=== PATIENT | male | born 1970 | race Caucasian/White ===

== ENCOUNTER 2018-08-25 01:26 | Emergency (ER) | payer OTHER ==
[~2018-08-25] VITALS: Ht 180.3 cm; Wt 87.7 kg
[2018-08-25 01:35] VITALS: Ht 180.3 cm; Wt 87.7 kg
[2018-08-25] MEDS ORDERED: METF850T13 PO (03:52)
[2018-08-25] MEDS ORDERED: CHOL100062 PO (03:52)
[2018-08-25] MEDS ORDERED: GLIM2TAB PO (03:52)
[2018-08-25] MEDS ORDERED: NEPH PO (03:52)
[2018-08-25] MEDS ORDERED: AMLO-147 PO (03:52)
[2018-08-25] MEDS ORDERED: VIT1TABL46 PO (03:52)
--- NOTE | 2018-08-25 04:38 | ERD ---
ER Documentation Chief Complaint Chief Complaint [id number],from home,syncopal episode X2,started Trulicity 2 wks ago Q1week HPI This is a 48-year-old male with a history of diabetes, CKD, who presents for evaluation of a syncopal episode. This was witnessed by the patient's , she reports that the patient had gotten out of bed, after getting up felt dizzy and lightheaded, and had a brief syncopal episode. Patient reports that he has felt dizzy, and generally weak since starting Trulicity, which was about 2 weeks ago. He denied a prodrome of chest pain prior, he had no headache, no shortness of breath. He has not had any leg swelling, fever or hemoptysis. He has no history of arrhythmia. ROS All systems reviewed and are negative except as per history of present illness. Medications Home Meds Reported Medications Vitamin B Complex* (Vitamin B Complex*) 1 Each Tablet, 1 TAB PO DAILY, TAB 08/25/18 Cholecalciferol* (Vitamin D3*) 1,000 Unit Tablet, 1000 UNIT PO DAILY, TAB 08/25/18 Multivit/Ca Carb/B Cmplx/Fa* (Shanta-Ivette*) 1 Tab Tab, 1 TAB PO DAILY, TAB 08/25/18 Amlodipine Besylate* (Amlodipine Besylate*) 10 Mg Tablet, 10 MG PO QAM, #30 TAB 08/25/18 Glimepiride* (Glimepiride*) 2 Mg Tablet, 2 MG PO WITH BREAKFAST DINNE, TAB 08/25/18 Metformin Hcl* (Metformin Hcl*) 850 Mg Tablet, 850 MG PO WITH BREAKFAST DINNE, #30 TAB 08/25/18 Allergies Allergies: Coded Allergies: No Known Allergy (Unverified , 08/25/18) PMhx/Soc Medical and Surgical Hx: pt denies Surgical Hx History of Surgery: No Anesthesia Reaction: No Hx Neurological Disorder: No Hx Respiratory Disorders: No Hx Cardiac Disorders: Yes (HTN, HYPERLIPIDEMIA ) Hx Psychiatric Problems: No Hx Miscellaneous Medical Probl: Yes (CKD) Hx Alcohol Use: No Hx Substance Use: No Hx Tobacco Use: No Smoking Status: Never smoker Physical Exam Vitals Vital Signs Date Temp Pulse Resp B/P (MAP) Pulse Ox O2 O2 Flow FiO2 Time Delivery Rate 08/25/18 98 16 131/79 100 Room Air 04:13 (96) 08/25/18 88 16 134/78 99 Room Air 03:15 (96) 08/25/18 97.7 82 18 137/72 100 01:35 (93) Physical Exam Const: No acute distress Head: Atraumatic Eyes: Normal Conjunctiva ENT: Normal External Ears, Nose and Mouth. Neck: Full range of motion. No meningismus. Resp: Clear to auscultation bilaterally Cardio: Regular rate and rhythm, no murmurs Abd: Soft, non tender, non distended. Normal bowel sounds Skin: No petechiae or rashes Back: No midline or flank tenderness Ext: No cyanosis, or edema Neur: Awake and alert Psych: Normal Mood and Affect Result Diagram: 08/25/1814308/25/18143 Results 24 hrs Laboratory Tests Test 08/25/18 01:44 08/25/18 03:18 White Blood Count 5.9 10^3/ul Red Blood Count 2.85 10^6/ul Hemoglobin 8.0 g/dl Hematocrit 24.4 % Mean Corpuscular Volume 85.6 fl Mean Corpuscular Hemoglobin 28.1 pg Mean Corpuscular Hemoglobin Concent 32.8 g/dl Red Cell Distribution Width 11.9 % Platelet Count 265 10^3/UL Mean Platelet Volume 10.4 fl Immature Granulocytes % 0.300 % Neutrophils % 73.4 % Lymphocytes % 15.8 % Monocytes % 7.0 % Eosinophils % 2.7 % Basophils % 0.8 % Nucleated Red Blood Cells % 0.0 /100WBC Immature Granulocytes # 0.020 10^3/ul Neutrophils # 4.3 10^3/ul Lymphocytes # 0.9 10^3/ul Monocytes # 0.4 10^3/ul Eosinophils # 0.2 10^3/ul Basophils # 0.1 10^3/ul Nucleated Red Blood Cells # 0.0 10^3/ul Sodium Level 134 mmol/L Potassium Level 4.8 mmol/L Chloride Level 107 mmol/L Carbon Dioxide Level 22 mmol/L Anion Gap 5 Blood Urea Nitrogen 69 mg/dl Creatinine 2.89 mg/dl Est Glomerular Filtrat Rate mL/min 23 mL/min Glucose Level 294 mg/dl Calcium Level 7.7 mg/dl Total Bilirubin 0.2 mg/dl Direct Bilirubin 0.00 mg/dl Indirect Bilirubin 0.2 mg/dl Aspartate Amino Transf (AST/SGOT) 10 IU/L Alanine Aminotransferase (ALT/SGPT) 21 IU/L Alkaline Phosphatase 53 IU/L Troponin I < 0.012 ng/ml Total Protein 4.8 g/dl Albumin 2.4 g/dl Globulin 2.40 g/dl Albumin/Globulin Ratio 1.00 Bedside Urine pH (LAB) 5.0 Bedside Urine Protein (LAB) 3+ Bedside Urine Glucose (UA) 0.50% Bedside Urine Ketones (LAB) Negative Bedside Urine Blood Trace-lysed Bedside Urine Nitrite (LAB) Negative Bedside Urine Leukocyte Esterase (L Negative Procedures/MDM This is a 48-year-old male presents ration of syncopal episode. I suspect his episode was most likely related to medication changes, his EKG showed no evidence of arrhythmia, labs were overall unremarkable, aside from his elevated creatinine, which per the patient was recently noted by his PMD, and resulted in the medication changes, he is following up with his PMD this week as of now. On labs he had no evidence of DKA, I reviewed his CT brain, and did not see an obvious intracranial bleed, and he had no evidence of external hematomas. Currently he is pending final CT read, if negative he can likely be discharged home. EKG: Rate/Rhythm: Normal Sinus Rhythm QRS, ST, T-waves: No changes consistent w/ acute ischemia Impression: No evidence of ischemia or arrhythmia 5:20 AM: CT brain negative for acute findings, patient stable for discharge home at discharge she was in no distress. Departure Diagnosis: Primary Impression: Syncope Syncope type: unspecified Qualified Codes: R55 - Syncope and collapse Condition: Stable IVY BRICENO MD Aug 25, 2018 04:38
[2018-08-25 05:32] VITALS: BP 134/72; PULSE 78; RESP 18
[2018-08-26] MEDS ORDERED: ATOR20TA38 PO (15:25)
[2018-08-26] MEDS ORDERED: CHOL200056 PO (15:26)
[2018-08-26] MEDS ORDERED: FURO40TA4 PO (15:27)
[2018-08-26] MEDS ORDERED: DULA0.75 SQ (15:28)
== END 2018-08-25 05:33 | disposition home or self-care (01) ==
LOC: E/R 01:26
DX: R55 Syncope and collapse (principal); I12.9 Hypertensive chronic kidney disease with stage 1 through stage 4 chronic kidney disease, or unspecified chronic kidney disease; N18.9 Chronic kidney disease, unspecified; E11.22 Type 2 diabetes mellitus with diabetic chronic kidney disease; Z79.84 Long term (current) use of oral hypoglycemic drugs
CPT/HCPCS: 36415; 70450; 71045; 80053; 81003; 82962; 84484; 85025; 93005; Z7502

== ENCOUNTER 2018-08-26 14:46 | Inpatient (IN) | payer OTHER ==
[2018-08-26] VITALS (16 sets, daily range): BP systolic 105–139; BP diastolic 57–80; PULSE 102–120; RESP 14–27
[~2018-08-26] VITALS: Ht 172.7 cm; Wt 90.2 kg
[~2018-08-26 14:46] MED LIST: AMLO-147 PO; CHOL100062 PO; GLIM2TAB PO; METF850T13 PO; NEPH PO; VIT1TABL46 PO
[2018-08-26] MEDS ORDERED: ASPIRIN 325 MG TAB PO STA (15:03)
[2018-08-26] MEDS ORDERED: SOD CHLORIDE 0.9% 500 ML IV STA (15:03)
[2018-08-26] MEDS ORDERED: DILTIAZEM-D5W 125MG/125ML DRIP 125 ML IV STA (15:16)
[2018-08-26] MEDS ORDERED: ATOR20TA38 PO (15:25)
[2018-08-26] MEDS ORDERED: CHOL200056 PO (15:26)
[2018-08-26] MEDS ORDERED: FURO40TA4 PO (15:27)
--- NOTE | 2018-08-26 15:27 | ERD ---
ER Documentation Chief Complaint Chief Complaint FEELING WEAK /DIZZY ,VOMITING , PALE HPI This is a 48-year-old male that presented to the emergency department stating that he had sudden onset of feeling very weak,dizzy lightheaded. He had one episode of nonbloody nonbilious emesis. The patient is a [id number] diabetes mellitus and recently started Trulicity 2 weeks prior to arrival. Since then the patient states he has been having multiple symptoms of not feeling very well with palpitations. The patient was seen and evaluated in the emergency department yesterday after he had a witnessed syncope episode by his that lasted for roughly several seconds. He had a work-up and was subsequently discharged home. The patient denies any chest pain or pressure. He is however stating that he feels weak with palpitations. He feels short of breath. He denies a headache or changes in vision. He feels very lightheaded and feels as though he is going to pass out again. He denies any recent travel or prolonged immobilization. The patient stated he had checked his sugar and it was found to be normal. He has been compliant with all his medications. ROS All systems reviewed and are negative except as per history of present illness. Medications Home Meds Reported Medications Dulaglutide (Trulicity) 0.75 Mg/0.5 Ml Pen.injctr, 0.75 MG SQ Q FRI PATIENT HASE A ADVERS REACTION WHEN HE INJECT THIS MEDICATION. 08/26/18 Furosemide* (Furosemide*) 40 Mg Tablet, 40 MG PO DAILY, TAB 08/26/18 Cholecalciferol (Vitamin D3) (Vitamin D-3) 2,000 Unit Tablet, 2000 UNIT PO DAILY, TAB 08/26/18 Atorvastatin Calcium* (Atorvastatin Calcium*) 20 Mg Tablet, 20 MG PO QHS, #30 TAB 08/26/18 Multivit/Ca Carb/B Cmplx/Fa* (Shanta-Ivette*) 1 Tab Tab, 1 TAB PO DAILY, TAB 08/25/18 Amlodipine Besylate* (Amlodipine Besylate*) 10 Mg Tablet, 10 MG PO QAM, #30 TAB 08/25/18 Glimepiride* (Glimepiride*) 2 Mg Tablet, 2 MG PO WITH BREAKFAST DINNE, TAB 08/25/18 Metformin Hcl* (Metformin Hcl*) 850 Mg Tablet, 850 MG PO WITH BREAKFAST DINNE, #30 TAB 08/25/18 Discontinued Reported Medications Vitamin B Complex* (Vitamin B Complex*) 1 Each Tablet, 1 TAB PO DAILY, TAB 08/25/18 Cholecalciferol* (Vitamin D3*) 1,000 Unit Tablet, 1000 UNIT PO DAILY, TAB 08/25/18 Allergies Allergies: Coded Allergies: No Known Allergy (Unverified , 08/25/18) PMhx/Soc History of Surgery: No Anesthesia Reaction: No Hx Neurological Disorder: No Hx Respiratory Disorders: No Hx Cardiac Disorders: Yes (HTN, HYPERLIPIDEMIA ) Hx Psychiatric Problems: No Hx Miscellaneous Medical Probl: Yes (CKD) Hx Alcohol Use: No Hx Substance Use: No Hx Tobacco Use: No Physical Exam Vitals Vital Signs Date Temp Pulse Resp B/P (MAP) Pulse Ox O2 O2 Flow FiO2 Time Delivery Rate 08/26/18 101.8 112 20 132/69 100 Room Air 18:51 (90) 08/26/18 99.8 110 20 141/74 100 Room Air 18:38 (96) 08/26/18 112 18 144/73 100 Room Air 18:10 (96) 08/26/18 113 18 136/72 100 Room Air 17:10 (93) 08/26/18 100.5 112 18 150/78 100 Room Air 16:10 (102) 08/26/18 97.8 119 18 112/62 100 14:50 (79) Physical Exam Constitutional:Well-developed. Well-nourished. HEENT:Normocephalic. Atraumatic.Pupils were equal round reactive to light. Moist mucous membranes.No tonsillar exudates. Neck: No nuchal rigidity. No lymphadenopathy. No posterior cervical spine tenderness or step-offs. Respiratory: Not using accessory muscles of respiration.Lungs were clear to auscultation bilaterally. No rhonchi. No rales. No wheezing. Cardiovascular: Tachycardic with irregular regular rhythm. No murmurs. No rubs were appreciated.S1, S2 normal. Distal pulses are palpable 2+ bilaterally. GI: Abdomen was soft. Nontender. Non Distended. No pulsatile abdominal masses or bruits. No rebound. No guarding. Bowel sounds were present and normal. Muscle skeletal: Full range of motion of both the upper and lower extremities bilaterally.Normal muscle tone.No assymetrical calf tenderness or swelling. Skin: Pale and diaphoretic. No petechia, no purpura. No lesions on the palms or the soles of the feet. No maculopapular rash. NEURO: Patient was alert, awake, orientated x3.No facial droop. Gait observed and normal with no ataxia.Speech had regular rate and rhythm. No focal neurological deficits. Result Diagram: 08/26/18 1545 08/26/18 1545 Results 24 hrs Laboratory Tests Test 08/26/18 14:58 08/26/18 15:45 Bedside Glucose 281 mg/dL White Blood Count 10.0 10^3/ul Red Blood Count 1.37 10^6/ul Hemoglobin 3.9 g/dl Hematocrit 11.9 % Mean Corpuscular Volume 86.9 fl Mean Corpuscular Hemoglobin 28.5 pg Mean Corpuscular Hemoglobin Concent 32.8 g/dl Red Cell Distribution Width 12.2 % Platelet Count 352 10^3/UL Mean Platelet Volume 11.0 fl Immature Granulocytes % 0.500 % Neutrophils % % Segmented Neutrophils % (Manual) 62 % Band Neutrophils % (Manual) 3 % Lymphocytes % % Lymphocytes % (Manual) 28 % Monocytes % % Monocytes % (Manual) 4 % Eosinophils % % Eosinophils % (Manual) 3 % Basophils % % Nucleated Red Blood Cells % 0.0 /100WBC Immature Granulocytes # 0.050 10^3/ul Neutrophils # 10^3/ul Neutrophils # (Manual) 6.2 10^3/ul Band Neutrophils # 0.3 10^3/ul Lymphocytes (Manual) 2.8 10^3/ul Lymphocytes # 2.8 10^3/ul Monocytes # 0.4 10^3/ul Monocytes # (Manual) 0.4 10^3/ul Eosinophils # 0.3 10^3/ul Basophils # 10^3/ul Nucleated Red Blood Cells # 10^3/ul Platelet Estimate NORMAL Absolute Reticulocyte Count 0.038 X10^6 Percent Reticulocyte Count 2.8 % Prothrombin Time 13.9 Sec Prothrombin Time Ratio 1.1 INR International Normalized Ratio 1.06 Activated Partial Thromboplast Time 28.2 Sec D-Dimer 1124.24 ng/ml D-Dimer Comment Sodium Level 138 mmol/L Potassium Level 4.9 mmol/L Chloride Level 112 mmol/L Carbon Dioxide Level 18 mmol/L Anion Gap 8 Blood Urea Nitrogen 102 mg/dl Creatinine 2.67 mg/dl Est Glomerular Filtrat Rate mL/min 25 mL/min Glucose Level 252 mg/dl Calcium Level 8.2 mg/dl Iron Level 44 ug/dl Total Iron Binding Capacity 204 ug/dl Percent Iron Saturation 22 % SAT Ferritin 60.6 ng/ml Total Bilirubin 0.1 mg/dl Direct Bilirubin 0.00 mg/dl Indirect Bilirubin 0.1 mg/dl Aspartate Amino Transf (AST/SGOT) 10 IU/L Alanine Aminotransferase (ALT/SGPT) 23 IU/L Alkaline Phosphatase 49 IU/L Lactate Dehydrogenase 342 IU/L Creatine Kinase 44 IU/L Creatine Kinase Index 1.6 Creatinine Kinase MB (Mass) 0.69 ng/ml Troponin I < 0.012 ng/ml B-Type Natriuretic Peptide 380 PG/ML Total Protein 4.8 g/dl Albumin 2.4 g/dl Globulin 2.40 g/dl Albumin/Globulin Ratio 1.00 Lipase 568 U/L Ethyl Alcohol Level < 10.0 mg/dl Current Medications Medications Dose Sig/Hardik Start Time Status Last (Trade) Ordered Route PRN Stop Time Admin Dose Reason Admin Sodium 500 ml @ Q1H STAT 08/26/18 DC Chloride 500 mls/hr IV 15:03 08/26/18 16:02 Aspirin 325 mg ONCE STAT 08/26/18 DC (Aspirin) PO 15:03 08/26/18 15:05 Diltiazem 10 mg ONCE ONCE 08/26/18 DC HCl IV 15:30 08/26/18 (Cardizem Iv) 15:31 Diltiazem 125 ml @ 5 ONCE STAT 08/26/18 HCl mls/hr IV 15:16 08/27/18 16:15 Famotidine 20 mg ONCE STAT 08/26/18 DC (Pepcid Iv) IV 16:26 08/26/18 16:27 Pantoprazole 100 ml @ ONCE STAT 08/26/18 DC 08/26/18 80 mg/Sodium 400 mls/hr IVPB 16:26 08/26/18 18:21 Chloride 16:40 Pantoprazole 100 ml @ ONCE STAT 08/26/18 08/26/18 80 mg/Sodium 10 mls/hr IV 16:26 08/27/18 18:46 Chloride 02:25 1,000 ml @ Q10H IV 08/26/18 Dextrose/Sodi 100 mls/hr 18:13 um Chloride Ondansetron 4 mg Q6H PRN 08/26/18 HCl (Zofran IV NAUSEA 18:30 Inj) AND/OR VOMITING Albuterol 2.5 mg Q2H RESP 08/26/18 (Proventil THERAPY PRN 18:30 0.083% (Neb)) NEB SHORTNESS OF BREATH 650 mg Q4H PRN 08/26/18 Acetaminophen [place] PAIN 18:30 (Tylenol LEVEL 1-3 OR Supp) FEVER Morphine 2 mg Q4H PRN 08/26/18 Sulfate IV PAIN 18:30 (morphine) LEVEL 7-10 Pantoprazole 100 ml @ Q10H IV 08/26/18 80 mg/Sodium 10 mls/hr 18:30 Chloride Furosemide 20 mg ONCE PRN 08/26/18 (Lasix) IV after 2nd 18:30 08/27/18 PRBC 18:29 Discontinue ONCE ONCE 08/26/18 DC Miscellaneous current oral XX 18:30 08/26/18 sulfonylur... 18:58 Information (* Miscellaneous Pharmacy Order) ONCE ONCE 08/26/18 DC Miscellaneous HYPOGLYCEMIA XX 18:30 08/26/18 PROTOCOL 18:58 Information w... (* Miscellaneous Pharmacy Order) Insulin NOVOLOG Q4 SC 08/26/18 Aspart *MILD* 21:00 (Novolog ALGORI... Insulin Pen) Discontinue ONCE ONCE 08/26/18 DC Miscellaneous all previ... XX 18:30 08/26/18 18:58 Information (* Miscellaneous Pharmacy Order) Hydralazine 10 mg Q4H PRN 08/26/18 HCl IV SBP >170 19:00 (Apresoline) 1 ea NOTE XX 08/26/18 Miscellaneous 19:00 Information Glucose 15 gm Q15M PRN 08/26/18 (Glutose) PO DECREASED 19:00 GLUCOSE Glucose 22.5 gm Q15M PRN 08/26/18 (Glutose) PO DECREASED 19:00 GLUCOSE Dextrose 25 ml Q15M PRN 08/26/18 (D50w IV DECREASED 19:00 Syringe) GLUCOSE Dextrose 50 ml Q15M PRN 08/26/18 (D50w IV DECREASED 19:00 Syringe) GLUCOSE Glucagon 1 mg Q15M PRN 08/26/18 (Glucagen) IM DECREASED 19:00 GLUCOSE Glucose 15 gm Q15M PRN 08/26/18 (Glutose) BUCCAL 19:00 DECREASED GLUCOSE Procedures/MDM This patient was seen and evaluated by myself. The patient presented to the emergency department complaining of dizziness. My differential diagnosis included but was not limited to hypovolemia, myocardial infarction, pulmonary embolism, hypoglycemia, hypoxia, anemia, vasovagal episode, hypothyroidism, anxiety, peripheral or central vertigo. The patient was placed on a monitor worker, continuous pulse oximetry and IV access established by nursing staff. The patient immediately had an Accu-Chek that was normal at 291. An EKG was immediately obtained as the patient was tachycardic and diaphoretic. 12 Lead EKG tracing ordered and reviewed by myself showed: Tachycardic irregular regular rhythm and flutter waves at 160 bpm and no arrhythmia. [place] not appreciated as P waves are not present. Right axis deviation. QRS duration normal. No ST segment elevation No ST segment depression. No changes consistent with acute ischemia. Nonsignificant Q waves present in inferior leads II, III and aVF I had ordered 10 mg of Cardizem and placed on a Cardizem drip. This appeared to be new atrial flutter and the patient is not anticoagulated. I went to the bedside multiple times to reevaluate the patient. He continued to be diaphoretic and hypotensive. Hemoglobin is 3.9. Therefore at this time the patient provided a written consent as I did feel he needed rapid autotransfusion. The patient already had a type and screen place but the blood was not ready therefore he received 1 unit of uncrossed matched blood. The seco nd unit was ready to be crossmatched which she received. Patient had significant improvement of his symptoms. He was no longer hypotensive he was no longer diaphoretic. He stated he did not feel dizzy or lightheaded. I repeated the EKG. 12 Lead EKG tracing ordered and reviewed by myself showed: Sinus tachycardia 110 bpm and no arrhythmia. NY interval normal. QRS duration normal. No ST segment elevation No ST segment depression. No changes consistent with acute ischemia. These note that the Cardizem push and drip had never been started. The patient became symptomatic which was thought to be secondary to a tachyarrhythmia from his severe anemia. Therefore again the Cardizem was never administered. Dr. Sims from have been consulted. An NG tube had initially been placed. This was successfully placed by nursing staff and confirmed to be good placement by myself as a Kayla syringe was utilized to indicate that there was a gush of air heard over the gastric region. Coffee-ground emesis was suctioned roughly 100 cc and then the patient had removed the NG tube himself as he stated he did not like the way the nasogastric tube helped him feel. Given the patient had new onset gastric bleeding a CT scan of the patient's abdomen was obtained as he did have reproducible epigastric tenderness. This was ordered by Dr. Asif also reviewed by myself and the radiologist and indicate the following: Abdominal adenopathy noted. Differential diagnosis includes inflammation and neoplasm. Very small right pleural effusion. Very small amount of ascites. Atherosclerosis. Moderate left inguinal hernia containing fat only and small to moderate right and containing fat only. I obtained a chest radiograph and there is hypoinflation of the lungs reviewed by myself there is no infiltrates or pneumothorax. The patient was hyperglycemic. There is no ketosis. This was treated with IV fluids. Critical Care: Time: 95 minutes Treatments/Evaluations: Close monitoring and treatment of unstable vital signs, cardiorespiratory, and neurologic status, while maintaining tight balance of fluid, respiratory, and cardiac interventions. Time does not include performing any of the above billable procedures. The patient will be admitted to the intensive care unit under the care of the hospitalist Dr. Asif in serious condition. Departure Diagnosis: Primary Impression: Upper GI bleed Additional Impressions: Near syncope Hyperglycemia without ketosis Condition: Serious EMIL SON MD Aug 26, 2018 15:26
[2018-08-26] MEDS ORDERED: DULA0.75 SQ (15:28)
[2018-08-26] MEDS ORDERED: DILTIAZEM 25 MG INJ IV ONE (15:30)
[2018-08-26] MEDS ORDERED: PANTOPRAZOLE IV 80 MG in SOD CHLORIDE 0.9% 100 ML IVPB STA (16:26)
[2018-08-26] MEDS ORDERED: FAMOTIDINE 20 MG INJ IV STA (16:26)
[2018-08-26] MEDS ORDERED: PANTOPRAZOLE IV 80 MG in SOD CHLORIDE 0.9% 100 ML IV STA (16:26)
[2018-08-26] MEDS ORDERED: ACETAMINOPHEN 650 MG SUPP PR PRN (18:30)
[2018-08-26] MEDS ORDERED: FUROSEMIDE 20 MG INJ IV PRN (18:30)
[2018-08-26] MEDS: PANTOPRAZOLE IV 80 MG in SOD CHLORIDE 0.9% 100 ML IV SCH (18:30)
[2018-08-26] MEDS ORDERED: ALBUTEROL 0.083% (NEB) 2.5 MG/3 ML AMP NEB PRN (18:30)
--- NOTE | 2018-08-26 18:38 | HP ---
Date/Time of Note Date/Time of Note DATE: 08/26/18 TIME: 18:19 Assessment/Plan VTE Prophylaxis SCD applied (from Nsg): Yes Pharmacological prophylaxis: NA/contraindicated Pharm contraindication: bleeding Assessment/Plan Assessment/Plan 1. Acute upper GI bleed - Patient noted with coffee ground emesis and hgb 3.9 - Gi consulted for further recommendations and potential EGD - IVF and Protonix drip on board - 4 units total of PRBC ordered with Lasix after 2nd dose to prevent overload - NG tube removed by patient but discussed if experiencing abdominal distension will need it replaced - Will check CT A/P when stable 2. Syncopal episode - secondary to severe anemia - supportive treatment 3. Blood loss anemia - total of 4 PRBC ordered - monitor H/H q6 after blood complete 4. Elevated lipase - most likely in setting of dehydration 5. HTN - PRN hydralazine 6. ALEJANDRO on CKD - most likely prerenal - per family renal function at 40% - will monitor for improvement after resuscitation. If remains impaired, will consult Nephrology 7. Diabetes mellitus - will hold PO medications. discussed holding Trulicity given intolerance - ISS and accuchecks - A1c ordered 8. Diet - NPO 9. DVT ppx - SCD 10. Disposition - Admit to ICU for close monitoring given severe anemia. GI consulted for possible EGD to determine etiology of UGIB Result Diagram: 08/26/18 1545 08/26/18 1545 Results 24hrs Laboratory Tests Test 08/26/18 14:58 08/26/18 15:45 Bedside Glucose 281 H White Blood Count 10.0 # Red Blood Count 1.37 #L Hemoglobin 3.9 #*L Hematocrit 11.9 #L Mean Corpuscular Volume 86.9 Mean Corpuscular Hemoglobin 28.5 L Mean Corpuscular Hemoglobin Concent 32.8 Red Cell Distribution Width 12.2 Platelet Count 352 # Mean Platelet Volume 11.0 H Immature Granulocytes % 0.500 H Neutrophils % Segmented Neutrophils % (Manual) 62 Band Neutrophils % (Manual) 3 Lymphocytes % Lymphocytes % (Manual) 28 Monocytes % Monocytes % (Manual) 4 Eosinophils % Eosinophils % (Manual) 3 Basophils % Nucleated Red Blood Cells % 0.0 Immature Granulocytes # 0.050 H Neutrophils # Neutrophils # (Manual) 6.2 Band Neutrophils # 0.3 Lymphocytes (Manual) 2.8 Lymphocytes # 2.8 Monocytes # 0.4 Monocytes # (Manual) 0.4 Eosinophils # 0.3 Basophils # Nucleated Red Blood Cells # Platelet Estimate NORMAL Absolute Reticulocyte Count 0.038 Percent Reticulocyte Count 2.8 H Prothrombin Time 13.9 Prothrombin Time Ratio 1.1 INR International Normalized Ratio 1.06 Activated Partial Thromboplast Time 28.2 D-Dimer 1124.24 H D-Dimer Comment Sodium Level 138 Potassium Level 4.9 Chloride Level 112 H Carbon Dioxide Level 18 L Anion Gap 8 Blood Urea Nitrogen 102 #H Creatinine 2.67 H Est Glomerular Filtrat Rate mL/min 25 L Glucose Level 252 H Calcium Level 8.2 L Iron Level 44 Total Iron Binding Capacity 204 L Percent Iron Saturation 22 Ferritin 60.6 Total Bilirubin 0.1 L Direct Bilirubin 0.00 Indirect Bilirubin 0.1 Aspartate Amino Transf (AST/SGOT) 10 L Alanine Aminotransferase (ALT/SGPT) 23 Alkaline Phosphatase 49 Lactate Dehydrogenase 342 Creatine Kinase 44 Creatine Kinase Index 1.6 Creatinine Kinase MB (Mass) 0.69 Troponin I < 0.012 B-Type Natriuretic Peptide 380 H Total Protein 4.8 L Albumin 2.4 L Globulin 2.40 Albumin/Globulin Ratio 1.00 Lipase 568 H Ethyl Alcohol Level < 10.0 H HPI/ROS Admit Date/Time Admit Date/Time 08/26/18 Hx of Present Illness 48 yo M with PMH Diabetes mellitus, HTN, CKD stage 3 and hyperlipidemia presented to ED following near syncopal episode today. Patient had a witnessed syncopal episode yesterday and was discharged from the ED after negative workup. Patient has been complaining of generalized weakness and "no strength" in his body. Patient had an episode of coffee ground emesis in the ED of about 200cc an d was found with hgb 3.9, Patient states over the past 2 weeks since starting Trulicity. He has been complaining of abdominal discomfort with bloating and gas. Denies any episode of emesis prior to today's ED visit. Patient denies any chest pain, shortness of breath, nausea, vomiting, dizziness, or urinary issues. NG tube was placed in the ED but patient requested removal due to discomfort. He was rapidly transfused 1 PRBC in the ED prior to transfer to ICU. ROS All 12 systems reviewed and pertinent positives as per HPI. All others negative Constitutional: fatigue; No nausea Eyes: No discharge ENT: No congestion Respiratory: No cough, No shortness of breath, No sputum, No wheezing Cardiovascular: lightheadedness; No chest pain, No palpitations Gastrointestinal: pain, blood, nausea, vomiting; No diarrhea Genitourinary: no complaints Musculoskeletal: no complaints Skin: No laceration, No rash Neurologic: syncope; No confusion, No dizziness, No focal-weakness, No headache Endocrine: no complaints Lymphatic: no complaints Psychological: nl mood/affect Immunologic: no complaints PMH/Family/Social Past Medical History Medical History: diabetes, high cholesterol, hypertension Medications Current Medications Diltiazem HCl 125 ml @ 5 mls/hr ONCE STAT IV ; Start 08/26/18 at 15:16; Stop 08/27/18 at 16:15 Pantoprazole 80 mg/Sodium Chloride 100 ml @ 10 mls/hr ONCE STAT IV ; Start 08/26/18 at 16:26; Stop 08/27/18 at 02:25 Coded Allergies: No Known Allergy (Unverified , 08/25/18) Past Surgical History Past Surgical Hx: no surgical history Family History Significant Family History: no pertinent family hx Social History Alcohol Use: none Smoking Status: Former smoker Drug Use: none Exam/Review of Systems Vital Signs Vitals Vital Signs Date Temp Pulse Resp B/P (MAP) Pulse Ox O2 O2 Flow FiO2 Time Delivery Rate 08/26/18 97.8 119 18 112/62 100 14:50 (79) Exam Exam General: Patient currently lying in bed, distress secondary to discomfort and f atigue HEENT: Atraumatic, normocephalic. The pupils are equal, round and reactive. Extraocular motor are intact Neck: Supple with full range of motion. No rigidity or meningismus Chest: Nontender Lungs: Clear to auscultation bilaterally no crackles rales or wheezing Heart: Normal S1-S2, Regular rhythm, tachycardia. No murmur, S3, or S4 Abdomen: Soft ,diffusely tender, protuberant , bowel sounds are present. No guarding no rebound tenderness , No masses or organomegaly. No costovertebral temporal angle mass Extremities: moving all extremities. no edema, cyanosis or clubbing Skin: pale complexion with dry mucus membrane Neurologic: Normal mental status, speech normal, cranial nerves II through XII are intact, motor and sensation intact Additional Comments Home medications reviewed PROCEDURE: XR Chest 1 View. CLINICAL INDICATION: Shortness of breath. TECHNIQUE: Single view of the chest was obtained. COMPARISON: Yesterday. FINDINGS: Support lines and tubes: None. Mediastinum: Within normal limits of size. Lungs: Hypoinflated lungs. Scattered atelectasis in both lungs. No consolidations. No pneumothorax. Osseous structures: Unchanged. Other: None. IMPRESSION: Scattered atelectasis in both lungs. Hypoinflated lungs. RPTAT: AA .Conrado Rice MD, MD Date Time Electronically viewed and signed by .Conrado Rice MD, MD on 08/26/2018 18:05 SOPHIA MCCLELLAN MD Aug 26, 2018 18:38
[2018-08-26] MEDS ORDERED: GLUCAGON 1 MG INJ IM PRN (19:00)
[2018-08-26] MEDS ORDERED: GLUCOSE GEL 15 GRAM TUBE PO PRN ×2 (19:00)
[2018-08-26] MEDS ORDERED: GLUCOSE GEL 15 GRAM TUBE BUCCAL PRN (19:00)
[2018-08-26] MEDS ORDERED: DEXTROSE 50% 50 ML SYRINGE IV PRN ×2 (19:00)
[2018-08-26] MEDS: DEXTROSE 5%-0.45% NACL 1,000 ML IV SCH (19:47)
[2018-08-26] MEDS: INSULIN ASPART [NOVOLOG] 3 ML PEN SC SCH (21:43)
[2018-08-27] VITALS (43 sets, daily range): BP systolic 100–156; BP diastolic 56–107; PULSE 84–109; RESP 9–30; BMI 28.8
[2018-08-27] MEDS: INSULIN ASPART [NOVOLOG] 3 ML PEN SC SCH ×6 (01:27→21:51)
[2018-08-27] MEDS: PANTOPRAZOLE IV 80 MG in SOD CHLORIDE 0.9% 100 ML IV SCH ×3 (01:35→23:11)
[2018-08-27] MEDS: DEXTROSE 5%-0.45% NACL 1,000 ML IV SCH (04:12)
[2018-08-27] MEDS: SOD CHLORIDE 0.9% 1,000 ML IV SCH ×3 (09:44→23:11)
--- NOTE | 2018-08-27 09:52 | PN ---
Date/Time of Note Date/Time of Note DATE: 08/27/18 TIME: 09:52 Objective Vitals Vital Signs Date Temp Pulse Resp B/P (MAP) Pulse Ox O2 O2 Flow FiO2 Time Delivery Rate 08/27/18 97 08:00 08/27/18 11 137/77 100 Room Air 06:00 (97) 08/27/18 98.4 04:00 Intake and Output 08/26/18 08/26/18 08/27/18 1515:00 23:00 07:00 IntakeIntake Total 1290 ml 770 ml OutputOutput Total 400 ml 500 ml BalanceBalance 890 ml 270 ml Results Result Diagram: 08/27/18 0455 08/27/18 0455 Medications Medications Current Medications Diltiazem HCl 125 ml @ 5 mls/hr ONCE STAT IV ; Start 08/26/18 at 15:16; Stop 08/27/18 at 16:15 Ondansetron HCl (Zofran Inj) 4 mg Q6H PRN IV NAUSEA AND/OR VOMITING; Start 08/26/18 at 18:30 Albuterol (Proventil 0.083% (Neb)) 2.5 mg Q2H RESP THERAPY PRN NEB SHORTNESS OF BREATH; Start 08/26/18 at 18:30 Acetaminophen (Tylenol Supp) 650 mg Q4H PRN [place] PAIN LEVEL 1-3 OR FEVER; Start 08/26/18 at 18:30 Morphine Sulfate (morphine) 2 mg Q4H PRN IV PAIN LEVEL 7-10; Start 08/26/18 at 18:30 Pantoprazole 80 mg/Sodium Chloride 100 ml @ 10 mls/hr Q10H IV Last administered on 08/27/18at 01:35; Admin Dose 10 MLS/HR; Start 08/26/18 at 18:30 Furosemide (Lasix) 20 mg ONCE PRN IV after 2nd PRBC Last administered on 08/26/18at 22:35; Admin Dose 20 MG; Start 08/26/18 at 18:30; Stop 08/27/18 at 18:29 Insulin Aspart (Novolog Insulin Pen) NOVOLOG *MILD* ALGORI... Q4 SC Last administered on 08/27/18at 09:42; Admin Dose 3 UNIT; Start 08/26/18 at 21:00 Hydralazine HCl (Apresoline) 10 mg Q4H PRN IV SBP >170; Start 08/26/18 at 19:00 Miscellaneous Information 1 ea NOTE XX ; Start 08/26/18 at 19:00 Glucose (Glutose) 15 gm Q15M PRN PO DECREASED GLUCOSE; Start 08/26/18 at 19:00 Glucose (Glutose) 22.5 gm Q15M PRN PO DECREASED GLUCOSE; Start 08/26/18 at 19:00 Dextrose (D50w Syringe) 25 ml Q15M PRN IV DECREASED GLUCOSE; Start 08/26/18 at 19:00 Dextrose (D50w Syringe) 50 ml Q15M PRN IV DECREASED GLUCOSE; Start 08/26/18 at 19:00 Glucagon (Glucagen) 1 mg Q15M PRN IM DECREASED GLUCOSE; Start 08/26/18 at 19:00 Glucose (Glutose) 15 gm Q15M PRN BUCCAL DECREASED GLUCOSE; Start 08/26/18 at 19:00 Sodium Chloride 1,000 ml @ 100 mls/hr Q10H IV Last administered on 08/27/18at 09:44; Admin Dose 100 MLS/HR; Start 08/27/18 at 09:30 Labetalol HCl (Labetalol) 10 mg Q4H PRN IV sbp >160; Start 08/27/18 at 10:00 VTE Prophylaxis Risk score (from Nsg)>0 risk: 2 SCD applied (from Nsg): Yes Lines/Catheters IV Catheter Type: Ruiz in Place: No Assessment/Plan Hospital Course Subjective Patient feeling much better than yesterday however still feels weak, no abdominal pain, currently no more vomiting, has some black stool however Objective Physical exam General: Patient is laying in bed and answers questions appropriately Mentation: Patient is alert and oriented 4, Head: Normocephalic atraumatic Eyes: EOMI, pupils reactive to light Neck: Supple, nontender, midline Respiratory: Clear to auscultation bilaterally Cardiovascular: regular rate, no obvious murmurs Gastrointestinal: non-tender to palpation, bowel sounds heard. Neurological: Moves all extremities spontaneously Skin: No new skin lesions Assessment and plan Hematemesis with acute upper GI bleed -Hemoglobin was very low, continue transfusions as needed, hematemesis has resolved -IV fluid and Protonix drip -GI consultation pending likely EGD -NG tube removed per patient, will need to replace if further hematemesis or abdominal distention or abdominal pain -GI recommendations pending Syncope -Likely secondary to above hematemesis and hemoglobin of 3.9 on admission [place]-supportive treatment -Monitor closely Blood loss anemia -Continue transfusing as needed needed -Secondary to GI bleed Elevated lipase -No abdominal pain -Likely due to above GI issues, monitor Hypertension -As needed hydralazine and labetalol, restart home meds when able to tolerate p.o. Acute kidney injury versus chronic kidney disease -Continue IV fluid -Nephrology consulted Diabetes mellitus -Patient stated that ever since he was given Trulicity the past week he has been experiencing severe side effects, hold Trulicity for now, insulin sliding scale for now Disposition -Continue care in the ICU, awaiting GI recommendations, transfuse as needed More than 40 minutes of critical care time spent on this encounter. IVY PICKETT Aug 27, 2018 09:52
[2018-08-27] MEDS ORDERED: SOD CHLORIDE 0.9% 250 ML IV* ONE (10:51)
--- NOTE | 2018-08-27 14:41 | CONS ---
Assessment/Plan Assessment/Plan Hospital Course (Demo Recall) Summary Assessment and Plan: Assessment: Coffee-ground emesis Severe anemia 2/2 to above Abdominal adenopathy noted -Differential diagnosis includes inflammation and neoplasm. Small right pleural effusion Elevated lipase- Likely 2/2 to dehydration HTN ALEJANDRO on CKD Small amount of ascites DM Plan: PPI gtt EGD today Endoscopy - risks/benefits/alternatives/indications of procedure and sedation/anesthesia discussed with patient who states understanding and gives informed consent to proceed. MRI of the abdomen to further assess abdominal adenopathy - we are unable to obtain imaging with contrast given kidney function. Monitor H/H Patient seen in collaboration with Dr Sims CC: NOBLE SIMS MD ; Consultation Date/Type/Reason Admit Date/Time 08/26/18 Date of Consultation: Aug 27, 2018 Type of Consult GI Reason for Consultation Coffee-ground emesis Date/Time of Note DATE: 08/27/18 TIME: 13:47 Hx of Present Illness This is a 48 year old male with PMH of DM, HTN, who was admitted for severe anemia with a HGB of 3.9 on admission. He initially presented to the hospital 2 days ago with complaints of dizziness, fatigue, and witnessed syncope, although work-up was negative and patient was subsequently discharged. He represented with similar complaints while in the ED patient had a witnessed episode of coffee ground emesis about 200cc and was found with hgb 3.9, He was admitted to the ICU and given blood transfusions. A Ct abd/pelvis was obtained without contrast given kidney disease showing abdominal adenopathy noted. Differential diagnosis includes inflammation and neoplasm. Very small right pleural effusion. Very small amount of ascites. Atherosclerosis. Moderate left inguinal hernia containing fat only and small to moderate right and containing fat only. Of note Patient states over the past 2 weeks since starting Trulicity. He has been complaining of abdominal discomfort with bloating and gas. Patient denies change in bowel habits, melena, or hematochezia, he does not unintentional weight loss over the past few weeks. He thinks may be unrelated to the start of Trulicity. Discussed plan for EGD today. I reviewed risk/benefits of sedation and procedure with patient who verbalized understanding and is agreeable. Review of Systems: A 12 system, review was conducted and is negative except as noted in the HPI or here. Past Medical History Medical History: diabetes, high cholesterol, hypertension Home Meds Reported Medications Dulaglutide (Trulicity) 0.75 Mg/0.5 Ml Pen.injctr, 0.75 MG SQ Q FRI PATIENT HASE A ADVERS REACTION WHEN HE INJECT THIS MEDICATION. 08/26/18 Furosemide* (Furosemide*) 40 Mg Tablet, 40 MG PO DAILY, TAB 08/26/18 Cholecalciferol (Vitamin D3) (Vitamin D-3) 2,000 Unit Tablet, 2000 UNIT PO DAILY, TAB 08/26/18 Atorvastatin Calcium* (Atorvastatin Calcium*) 20 Mg Tablet, 20 MG PO QHS, #30 TAB 08/26/18 Multivit/Ca Carb/B Cmplx/Fa* (Shanta-Ivette*) 1 Tab Tab, 1 TAB PO DAILY, TAB 08/25/18 Amlodipine Besylate* (Amlodipine Besylate*) 10 Mg Tablet, 10 MG PO QAM, #30 TAB 08/25/18 Glimepiride* (Glimepiride*) 2 Mg Tablet, 2 MG PO WITH BREAKFAST DINNE, TAB 08/25/18 Metformin Hcl* (Metformin Hcl*) 850 Mg Tablet, 850 MG PO WITH BREAKFAST DINNE, #30 TAB 08/25/18 Discontinued Reported Medications Vitamin B Complex* (Vitamin B Complex*) 1 Each Tablet, 1 TAB PO DAILY, TAB 08/25/18 Cholecalciferol* (Vitamin D3*) 1,000 Unit Tablet, 1000 UNIT PO DAILY, TAB 08/25/18 Medications Current Medications Diltiazem HCl 125 ml @ 5 mls/hr ONCE STAT IV ; Start 08/26/18 at 15:16; Stop 08/27/18 at 16:15 Ondansetron HCl (Zofran Inj) 4 mg Q6H PRN IV NAUSEA AND/OR VOMITING; Start 08/26/18 at 18:30 Albuterol (Proventil 0.083% (Neb)) 2.5 mg Q2H RESP THERAPY PRN NEB SHORTNESS OF BREATH; Start 08/26/18 at 18:30 Acetaminophen (Tylenol Supp) 650 mg Q4H PRN [place] PAIN LEVEL 1-3 OR FEVER; Start 08/26/18 at 18:30 Morphine Sulfate (morphine) 2 mg Q4H PRN IV PAIN LEVEL 7-10; Start 08/26/18 at 18:30 Pantoprazole 80 mg/Sodium Chloride 100 ml @ 10 mls/hr Q10H IV Last administered on 08/27/18at 01:35; Admin Dose 10 MLS/HR; Start 08/26/18 at 18:30 Furosemide (Lasix) 20 mg ONCE PRN IV after 2nd PRBC Last administered on 08/26/18at 22:35; Admin Dose 20 MG; Start 08/26/18 at 18:30; Stop 08/27/18 at 18:29 Insulin Aspart (Novolog Insulin Pen) NOVOLOG *MILD* ALGORI... Q4 SC Last administered on 08/27/18at 09:42; Admin Dose 3 UNIT; Start 08/26/18 at 21:00 Hydralazine HCl (Apresoline) 10 mg Q4H PRN IV SBP >170; Start 08/26/18 at 19:00 Miscellaneous Information 1 ea NOTE XX ; Start 08/26/18 at 19:00 Glucose (Glutose) 15 gm Q15M PRN PO DECREASED GLUCOSE; Start 08/26/18 at 19:00 Glucose (Glutose) 22.5 gm Q15M PRN PO DECREASED GLUCOSE; Start 08/26/18 at 19:00 Dextrose (D50w Syringe) 25 ml Q15M PRN IV DECREASED GLUCOSE; Start 08/26/18 at 19:00 Dextrose (D50w Syringe) 50 ml Q15M PRN IV DECREASED GLUCOSE; Start 08/26/18 at 19:00 Glucagon (Glucagen) 1 mg Q15M PRN IM DECREASED GLUCOSE; Start 08/26/18 at 19:00 Glucose (Glutose) 15 gm Q15M PRN BUCCAL DECREASED GLUCOSE; Start 08/26/18 at 19:00 Sodium Chloride 1,000 ml @ 100 mls/hr Q10H IV Last administered on 08/27/18at 09 :44; Admin Dose 100 MLS/HR; Start 08/27/18 at 09:30 Labetalol HCl (Labetalol) 10 mg Q4H PRN IV sbp >160; Start 08/27/18 at 10:00 Allergies: Coded Allergies: No Known Allergy (Unverified , 08/25/18) Past Surgical History Past Surgical Hx: no surgical history Social History Alcohol Use: none Smoking Status: Former smoker Drug Use: none Exam/Review of Systems Exam Vitals Vital Signs Date Temp Pulse Resp B/P (MAP) Pulse Ox O2 O2 Flow FiO2 Time Delivery Rate 08/27/18 89 12:00 08/27/18 20 122/75 100 Room Air 12:00 (91) 08/27/18 97.9 08:00 Intake and Output 08/26/18 08/26/18 08/27/18 1515:00 23:00 07:00 IntakeIntake Total 1290 ml 770 ml OutputOutput Total 400 ml 500 ml BalanceBalance 890 ml 270 ml Exam PHYSICAL EXAMINATION: GENERAL: Well developed, well nourished, alert & oriented x 3, in no acute distress SKIN: No lesions, no stigmata chronic liver disease, no evidence of bleeding diathesis LYMPHATIC: No palpable lymphadenopathy. HEAD: Normocephalic, atraumatic, no tenderness. EYES: Pupils equal reactive to light and accommodation, full extraocular movements, sclera clear, non-icteric, no discharge. EARS/NOSE AND THROAT: Ears normal, nose normal, oropharynx normal, oral membranes well hydrated without lesions. NECK: Supple, no masses, thyroid normal, JVP within normal limits, carotids normal without bruits. CHEST: Inspection within normal limits. CARDIOVASCULAR: Heart: Regular rate and rhythm, no murmurs, gallops or rubs. Peripheral pulses present within normal limits, no cyanosis, clubbing or edemas. No pulsatile abdominal mass RESPIRATORY: Lungs clear to auscultation and percussion, no wheezing, no rubs GASTROINTESTINAL AND LIVER: Abdomen: Soft, non tenderness, non-distended, no hernias, no masses, no organomegaly, no ascites, no guarding, no rebound tenderness, normoactive bowel sounds. Rectal: Deferred. Results Result Diagram: 08/27/18 1002 08/27/18 0455 Results 24hrs Laboratory Tests Test 08/26/18 14:58 08/26/18 15:45 08/26/18 21:40 08/26/18 22:52 Bedside Glucose 281 H 278 H White Blood Count 10.0 # Red Blood Count 1.37 #L Hemoglobin 3.9 #*L 5.1 #*L Hematocrit 11.9 #L 14.9 #L Mean Corpuscular Volume 86.9 Mean Corpuscular 28.5 L Hemoglobin Mean Corpuscular 32.8 Hemoglobin Concent Red Cell Distribution 12.2 Width Platelet Count 352 # Mean Platelet Volume 11.0 H Immature Granulocytes % 0.500 H Neutrophils % Segmented Neutrophils 62 % (Manual) Band Neutrophils % 3 (Manual) Lymphocytes % Lymphocytes % (Manual) 28 Monocytes % Monocytes % (Manual) 4 Eosinophils % Eosinophils % (Manual) 3 Basophils % Nucleated Red Blood 0.0 Cells % Immature Granulocytes # 0.050 H Neutrophils # Neutrophils # (Manual) 6.2 Band Neutrophils # 0.3 Lymphocytes (Manual) 2.8 Lymphocytes # 2.8 Monocytes # 0.4 Monocytes # (Manual) 0.4 Eosinophils # 0.3 Basophils # Nucleated Red Blood Cells # Platelet Estimate NORMAL Absolute Reticulocyte 0.038 Count Percent Reticulocyte 2.8 H Count Prothrombin Time 13.9 Prothrombin Time Ratio 1.1 INR International 1.06 Normalized Ratio Activated 28.2 Partial Thromboplast Time D-Dimer 1124.24 H D-Dimer Comment Sodium Level 138 Potassium Level 4.9 Chloride Level 112 H Carbon Dioxide Level 18 L Anion Gap 8 Blood Urea Nitrogen 102 #H Creatinine 2.67 H Est Glomerular Filtrat 25 L Rate mL/min Glucose Level 252 H Calcium Level 8.2 L Iron Level 44 Total Iron Binding 204 L Capacity Percent Iron Saturation 22 Ferritin 60.6 Total Bilirubin 0.1 L Direct Bilirubin 0.00 Indirect Bilirubin 0.1 Aspartate Amino 10 L Transf (AST/SGOT) Alanine 23 Aminotransferase (ALT/SG PT) Alkaline Phosphatase 49 Lactate Dehydrogenase 342 Creatine Kinase 44 51 Creatine Kinase Index 1.6 0.9 Creatinine Kinase MB 0.69 0.45 (Mass) Troponin I < 0.012 < 0.012 B-Type Natriuretic 380 H Peptide Total Protein 4.8 L Albumin 2.4 L Globulin 2.40 Albumin/Globulin Ratio 1.00 Lipase 568 H Ethyl Alcohol Level < 10.0 H Test 08/27/18 01:22 08/27/18 04:10 08/27/18 04:55 08/27/18 09:40 Bedside Glucose 216 196 242 H Hemoglobin 6.5 #*L Hematocrit 18.8 #L Sodium Level 142 Potassium Level 4.1 Chloride Level 117 H Carbon Dioxide Level 18 L Anion Gap 7 Blood Urea Nitrogen 92 H Creatinine 2.53 H Glucose Level 188 Calcium Level 7.7 L Phosphorus Level 4.0 Magnesium Level 2.2 Creatine Kinase 60 Creatine Kinase Index 1.2 Creatinine Kinase MB 0.69 (Mass) Troponin I 0.012 Albumin 2.1 L Test 08/27/18 10:02 08/27/18 10:03 Hemoglobin 7.4 L Hematocrit 21.6 L Hemoglobin A1c 7.3 H Medications Medication Current Medications Diltiazem HCl 125 ml @ 5 mls/hr ONCE STAT IV ; Start 08/26/18 at 15:16; Stop 08/27/18 at 16:15 Ondansetron HCl (Zofran Inj) 4 mg Q6H PRN IV NAUSEA AND/OR VOMITING; Start 08/26/18 at 18:30 Albuterol (Proventil 0.083% (Neb)) 2.5 mg Q2H RESP THERAPY PRN NEB SHORTNESS OF BREATH; Start 08/26/18 at 18:30 Acetaminophen (Tylenol Supp) 650 mg Q4H PRN [place] PAIN LEVEL 1-3 OR FEVER; Start 08/26/18 at 18:30 Morphine Sulfate (morphine) 2 mg Q4H PRN IV PAIN LEVEL 7-10; Start 08/26/18 at 18:30 Pantoprazole 80 mg/Sodium Chloride 100 ml @ 10 mls/hr Q10H IV Last administered on 08/27/18at 01:35; Admin Dose 10 MLS/HR; Start 08/26/18 at 18:30 Furosemide (Lasix) 20 mg ONCE PRN IV after 2nd PRBC Last administered on 08/26/18at 22:35; Admin Dose 20 MG; Start 08/26/18 at 18:30; Stop 08/27/18 at 18:29 Insulin Aspart (Novolog Insulin Pen) NOVOLOG *MILD* ALGORI... Q4 SC Last administered on 08/27/18at 09:42; Admin Dose 3 UNIT; Start 08/26/18 at 21:00 Hydralazine HCl (Apresoline) 10 mg Q4H PRN IV SBP >170; Start 08/26/18 at 19:00 Miscellaneous Information 1 ea NOTE XX ; Start 08/26/18 at 19:00 Glucose (Glutose) 15 gm Q15M PRN PO DECREASED GLUCOSE; Start 08/26/18 at 19:00 Glucose (Glutose) 22.5 gm Q15M PRN PO DECREASED GLUCOSE; Start 08/26/18 at 19:00 Dextrose (D50w Syringe) 25 ml Q15M PRN IV DECREASED GLUCOSE; Start 08/26/18 at 19:00 Dextrose (D50w Syringe) 50 ml Q15M PRN IV DECREASED GLUCOSE; Start 08/26/18 at 19:00 Glucagon (Glucagen) 1 mg Q15M PRN IM DECREASED GLUCOSE; Start 08/26/18 at 19:00 Glucose (Glutose) 15 gm Q15M PRN BUCCAL DECREASED GLUCOSE; Start 08/26/18 at 19:00 Sodium Chloride 1,000 ml @ 100 mls/hr Q10H IV Last administered on 08/27/18at 09:44; Admin Dose 100 MLS/HR; Start 08/27/18 at 09:30 Labetalol HCl (Labetalol) 10 mg Q4H PRN IV sbp >160; Start 08/27/18 at 10:00 ASHTYN CHAVEZ Aug 27, 2018 13:58
--- NOTE | 2018-08-27 15:37 | CONS ---
DATE OF ADMISSION: 08/25/2018 DATE OF CONSULTATION: 08/25/2018 TYPE OF CONSULTATION: Renal. Thank you, Dr. Asif, for asking me to participate in the medical management of this patient. REASON FOR CONSULTATION: Renal failure. HISTORY OF PRESENT ILLNESS: This 48-year-old man was admitted through the emergency room after he presented complaining of feeling weak, dizzy, vomiting and being pale. The patient has had black stool. He also had a coffee-ground emesis. The patient attributes his feeling weak and dizzy to starting Trulicity 2 weeks ago. Since then, the patient has been having multiple symptoms of feeling ill with palpitations. The patient was evaluated in the emergency room 2 days ago because of 2 episodes of syncope. At that time, the patient's hemoglobin was 8.0. The patient sent home. The patient then returned yesterday and his hemoglobin was 3.9. The patient admits to a history of type 2 diabetes mellitus for at least 19 years. He has been on oral medication up until 2 weeks ago when Trulicity was added to his drug regimen. The patient was told previously that he has kidney disease. The patient also has diabetic retinopathy and possibly early diabetic neuropathy. The patient says that he has bleeding in his right eye and was about to have a treatment for the bleeding. OTHER PAST MEDICAL HISTORY: Remarkable for hypertension, chronic kidney disease, type 2 diabetes mellitus. The patient's history is consistent with upper GI bleeding. CURRENT MEDICATIONS: Include the followin. Vitamin D3 2000 units a day. 2. Metformin 850 mg twice a day. 3. Glimepiride 2 mg a day. 4. Atorvastatin 20 mg a day. 5. Furosemide 40 mg a day. 6. Shanta-Ivette 1 daily. 7. Amlodipine 10 mg a day. 8. Trulicity 0.75 mg once a week. PAST SURGICAL HISTORY: None. FAMILY HISTORY: Unremarkable. SOCIAL HISTORY: He does not drink alcohol. He is a former smoker. He does not use drugs. PHYSICAL EXAMINATION: GENERAL: At this time reveals a well-developed man in no apparent distress. His son and [id number] are in the room with him. VITAL SIGNS: Temperature is 97.9, pulse of 92, respirations 13, blood pressure 136/75, O2 saturation 100% on room air. HEENT: Head is normocephalic. Eyes: Extraocular muscles are intact. Nose and mouth are normal. NECK: Supple. No neck vein distention. LUNGS: Clear to auscultation. HEART: Regular rhythm. No murmurs, gallops or rubs. ABDOMEN: Soft, nontender, no masses or megaly. EXTREMITIES: No peripheral edema. NEUROLOGIC: Grossly intact. IMPRESSION: 1. Acute renal failure superimposed on chronic kidney disease. The patient has had diabetes for 19 years with a history of diabetic retinopathy. These factors are consistent with the patient having diabetic nephropathy. His baseline serum creatinine is not known. His BUN is high, no doubt due to gastrointestinal bleeding. 2. Diabetic retinopathy and probably early diabetic neuropathy. 3. Hypertension. 4. Hyperlipidemia. 5. Gastrointestinal bleeding probably upper gastrointestinal, rule out gastritis or ulcer. PLAN: 1. I will order a renal ultrasound , Urine for routine urinalysis and for urine protein creatinine ratio. 3. Will monitor daily labs and renal function. 4. I will follow the patient along with you. Dictated By: RUCHI VELIZ MD, ND/BRADLY Conf#: [id number] DID#: [id number] CC: IVY BRICENO MD;*EndCC* MTDD
--- NOTE | 2018-08-27 16:02 | PREAC ---
Date/Time of Note Date/Time of Note DATE: 08/27/18 TIME: 16:01 Anesthesia Eval and Record Evaluation Time Pre-Procedure Interview DATE: 08/27/18 TIME: 16:01 Age 48 Sex male NPO: 8 hrs Preoperative diagnosis Acute upper GI bleed Planned procedure EGD Past Medical History Past Medical History: Includes Cardio: HTN Endo: Diabetes Renal: ALEJANDRO Heme: Anemia Surgery & Anesthesia Issues No known issue Meds Anticoagulation: No Beta Kelli within 24 hr: No Reason Beta Kelli not given: Pt. not on B-Kelli Reported Medications Dulaglutide (Trulicity) 0.75 Mg/0.5 Ml Pen.injctr, 0.75 MG SQ Q FRI PATIENT HASE A ADVERS REACTION WHEN HE INJECT THIS MEDICATION. 08/26/18 Furosemide* (Furosemide*) 40 Mg Tablet, 40 MG PO DAILY, TAB 08/26/18 Cholecalciferol (Vitamin D3) (Vitamin D-3) 2,000 Unit Tablet, 2000 UNIT PO DAILY, TAB 08/26/18 Atorvastatin Calcium* (Atorvastatin Calcium*) 20 Mg Tablet, 20 MG PO QHS, #30 TAB 08/26/18 Multivit/Ca Carb/B Cmplx/Fa* (Shanta-Ievtte*) 1 Tab Tab, 1 TAB PO DAILY, TAB 08/25/18 Amlodipine Besylate* (Amlodipine Besylate*) 10 Mg Tablet, 10 MG PO QAM, #30 TAB 08/25/18 Glimepiride* (Glimepiride*) 2 Mg Tablet, 2 MG PO WITH BREAKFAST DINNE, TAB 08/25/18 Metformin Hcl* (Metformin Hcl*) 850 Mg Tablet, 850 MG PO WITH BREAKFAST DINNE, #30 TAB 08/25/18 Discontinued Reported Medications Vitamin B Complex* (Vitamin B Complex*) 1 Each Tablet, 1 TAB PO DAILY, TAB 08/25/18 Cholecalciferol* (Vitamin D3*) 1,000 Unit Tablet, 1000 UNIT PO DAILY, TAB 08/25/18 Current Medications Diltiazem HCl 125 ml @ 5 mls/hr ONCE STAT IV ; Start 08/26/18 at 15:16; Stop 08/27/18 at 16:15 Ondansetron HCl (Zofran Inj) 4 mg Q6H PRN IV NAUSEA AND/OR VOMITING; Start 08/26/18 at 18:30 Albuterol (Proventil 0.083% (Neb)) 2.5 mg Q2H RESP THERAPY PRN NEB SHORTNESS OF BREATH; Start 08/26/18 at 18:30 Acetaminophen (Tylenol Supp) 650 mg Q4H PRN [place] PAIN LEVEL 1-3 OR FEVER; Start 08/26/18 at 18:30 Morphine Sulfate (morphine) 2 mg Q4H PRN IV PAIN LEVEL 7-10; Start 08/26/18 at 18:30 Pantoprazole 80 mg/Sodium Chloride 100 ml @ 10 mls/hr Q10H IV Last administered on 08/27/18at 14:02; Admin Dose 10 MLS/HR; Start 08/26/18 at 18:30 Furosemide (Lasix) 20 mg ONCE PRN IV after 2nd PRBC Last administered on 08/26/18at 22:35; Admin Dose 20 MG; Start 08/26/18 at 18:30; Stop 08/27/18 at 18:29 Insulin Aspart (Novolog Insulin Pen) NOVOLOG *MILD* ALGORI... Q4 SC Last administered on 08/27/18at 13:58; Admin Dose 2 UNIT; Start 08/26/18 at 21:00 Hydralazine HCl (Apresoline) 10 mg Q4H PRN IV SBP >170; Start 08/26/18 at 19:00 Miscellaneous Information 1 ea NOTE XX ; Start 08/26/18 at 19:00 Glucose (Glutose) 15 gm Q15M PRN PO DECREASED GLUCOSE; Start 08/26/18 at 19:00 Glucose (Glutose) 22.5 gm Q15M PRN PO DECREASED GLUCOSE; Start 08/26/18 at 19:00 Dextrose (D50w Syringe) 25 ml Q15M PRN IV DECREASED GLUCOSE; Start 08/26/18 at 19:00 Dextrose (D50w Syringe) 50 ml Q15M PRN IV DECREASED GLUCOSE; Start 08/26/18 at 19:00 Glucagon (Glucagen) 1 mg Q15M PRN IM DECREASED GLUCOSE; Start 08/26/18 at 19:00 Glucose (Glutose) 15 gm Q15M PRN BUCCAL DECREASED GLUCOSE; Start 08/26/18 at 19:00 Sodium Chloride 1,000 ml @ 100 mls/hr Q10H IV Last administered on 08/27/18at 09:44; Admin Dose 100 MLS/HR; Start 08/27/18 at 09:30 Labetalol HCl (Labetalol) 10 mg Q4H PRN IV sbp >160; Start 08/27/18 at 10:00 Meds reviewed: Yes Allergies Coded Allergies: No Known Allergy (Unverified , 08/25/18) Allergies Reviewed: Yes Labs/Studies Labs Reviewed: Reviewed by anesthesiologist Result Diagram: 08/27/18 1002 08/27/18 0455 Laboratory Tests 08/27/18 04:55 08/27/18 10:02 test: N/A Pre-procedure Exam Last vitals Vital Signs Date Temp Pulse Resp B/P (MAP) Pulse Ox O2 O2 Flow FiO2 Time Delivery Rate 08/27/18 88 9 135/84 100 Room Air 14:00 (101) 08/27/18 97.9 08:00 Airway: Adequate mouth opening Mallampati: Mallampati II Teeth: Normal Lung: Normal Heart: Normal ASA Physical Status ASA physical status: 2 Emergency: None Planned Anesthetic General/MAC: MAC Pre-operative Attestations Prior to commencing anesthesia and surgery, the patient was re-evaluated, there was verification of: *The patient's identity *The results of appropriate recent lab work and preoperative vital signs *The above evaluation not changing prior to induction *Anesthetic plan, risk benefits, alternative and complications discussed with patient/family; questions answered; patient/family understands, accepts and wishes to proceed. CHRIS AGGARWAL Aug 27, 2018 16:02
--- NOTE | 2018-08-27 16:18 | CONS ---
Assessment/Plan Assessment/Plan Hospital Course (Demo Recall) 1. Syncope/presyncope secondary to severe anemia 2. Severe anemia 3. GI bleed 4. History of diabetes 5. Acute renal failure 6. Dyslipidemia 7. History of hypertension Recommendation: We will check echocardiogram to evaluate for LV function EKG was reviewed by unlike what the computer reads it is not in atrial flutter. No anticoagulation for A. fib or flutter is indicated GI work-up including endoscopy is being done. Patient received multiple blood transfusion and has been admitted to intensive care unit for close monitoring. IV fluids and fluid management as per internal medicine. Thyroid function test will be checked. Monitor H&H and transfuse as needed Continue with ICU care for now. More than 39 minutes critical care time was for management treatment is critically patient excluding any procedures Thank you for this referral. We will continue to follow along with you YASH ZARAGOZA MD [facility] Consultation Date/Type/Reason Admit Date/Time 08/26/18 Date of Consultation: Aug 27, 2018 Type of Consult Cardiology Reason for Consultation r/o Aflutter Requesting Provider: IVY PICKETT Date/Time of Note DATE: 08/27/18 TIME: 16:12 Hx of Present Illness interventional cardiology consultation note Chief complaint: Weakness presyncope Reason for consult: Rule out atrial flutter History of present illness: Thank you for this referral. History was obtained from the patient discussion with physician staff discussion with patient family including his [id number] who was also translating for me This is a pleasant 48-year-old gentleman with diabetes hypertension dyslipidemia who presented to the emergency above complaint. Patient said he was started on Trulicity and since then he has been weak. He has been weak for a few days and apparently has had dark stool over the past few days. Came to emergency room yesterday with complaint of severe weakness almost passed out. He did not lose consciousness though. EKG was reviewed initial EKG in the ER done read by the computer is read as atrial flutter. However it was personally reviewed and it appears that the patient was in sinus tachycardia only. He has been getting multiple blood transfusion and his heart rate has significantly improved as well. Denies any chest pain or pressure to me as a palpitation he woke up annual labor apparently with no chest pain or pressure normally but has been very weak over the past few weeks Allergies: No known drug allergies Medications were reviewed as per medical reconciliation sheet Family history: Multiple family members diabetes with no known coronary artery disease Social history: Has quit smoking about a month ago Past medical history: Diabetes hypertension dyslipidemia anemia as above social smoking Review of system: Patient denies all others except for above-mentioned Past Medical History Home Meds Reported Medications Dulaglutide (Trulicity) 0.75 Mg/0.5 Ml Pen.injctr, 0.75 MG SQ Q FRI PATIENT HASE A ADVERS REACTION WHEN HE INJECT THIS MEDICATION. 08/26/18 Furosemide* (Furosemide*) 40 Mg Tablet, 40 MG PO DAILY, TAB 08/26/18 Cholecalciferol (Vitamin D3) (Vitamin D-3) 2,000 Unit Tablet, 2000 UNIT PO DAILY, TAB 08/26/18 Atorvastatin Calcium* (Atorvastatin Calcium*) 20 Mg Tablet, 20 MG PO QHS, #30 TAB 08/26/18 Multivit/Ca Carb/B Cmplx/Fa* (Shanta-Ivette*) 1 Tab Tab, 1 TAB PO DAILY, TAB 08/25/18 Amlodipine Besylate* (Amlodipine Besylate*) 10 Mg Tablet, 10 MG PO QAM, #30 TAB 08/25/18 Glimepiride* (Glimepiride*) 2 Mg Tablet, 2 MG PO WITH BREAKFAST DINNE, TAB 08/25/18 Metformin Hcl* (Metformin Hcl*) 850 Mg Tablet, 850 MG PO WITH BREAKFAST DINNE, #30 TAB 08/25/18 Discontinued Reported Medications Vitamin B Complex* (Vitamin B Complex*) 1 Each Tablet, 1 TAB PO DAILY, TAB 08/25/18 Cholecalciferol* (Vitamin D3*) 1,000 Unit Tablet, 1000 UNIT PO DAILY, TAB 08/25/18 Medications Current Medications Diltiazem HCl 125 ml @ 5 mls/hr ONCE STAT IV ; Start 08/26/18 at 15:16; Stop at 16:15 Ondansetron HCl (Zofran Inj) 4 mg Q6H PRN IV NAUSEA AND/OR VOMITING; Start 08/26/18 at 18:30 Albuterol (Proventil 0.083% (Neb)) 2.5 mg Q2H RESP THERAPY PRN NEB SHORTNESS OF BREATH; Start 08/26/18 at 18:30 Acetaminophen (Tylenol Supp) 650 mg Q4H PRN [place] PAIN LEVEL 1-3 OR FEVER; Start 08/26/18 at 18:30 Morphine Sulfate (morphine) 2 mg Q4H PRN IV PAIN LEVEL 7-10; Start 08/26/18 at 18:30 Pantoprazole 80 mg/Sodium Chloride 100 ml @ 10 mls/hr Q10H IV Last administered on 08/27/18at 14:02; Admin Dose 10 MLS/HR; Start 08/26/18 at 18:30 Furosemide (Lasix) 20 mg ONCE PRN IV after 2nd PRBC Last administered on 08/26/18at 22:35; Admin Dose 20 MG; Start 08/26/18 at 18:30; Stop 08/27/18 at 18:29 Insulin Aspart (Novolog Insulin Pen) NOVOLOG *MILD* ALGORI... Q4 SC Last administered on 08/27/18at 13:58; Admin Dose 2 UNIT; Start 08/26/18 at 21:00 Hydralazine HCl (Apresoline) 10 mg Q4H PRN IV SBP >170; Start 08/26/18 at 19:00 Miscellaneous Information 1 ea NOTE XX ; Start 08/26/18 at 19:00 Glucose (Glutose) 15 gm Q15M PRN PO DECREASED GLUCOSE; Start 08/26/18 at 19:00 Glucose (Glutose) 22.5 gm Q15M PRN PO DECREASED GLUCOSE; Start 08/26/18 at 19:00 Dextrose (D50w Syringe) 25 ml Q15M PRN IV DECREASED GLUCOSE; Start 08/26/18 at 19:00 Dextrose (D50w Syringe) 50 ml Q15M PRN IV DECREASED GLUCOSE; Start 08/26/18 at 19:00 Glucagon (Glucagen) 1 mg Q15M PRN IM DECREASED GLUCOSE; Start 08/26/18 at 19:00 Glucose (Glutose) 15 gm Q15M PRN BUCCAL DECREASED GLUCOSE; Start 08/26/18 at 19:00 Sodium Chloride 1,000 ml @ 100 mls/hr Q10H IV Last administered on 08/27/18at 09:44; Admin Dose 100 MLS/HR; Start 08/27/18 at 09:30 Labetalol HCl (Labetalol) 10 mg Q4H PRN IV sbp >160; Start 08/27/18 at 10:00 Allergies: Coded Allergies: No Known Allergy (Unverified , 6/1/19) Past Surgical History Past Surgical Hx: no surgical history Social History Alcohol Use: none Smoking Status: Former smoker Drug Use: none Exam/Review of Systems Vital Signs Vitals Vital Signs Date Temp Pulse Resp B/P (MAP) Pulse Ox O2 O2 Flow FiO2 Time Delivery Rate 08/27/18 88 9 135/84 100 Room Air 14:00 (101) 08/27/18 97.9 08:00 Intake and Output 08/26/18 08/26/18 08/27/18 1515:00 23:00 07:00 IntakeIntake Total 1290 ml 770 ml OutputOutput Total 400 ml 500 ml BalanceBalance 890 ml 270 ml Exam Exam General: no acute distress HEENT: NC/AT. pupils are equal. round. NECK: NO JVD. no stridor. CV: RRR. systolic murmur; no gallop or rubs. PULM: no wheezing or rhonchi. GI: SOFT, NT, ND, no rebound or guarding Extremity: trace B/L LE edema. no clubbing. neuro: awake and alert, OX3. Psych: calm and pleasant rectal: deferred EKG was personally reviewed. There are 2 EKGs done in the emergency room. The report appears to be sinus tachycardia although 1 of them is read by computer as atrial flutter with 2-1 AV block and nonspecific T wave abnormality noted though Labs Result Diagram: 08/27/18 1002 08/27/18 0455 Results 24hrs Laboratory Tests Test 08/26/18 21:40 08/26/18 22:52 08/27/18 01:22 08/27/18 04:10 Bedside Glucose 278 H 216 196 Hemoglobin 5.1 #*L Hematocrit 14.9 #L Creatine Kinase 51 Creatine Kinase Index 0.9 Creatinine Kinase MB 0.45 (Mass) Troponin I < 0.012 Test 08/27/18 04:55 08/27/18 09:40 08/27/18 10:02 08/27/18 10:03 Hemoglobin 6.5 #*L 7.4 L Hematocrit 18.8 #L 21.6 L Sodium Level 142 Potassium Level 4.1 Chloride Level 117 H Carbon Dioxide Level 18 L Anion Gap 7 Blood Urea Nitrogen 92 H Creatinine 2.53 H Glucose Level 188 Calcium Level 7.7 L Phosphorus Level 4.0 Magnesium Level 2.2 Creatine Kinase 60 Creatine Kinase Index 1.2 Creatinine Kinase MB 0.69 (Mass) Troponin I 0.012 Albumin 2.1 L Bedside Glucose 242 H Hemoglobin A1c 7.3 H Test 08/27/18 13:52 Bedside Glucose 216 Medications Medications Current Medications Diltiazem HCl 125 ml @ 5 mls/hr ONCE STAT IV ; Start 08/26/18 at 15:16; Stop 08/27/18 at 16:15 Ondansetron HCl (Zofran Inj) 4 mg Q6H PRN IV NAUSEA AND/OR VOMITING; Start 08/26/18 at 18:30 Albuterol (Proventil 0.083% (Neb)) 2.5 mg Q2H RESP THERAPY PRN NEB SHORTNESS OF BREATH; Start 08/26/18 at 18:30 Acetaminophen (Tylenol Supp) 650 mg Q4H PRN RI PAIN LEVEL 1-3 OR FEVER; Start 08/26/18 at 18:30 Morphine Sulfate (morphine) 2 mg Q4H PRN IV PAIN LEVEL 7-10; Start 08/26/18 at 18:30 Pantoprazole 80 mg/Sodium Chloride 100 ml @ 10 mls/hr Q10H IV Last administered on 08/27/18at 14:02; Admin Dose 10 MLS/HR; Start 08/26/18 at 18:30 Furosemide (Lasix) 20 mg ONCE PRN IV after 2nd PRBC Last administered on 9at 22:35; Admin Dose 20 MG; Start 08/26/18 at 18:30; Stop 08/27/18 at 18:29 Insulin Aspart (Novolog Insulin Pen) NOVOLOG *MILD* ALGORI... Q4 SC Last administered on 08/27/18at 13:58; Admin Dose 2 UNIT; Start 08/26/18 at 21:00 Hydralazine HCl (Apresoline) 10 mg Q4H PRN IV SBP >170; Start 08/26/18 at 19:00 Miscellaneous Information 1 ea NOTE XX ; Start 08/26/18 at 19:00 Glucose (Glutose) 15 gm Q15M PRN PO DECREASED GLUCOSE; Start 08/26/18 at 19:00 Glucose (Glutose) 22.5 gm Q15M PRN PO DECREASED GLUCOSE; Start 08/26/18 at 19:00 Dextrose (D50w Syringe) 25 ml Q15M PRN IV DECREASED GLUCOSE; Start 08/26/18 at 19:00 Dextrose (D50w Syringe) 50 ml Q15M PRN IV DECREASED GLUCOSE; Start 08/26/18 at 19:00 Glucagon (Glucagen) 1 mg Q15M PRN IM DECREASED GLUCOSE; Start 08/26/18 at 19:00 Glucose (Glutose) 15 gm Q15M PRN BUCCAL DECREASED GLUCOSE; Start 08/26/18 at 19:00 Sodium Chloride 1,000 ml @ 100 mls/hr Q10H IV Last administered on 08/27/18at 09:44; Admin Dose 100 MLS/HR; Start 08/27/18 at 09:30 Labetalol HCl (Labetalol) 10 mg Q4H PRN IV sbp >160; Start 08/27/18 at 10:00 YASH ZARAGOZA MD Aug 27, 2018 16:18
[2018-08-27] MEDS ORDERED: PROPOFOL 20 ML ONE (16:31)
[2018-08-27] MEDS ORDERED: FENTAnyl 50 MCG/ML VIAL ONE (16:31)
--- NOTE | 2018-08-27 17:40 | HPN ---
Date/Time of Note Date/Time of Note DATE: 08/27/18 TIME: 17:40 Interval H&P Admission Note Pt. seen H&P reviewed: No system changes NOBLE GARCIA MD Aug 27, 2018 17:40
--- NOTE | 2018-08-27 18:22 | PAC ---
Date/Time of Note Date/Time of Note DATE: 08/27/18 TIME: 18:22 Post-Anesthesia Notes Post-Anesthesia Note Last documented vital signs Vital Signs Date Temp Pulse Resp B/P (MAP) Pulse Ox O2 O2 Flow FiO2 Time Delivery Rate 08/27/18 97.7 84 24 117/70 100 Room Air 17:00 (86) 08/27/18 97.7 16:00 Activity: WNL Respiratory function: WNL Cardiovascular function: WNL Mental status: Baseline Pain reasonably controlled: Yes Hydration appropriate: Yes Nausea/Vomiting absent: No ZOEY BRASWELL MD Aug 27, 2018 18:22
[2018-08-27] MEDS: SUCRALFATE (100 MG/ML) 10ML CUP PO SCH (21:40)
[2018-08-27] MEDS: INSULIN GLARGINE [LANTus] (100 UNITS/ML) SYG SC SCH (21:41)
[2018-08-28] VITALS (22 sets, daily range): BP systolic 113–159; BP diastolic 58–88; PULSE 73–102; RESP 12–22
[2018-08-28] MEDS: INSULIN ASPART [NOVOLOG] 3 ML PEN SC SCH ×6 (01:09→20:43)
--- NOTE | 2018-08-28 07:40 | CONS ---
Consult Date/Type/Reason Admit Date/Time Aug 26, 2018 at 17:28 Initial Consult Date 08/27/18 Type of Consultation: cv Requesting Provider: IVY PICKETT Date/Time of Note DATE: 08/28/18 TIME: 07:37 Subjective Interventional cardiology follow-up progress note/critical care note\ Subjective: Discussed with staff and telemetry was reviewed. Patient patient has remained in sinus rhythm with no evidence of atrial fibrillation or flutter noted patient remains in ICU. Status post EGD done on August 27, 2018 showing large 5 cm ulceration suspicious for malignancy Patient denies any active bleeding but his hemoglobin has dropped again and required to get more transfusion. No chest pain or pressure He has mild abdominal discomfort though Objective: General: no acute distress HEENT: NC/AT. pupils are equal. round. NECK: NO JVD. no stridor. CV: RRR. systolic murmur; no gallop or rubs. PULM: no wheezing or rhonchi. GI: SOFT, NT, ND, no rebound or guarding Extremity: trace B/L LE edema. no clubbing. neuro: awake and alert, OX3. Psych: calm and pleasant rectal: deferred EKG was personally reviewed. There are 2 EKGs done in the emergency room. The report appears to be sinus tachycardia although 1 of them is read by computer as atrial flutter with 2-1 AV block and nonspecific T wave abnormality noted though Echocardiogram personally reviewed shows: Normal left ventricular systolic function. Normal left ventricular cavity size. Normal left ventricular wall thickness. Ejection fraction is visually estimated at 55-60 %. Tissue Doppler/Mitral Doppler indices are within normal limits. Normal appearance and function of the mitral valve with trace physiologic regurgitation. No significant aortic stenosis or insufficiency. Aortic cusps appear mildly calcified. Normal appearance of the tricuspid valve. The estimated Peak RVSP is 30 mmHg. There is trace tricuspid regurgitation. Objective Vitals Vital Signs Date Temp Pulse Resp B/P (MAP) Pulse Ox O2 O2 Flow FiO2 Time Delivery Rate 08/28/18 88 12 131/79 100 Room Air 06:00 (96) 08/28/18 97.5 04:00 Intake and Output 08/27/18 08/27/18 08/28/18 1515:00 23:00 07:00 IntakeIntake Total 1540 ml 1730 ml 1060 ml OutputOutput Total 700 ml 800 ml 790 ml BalanceBalance 840 ml 930 ml 270 ml Results/Medications Result Diagram: 08/28/18 0604 08/28/18 0604 Results 24 hrs Laboratory Tests Test 08/27/18 09:40 08/27/18 10:02 08/27/18 10:03 08/27/18 13:52 Bedside Glucose 242 H 216 Hemoglobin 7.4 L Hematocrit 21.6 L Hemoglobin A1c 7.3 H Test 08/27/18 15:44 08/27/18 16:00 08/27/18 16:37 08/27/18 18:59 Hemoglobin 8.4 L 8.8 L Hematocrit 24.1 L 25.6 L Urine Color YELLOW Urine Clarity CLEAR Urine pH 5.0 Urine Specific 1.014 [place] Urine Ketones NEGATIVE Urine Nitrite NEGATIVE Urine Bilirubin NEGATIVE Urine Urobilinogen NEGATIVE Urine Leukocyte NEGATIVE Esterase Urine Microscopic 1 RBC Urine Microscopic 1 WBC Urine Bacteria FEW A Urine Hemoglobin 1+ H Urine Random 59.84 Creatinine Urine 5.04 Protein/Creatinine Ratio Urine Glucose 2+ H Urine Total Protein 2+ H Bedside Glucose 171 Test 08/27/18 21:38 08/27/18 23:09 08/28/18 01:00 08/28/18 05:00 Bedside Glucose 348 H 204 Hemoglobin 7.1 L Hematocrit 20.6 L Lab Scanned Report BLOOD TRANSFUSION Test 08/28/18 05:27 08/28/18 06:03 08/28/18 06:04 Bedside Glucose 145 Free Thyroxine 1.58 Hemoglobin 8.2 L Hematocrit 24.0 L Sodium Level 144 Potassium Level 4.5 Chloride Level 119 H Carbon Dioxide 21 Level Anion Gap 4 L Blood Urea Nitrogen 60 #H Creatinine 2.09 H Glucose Level 138 # Calcium Level 7.8 L Phosphorus Level 3.4 Magnesium Level 2.1 Albumin 2.4 L Home Meds Reported Medications Dulaglutide (Trulicity) 0.75 Mg/0.5 Ml Pen.injctr, 0.75 MG SQ Q FRI PATIENT HASE A ADVERS REACTION WHEN HE INJECT THIS MEDICATION. 08/26/18 Furosemide* (Furosemide*) 40 Mg Tablet, 40 MG PO DAILY, TAB 08/26/18 Cholecalciferol (Vitamin D3) (Vitamin D-3) 2,000 Unit Tablet, 2000 UNIT PO DAILY, TAB 08/26/18 Atorvastatin Calcium* (Atorvastatin Calcium*) 20 Mg Tablet, 20 MG PO QHS, #30 TAB 08/26/18 Multivit/Ca Carb/B Cmplx/Fa* (Shanta-Ivette*) 1 Tab Tab, 1 TAB PO DAILY, TAB 08/25/18 Amlodipine Besylate* (Amlodipine Besylate*) 10 Mg Tablet, 10 MG PO QAM, #30 TAB 08/25/18 Glimepiride* (Glimepiride*) 2 Mg Tablet, 2 MG PO WITH BREAKFAST DINNE, TAB 08/25/18 Metformin Hcl* (Metformin Hcl*) 850 Mg Tablet, 850 MG PO WITH BREAKFAST DINNE, #30 TAB 08/25/18 Discontinued Reported Medications Vitamin B Complex* (Vitamin B Complex*) 1 Each Tablet, 1 TAB PO DAILY, TAB 08/25/18 Cholecalciferol* (Vitamin D3*) 1,000 Unit Tablet, 1000 UNIT PO DAILY, TAB 08/25/18 Medications Current Medications Ondansetron HCl (Zofran Inj) 4 mg Q6H PRN IV NAUSEA AND/OR VOMITING; Start 08/26/18 at 18:30 Albuterol (Proventil 0.083% (Neb)) 2.5 mg Q2H RESP THERAPY PRN NEB SHORTNESS OF BREATH; Start 08/26/18 at 18:30 Acetaminophen (Tylenol Supp) 650 mg Q4H PRN SD PAIN LEVEL 1-3 OR FEVER; Start 08/26/18 at 18:30 Morphine Sulfate (morphine) 2 mg Q4H PRN IV PAIN LEVEL 7-10; Start 08/26/18 at 18:30 Pantoprazole 80 mg/Sodium Chloride 100 ml @ 10 mls/hr Q10H IV Last administered on 08/27/18at 23:11; Admin Dose 10 MLS/HR; Start 08/26/18 at 18:30 Insulin Aspart (Novolog Insulin Pen) NOVOLOG *MILD* ALGORI... Q4 SC Last administered on 08/28/18at 05:32; Admin Dose 1 UNIT; Start 08/26/18 at 21:00 Hydralazine HCl (Apresoline) 10 mg Q4H PRN IV SBP >170; Start 08/26/18 at 19:00 Miscellaneous Information 1 ea NOTE XX ; Start 08/26/18 at 19:00 Glucose (Glutose) 15 gm Q15M PRN PO DECREASED GLUCOSE; Start 08/26/18 at 19:00 Glucose (Glutose) 22.5 gm Q15M PRN PO DECREASED GLUCOSE; Start 08/26/18 at 19:00 Dextrose (D50w Syringe) 25 ml Q15M PRN IV DECREASED GLUCOSE; Start 08/26/18 at 19:00 Dextrose (D50w Syringe) 50 ml Q15M PRN IV DECREASED GLUCOSE; Start 08/26/18 at 19:00 Glucagon (Glucagen) 1 mg Q15M PRN IM DECREASED GLUCOSE; Start 08/26/18 at 19:00 Glucose (Glutose) 15 gm Q15M PRN BUCCAL DECREASED GLUCOSE; Start 08/26/18 at 19:00 Sodium Chloride 1,000 ml @ 100 mls/hr Q10H IV Last administered on 08/27/18at 2 3:11; Admin Dose 100 MLS/HR; Start 08/27/18 at 09:30 Labetalol HCl (Labetalol) 10 mg Q4H PRN IV sbp >160; Start 08/27/18 at 10:00 Sucralfate (Carafate Susp) 1 gm QID PO Last administered on 08/27/18at 21:40; Admin Dose 1 GM; Start 08/27/18 at 21:00 Insulin Glargine (Lantus) 10 units DAILY@2000 SC Last administered on 08/27/18at 21:41; Admin Dose 10 UNITS; Start 08/27/18 at 21:00 Assessment/Plan Hospital Course (Demo Recall) 1. Syncope/presyncope secondary to severe anemia 2. Severe anemia 3. GI bleed 4. History of diabetes 5. Acute renal failure: Slowly improving 6. Dyslipidemia 7. History of hypertension 8. Gastric ulcer and possibly cancer 9. Malnutrition and low albumin level Recommendation: EKG was reviewed by unlike what the computer reads, it is not in atrial flutter. No anticoagulation for A. fib or flutter is indicated GI work-up and treatment as per GI recommendation. Currently on Protonix Patient received multiple blood transfusion and has been admitted to intensive care unit for close monitoring. Continue with transfusion as needed basis IV fluids and fluid management as per internal medicine. Thyroid function test will be checked. Monitor H&H and transfuse as needed Continue with ICU care for now. More than 33 minutes critical care time was for management treatment is critically patient excluding any procedures Thank you for this referral. We will continue to follow along with you YASH ZARAGOZA MD [facility] YASH ZARAGOZA MD Aug 28, 2018 07:40
--- NOTE | 2018-08-28 09:42 | RADRPT ---
Echocardiogram Report Patient Name: Julia TAFOYA ID: [id number] : 1970 (48y 7m)Study Date: 08/28/2018 7:53:24 AM Gender: Ashleycession #: [id number] Tech: MT Location: [facility] Ref.Physician: YASH LEMOS Height(Cm): BSA: Weight(Kg): Quality: AdequateOrder Physician: YASH LEMOS Account #: Procedures: Echocardiographic Report: Transthoracic echocardiogram with complete 2D, M-Mode, and doppler examination. Indications: Syncope. Measurements: 2D/M Mode Doppler Measurement Value Normal Range Measurement Value Normal Range LVIDd 2D 5.3 [ 4.2 - 5.8 ] cm AV Peak Isacc 1.3 [ 100.0 - 170.0 ] cm/sec LVIDs 2D 2.9 [ 2.5 - 4.0 ] cm AV Peak PG 7.0 [ 2.0 - 9.0 ] mmHg LVPWd 2D 1.0 [ 0.6 - 1.0 ] cm LVOT Peak Isacc 1.0 [ 70.0 - 110.0 ] cm/sec IVSd 2D 1.0 [ 0.6 - 1.0 ] cm LVOT Peak PG 4.0 [ 2.0 - 6.0 ] mmHg AoR Diam 2D 2.8 [ 2.6 - 3.4 ] cm MV E Peak Isacc 1.2 [ 60.0 - 130.0 ] cm/sec EDV 2D 138.0 [ 62.0 - 150.0 ] ml MV A Peak Isacc 1.0 [ 100.0 - 120.0 ] cm/sec ESV 2D 31.9 [ 21.0 - 61.0 ] ml MV E/A 1.2 [ 0.8 - 1.5 ] ratio EF 2D 76.9 [ 52.0 - 72.0 ] percent MV Decel Time 208 [ 104 - 258 ] msec LA Dimen 2D 3.6 [ 3.0 - 4.0 ] cm Lat E` Isacc 0.2 [ 10.0 - 15.0 ] cm/sec Lateral E/E` 6.9 [ 1.0 - 2.0 ] ratio MV E/A 1.2 [ 0.8 - 1.5 ] ratio TR Peak Isacc 2.2 [ 100.0 - 280.0 ] cm/sec TR Peak PG 20.0 mmHg RVSP 30.0 [ 10.0 - 36.0 ] mmHg RA Pressure 10.0 mmHg Findings: Left Ventricle: Normal left ventricular systolic function. Normal left ventricular cavity size. Normal left ventricular wall thickness. Ejection fraction is visually estimated at 55-60 %. Tissue Doppler/Mitral Doppler indices are within normal limits. Right Ventricle: Normal right ventricular size. Normal right ventricular systolic function. Left Atrium: The left atrium is normal in size. Right Atrium: The right atrium is normal in size. Mitral Valve: Normal appearance and function of the mitral valve with trace physiologic regurgitation. Aortic Valve: No significant aortic stenosis or insufficiency. Aortic cusps appear mildly calcified. Tricuspid Valve: Normal appearance of the tricuspid valve. The estimated Peak RVSP is 30 mmHg. There is trace tricuspid regurgitation. Pulmonic Valve: Pulmonic valve not well visualized. Pericardium: Normal pericardium with no significant pericardial effusion. Aorta: Normal aortic root. IVC: Normal size and normal respiratory collapse consistent with normal right atrial pressure. Conclusions: Normal left ventricular systolic function. Normal left ventricular cavity size. Normal left ventricular wall thickness. Ejection fraction is visually estimated at 55-60 %. Tissue Doppler/Mitral Doppler indices are within normal limits. Normal appearance and function of the mitral valve with trace physiologic regurgitation. No significant aortic stenosis or insufficiency. Aortic cusps appear mildly calcified. Normal appearance of the tricuspid valve. The estimated Peak RVSP is 30 mmHg. There is trace tricuspid regurgitation. Electronically Signed By: Yash Lemos 2018-08-28 09:41:49 PDT
[2018-08-28] MEDS: SUCRALFATE (100 MG/ML) 10ML CUP PO SCH ×4 (09:50→20:41)
[2018-08-28] MEDS: PANTOPRAZOLE IV 80 MG in SOD CHLORIDE 0.9% 100 ML IV SCH ×2 (09:58→20:49)
[2018-08-28] MEDS: SOD CHLORIDE 0.9% 1,000 ML IV SCH (09:58)
--- NOTE | 2018-08-28 11:25 | CONS ---
Assessment/Plan Assessment/Plan Hospital Course (Demo Recall) #GI bleed #malignant ulcer #iron deficiency anemia 2/2 GIB #Abdominal LAD- There is appearance of enlarged lymph nodes in the gastrohepatic ligament, celiac region, periportal region and left para-aortic region of the retroperitoneum the largest lymph node measuring approximately 1.8 cm short-axis in the left para-aortic region. -will follow up path -given the appearance of diffuse abdominal LAD , this currently is unlikely resectable -we will do a PET CT as an out patient -given the friable ulcer with a high propensity to bleed, I would favor starting chemotherapy in house to control the bleeding -if he has a favorable response to chemo, we can consider surgery down the line Thank you for the opportunity to participate in this patients care A total of 40 minutes of face to face time was spent speaking with the patient, of which greater than 50% was spent in counseling and coordination of care and the detailed question and answer session. Consultation Date/Type/Reason Admit Date/Time Aug 26, 2018 at 17:28 Date of Consultation: Aug 28, 2018 Type of Consult oncology Reason for Consultation concern for gastric cancer Requesting Provider: IVY PICKETT Date/Time of Note DATE: 08/28/18 TIME: 11:07 Hx of Present Illness Mr Ng is a pleasant 48 yo male with concern for gastric malignancy. His history is follows: 08/26/18 pt presented to [facility] and a syncopal episode. He was noted to have a Hg 3.9. PT has since received 5 units of PRBCs. 08/27/18 pt had EGD done which revealed a large 5cm nodular ulcer with a central exposed visible vessel without evidence of bleeding. This has since been b iopsied. Pt continues to have mild abdominal pain. Hg currently stable > 8. Constitutional: diaphoresis, poor po Eyes: no complaints ENT: no complaints Respiratory: no complaints Cardiovascular: no complaints Gastrointestinal: no complaints, pain, decreased appetite Genitourinary: no complaints Musculoskeletal: no complaints Skin: no complaints Neurologic: no complaints Past Medical History Medical History: diabetes, high cholesterol, hypertension Home Meds Reported Medications Dulaglutide (Trulicity) 0.75 Mg/0.5 Ml Pen.injctr, 0.75 MG SQ Q FRI PATIENT HASE A ADVERS REACTION WHEN HE INJECT THIS MEDICATION. 08/26/18 Furosemide* (Furosemide*) 40 Mg Tablet, 40 MG PO DAILY, TAB 08/26/18 Cholecalciferol (Vitamin D3) (Vitamin D-3) 2,000 Unit Tablet, 2000 UNIT PO DAILY, TAB 08/26/18 Atorvastatin Calcium* (Atorvastatin Calcium*) 20 Mg Tablet, 20 MG PO QHS, #30 TAB 08/26/18 Multivit/Ca Carb/B Cmplx/Fa* (Shanta-Ivette*) 1 Tab Tab, 1 TAB PO DAILY, TAB 08/25/18 Amlodipine Besylate* (Amlodipine Besylate*) 10 Mg Tablet, 10 MG PO QAM, #30 TAB 08/25/18 Glimepiride* (Glimepiride*) 2 Mg Tablet, 2 MG PO WITH BREAKFAST DINNE, TAB 08/25/18 Metformin Hcl* (Metformin Hcl*) 850 Mg Tablet, 850 MG PO WITH BREAKFAST DINNE, #30 TAB 08/25/18 Discontinued Reported Medications Vitamin B Complex* (Vitamin B Complex*) 1 Each Tablet, 1 TAB PO DAILY, TAB 08/25/18 Cholecalciferol* (Vitamin D3*) 1,000 Unit Tablet, 1000 UNIT PO DAILY, TAB 08/25/18 Medications Current Medications Ondansetron HCl (Zofran Inj) 4 mg Q6H PRN IV NAUSEA AND/OR VOMITING; Start 08/26/18 at 18:30 Albuterol (Proventil 0.083% (Neb)) 2.5 mg Q2H RESP THERAPY PRN NEB SHORTNESS OF BREATH; Start 08/26/18 at 18:30 Acetaminophen (Tylenol Supp) 650 mg Q4H PRN [place] PAIN LEVEL 1-3 OR FEVER; Start 08/26/18 at 18:30 Morphine Sulfate (morphine) 2 mg Q4H PRN IV PAIN LEVEL 7-10; Start 08/26/18 at 18:30 Pantoprazole 80 mg/Sodium Chloride 100 ml @ 10 mls/hr Q10H IV Last administered on 08/28/18at 09:58; Admin Dose 10 MLS/HR; Start 08/26/18 at 18:30 Insulin Aspart (Novolog Insulin Pen) NOVOLOG *MILD* ALGORI... Q4 SC Last administered on 08/28/18at 10:06; Admin Dose 1 UNIT; Start 08/26/18 at 21:00 Hydralazine HCl (Apresoline) 10 mg Q4H PRN IV SBP >170; Start 08/26/18 at 19:00 Miscellaneous Information 1 ea NOTE XX ; Start 08/26/18 at 19:00 Glucose (Glutose) 15 gm Q15M PRN PO DECREASED GLUCOSE; Start 08/26/18 at 19:00 Glucose (Glutose) 22.5 gm Q15M PRN PO DECREASED GLUCOSE; Start 08/26/18 at 19:00 Dextrose (D50w Syringe) 25 ml Q15M PRN IV DECREASED GLUCOSE; Start 08/26/18 at 19:00 Dextrose (D50w Syringe) 50 ml Q15M PRN IV DECREASED GLUCOSE; Start 08/26/18 at 19:00 Glucagon (Glucagen) 1 mg Q15M PRN IM DECREASED GLUCOSE; Start 08/26/18 at 19:00 Glucose (Glutose) 15 gm Q15M PRN BUCCAL DECREASED GLUCOSE; Start 08/26/18 at 19:00 Sodium Chloride 1,000 ml @ 100 mls/hr Q10H IV Last administered on 08/28/18at 09:58; Admin Dose 100 MLS/HR; Start 08/27/18 at 09:30 Labetalol HCl (Labetalol) 10 mg Q4H PRN IV sbp >160; Start 08/27/18 at 10:00 Sucralfate (Carafate Susp) 1 gm QID PO Last administered on 08/28/18at 09:50; Admin Dose 1 GM; Start 08/27/18 at 21:00 Insulin Glargine (Lantus) 10 units DAILY@2000 SC Last administered on 08/27/18at 21:41; Admin Dose 10 UNITS; Start 08/27/18 at 21:00 Allergies: Coded Allergies: No Known Allergy (Unverified , 08/25/18) Past Surgical History Past Surgical Hx: no surgical history Family History Significant Family History: no pertinent family hx Social History Alcohol Use: none Smoking Status: Former smoker Drug Use: none Exam/Review of Systems Exam Vitals Vital Signs Date Temp Pulse Resp B/P (MAP) Pulse Ox O2 O2 Flow FiO2 Time Delivery Rate 08/28/18 88 12 131/79 100 Room Air 06:00 (96) 08/28/18 97.5 04:00 Intake and Output 08/27/18 08/27/18 08/28/18 1515:00 23:00 07:00 IntakeIntake Total 1540 ml 1730 ml 1060 ml OutputOutput Total 700 ml 800 ml 790 ml BalanceBalance 840 ml 930 ml 270 ml Constitutional: alert, oriented Psych: no complaints Head: normocephalic Eyes: nl conjunctiva ENMT: nl external ears & nose Neck: supple Respiratory: clear to auscultation, normal air movement Cardiovascular: regular rate and rhythm Gastrointestinal: soft Musculoskeletal: nl extremities to inspection Results Result Diagram: 08/28/18 0604 08/28/18 0604 Results 24hrs Laboratory Tests Test 08/27/18 13:52 08/27/18 15:44 08/27/18 16:00 08/27/18 16:37 Bedside Glucose 216 171 Hemoglobin 8.4 L Hematocrit 24.1 L Urine Color YELLOW Urine Clarity CLEAR Urine pH 5.0 Urine Specific 1.014 [place] Urine Ketones NEGATIVE Urine Nitrite NEGATIVE Urine Bilirubin NEGATIVE Urine Urobilinogen NEGATIVE Urine Leukocyte NEGATIVE Esterase Urine Microscopic 1 RBC Urine Microscopic 1 WBC Urine Bacteria FEW A Urine Hemoglobin 1+ H Urine Random 59.84 Creatinine Urine 5.04 Protein/Creatinine Ratio Urine Glucose 2+ H Urine Total Protein 2+ H Test 08/27/18 18:59 08/27/18 21:38 08/27/18 23:09 08/28/18 01:00 Hemoglobin 8.8 L 7.1 L Hematocrit 25.6 L 20.6 L Bedside Glucose 348 H 204 Test 08/28/18 05:00 08/28/18 05:27 08/28/18 06:03 08/28/18 06:04 Lab Scanned Report BLOOD TRANSFUSION Bedside Glucose 145 Thyroid Stimulating 1.850 Hormone (TSH) Free Thyroxine 1.58 Hemoglobin 8.2 L Hematocrit 24.0 L Sodium Level 144 Potassium Level 4.5 Chloride Level 119 H Carbon Dioxide 21 Level Anion Gap 4 L Blood Urea Nitrogen 60 #H Creatinine 2.09 H Glucose Level 138 # Calcium Level 7.8 L Phosphorus Level 3.4 Magnesium Level 2.1 Albumin 2.4 L Carcinoembryonic 0.4 Antigen Test 08/28/18 08:40 08/28/18 09:41 Lab Scanned Report REFERENCE LAB Bedside Glucose 150 Medications Medication Current Medications Ondansetron HCl (Zofran Inj) 4 mg Q6H PRN IV NAUSEA AND/OR VOMITING; Start 08/26/18 at 18:30 Albuterol (Proventil 0.083% (Neb)) 2.5 mg Q2H RESP THERAPY PRN NEB SHORTNESS OF BREATH; Start 08/26/18 at 18:30 Acetaminophen (Tylenol Supp) 650 mg Q4H PRN ID PAIN LEVEL 1-3 OR FEVER; Start 08/26/18 at 18:30 Morphine Sulfate (morphine) 2 mg Q4H PRN IV PAIN LEVEL 7-10; Start 08/26/18 at 18:30 Pantoprazole 80 mg/Sodium Chloride 100 ml @ 10 mls/hr Q10H IV Last administered on 08/28/18at 09:58; Admin Dose 10 MLS/HR; Start 08/26/18 at 18:30 Insulin Aspart (Novolog Insulin Pen) NOVOLOG *MILD* ALGORI... Q4 SC Last administered on 08/28/18at 10:06; Admin Dose 1 UNIT; Start 08/26/18 at 21:00 Hydralazine HCl (Apresoline) 10 mg Q4H PRN IV SBP >170; Start 08/26/18 at 19:00 Miscellaneous Information 1 ea NOTE XX ; Start 08/26/18 at 19:00 Glucose (Glutose) 15 gm Q15M PRN PO DECREASED GLUCOSE; Start 08/26/18 at 19:00 Glucose (Glutose) 22.5 gm Q15M PRN PO DECREASED GLUCOSE; Start 08/26/18 at 19:00 Dextrose (D50w Syringe) 25 ml Q15M PRN IV DECREASED GLUCOSE; Start 08/26/18 at 19:00 Dextrose (D50w Syringe) 50 ml Q15M PRN IV DECREASED GLUCOSE; Start 08/26/18 at 19:00 Glucagon (Glucagen) 1 mg Q15M PRN IM DECREASED GLUCOSE; Start 08/26/18 at 19:00 Glucose (Glutose) 15 gm Q15M PRN BUCCAL DECREASED GLUCOSE; Start 08/26/18 at 19:00 Sodium Chloride 1,000 ml @ 100 mls/hr Q10H IV Last administered on 08/28/18at 09:58; Admin Dose 100 MLS/HR; Start 08/27/18 at 09:30 Labetalol HCl (Labetalol) 10 mg Q4H PRN IV sbp >160; Start 08/27/18 at 10:00 Sucralfate (Carafate Susp) 1 gm QID PO Last administered on 08/28/18at 09:50; Admin Dose 1 GM; Start 08/27/18 at 21:00 Insulin Glargine (Lantus) 10 units DAILY@2000 SC Last administered on 08/27/18at 21:41; Admin Dose 10 UNITS; Start 08/27/18 at 21:00 AME VALDEZ M.D. Aug 28, 2018 11:18
[2018-08-28] MEDS ORDERED: LORAZEPAM 2 MG INJ IV PRN (12:30)
--- NOTE | 2018-08-28 13:09 | CONS ---
Assessment/Plan Assessment/Plan Hospital Course (Demo Recall) 1. Acute renal failure superimposed on chronic kidney disease. His renal function is improved today. He does have 5 g of protein per gram of creatinine on the urine protein creatinine ratio. This is consistent with diabetic nephropathy. Agree with current management plan. Will follow. 2. GI bleeding due to gastric ulcer thought to be malignant, pathology is pending. 3. Type 2 diabetes mellitus 4. Syncope due to gastrointestinal bleeding Consultation Date/Type/Reason Admit Date/Time Aug 26, 2018 at 17:28 Initial Consult Date 08/28/18 Type of Consult Nephrology Requesting Provider: IVY PICKETT Date/Time of Note DATE: 08/28/18 TIME: 13:02 24 HR Interval Summary Free Text/Dictation This patient is being seen in the intensive care unit in nephrologic follow-up. He has a history of chronic kidney disease. He was admitted for gas trointestinal bleeding. He underwent an upper GI endoscopy yesterday and was found to have a 5 cm nodular ulcer in the stomach thought to be a malignancy, pathology is pending. He did receive another unit of blood transfusion last night. Constitutional: no complaints, improved Exam/Review of Systems Exam Vitals Vital Signs Date Temp Pulse Resp B/P (MAP) Pulse Ox O2 O2 Flow FiO2 Time Delivery Rate 08/28/18 88 15 130/79 100 Room Air 12:00 (96) 08/28/18 97.5 04:00 Intake and Output 08/27/18 08/27/18 08/28/18 1515:00 23:00 07:00 IntakeIntake Total 1540 ml 1730 ml 1060 ml OutputOutput Total 700 ml 800 ml 790 ml BalanceBalance 840 ml 930 ml 270 ml Constitutional: oriented, frail Respiratory: clear to auscultation, normal air movement Cardiovascular: regular rate and rhythm Gastrointestinal: soft, non-tender Musculoskeletal: nl extremities to inspection Results Result Diagram: 08/28/18 1235 08/28/18 0604 Results 24hrs Laboratory Tests Test 08/27/18 13:52 08/27/18 15:44 08/27/18 16:00 08/27/18 16:37 Bedside Glucose 216 171 Hemoglobin 8.4 L Hematocrit 24.1 L Urine Color YELLOW Urine Clarity CLEAR Urine pH 5.0 Urine Specific 1.014 [place] Urine Ketones NEGATIVE Urine Nitrite NEGATIVE Urine Bilirubin NEGATIVE Urine Urobilinogen NEGATIVE Urine Leukocyte NEGATIVE Esterase Urine Microscopic 1 RBC Urine Microscopic 1 WBC Urine Bacteria FEW A Urine Hemoglobin 1+ H Urine Random 59.84 Creatinine Urine 5.04 Protein/Creatinine Ratio Urine Glucose 2+ H Urine Total Protein 2+ H Test 08/27/18 18:59 08/27/18 21:38 08/27/18 23:09 08/28/18 01:00 Hemoglobin 8.8 L 7.1 L Hematocrit 25.6 L 20.6 L Bedside Glucose 348 H 204 Test 08/28/18 05:00 08/28/18 05:27 08/28/18 06:03 08/28/18 06:04 Lab Scanned Report BLOOD TRANSFUSION Bedside Glucose 145 Thyroid Stimulating 1.850 Hormone (TSH) Free Thyroxine 1.58 Hemoglobin 8.2 L Hematocrit 24.0 L Sodium Level 144 Potassium Level 4.5 Chloride Level 119 H Carbon Dioxide 21 Level Anion Gap 4 L Blood Urea Nitrogen 60 #H Creatinine 2.09 H Glucose Level 138 # Calcium Level 7.8 L Phosphorus Level 3.4 Magnesium Level 2.1 Albumin 2.4 L Carcinoembryonic 0.4 Antigen Test 08/28/18 08:40 08/28/18 09:41 08/28/18 12:35 Lab Scanned Report REFERENCE LAB Bedside Glucose 150 Hemoglobin 8.9 L Hematocrit 25.7 L Medications Medication Current Medications Ondansetron HCl (Zofran Inj) 4 mg Q6H PRN IV NAUSEA AND/OR VOMITING; Start 08/26/18 at 18:30 Albuterol (Proventil 0.083% (Neb)) 2.5 mg Q2H RESP THERAPY PRN NEB SHORTNESS OF BREATH; Start 08/26/18 at 18:30 Acetaminophen (Tylenol Supp) 650 mg Q4H PRN [place] PAIN LEVEL 1-3 OR FEVER; Start 08/26/18 at 18:30 Morphine Sulfate (morphine) 2 mg Q4H PRN IV PAIN LEVEL 7-10; Start 08/26/18 at 18:30 Pantoprazole 80 mg/Sodium Chloride 100 ml @ 10 mls/hr Q10H IV Last administered on 08/28/18at 09:58; Admin Dose 10 MLS/HR; Start 08/26/18 at 18:30 Insulin Aspart (Novolog Insulin Pen) NOVOLOG *MILD* ALGORI... Q4 SC Last administered on 08/28/18at 10:06; Admin Dose 1 UNIT; Start 08/26/18 at 21:00 Hydralazine HCl (Apresoline) 10 mg Q4H PRN IV SBP >170; Start 08/26/18 at 19:00 Miscellaneous Information 1 ea NOTE XX ; Start 08/26/18 at 19:00 Glucose (Glutose) 15 gm Q15M PRN PO DECREASED GLUCOSE; Start 08/26/18 at 19:00 Glucose (Glutose) 22.5 gm Q15M PRN PO DECREASED GLUCOSE; Start 08/26/18 at 19:00 Dextrose (D50w Syringe) 25 ml Q15M PRN IV DECREASED GLUCOSE; Start 08/26/18 at 19:00 Dextrose (D50w Syringe) 50 ml Q15M PRN IV DECREASED GLUCOSE; Start 08/26/18 at 19:00 Glucagon (Glucagen) 1 mg Q15M PRN IM DECREASED GLUCOSE; Start 08/26/18 at 19:00 Glucose (Glutose) 15 gm Q15M PRN BUCCAL DECREASED GLUCOSE; Start 08/26/18 at 19:00 Sodium Chloride 1,000 ml @ 100 mls/hr Q10H IV Last administered on 08/28/18at 09:58; Admin Dose 100 MLS/HR; Start 08/27/18 at 09:30 Labetalol HCl (Labetalol) 10 mg Q4H PRN IV sbp >160; Start 08/27/18 at 10:00 Sucralfate (Carafate Susp) 1 gm QID PO Last administered on 08/28/18at 09:50; Admin Dose 1 GM; Start 08/27/18 at 21:00 Insulin Glargine (Lantus) 10 units DAILY@2000 SC Last administered on 08/27/18at 21:41; Admin Dose 10 UNITS; Start 08/27/18 at 21:00 Ferric Sodium Gluconate Complex 125 mg/Sodium Chloride 110 ml @ 110 mls/hr DAILY@1300 IVPB ; Start 08/28/18 at 13:00; Stop 09/01/18 at 13:59 Lorazepam (Ativan) 1 mg Q6 PRN IV ANXIETY; Start 08/28/18 at 12:30 RUCHI VELIZ MD Aug 28, 2018 13:09
[2018-08-28] MEDS: SOD FERRIC GLUC COMPLX 125 MG in SOD CHLORIDE 0.9% 100 ML IVPB SCH (13:12)
--- NOTE | 2018-08-28 13:49 | PN ---
Date/Time of Note Date/Time of Note DATE: 08/28/18 TIME: 13:46 Objective Vitals Vital Signs Date Temp Pulse Resp B/P (MAP) Pulse Ox O2 O2 Flow FiO2 Time Delivery Rate 08/28/18 88 15 130/79 100 Room Air 12:00 (96) 08/28/18 97.5 04:00 Intake and Output 08/27/18 08/27/18 08/28/18 1515:00 23:00 07:00 IntakeIntake Total 1540 ml 1730 ml 1060 ml OutputOutput Total 700 ml 800 ml 790 ml BalanceBalance 840 ml 930 ml 270 ml Results Result Diagram: 08/28/18 1235 08/28/18 0604 Medications Medications Current Medications Ondansetron HCl (Zofran Inj) 4 mg Q6H PRN IV NAUSEA AND/OR VOMITING; Start 08/26/18 at 18:30 Albuterol (Proventil 0.083% (Neb)) 2.5 mg Q2H RESP THERAPY PRN NEB SHORTNESS OF BREATH; Start 08/26/18 at 18:30 Acetaminophen (Tylenol Supp) 650 mg Q4H PRN [place] PAIN LEVEL 1-3 OR FEVER; Start 08/26/18 at 18:30 Morphine Sulfate (morphine) 2 mg Q4H PRN IV PAIN LEVEL 7-10; Start 08/26/18 at 18:30 Pantoprazole 80 mg/Sodium Chloride 100 ml @ 10 mls/hr Q10H IV Last administered on 08/28/18at 09:58; Admin Dose 10 MLS/HR; Start 08/26/18 at 18:30 Insulin Aspart (Novolog Insulin Pen) NOVOLOG *MILD* ALGORI... Q4 SC Last administered on 08/28/18at 13:10; Admin Dose 1 UNIT; Start 08/26/18 at 21:00 Hydralazine HCl (Apresoline) 10 mg Q4H PRN IV SBP >170; Start 08/26/18 at 19:00 Miscellaneous Information 1 ea NOTE XX ; Start 08/26/18 at 19:00 Glucose (Glutose) 15 gm Q15M PRN PO DECREASED GLUCOSE; Start 08/26/18 at 19:00 Glucose (Glutose) 22.5 gm Q15M PRN PO DECREASED GLUCOSE; Start 08/26/18 at 19:00 Dextrose (D50w Syringe) 25 ml Q15M PRN IV DECREASED GLUCOSE; Start 08/26/18 at 19:00 Dextrose (D50w Syringe) 50 ml Q15M PRN IV DECREASED GLUCOSE; Start 08/26/18 at 19:00 Glucagon (Glucagen) 1 mg Q15M PRN IM DECREASED GLUCOSE; Start 08/26/18 at 19:00 Glucose (Glutose) 15 gm Q15M PRN BUCCAL DECREASED GLUCOSE; Start 08/26/18 at 19:00 Sodium Chloride 1,000 ml @ 100 mls/hr Q10H IV Last administered on 08/28/18at 09:58; Admin Dose 100 MLS/HR; Start 08/27/18 at 09:30 Labetalol HCl (Labetalol) 10 mg Q4H PRN IV sbp >160; Start 08/27/18 at 10:00 Sucralfate (Carafate Susp) 1 gm QID PO Last administered on 08/28/18at 13:11; Admin Dose 1 GM; Start 08/27/18 at 21:00 Insulin Glargine (Lantus) 10 units DAILY@2000 SC Last administered on 08/27/18at 21:41; Admin Dose 10 UNITS; Start 08/27/18 at 21:00 Ferric Sodium Gluconate Complex 125 mg/Sodium Chloride 110 ml @ 110 mls/hr DAILY@1300 IVPB Last administered on 08/28/18at 13:12; Admin Dose 110 MLS/HR; Start 08/28/18 at 13:00; Stop 09/01/18 at 13:59 Lorazepam (Ativan) 1 mg Q6 PRN IV ANXIETY; Start 08/28/18 at 12:30 VTE Prophylaxis Risk score (from Nsg)>0 risk: 3 SCD applied (from Ns): Yes Lines/Catheters IV Catheter Type: Ruiz in Place: No Assessment/Plan Hospital Course Subjective No acute overnight events Objective Physical exam General: Patient is laying in bed and answers questions appropriately Mentation: Patient is alert and oriented 4, Head: Normocephalic atraumatic Eyes: EOMI, pupils reactive to light Neck: Supple, nontender, midline Respiratory: Clear to auscultation bilaterally Cardiovascular: regular rate, no obvious murmurs Gastrointestinal: non-tender to palpation, bowel sounds heard. Neurological: Moves all extremities spontaneously Skin: No new skin lesions Assessment and plan Hematemesis with large gastric ulcer, resolving -Hemoglobin was very low on admission, continue transfusions as needed, hematemesis has resolved, no acute bleeding found on EGD -IV fluid and Protonix drip -GI recommendations appreciated -Still had to get transfusion overnight, continue ICU stay for continued mild bleeding although EGD was negative for acute issues, may need emergent repeat EGD with clipping if patient's hemoglobin continues to drop Gastric ulcer with possible malignancy -Oncology has been consulted -MRI results noted, questionable hepatic findings versus other lymphadenopathy, oncology recognitions appreciated -Pending biopsy results from EGD Syncope, resolved -Likely secondary to above hematemesis and hemoglobin of 3.9 on admission -supportive treatment -Monitor closely Blood loss anemia -Continue transfusing as needed needed -Secondary to GI bleed Elevated lipase -No abdominal pain -Likely due to above GI issues, monitor Hypertension -As needed hydralazine and labetalol, restart home meds when able to tolerate p.o. Acute kidney injury versus chronic kidney disease -Continue IV fluid -Nephrology consulted Diabetes mellitus -Patient stated that ever since he was given Trulicity the past week he has been experiencing severe side effects, hold Trulicity for now, insulin sliding scale for now Disposition -Continue care in the ICU, awaiting GI recommendations, transfuse as needed More than 40 minutes of critical care time spent on this encounter. IVY PICKETT Aug 28, 2018 13:49
--- NOTE | 2018-08-28 17:33 | PN ---
Date/Time of Note Date/Time of Note DATE: 08/28/18 TIME: 17:22 Assessment/Plan VTE Prophylaxis Risk score (from Nsg)>0 risk: 3 SCD applied (from Nsg): Yes Pharmacological prophylaxis: other (scds) Lines/Catheters IV Catheter Type (from Nrsg): Urinary Cath still in place: No Assessment/Plan Hospital Course Summary Assessment and Plan: Assessment: Coffee-ground emesis EGD 08/27/18 Large 5 cm ulceration with nodular boarders highly suspect for malignancy. Central exposed visible vessel with no evidence of recent bleeding left untreated. Otherwise normal EGD Gastric adenocarcinoma, poorly-differentiated, favor Severe anemia 2/2 to above Abdominal adenopathy noted -Differential diagnosis includes inflammation and neoplasm. Small right pleural effusion Elevated lipase- Likely 2/2 to dehydration HTN ALEJANDRO on CKD Small amount of ascites DM Plan: MRI abdomen -pending Diet as tolerated F/u on oncology recommendations Patient seen in collaboration with Dr Sims Subjective: Course reviewed with nursing staff Patient interviewed and examined All labs, imaging and other results reviewed The patient resting in bed, family at bedside currently NPO for MRI today. No c/o n/v or abdominal pain PHYSICAL EXAMINATION: GENERAL: Alert & oriented x 3, in no acute distress SKIN: No lesions. HEAD: Normocephalic, atraumatic, no tenderness. EYES: Pupils equal reactive to light, no discharge. EARS/NOSE AND THROAT: Ears normal, nose normal. NECK: Supple, no masses. CHEST: Inspection within normal limits. CARDIOVASCULAR: Heart: Regular rate and rhythm, no murmurs RESPIRATORY: Lungs clear to auscultation. GASTROINTESTINAL AND LIVER: Abdomen: Soft, non tenderness, non-distended, no hernias, no masses, no organomegaly, no ascites, no guarding, no rebound tenderness, normoactive bowel sounds. Rectal: Deferred. Result Diagram: 08/28/18 1235 08/28/18 0604 Results 24hrs Laboratory Tests Test 08/27/18 18:59 08/27/18 21:38 08/27/18 23:09 08/28/18 01:00 Hemoglobin 8.8 L 7.1 L Hematocrit 25.6 L 20.6 L Bedside Glucose 348 H 204 Test 08/28/18 05:00 08/28/18 05:27 08/28/18 06:03 08/28/18 06:04 Lab Scanned Report BLOOD TRANSFUSION Bedside Glucose 145 Thyroid Stimulating 1.850 Hormone (TSH) Free Thyroxine 1.58 Hemoglobin 8.2 L Hematocrit 24.0 L Sodium Level 144 Potassium Level 4.5 Chloride Level 119 H Carbon Dioxide 21 Level Anion Gap 4 L Blood Urea Nitrogen 60 #H Creatinine 2.09 H Glucose Level 138 # Calcium Level 7.8 L Phosphorus Level 3.4 Magnesium Level 2.1 Albumin 2.4 L Carcinoembryonic 0.4 Antigen Test 08/28/18 08:40 08/28/18 09:41 08/28/18 12:35 08/28/18 13:08 Lab Scanned Report REFERENCE LAB Bedside Glucose 150 147 Hemoglobin 8.9 L Hematocrit 25.7 L Exam/Review of Systems Exam Vitals Vital Signs Date Temp Pulse Resp B/P (MAP) Pulse Ox O2 O2 Flow FiO2 Time Delivery Rate 08/28/18 97.6 86 17 159/88 100 Room Air 16:00 (111) Intake and Output 08/27/18 08/27/18 08/28/18 1515:00 23:00 07:00 IntakeIntake Total 1540 ml 1730 ml 1060 ml OutputOutput Total 700 ml 800 ml 790 ml BalanceBalance 840 ml 930 ml 270 ml Results Results 24hrs Laboratory Tests Test 08/27/18 18:59 08/27/18 21:38 08/27/18 23:09 08/28/18 01:00 Hemoglobin 8.8 L 7.1 L Hematocrit 25.6 L 20.6 L Bedside Glucose 348 H 204 Test 08/28/18 05:00 08/28/18 05:27 08/28/18 06:03 08/28/18 06:04 Lab Scanned Report BLOOD TRANSFUSION Bedside Glucose 145 Thyroid Stimulating 1.850 Hormone (TSH) Free Thyroxine 1.58 Hemoglobin 8.2 L Hematocrit 24.0 L Sodium Level 144 Potassium Level 4.5 Chloride Level 119 H Carbon Dioxide 21 Level Anion Gap 4 L Blood Urea Nitrogen 60 #H Creatinine 2.09 H Glucose Level 138 # Calcium Level 7.8 L Phosphorus Level 3.4 Magnesium Level 2.1 Albumin 2.4 L Carcinoembryonic 0.4 Antigen Test 08/28/18 08:40 08/28/18 09:41 08/28/18 12:35 08/28/18 13:08 Lab Scanned Report REFERENCE LAB Bedside Glucose 150 147 Hemoglobin 8.9 L Hematocrit 25.7 L Medications Medication Current Medications Ondansetron HCl (Zofran Inj) 4 mg Q6H PRN IV NAUSEA AND/OR VOMITING; Start 08/26/18 at 18:30 Albuterol (Proventil 0.083% (Neb)) 2.5 mg Q2H RESP THERAPY PRN NEB SHORTNESS OF BREATH; Start 08/26/18 at 18:30 Acetaminophen (Tylenol Supp) 650 mg Q4H PRN [place] PAIN LEVEL 1-3 OR FEVER; Start 08/26/18 at 18:30 Morphine Sulfate (morphine) 2 mg Q4H PRN IV PAIN LEVEL 7-10; Start 08/26/18 at 18:30 Pantoprazole 80 mg/Sodium Chloride 100 ml @ 10 mls/hr Q10H IV Last administered on 08/28/18at 09:58; Admin Dose 10 MLS/HR; Start 08/26/18 at 18:30 Insulin Aspart (Novolog Insulin Pen) NOVOLOG *MILD* ALGORI... Q4 SC Last administered on 08/28/18at 13:10; Admin Dose 1 UNIT; Start 08/26/18 at 21:00 Hydralazine HCl (Apresoline) 10 mg Q4H PRN IV SBP >170; Start 08/26/18 at 19:00 Miscellaneous Information 1 ea NOTE XX ; Start 08/26/18 at 19:00 Glucose (Glutose) 15 gm Q15M PRN PO DECREASED GLUCOSE; Start 08/26/18 at 19:00 Glucose (Glutose) 22.5 gm Q15M PRN PO DECREASED GLUCOSE; Start 08/26/18 at 19:00 Dextrose (D50w Syringe) 25 ml Q15M PRN IV DECREASED GLUCOSE; Start 08/26/18 at 19:00 Dextrose (D50w Syringe) 50 ml Q15M PRN IV DECREASED GLUCOSE; Start 08/26/18 at 19:00 Glucagon (Glucagen) 1 mg Q15M PRN IM DECREASED GLUCOSE; Start 08/26/18 at 19:00 Glucose (Glutose) 15 gm Q15M PRN BUCCAL DECREASED GLUCOSE; Start 08/26/18 at 19:00 Sodium Chloride 1,000 ml @ 100 mls/hr Q10H IV Last administered on 08/28/18at 09:58; Admin Dose 100 MLS/HR; Start 08/27/18 at 09:30 Labetalol HCl (Labetalol) 10 mg Q4H PRN IV sbp >160; Start 08/27/18 at 10:00 Sucralfate (Carafate Susp) 1 gm QID PO Last administered on 08/28/18at 13:11; Admin Dose 1 GM; Start 08/27/18 at 21:00 Insulin Glargine (Lantus) 10 units DAILY@2000 SC Last administered on 08/27/18at 21:41; Admin Dose 10 UNITS; Start 08/27/18 at 21:00 Ferric Sodium Gluconate Complex 125 mg/Sodium Chloride 110 ml @ 110 mls/hr DAILY@1300 IVPB Last administered on 08/28/18 13:12; Admin Dose 110 MLS/HR; Start 08/28/18 at 13:00; Stop 09/01/18 at 13:59 Lorazepam (Ativan) 1 mg Q6 PRN IV ANXIETY; Start 08/28/18 at 12:30 ASHTYN CHAVEZ Aug 28, 2018 17:33
[2018-08-28] MEDS: INSULIN GLARGINE [LANTus] (100 UNITS/ML) SYG SC SCH (20:47)
[2018-08-29] VITALS (23 sets, daily range): BP systolic 118–166; BP diastolic 60–128; PULSE 76–103; RESP 10–26
[2018-08-29] MEDS: SOD CHLORIDE 0.9% 1,000 ML IV SCH ×3 (01:21→21:41)
[2018-08-29] MEDS: INSULIN ASPART [NOVOLOG] 3 ML PEN SC SCH ×6 (01:25→21:01)
--- NOTE | 2018-08-29 07:33 | CONS ---
Consult Date/Type/Reason Admit Date/Time Aug 26, 2018 at 17:28 Initial Consult Date 08/27/18 Type of Consultation: cv Requesting Provider: IVY PICKETT Date/Time of Note DATE: 08/29/18 TIME: 07:31 Subjective Interventional cardiology follow-up progress note/critical care note\ Subjective: Discussed with staff and telemetry was reviewed. Patient patient has remained in sinus rhythm with no evidence of atrial fibrillation or flutter noted patient remains in ICU. Status post EGD done on August 27, 2018 showing large 5 cm ulceration suspicious for malignancy Patient denies any active bleeding but his hemoglobin has dropped again and required to get more transfusion. No chest pain or pressure He has mild abdominal discomfort though Objective: General: no acute distress HEENT: NC/AT. pupils are equal. round. NECK: NO JVD. no stridor. CV: RRR. systolic murmur; no gallop or rubs. PULM: no wheezing or rhonchi. GI: SOFT, NT, ND, no rebound or guarding Extremity: trace B/L LE edema. no clubbing. neuro: awake and alert, OX3. Psych: calm and pleasant rectal: deferred EKG was personally reviewed. There are 2 EKGs done in the emergency room. The report appears to be sinus tachycardia although 1 of them is read by computer as atrial flutter with 2-1 AV block and nonspecific T wave abnormality noted though Echocardiogram personally reviewed shows: Normal left ventricular systolic function. Normal left ventricular cavity size. Normal left ventricular wall thickness. Ejection fraction is visually estimated at 55-60 %. Tissue Doppler/Mitral Doppler indices are within normal limits. Normal appearance and function of the mitral valve with trace physiologic regurgitation. No significant aortic stenosis or insufficiency. Aortic cusps appear mildly calcified. Normal appearance of the tricuspid valve. The estimated Peak RVSP is 30 mmHg. There is trace tricuspid regurgitation. gastric BX: poorly differentiated adenocarcinoma Objective Vitals Vital Signs Date Temp Pulse Resp B/P (MAP) Pulse Ox O2 O2 Flow FiO2 Time Delivery Rate 08/29/18 89 15 134/77 99 Room Air 06:00 (96) 08/29/18 98.6 04:00 Intake and Output 08/28/18 08/28/18 08/29/18 1515:00 23:00 07:00 IntakeIntake Total 910 ml 920 ml 990 ml OutputOutput Total 650 ml 1140 ml 800 ml BalanceBalance 260 ml -220 ml 190 ml Results/Medications Result Diagram: 08/29/18 0612 08/29/18 0612 Results 24 hrs Laboratory Tests Test 08/28/18 08:40 08/28/18 09:41 08/28/18 12:35 08/28/18 13:08 Lab Scanned REFERENCE LAB Report Bedside Glucose 150 147 Hemoglobin 8.9 L Hematocrit 25.7 L Test 08/28/18 17:55 08/28/18 18:07 08/28/18 20:40 08/29/18 00:44 Bedside Glucose 149 145 Hemoglobin 8.3 L 7.7 L Hematocrit 23.9 L 22.6 L Test 08/29/18 01:18 08/29/18 04:50 08/29/18 06:02 08/29/18 06:12 Bedside Glucose 160 105 Lab Scanned BLOOD TRANSFUSIO Report N White Blood Count 5.2 # Red Blood Count 2.67 #L Hemoglobin 7.8 L Hematocrit 22.8 L Mean Corpuscular 85.4 Volume Mean Corpuscular 29.2 Hemoglobin Mean Corpuscular 34.2 Hemoglobin Concen t Red Cell 14.3 Distribution Width Platelet Count 235 # Mean Platelet 10.5 H Volume Immature 0.400 Granulocytes % Neutrophils % 75.5 Lymphocytes % 12.9 L Monocytes % 7.7 Eosinophils % 2.9 Basophils % 0.6 Nucleated Red 0.0 Blood Cells % Immature 0.020 Granulocytes # Neutrophils # 3.9 Lymphocytes # 0.7 L Monocytes # 0.4 Eosinophils # 0.2 Basophils # 0.0 Nucleated Red 0.0 Blood Cells # Sodium Level 144 Potassium Level 3.9 Chloride Level 120 H Carbon Dioxide 21 Level Anion Gap 3 L Blood Urea 38 H Nitrogen Creatinine 1.88 H Est Glomerular 38 L Filtrat Rate mL/min Glucose Level 112 Calcium Level 7.7 L Phosphorus Level 3.7 Magnesium Level 2.1 Albumin 2.2 L Home Meds Reported Medications Dulaglutide (Trulicity) 0.75 Mg/0.5 Ml Pen.injctr, 0.75 MG SQ Q FRI PATIENT HASE A ADVERS REACTION WHEN HE INJECT THIS MEDICATION. 08/26/18 Furosemide* (Furosemide*) 40 Mg Tablet, 40 MG PO DAILY, TAB 08/26/18 Cholecalciferol (Vitamin D3) (Vitamin D-3) 2,000 Unit Tablet, 2000 UNIT PO DAILY, TAB 08/26/18 Atorvastatin Calcium* (Atorvastatin Calcium*) 20 Mg Tablet, 20 MG PO QHS, #30 TAB 08/26/18 Multivit/Ca Carb/B Cmplx/Fa* (Shanta-Ivette*) 1 Tab Tab, 1 TAB PO DAILY, TAB 08/25/18 Amlodipine Besylate* (Amlodipine Besylate*) 10 Mg Tablet, 10 MG PO QAM, #30 TAB 08/25/18 Glimepiride* (Glimepiride*) 2 Mg Tablet, 2 MG PO WITH BREAKFAST DINNE, TAB 08/25/18 Metformin Hcl* (Metformin Hcl*) 850 Mg Tablet, 850 MG PO WITH BREAKFAST DINNE, #30 TAB 08/25/18 Discontinued Reported Medications Vitamin B Complex* (Vitamin B Complex*) 1 Each Tablet, 1 TAB PO DAILY, TAB 08/25/18 Cholecalciferol* (Vitamin D3*) 1,000 Unit Tablet, 1000 UNIT PO DAILY, TAB 08/25/18 Medications Current Medications Ondansetron HCl (Zofran Inj) 4 mg Q6H PRN IV NAUSEA AND/OR VOMITING; Start 08/26/18 at 18:30 Albuterol (Proventil 0.083% (Neb)) 2.5 mg Q2H RESP THERAPY PRN NEB SHORTNESS OF BREATH; Start 08/26/18 at 18:30 Acetaminophen (Tylenol Supp) 650 mg Q4H PRN CA PAIN LEVEL 1-3 OR FEVER; Start 08/26/18 at 18:30 Morphine Sulfate (morphine) 2 mg Q4H PRN IV PAIN LEVEL 7-10; Start 08/26/18 at 18:30 Pantoprazole 80 mg/Sodium Chloride 100 ml @ 10 mls/hr Q10H IV Last administered on 08/28/18at 20:49; Admin Dose 10 MLS/HR; Start 08/26/18 at 18:30 Insulin Aspart (Novolog Insulin Pen) NOVOLOG *MILD* ALGORI... Q4 SC Last administered on 08/29/18at 01:25; Admin Dose 1 UNIT; Start 08/26/18 at 21:00 Hydralazine HCl (Apresoline) 10 mg Q4H PRN IV SBP >170; Start 08/26/18 at 19:00 Miscellaneous Information 1 ea NOTE XX ; Start 08/26/18 at 19:00 Glucose (Glutose) 15 gm Q15M PRN PO DECREASED GLUCOSE; Start 08/26/18 at 19:00 Glucose (Glutose) 22.5 gm Q15M PRN PO DECREASED GLUCOSE; Start 08/26/18 at 19:00 Dextrose (D50w Syringe) 25 ml Q15M PRN IV DECREASED GLUCOSE; Start 08/26/18 at 19:00 Dextrose (D50w Syringe) 50 ml Q15M PRN IV DECREASED GLUCOSE; Start 08/26/18 at 19:00 Glucagon (Glucagen) 1 mg Q15M PRN IM DECREASED GLUCOSE; Start 08/26/18 at 19:00 Glucose (Glutose) 15 gm Q15M PRN BUCCAL DECREASED GLUCOSE; Start 08/26/18 at 19:00 Sodium Chloride 1,000 ml @ 100 mls/hr Q10H IV Last administered on 08/29/18at 01:21; Admin Dose 100 MLS/HR; Start 08/27/18 at 09:30 Labetalol HCl (Labetalol) 10 mg Q4H PRN IV sbp >160; Start 08/27/18 at 10:00 Sucralfate (Carafate Susp) 1 gm QID PO Last administered on 08/28/18at 20:41; Admin Dose 1 GM; Start 08/27/18 at 21:00 Insulin Glargine (Lantus) 10 units DAILY@2000 SC Last administered on 08/28/18at 20:47; Admin Dose 10 UNITS; Start 08/27/18 at 21:00 Ferric Sodium Gluconate Complex 125 mg/Sodium Chloride 110 ml @ 110 mls/hr DAILY@1300 IVPB Last administered on 08/28/18at 13:12; Admin Dose 110 MLS/HR; Start 08/28/18 at 13:00; Stop 09/01/18 at 13:59 Lorazepam (Ativan) 1 mg Q6 PRN IV ANXIETY Last administered on 08/28/18at 21:21; Admin Dose 1 MG; Start 08/28/18 at 12:30 Assessment/Plan Hospital Course (Demo Recall) 1. Syncope/presyncope secondary to severe anemia 2. Severe anemia 3. GI bleed 4. History of diabetes 5. Acute renal failure: Slowly improving 6. Dyslipidemia 7. History of hypertension 8. Gastric ulcer and poorly differentiated gastric adenocarcinoma 9. Malnutrition and low albumin level Recommendation: EKG was reviewed by unlike what the computer reads, it is not in atrial flutter. No anticoagulation for A. fib or flutter is indicated GI work-up and treatment as per GI recommendation. Currently on Protonix drip in ICU. Patient received multiple blood transfusion and has been admitted to intensive care unit for close monitoring. Continue with transfusion as needed basis IV fluids and fluid management as per internal medicine. TSH is wnl. Monitor H&H and transfuse as needed Continue with ICU care for now. Follow-up with oncology recommendations More than 32 minutes critical care time was for management treatment is critically patient excluding any procedures Thank you for this referral. We will continue to follow along with you YASH ZARAGOZA MD [facility] YASH ZARAGOZA MD Aug 29, 2018 07:32
[2018-08-29] MEDS: SUCRALFATE (100 MG/ML) 10ML CUP PO SCH ×4 (09:09→21:01)
[2018-08-29] MEDS: PANTOPRAZOLE IV 80 MG in SOD CHLORIDE 0.9% 100 ML IV SCH (11:06)
[2018-08-29] MEDS: SOD FERRIC GLUC COMPLX 125 MG in SOD CHLORIDE 0.9% 100 ML IVPB SCH (12:16)
--- NOTE | 2018-08-29 12:47 | PN ---
Date/Time of Note Date/Time of Note DATE: 08/29/18 TIME: 12:43 Assessment/Plan VTE Prophylaxis Risk score (from Nsg)>0 risk: 3 SCD applied (from Nsg): Yes Pharmacological prophylaxis: other (scds) Lines/Catheters IV Catheter Type (from Nrsg): Peripheral IV Urinary Cath still in place: No Assessment/Plan Hospital Course Summary Assessment and Plan: Assessment: Coffee-ground emesis EGD 08/27/18 Large 5 cm ulceration with nodular boarders highly suspect for malignancy. Central exposed visible vessel with no evidence of recent bleeding left untreated. Otherwise normal EGD Gastric adenocarcinoma, poorly-differentiated, favor Severe anemia 2/2 to above Abdominal adenopathy noted -Differential diagnosis includes inflammation and neoplasm. Small right pleural effusion Elevated lipase- Likely 2/2 to dehydration HTN ALEJANDRO on CKD Small amount of ascites DM Plan: MRI abdomen -Study is severely limited by patient motion- Probable hepatic cysts or hemangiomas or other lesions Change diet - to diabetic diet D/c PPI gtt change to BID F/u on oncology recommendations Patient seen in collaboration with Dr Sims Subjective: Course reviewed with nursing staff Patient interviewed and examined All labs, imaging and other results reviewed No over night events, HGB stable, no overt signs of GI bleed. Will advance diet, pt verbalized understanding. Spoke to Dr. esteves this am about pathology results PHYSICAL EXAMINATION: GENERAL: Alert & oriented x 3, in no acute distress SKIN: No lesions. HEAD: Normocephalic, atraumatic, no tenderness. EYES: Pupils equal reactive to light, no discharge. EARS/NOSE AND THROAT: Ears normal, nose normal. NECK: Supple, no masses. CHEST: Inspection within normal limits. CARDIOVASCULAR: Heart: Regular rate and rhythm, no murmurs RESPIRATORY: Lungs clear to auscultation. GASTROINTESTINAL AND LIVER: Abdomen: Soft, non tenderness, non-distended, no hernias, no masses, no organomegaly, no ascites, no guarding, no rebound tenderness, normoactive bowel sounds. Rectal: Deferred. Result Diagram: 08/29/18 1143 08/29/18 0612 Results 24hrs Laboratory Tests Test 08/28/18 13:08 08/28/18 17:55 08/28/18 18:07 08/28/18 20:40 Bedside Glucose 147 149 145 Hemoglobin 8.3 L Hematocrit 23.9 L Test 08/29/18 00:44 6/5/19 01:18 08/29/18 04:50 08/29/18 06:02 Hemoglobin 7.7 L Hematocrit 22.6 L Bedside Glucose 160 105 Lab Scanned Report BLOOD TRANSFUSION Test 08/29/18 06:12 08/29/18 09:11 08/29/18 11:43 White Blood Count 5.2 # Red Blood Count 2.67 #L Hemoglobin 7.8 L 8.0 L Hematocrit 22.8 L 23.5 L Mean Corpuscular 85.4 Volume Mean Corpuscular 29.2 Hemoglobin Mean Corpuscular 34.2 Hemoglobin Concent Red Cell 14.3 Distribution Width Platelet Count 235 # Mean Platelet 10.5 H Volume Immature 0.400 Granulocytes % Neutrophils % 75.5 Lymphocytes % 12.9 L Monocytes % 7.7 Eosinophils % 2.9 Basophils % 0.6 Nucleated Red Blood 0.0 Cells % Immature 0.020 Granulocytes # Neutrophils # 3.9 Lymphocytes # 0.7 L Monocytes # 0.4 Eosinophils # 0.2 Basophils # 0.0 Nucleated Red Blood 0.0 Cells # Sodium Level 144 Potassium Level 3.9 Chloride Level 120 H Carbon Dioxide 21 Level Anion Gap 3 L Blood Urea Nitrogen 38 H Creatinine 1.88 H Est Glomerular 38 L Filtrat Rate mL/min Glucose Level 112 Calcium Level 7.7 L Phosphorus Level 3.7 Magnesium Level 2.1 Albumin 2.2 L Bedside Glucose 96 Exam/Review of Systems Exam Vitals Vital Signs Date Temp Pulse Resp B/P (MAP) Pulse Ox O2 O2 Flow FiO2 Time Delivery Rate 08/29/18 80 08:00 08/29/18 15 134/77 99 Room Air 06:00 (96) 08/29/18 98.6 04:00 Intake and Output 08/28/18 08/28/18 08/29/18 1515:00 23:00 07:00 IntakeIntake Total 910 ml 920 ml 990 ml OutputOutput Total 650 ml 1140 ml 800 ml BalanceBalance 260 ml -220 ml 190 ml Results Results 24hrs Laboratory Tests Test 08/28/18 13:08 08/28/18 17:55 08/28/18 18:07 08/28/18 20:40 Bedside Glucose 147 149 145 Hemoglobin 8.3 L Hematocrit 23.9 L Test 08/29/18 00:44 08/29/18 01:18 08/29/18 04:50 08/29/18 06:02 Hemoglobin 7.7 L Hematocrit 22.6 L Bedside Glucose 160 105 Lab Scanned Report BLOOD TRANSFUSION Test 08/29/18 06:12 08/29/18 09:11 08/29/18 11:43 White Blood Count 5.2 # Red Blood Count 2.67 #L Hemoglobin 7.8 L 8.0 L Hematocrit 22.8 L 23.5 L Mean Corpuscular 85.4 Volume Mean Corpuscular 29.2 Hemoglobin Mean Corpuscular 34.2 Hemoglobin Concent Red Cell 14.3 Distribution Width Platelet Count 235 # Mean Platelet 10.5 H Volume Immature 0.400 Granulocytes % Neutrophils % 75.5 Lymphocytes % 12.9 L Monocytes % 7.7 Eosinophils % 2.9 Basophils % 0.6 Nucleated Red Blood 0.0 Cells % Immature 0.020 Granulocytes # Neutrophils # 3.9 Lymphocytes # 0.7 L Monocytes # 0.4 Eosinophils # 0.2 Basophils # 0.0 Nucleated Red Blood 0.0 Cells # Sodium Level 144 Potassium Level 3.9 Chloride Level 120 H Carbon Dioxide 21 Level Anion Gap 3 L Blood Urea Nitrogen 38 H Creatinine 1.88 H Est Glomerular 38 L Filtrat Rate mL/min Glucose Level 112 Calcium Level 7.7 L Phosphorus Level 3.7 Magnesium Level 2.1 Albumin 2.2 L Bedside Glucose 96 Medications Medication Current Medications Ondansetron HCl (Zofran Inj) 4 mg Q6H PRN IV NAUSEA AND/OR VOMITING; Start 08/26/18 at 18:30 Albuterol (Proventil 0.083% (Neb)) 2.5 mg Q2H RESP THERAPY PRN NEB SHORTNESS OF BREATH; Start 08/26/18 at 18:30 Acetaminophen (Tylenol Supp) 650 mg Q4H PRN [place] PAIN LEVEL 1-3 OR FEVER; Start 08/26/18 at 18:30 Morphine Sulfate (morphine) 2 mg Q4H PRN IV PAIN LEVEL 7-10; Start 08/26/18 at 18:30 Insulin Aspart (Novolog Insulin Pen) NOVOLOG *MILD* ALGORI... Q4 SC Last administered on 08/29/18at 01:25; Admin Dose 1 UNIT; Start 08/26/18 at 21:00 Hydralazine HCl (Apresoline) 10 mg Q4H PRN IV SBP >170; Start 08/26/18 at 19:00 Miscellaneous Information 1 ea NOTE XX ; Start 08/26/18 at 19:00 Glucose (Glutose) 15 gm Q15M PRN PO DECREASED GLUCOSE; Start 08/26/18 at 19:00 Glucose (Glutose) 22.5 gm Q15M PRN PO DECREASED GLUCOSE; Start 08/26/18 at 19:00 Dextrose (D50w Syringe) 25 ml Q15M PRN IV DECREASED GLUCOSE; Start 08/26/18 at 19:00 Dextrose (D50w Syringe) 50 ml Q15M PRN IV DECREASED GLUCOSE; Start 08/26/18 at 19:00 Glucagon (Glucagen) 1 mg Q15M PRN IM DECREASED GLUCOSE; Start 08/26/18 at 19:00 Glucose (Glutose) 15 gm Q15M PRN BUCCAL DECREASED GLUCOSE; Start 08/26/18 at 19:00 Sodium Chloride 1,000 ml @ 100 mls/hr Q10H IV Last administered on 08/29/18at 11:06; Admin Dose 100 MLS/HR; Start 08/27/18 at 09:30 Labetalol HCl (Labetalol) 10 mg Q4H PRN IV sbp >160; Start 08/27/18 at 10:00 Sucralfate (Carafate Susp) 1 gm QID PO Last administered on 08/29/18at 09:09; Admin Dose 1 GM; Start 08/27/18 at 21:00 Insulin Glargine (Lantus) 10 units DAILY@2000 SC Last administered on 08/28/18at 20:47; Admin Dose 10 UNITS; Start 08/27/18 at 21:00 Ferric Sodium Gluconate Complex 125 mg/Sodium Chloride 110 ml @ 110 mls/hr DAILY@1300 IVPB Last administered on 08/29/18at 12:16; Admin Dose 110 MLS/HR; Start 08/28/18 at 13:00; Stop 09/01/18 at 13:59 Lorazepam (Ativan) 1 mg Q6 PRN IV ANXIETY Last administered on 08/28/18at 21:21; Admin Dose 1 MG; Start 08/28/18 at 12:30 Pantoprazole (Protonix Iv) 40 mg BID@06,18 IV ; Start 08/29/18 at 18:00 ASHTYN CHAVEZ Aug 29, 2018 12:47
--- NOTE | 2018-08-29 13:12 | CONS ---
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 -CT demonstrates appearance of enlarged lymph nodes in the gastrohepatic ligament, celiac region, periportal region and left para-aortic region of the retroperitoneum the largest lymph node measuring approximately 1.8 cm short-axis in the left para-aortic region. -given his likely slow continual GI bleed. we will plan to start chemotherapy in the hospital -plan to start FLOT per the following regimen Fluorouracil (5-FU) 2600 mg/m2 IV continuous infusion over 24 hours on day 1 Folinic acid (Leucovorin) 200 mg/m2 IV once on day 1 Oxaliplatin (Eloxatin) 85 mg/m2 IV once on day 1 Docetaxel (Taxotere) 50 mg/m2 IV once on day 1 -pt will need PET CT as an out patient #iron deficiency anemia -continue IV iron Thank you for the opportunity to participate in this patients care A total of 40 minutes of face to face time was spent speaking with the patient, of which greater than 50% was spent in counseling and coordination of care and the detailed question and answer session. Consultation Date/Type/Reason Admit Date/Time Aug 26, 2018 at 17:28 Initial Consult Date 08/28/18 Type of Consult oncology Reason for Consultation gastric cancer Requesting Provider: IVY PICKETT Date/Time of Note DATE: 08/29/18 TIME: 13:09 24 HR Interval Summary Free Text/Dictation path did confirm adenocarcinoma Exam/Review of Systems Exam Vitals Vital Signs Date Temp Pulse Resp B/P (MAP) Pulse Ox O2 O2 Flow FiO2 Time Delivery Rate 08/29/18 80 08:00 08/29/18 15 134/77 99 Room Air 06:00 (96) 08/29/18 98.6 04:00 Intake and Output 08/28/18 08/28/18 08/29/18 1515:00 23:00 07:00 IntakeIntake Total 910 ml 920 ml 990 ml OutputOutput Total 650 ml 1140 ml 800 ml BalanceBalance 260 ml -220 ml 190 ml Constitutional: alert, oriented, frail Head: normocephalic Eyes: nl conjunctiva ENMT: nl external ears & nose Neck: supple Respiratory: clear to auscultation Cardiovascular: regular rate and rhythm Musculoskeletal: nl extremities to inspection Results Result Diagram: 6/5/19 1143 08/29/18 0612 Results 24hrs Laboratory Tests Test 08/28/18 17:55 08/28/18 18:07 08/28/18 20:40 08/29/18 00:44 Bedside Glucose 149 145 Hemoglobin 8.3 L 7.7 L Hematocrit 23.9 L 22.6 L Test 08/29/18 01:18 08/29/18 04:50 08/29/18 06:02 08/29/18 06:12 Bedside Glucose 160 105 Lab Scanned Report BLOOD TRANSFUSION White Blood Count 5.2 # Red Blood Count 2.67 #L Hemoglobin 7.8 L Hematocrit 22.8 L Mean Corpuscular 85.4 Volume Mean Corpuscular 29.2 Hemoglobin Mean Corpuscular 34.2 Hemoglobin Concent Red Cell 14.3 Distribution Width Platelet Count 235 # Mean Platelet 10.5 H Volume Immature 0.400 Granulocytes % Neutrophils % 75.5 Lymphocytes % 12.9 L Monocytes % 7.7 Eosinophils % 2.9 Basophils % 0.6 Nucleated Red Blood 0.0 Cells % Immature 0.020 Granulocytes # Neutrophils # 3.9 Lymphocytes # 0.7 L Monocytes # 0.4 Eosinophils # 0.2 Basophils # 0.0 Nucleated Red Blood 0.0 Cells # Sodium Level 144 Potassium Level 3.9 Chloride Level 120 H Carbon Dioxide 21 Level Anion Gap 3 L Blood Urea Nitrogen 38 H Creatinine 1.88 H Est Glomerular 38 L Filtrat Rate mL/min Glucose Level 112 Calcium Level 7.7 L Phosphorus Level 3.7 Magnesium Level 2.1 Albumin 2.2 L Test 08/29/18 09:11 08/29/18 11:43 Bedside Glucose 96 Hemoglobin 8.0 L Hematocrit 23.5 L Medications Medication Current Medications Ondansetron HCl (Zofran Inj) 4 mg Q6H PRN IV NAUSEA AND/OR VOMITING; Start 08/26/18 at 18:30 Albuterol (Proventil 0.083% (Neb)) 2.5 mg Q2H RESP THERAPY PRN NEB SHORTNESS OF BREATH; Start 08/26/18 at 18:30 Acetaminophen (Tylenol Supp) 650 mg Q4H PRN IN PAIN LEVEL 1-3 OR FEVER; Start 08/26/18 at 18:30 Morphine Sulfate (morphine) 2 mg Q4H PRN IV PAIN LEVEL 7-10; Start 08/26/18 at 18:30 Insulin Aspart (Novolog Insulin Pen) NOVOLOG *MILD* ALGORI... Q4 SC Last administered on 08/29/18at 01:25; Admin Dose 1 UNIT; Start 08/26/18 at 21:00 Hydralazine HCl (Apresoline) 10 mg Q4H PRN IV SBP >170; Start 08/26/18 at 19:00 Miscellaneous Information 1 ea NOTE XX ; Start 08/26/18 at 19:00 Glucose (Glutose) 15 gm Q15M PRN PO DECREASED GLUCOSE; Start 08/26/18 at 19:00 Glucose (Glutose) 22.5 gm Q15M PRN PO DECREASED GLUCOSE; Start 08/26/18 at 19:00 Dextrose (D50w Syringe) 25 ml Q15M PRN IV DECREASED GLUCOSE; Start 08/26/18 at 19:00 Dextrose (D50w Syringe) 50 ml Q15M PRN IV DECREASED GLUCOSE; Start 08/26/18 at 19:00 Glucagon (Glucagen) 1 mg Q15M PRN IM DECREASED GLUCOSE; Start 08/26/18 at 19:00 Glucose (Glutose) 15 gm Q15M PRN BUCCAL DECREASED GLUCOSE; Start 08/26/18 at 19:00 Sodium Chloride 1,000 ml @ 100 mls/hr Q10H IV Last administered on 08/29/18at 11:06; Admin Dose 100 MLS/HR; Start 08/27/18 at 09:30 Labetalol HCl (Labetalol) 10 mg Q4H PRN IV sbp >160; Start 08/27/18 at 10:00 Sucralfate (Carafate Susp) 1 gm QID PO Last administered on 08/29/18at 09:09; Admin Dose 1 GM; Start 08/27/18 at 21:00 Insulin Glargine (Lantus) 10 units DAILY@2000 SC Last administered on 08/28/18at 20:47; Admin Dose 10 UNITS; Start 08/27/18 at 21:00 Ferric Sodium Gluconate Complex 125 mg/Sodium Chloride 110 ml @ 110 mls/hr DAILY@1300 IVPB Last administered on 08/29/18at 12:16; Admin Dose 110 MLS/HR; Start 08/28/18 at 13:00; Stop 6/8/19 at 13:59 Lorazepam (Ativan) 1 mg Q6 PRN IV ANXIETY Last administered on 08/28/18at 21:21; Admin Dose 1 MG; Start 08/28/18 at 12:30 Pantoprazole (Protonix Iv) 40 mg BID@06,18 IV ; Start 08/29/18 at 18:00 AME VALDEZ M.D. Aug 29, 2018 13:12
--- NOTE | 2018-08-29 13:28 | PN ---
Date/Time of Note Date/Time of Note DATE: 08/29/18 TIME: 13:25 Objective Vitals Vital Signs Date Temp Pulse Resp B/P (MAP) Pulse Ox O2 O2 Flow FiO2 Time Delivery Rate 08/29/18 80 08:00 08/29/18 15 134/77 99 Room Air 06:00 (96) 08/29/18 98.6 04:00 Intake and Output 08/28/18 08/28/18 08/29/18 1515:00 23:00 07:00 IntakeIntake Total 910 ml 920 ml 990 ml OutputOutput Total 650 ml 1140 ml 800 ml BalanceBalance 260 ml -220 ml 190 ml Results Result Diagram: 08/29/18 1143 08/29/18 0612 Medications Medications Current Medications Ondansetron HCl (Zofran Inj) 4 mg Q6H PRN IV NAUSEA AND/OR VOMITING; Start 08/26/18 at 18:30 Albuterol (Proventil 0.083% (Neb)) 2.5 mg Q2H RESP THERAPY PRN NEB SHORTNESS OF BREATH; Start 08/26/18 at 18:30 Acetaminophen (Tylenol Supp) 650 mg Q4H PRN [place] PAIN LEVEL 1-3 OR FEVER; Start 08/26/18 at 18:30 Morphine Sulfate (morphine) 2 mg Q4H PRN IV PAIN LEVEL 7-10; Start 08/26/18 at 18:30 Insulin Aspart (Novolog Insulin Pen) NOVOLOG *MILD* ALGORI... Q4 SC Last administered on 08/29/18at 01:25; Admin Dose 1 UNIT; Start 08/26/18 at 21:00 Hydralazine HCl (Apresoline) 10 mg Q4H PRN IV SBP >170; Start 08/26/18 at 19:00 Miscellaneous Information 1 ea NOTE XX ; Start 08/26/18 at 19:00 Glucose (Glutose) 15 gm Q15M PRN PO DECREASED GLUCOSE; Start 08/26/18 at 19:00 Glucose (Glutose) 22.5 gm Q15M PRN PO DECREASED GLUCOSE; Start 08/26/18 at 19:00 Dextrose (D50w Syringe) 25 ml Q15M PRN IV DECREASED GLUCOSE; Start 08/26/18 at 19:00 Dextrose (D50w Syringe) 50 ml Q15M PRN IV DECREASED GLUCOSE; Start 08/26/18 at 19:00 Glucagon (Glucagen) 1 mg Q15M PRN IM DECREASED GLUCOSE; Start 08/26/18 at 19:00 Glucose (Glutose) 15 gm Q15M PRN BUCCAL DECREASED GLUCOSE; Start 08/26/18 at 19:00 Sodium Chloride 1,000 ml @ 100 mls/hr Q10H IV Last administered on 08/29/18at 11:06; Admin Dose 100 MLS/HR; Start 08/27/18 at 09:30 Labetalol HCl (Labetalol) 10 mg Q4H PRN IV sbp >160; Start 08/27/18 at 10:00 Sucralfate (Carafate Susp) 1 gm QID PO Last administered on 08/29/18at 09:09; Admin Dose 1 GM; Start 08/27/18 at 21:00 Insulin Glargine (Lantus) 10 units DAILY@2000 SC Last administered on 08/28/18at 20:47; Admin Dose 10 UNITS; Start 08/27/18 at 21:00 Ferric Sodium Gluconate Complex 125 mg/Sodium Chloride 110 ml @ 110 mls/hr DAILY@1300 IVPB Last administered on 08/29/18at 12:16; Admin Dose 110 MLS/HR; Start 08/28/18 at 13:00; Stop 09/01/18 at 13:59 Lorazepam (Ativan) 1 mg Q6 PRN IV ANXIETY Last administered on 08/28/18at 21:21; Admin Dose 1 MG; Start 08/28/18 at 12:30 Pantoprazole (Protonix Iv) 40 mg BID@06,18 IV ; Start 08/29/18 at 18:00 VTE Prophylaxis Risk score (from Nsg)>0 risk: 3 SCD applied (from Nsg): Yes Lines/Catheters IV Catheter Type: Ruiz in Place: No Assessment/Plan Hospital Course Subjective No acute overnight events Objective Physical exam General: Patient is laying in bed and answers questions appropriately Mentation: Patient is alert and oriented 4, Head: Normocephalic atraumatic Eyes: EOMI, pupils reactive to light Neck: Supple, nontender, midline Respiratory: Clear to auscultation bilaterally Cardiovascular: regular rate, no obvious murmurs Gastrointestinal: non-tender to palpation, bowel sounds heard. Neurological: Moves all extremities spontaneously Skin: No new skin lesions Assessment and plan Hematemesis with large gastric ulcer, resolving -Hemoglobin was very low on admission, continue transfusions as needed, hematemesis has resolved, no acute bleeding found on EGD -IV fluid and Protonix twice daily -GI recommendations appreciated -Monitor closely Gastric adenocarcinoma -Oncology has been consulted -MRI results noted, questionable hepatic findings versus other lymphadenopathy, oncology recognitions appreciated -Per oncology, CT chest ordered as well as plans for port and possible chemotherapy before discharge Distended gallbladder per MRI -Patient completely asymptomatic, no abdominal pain, monitor for now Liver cyst versus hemangioma versus metastases -Found on MRI, oncology recommendations appreciated Syncope, resolved -Likely secondary to above hematemesis and hemoglobin of 3.9 on admission -supportive treatment -Monitor closely Blood loss anemia -Continue transfusing as needed -Secondary to GI bleed Elevated lipase -No abdominal pain -Likely due to above GI issues, monitor Hypertension -As needed hydralazine and labetalol, restart home meds when able to tolerate p.o. Acute kidney injury versus chronic kidney disease -Continue IV fluid -Nephrology consulted Diabetes mellitus -Patient stated that ever since he was given Trulicity the past week he has been experiencing severe side effects, hold Trulicity for now, insulin sliding scale for now Disposition -Continue care in the ICU, continue to monitor and ensure stability of hemoglobin for downgrade as patient is high risk of abrupt bleed due to vessel under ulcer More than 40 minutes of critical care time spent on this encounter. IVY PICKETT Aug 29, 2018 13:27
--- NOTE | 2018-08-29 14:43 | CONS ---
Assessment/Plan Assessment/Plan Hospital Course (Demo Recall) 1. Acute renal failure superimposed on chronic kidney disease. His renal function is about the same as yesterday . He may be close to his baseline S creatinine . He does have 5 g of protein per gram of creatinine on the urine protein / creatinine ratio. This is consistent with diabetic nephropathy. Agree with current management plan. Will follow. 2. GI bleeding due to gastric ulcer which has been biopsied and is gastric adenocarcinoma . GI and oncologic w/u are in progress . 3. Type 2 diabetes mellitus 4. Syncope due to gastrointestinal bleeding Consultation Date/Type/Reason Admit Date/Time Aug 26, 2018 at 17:28 Initial Consult Date 08/28/18 Type of Consult Nephrology Requesting Provider: IVY PICKETT Date/Time of Note DATE: 08/29/18 TIME: 14:38 24 HR Interval Summary Free Text/Dictation Armani is being seen in nephrologic follow up . He is awake and alert . He is being seen in the ICU . Constitutional: no complaints Exam/Review of Systems Exam Vitals Vital Signs Date Temp Pulse Resp B/P (MAP) Pulse Ox O2 O2 Flow FiO2 Time Delivery Rate 08/29/18 77 12:00 08/29/18 15 134/77 99 Room Air 06:00 (96) 08/29/18 98.6 04:00 Intake and Output 08/28/18 08/28/18 08/29/18 1414:59 22:59 06:59 IntakeIntake Total 800 ml 1030 ml 990 ml OutputOutput Total 650 ml 1040 ml 900 ml BalanceBalance 150 ml -10 ml 90 ml Constitutional: alert, oriented, frail Respiratory: clear to auscultation, normal air movement Cardiovascular: regular rate and rhythm Gastrointestinal: soft, non-tender Musculoskeletal: nl extremities to inspection Results Result Diagram: 08/29/18 1143 08/29/18 0612 Results 24hrs Laboratory Tests Test 08/28/18 17:55 08/28/18 18:07 08/28/18 20:40 08/29/18 00:44 Bedside Glucose 149 145 Hemoglobin 8.3 L 7.7 L Hematocrit 23.9 L 22.6 L Test 08/29/18 01:18 08/29/18 04:50 08/29/18 06:02 08/29/18 06:12 Bedside Glucose 160 105 Lab Scanned Report BLOOD TRANSFUSION White Blood Count 5.2 # Red Blood Count 2.67 #L Hemoglobin 7.8 L Hematocrit 22.8 L Mean Corpuscular 85.4 Volume Mean Corpuscular 29.2 Hemoglobin Mean Corpuscular 34.2 Hemoglobin Concent Red Cell 14.3 Distribution Width Platelet Count 235 # Mean Platelet 10.5 H Volume Immature 0.400 Granulocytes % Neutrophils % 75.5 Lymphocytes % 12.9 L Monocytes % 7.7 Eosinophils % 2.9 Basophils % 0.6 Nucleated Red Blood 0.0 Cells % Immature 0.020 Granulocytes # Neutrophils # 3.9 Lymphocytes # 0.7 L Monocytes # 0.4 Eosinophils # 0.2 Basophils # 0.0 Nucleated Red Blood 0.0 Cells # Sodium Level 144 Potassium Level 3.9 Chloride Level 120 H Carbon Dioxide 21 Level Anion Gap 3 L Blood Urea Nitrogen 38 H Creatinine 1.88 H Est Glomerular 38 L Filtrat Rate mL/min Glucose Level 112 Calcium Level 7.7 L Phosphorus Level 3.7 Magnesium Level 2.1 Albumin 2.2 L Test 08/29/18 09:11 08/29/18 11:43 08/29/18 13:18 Bedside Glucose 96 183 Hemoglobin 8.0 L Hematocrit 23.5 L Medications Medication Current Medications Ondansetron HCl (Zofran Inj) 4 mg Q6H PRN IV NAUSEA AND/OR VOMITING; Start 08/26/18 at 18:30 Albuterol (Proventil 0.083% (Neb)) 2.5 mg Q2H RESP THERAPY PRN NEB SHORTNESS OF BREATH; Start 08/26/18 at 18:30 Acetaminophen (Tylenol Supp) 650 mg Q4H PRN [place] PAIN LEVEL 1-3 OR FEVER; Start 08/26/18 at 18:30 Morphine Sulfate (morphine) 2 mg Q4H PRN IV PAIN LEVEL 7-10; Start 08/26/18 at 18:30 Insulin Aspart (Novolog Insulin Pen) NOVOLOG *MILD* ALGORI... Q4 SC Last administered on 08/29/18at 13:21; Admin Dose 2 UNIT; Start 08/26/18 at 21:00 Hydralazine HCl (Apresoline) 10 mg Q4H PRN IV SBP >170; Start 08/26/18 at 19:00 Miscellaneous Information 1 ea NOTE XX ; Start 08/26/18 at 19:00 Glucose (Glutose) 15 gm Q15M PRN PO DECREASED GLUCOSE; Start 08/26/18 at 19:00 Glucose (Glutose) 22.5 gm Q15M PRN PO DECREASED GLUCOSE; Start 08/26/18 at 19:00 Dextrose (D50w Syringe) 25 ml Q15M PRN IV DECREASED GLUCOSE; Start 08/26/18 at 19:00 Dextrose (D50w Syringe) 50 ml Q15M PRN IV DECREASED GLUCOSE; Start 08/26/18 at 19:00 Glucagon (Glucagen) 1 mg Q15M PRN IM DECREASED GLUCOSE; Start 08/26/18 at 19:00 Glucose (Glutose) 15 gm Q15M PRN BUCCAL DECREASED GLUCOSE; Start 08/26/18 at 19:00 Sodium Chloride 1,000 ml @ 100 mls/hr Q10H IV Last administered on 08/29/18at 11:06; Admin Dose 100 MLS/HR; Start 08/27/18 at 09:30 Labetalol HCl (Labetalol) 10 mg Q4H PRN IV sbp >160; Start 08/27/18 at 10:00 Sucralfate (Carafate Susp) 1 gm QID PO Last administered on 08/29/18at 14:05; Admin Dose 1 GM; Start 08/27/18 at 21:00 Insulin Glargine (Lantus) 10 units DAILY@2000 SC Last administered on 08/28/18at 20:47; Admin Dose 10 UNITS; Start 08/27/18 at 21:00 Ferric Sodium Gluconate Complex 125 mg/Sodium Chloride 110 ml @ 110 mls/hr DAILY@1300 IVPB Last administered on 08/29/18at 12:16; Admin Dose 110 MLS/HR; Start 08/28/18 at 13:00; Stop 09/01/18 at 13:59 Lorazepam (Ativan) 1 mg Q6 PRN IV ANXIETY Last administered on 08/28/18at 21:21; Admin Dose 1 MG; Start 08/28/18 at 12:30 Pantoprazole (Protonix Iv) 40 mg BID@06,18 IV ; Start 08/29/18 at 18:00 RUCHI VELIZ MD Aug 29, 2018 14:43
[2018-08-29] MEDS: PANTOPRAZOLE 40 MG INJ IV SCH (17:19)
[2018-08-29] MEDS: INSULIN GLARGINE [LANTus] (100 UNITS/ML) SYG SC SCH (19:43)
[2018-08-29] MEDS: LABETALOL HCL 20MG INJ IV PRN (20:42)
[2018-08-29] MEDS: morphine 2 MG INJ IV PRN (23:14)
[2018-08-30] VITALS (26 sets, daily range): BP systolic 119–167; BP diastolic 33–98; PULSE 76–103; RESP 10–27
[2018-08-30] MEDS: INSULIN ASPART [NOVOLOG] 3 ML PEN SC SCH ×7 (00:43→20:52)
[2018-08-30] MEDS: PANTOPRAZOLE 40 MG INJ IV SCH ×2 (05:35→17:49)
[2018-08-30] MEDS: SOD CHLORIDE 0.9% 1,000 ML IV SCH (07:30)
--- NOTE | 2018-08-30 07:55 | CONS ---
Consult Date/Type/Reason Admit Date/Time Aug 26, 2018 at 17:28 Initial Consult Date 08/27/18 Type of Consultation: cv Requesting Provider: IVY PICKETT Date/Time of Note DATE: 08/30/18 TIME: 07:52 Subjective Interventional cardiology follow-up progress note/critical care note\ Subjective: Discussed with staff and telemetry was reviewed. Patient patient has remained in sinus rhythm with no evidence of atrial fibrillation or flutter noted patient remains in ICU. Status post EGD done on August 27, 2018 showing large 5 cm ulceration suspicious for malignancy. biopsy shows adenoca. Patient denies any active bleeding but his hemoglobin has dropped again and required to get more transfusion. No chest pain or pressure He has mild abdominal discomfort though he c/o pain on right arm at site of IV Objective: General: no acute distress HEENT: NC/AT. pupils are equal. round. NECK: NO JVD. no stridor. CV: RRR. systolic murmur; no gallop or rubs. PULM: no wheezing or rhonchi. GI: SOFT, NT, ND, no rebound or guarding Extremity: trace B/L LE edema. no clubbing. neuro: awake and alert, OX3. Psych: calm and pleasant rectal: deferred EKG was personally reviewed. There are 2 EKGs done in the emergency room. The report appears to be sinus tachycardia although 1 of them is read by computer as atrial flutter with 2-1 AV block and nonspecific T wave abnormality noted though Echocardiogram personally reviewed shows: Normal left ventricular systolic function. Normal left ventricular cavity size. Normal left ventricular wall thickness. Ejection fraction is visually estimated at 55-60 %. Tissue Doppler/Mitral Doppler indices are wit hin normal limits. Normal appearance and function of the mitral valve with trace physiologic regurgitation. No significant aortic stenosis or insufficiency. Aortic cusps appear mildly calcified. Normal appearance of the tricuspid valve. The estimated Peak RVSP is 30 mmHg. There is trace tricuspid regurgitation. gastric BX: poorly differentiated adenocarcinoma chest CT 08/29/18 1. No suspicious lung parenchymal nodule or mediastinal adenopathy. 2. Trace bilateral pleural effusions. 3. Moderate coronary artery calcifications. 4. Heterogeneous appearance of the thyroid gland with likely 1.3 cm hypodense right thyroid nodule. 5. Subcutaneous fat stranding and air on the right axillary extending to the chest wall. Correlate with recent history of trauma or intervention. 6. Again seen diffuse thickening of the body of the stomach and upper abdominal adenopathy. Objective Vitals Vital Signs Date Temp Pulse Resp B/P (MAP) Pulse Ox O2 O2 Flow FiO2 Time Delivery Rate 08/30/18 82 11 139/76 100 Room Air 07:00 (97) 08/30/18 98.1 04:00 Intake and Output 08/29/18 08/29/18 08/30/18 1515:00 23:00 07:00 IntakeIntake Total 860 ml 730 ml 875 ml OutputOutput Total 500 ml 700 ml 550 ml BalanceBalance 360 ml 30 ml 325 ml Results/Medications Result Diagram: 08/30/18 0438 08/30/18 0438 Results 24 hrs Laboratory Tests Test 08/29/18 09:11 08/29/18 11:43 08/29/18 13:18 08/29/18 17:15 Bedside Glucose 96 183 96 Hemoglobin 8.0 L Hematocrit 23.5 L Test 08/29/18 17:50 08/29/18 19:35 08/29/18 21:00 08/30/18 00:41 Hemoglobin 8.0 L Hematocrit 23.8 L Prothrombin Time 13.3 Prothrombin Time Ratio 1.0 INR International 1.00 Normalized Ratio Bedside Glucose 175 177 192 Test 08/30/18 00:42 08/30/18 04:37 08/30/18 04:38 Hemoglobin 7.4 L 8.5 L Hematocrit 21.7 L 25.4 L Bedside Glucose 178 White Blood Count 8.3 # Red Blood Count 2.93 L Mean Corpuscular Volume 86.7 Mean Corpuscular 29.0 Hemoglobin Mean Corpuscular 33.5 Hemoglobin Concent Red Cell Distribution 15.0 H Width Platelet Count 259 Mean Platelet Volume 10.7 H Immature Granulocytes % 0.200 Neutrophils % 85.1 H Lymphocytes % 7.8 L Monocytes % 5.3 Eosinophils % 1.1 Basophils % 0.5 Nucleated Red Blood 0.0 Cells % Immature Granulocytes # 0.020 Neutrophils # 7.1 Lymphocytes # 0.7 L Monocytes # 0.4 Eosinophils # 0.1 Basophils # 0.0 Nucleated Red Blood 0.0 Cells # Sodium Level 141 Potassium Level 3.8 Chloride Level 118 H Carbon Dioxide Level 19 L Anion Gap 4 L Blood Urea Nitrogen 29 H Creatinine 1.89 H Est Glomerular Filtrat 38 L Rate mL/min Glucose Level 163 Calcium Level 7.7 L Phosphorus Level 3.6 Magnesium Level 1.9 Home Meds Reported Medications Dulaglutide (Trulicity) 0.75 Mg/0.5 Ml Pen.injctr, 0.75 MG SQ Q FRI PATIENT HASE A ADVERS REACTION WHEN HE INJECT THIS MEDICATION. 08/26/18 Furosemide* (Furosemide*) 40 Mg Tablet, 40 MG PO DAILY, TAB 08/26/18 Cholecalciferol (Vitamin D3) (Vitamin D-3) 2,000 Unit Tablet, 2000 UNIT PO DAILY, TAB 08/26/18 Atorvastatin Calcium* (Atorvastatin Calcium*) 20 Mg Tablet, 20 MG PO QHS, #30 TAB 08/26/18 Multivit/Ca Carb/B Cmplx/Fa* (Shanta-Ivette*) 1 Tab Tab, 1 TAB PO DAILY, TAB 08/25/18 Amlodipine Besylate* (Amlodipine Besylate*) 10 Mg Tablet, 10 MG PO QAM, #30 TAB 08/25/18 Glimepiride* (Glimepiride*) 2 Mg Tablet, 2 MG PO WITH BREAKFAST DINNE, TAB 08/25/18 Metformin Hcl* (Metformin Hcl*) 850 Mg Tablet, 850 MG PO WITH BREAKFAST DINNE, #30 TAB 08/25/18 Discontinued Reported Medications Vitamin B Complex* (Vitamin B Complex*) 1 Each Tablet, 1 TAB PO DAILY, TAB 08/25/18 Cholecalciferol* (Vitamin D3*) 1,000 Unit Tablet, 1000 UNIT PO DAILY, TAB 08/25/18 Medications Current Medications Ondansetron HCl (Zofran Inj) 4 mg Q6H PRN IV NAUSEA AND/OR VOMITING; Start 08/26/18 at 18:30 Albuterol (Proventil 0.083% (Neb)) 2.5 mg Q2H RESP THERAPY PRN NEB SHORTNESS OF BREATH; Start 08/26/18 at 18:30 Acetaminophen (Tylenol Supp) 650 mg Q4H PRN [place] PAIN LEVEL 1-3 OR FEVER; Start 08/26/18 at 18:30 Morphine Sulfate (morphine) 2 mg Q4H PRN IV PAIN LEVEL 7-10 Last administered on 08/29/18at 23:14; Admin Dose 2 MG; Start 08/26/18 at 18:30 Insulin Aspart (Novolog Insulin Pen) NOVOLOG *MILD* ALGORI... Q4 SC Last administered on 08/30/18at 04:39; Admin Dose 1 UNIT; Start 08/26/18 at 21:00 Hydralazine HCl (Apresoline) 10 mg Q4H PRN IV SBP >170; Start 08/26/18 at 19:00 Miscellaneous Information 1 ea NOTE XX ; Start 08/26/18 at 19:00 Glucose (Glutose) 15 gm Q15M PRN PO DECREASED GLUCOSE; Start 08/26/18 at 19:00 Glucose (Glutose) 22.5 gm Q15M PRN PO DECREASED GLUCOSE; Start 08/26/18 at 19:00 Dextrose (D50w Syringe) 25 ml Q15M PRN IV DECREASED GLUCOSE; Start 08/26/18 at 19:00 Dextrose (D50w Syringe) 50 ml Q15M PRN IV DECREASED GLUCOSE; Start 08/26/18 at 19:00 Glucagon (Glucagen) 1 mg Q15M PRN IM DECREASED GLUCOSE; Start 08/26/18 at 19:00 Glucose (Glutose) 15 gm Q15M PRN BUCCAL DECREASED GLUCOSE; Start 08/26/18 at 19:00 Sodium Chloride 1,000 ml @ 100 mls/hr Q10H IV Last administered on 08/29/18at 21:41; Admin Dose 100 MLS/HR; Start 08/27/18 at 09:30 Labetalol HCl (Labetalol) 10 mg Q4H PRN IV sbp >160 Last administered on 08/29/18at 20:42; Admin Dose 10 MG; Start 08/27/18 at 10:00 Sucralfate (Carafate Susp) 1 gm QID PO Last administered on 08/29/18at 21:01; Admin Dose 1 GM; Start 08/27/18 at 21:00 Insulin Glargine (Lantus) 10 units DAILY@2000 SC Last administered on 08/29/18at 19:43; Admin Dose 10 UNITS; Start 08/27/18 at 21:00 Ferric Sodium Gluconate Complex 125 mg/Sodium Chloride 110 ml @ 110 mls/hr DAILY@1300 IVPB Last administered on 08/29/18at 12:16; Admin Dose 110 MLS/HR; Start 08/28/18 at 13:00; Stop 09/01/18 at 13:59 Lorazepam (Ativan) 1 mg Q6 PRN IV ANXIETY Last administered on 08/28/18at 21:21; Admin Dose 1 MG; Start 08/28/18 at 12:30 Pantoprazole (Protonix Iv) 40 mg BID@06,18 IV Last administered on 08/30/18at 05:35; Admin Dose 40 MG; Start 08/29/18 at 18:00 Assessment/Plan Hospital Course (Demo Recall) 1. Syncope/presyncope secondary to severe anemia 2. Severe anemia 3. GI bleed 4. History of diabetes 5. Acute renal failure: Slowly improving 6. Dyslipidemia 7. History of hypertension 8. Gastric ulcer and poorly differentiated gastric adenocarcinoma 9. Malnutrition and low albumin level Recommendation: EKG was reviewed by unlike what the computer reads, it is not in atrial flutter. No anticoagulation for A. fib or flutter is indicated GI work-up and treatment as per GI recommendation. Currently on Protonix drip in ICU. Patient received multiple blood transfusion and has been admitted to intensive care unit for close monitoring. Continue with transfusion as needed basis IV fluids and fluid management as per internal medicine. TSH is wnl. Monitor H&H and transfuse as needed Continue with ICU care for now. Follow-up with oncology recommendations Awaiting IV access placement for chemo More than 34 minutes critical care time was for management treatment is critically patient excluding any procedures Thank you for this referral. We will continue to follow along with you YASH ZARAGOZA MD [facility] YASH ZARAGOZA MD Aug 30, 2018 07:55
[2018-08-30] MEDS: SUCRALFATE (100 MG/ML) 10ML CUP PO SCH ×4 (08:37→20:32)
--- NOTE | 2018-08-30 08:47 | PN ---
Date/Time of Note Date/Time of Note DATE: 08/30/18 TIME: 08:46 Objective Vitals Vital Signs Date Temp Pulse Resp B/P (MAP) Pulse Ox O2 O2 Flow FiO2 Time Delivery Rate 08/30/18 82 11 139/76 100 Room Air 07:00 (97) 08/30/18 98.1 04:00 Intake and Output 08/29/18 08/29/18 08/30/18 1515:00 23:00 07:00 IntakeIntake Total 860 ml 730 ml 875 ml OutputOutput Total 500 ml 700 ml 550 ml BalanceBalance 360 ml 30 ml 325 ml Results Result Diagram: 08/30/18 0438 08/30/18 0438 Medications Medications Current Medications Ondansetron HCl (Zofran Inj) 4 mg Q6H PRN IV NAUSEA AND/OR VOMITING; Start 08/26/18 at 18:30 Albuterol (Proventil 0.083% (Neb)) 2.5 mg Q2H RESP THERAPY PRN NEB SHORTNESS OF BREATH; Start 08/26/18 at 18:30 Acetaminophen (Tylenol Supp) 650 mg Q4H PRN [place] PAIN LEVEL 1-3 OR FEVER; Start 08/26/18 at 18:30 Morphine Sulfate (morphine) 2 mg Q4H PRN IV PAIN LEVEL 7-10 Last administered on 08/29/18at 23:14; Admin Dose 2 MG; Start 08/26/18 at 18:30 Insulin Aspart (Novolog Insulin Pen) NOVOLOG *MILD* ALGORI... Q4 SC Last administered on 08/30/18at 04:39; Admin Dose 1 UNIT; Start 08/26/18 at 21:00 Hydralazine HCl (Apresoline) 10 mg Q4H PRN IV SBP >170; Start 08/26/18 at 19:00 Miscellaneous Information 1 ea NOTE XX ; Start 08/26/18 at 19:00 Glucose (Glutose) 15 gm Q15M PRN PO DECREASED GLUCOSE; Start 08/26/18 at 19:00 Glucose (Glutose) 22.5 gm Q15M PRN PO DECREASED GLUCOSE; Start 08/26/18 at 19:00 Dextrose (D50w Syringe) 25 ml Q15M PRN IV DECREASED GLUCOSE; Start 08/26/18 at 19:00 Dextrose (D50w Syringe) 50 ml Q15M PRN IV DECREASED GLUCOSE; Start 08/26/18 at 19:00 Glucagon (Glucagen) 1 mg Q15M PRN IM DECREASED GLUCOSE; Start 08/26/18 at 19:00 Glucose (Glutose) 15 gm Q15M PRN BUCCAL DECREASED GLUCOSE; Start 08/26/18 at 19:00 Sodium Chloride 1,000 ml @ 100 mls/hr Q10H IV Last administered on 08/29/18 21:41; Admin Dose 100 MLS/HR; Start 08/27/18 at 09:30 Labetalol HCl (Labetalol) 10 mg Q4H PRN IV sbp >160 Last administered on 08/29/18 20:42; Admin Dose 10 MG; Start 08/27/18 at 10:00 Sucralfate (Carafate Susp) 1 gm QID PO Last administered on 08/30/18 08:37; Admin Dose 1 GM; Start 08/27/18 at 21:00 Insulin Glargine (Lantus) 10 units DAILY@2000 SC Last administered on 08/29/18 19:43; Admin Dose 10 UNITS; Start 08/27/18 at 21:00 Ferric Sodium Gluconate Complex 125 mg/Sodium Chloride 110 ml @ 110 mls/hr DAILY@1300 IVPB Last administered on 08/29/18 12:16; Admin Dose 110 MLS/HR; Start 08/28/18 at 13:00; Stop 09/01/18 at 13:59 Lorazepam (Ativan) 1 mg Q6 PRN IV ANXIETY Last administered on 08/28/18 21:21; Admin Dose 1 MG; Start 08/28/18 at 12:30 Pantoprazole (Protonix Iv) 40 mg BID@06,18 IV Last administered on 08/30/18 05:35; Admin Dose 40 MG; Start 08/29/18 at 18:00 VTE Prophylaxis Risk score (from Nsg)>0 risk: 3 SCD applied (from Nsg): No SCD contraindication: other Lines/Catheters IV Catheter Type: Ruiz in Place: No Assessment/Plan Hospital Course Subjective No acute overnight events, however patient did not need another transfusion. Objective Physical exam General: Patient is laying in bed and answers questions appropriately Mentation: Patient is alert and oriented 4, Head: Normocephalic atraumatic Eyes: EOMI, pupils reactive to light Neck: Supple, nontender, midline Respiratory: Clear to auscultation bilaterally Cardiovascular: regular rate, no obvious murmurs Gastrointestinal: non-tender to palpation, bowel sounds heard. Neurological: Moves all extremities spontaneously Skin: No new skin lesions Assessment and plan Hematemesis with large gastric ulcer, resolving -Hemoglobin was very low on admission, continue transfusions as needed, hematemesis has resolved, no acute bleeding found on EGD -IV fluid as needed and Protonix twice daily -GI recommendations appreciated -Monitor closely Gastric adenocarcinoma -Oncology has been consulted -MRI results noted, questionable hepatic findings versus other lymphadenopathy, oncology recognitions appreciated -Per oncology, CT chest ordered and noted -Port-A-Cath being placed today, plans for chemotherapy likely start on Monday Distended gallbladder per MRI -Patient completely asymptomatic, no abdominal pain, monitor for now Liver cyst versus hemangioma versus metastases -Found on MRI, oncology recommendations appreciated Syncope, resolved -Likely secondary to above hematemesis and hemoglobin of 3.9 on admission -supportive treatment -Monitor closely Blood loss anemia -Continue transfusing as needed -Secondary to GI bleed Elevated lipase -No abdominal pain -Likely due to above GI issues, monitor Hypertension -As needed hydralazine and labetalol, restart home meds when able to tolerate p.o. Acute kidney injury versus chronic kidney disease -Continue IV fluid -Nephrology consulted Diabetes mellitus -Patient stated that ever since he was given Trulicity the past week he has been experiencing severe side effects, hold Trulicity for now, insulin sliding scale for now Disposition -Continue care in the ICU, continue to monitor and ensure stability of hemoglobin for downgrade as patient is high risk of abrupt bleed due to vessel under ulcer More than 40 minutes of critical care time spent on this encounter. IVY PICEKTT Aug 30, 2018 08:47
[2018-08-30] MEDS ORDERED: POLYMYXIN/BACITRACIN 1L IRRIG ONE (09:42)
[2018-08-30] MEDS ORDERED: HEPARIN 1000 UNITS/ML 10 ML INJ ONE (09:47)
[2018-08-30] MEDS ORDERED: LIDOCAINE 1% (MDV) 20 ML INJ ONE ×2 (09:47→12:59)
[2018-08-30] MEDS ORDERED: LIDOCAINE 1%/EPI (1:100,000) (MDV) 20 ML ONE (09:48)
--- NOTE | 2018-08-30 11:37 | CONS ---
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 -CT demonstrates appearance of enlarged lymph nodes in the gastrohepatic ligament, celiac region, periportal region and left para-aortic region of the retroperitoneum the largest lymph node measuring approximately 1.8 cm short-axis in the left para-aortic region. -given his likely slow continual GI bleed. we will plan to start chemotherapy in the hospital as hopefully this will control the malignant bleeding ulcer -plan to start FLOT per the following regimen Fluorouracil (5-FU) 2600 mg/m2 IV continuous infusion over 24 hours on day 1 Folinic acid (Leucovorin) 200 mg/m2 IV once on day 1 Oxaliplatin (Eloxatin) 85 mg/m2 IV once on day 1 Docetaxel (Taxotere) 50 mg/m2 IV once on day 1 -MRI demonstrates. Gastric wall thickening and upper abdominal adenopathy which raises the possibility of gastric neoplasm. Probable hepatic cysts or hemangiomas. -pt will need PET CT as an out patient -port to be placed today #iron deficiency anemia -continue IV iron -pt received blood transfusion yesterday Thank you for the opportunity to participate in this patients care A total of 40 minutes of face to face time was spent speaking with the patient, of which greater than 50% was spent in counseling and coordination of care and the detailed question and answer session. Consultation Date/Type/Reason Admit Date/Time Aug 26, 2018 at 17:28 Initial Consult Date 08/28/18 Type of Consult oncology Reason for Consultation gastric cancer Requesting Provider: IVY PICKETT Date/Time of Note DATE: 08/30/18 TIME: 11:34 24 HR Interval Summary Free Text/Dictation pt to have port a cath placed today Exam/Review of Systems Exam Vitals Vital Signs Date Temp Pulse Resp B/P (MAP) Pulse Ox O2 O2 Flow FiO2 Time Delivery Rate 08/30/18 88 16 138/68 100 Room Air 10:00 (91) 08/30/18 97.9 08:00 Intake and Output 08/29/18 08/29/18 08/30/18 1515:00 23:00 07:00 IntakeIntake Total 860 ml 730 ml 875 ml OutputOutput Total 500 ml 700 ml 550 ml BalanceBalance 360 ml 30 ml 325 ml Constitutional: alert, oriented Psych: no complaints, anxiety, depression Head: normocephalic, hematomas Eyes: nl conjunctiva ENMT: nl external ears & nose Neck: supple Respiratory: clear to auscultation Cardiovascular: regular rate and rhythm Gastrointestinal: soft Musculoskeletal: nl extremities to inspection Extremities: normal pulses Results Result Diagram: 08/30/18 1120 08/30/18 0438 Results 24hrs Laboratory Tests Test 08/29/18 11:43 08/29/18 13:18 08/29/18 17:15 08/29/18 17:50 Hemoglobin 8.0 L 8.0 L Hematocrit 23.5 L 23.8 L Bedside Glucose 183 96 Prothrombin Time 13.3 Prothrombin Time Ratio 1.0 INR International 1.00 Normalized Ratio Test 08/29/18 19:35 08/29/18 21:00 08/30/18 00:41 08/30/18 00:42 Bedside Glucose 175 177 192 Hemoglobin 7.4 L Hematocrit 21.7 L Test 08/30/18 04:37 08/30/18 04:38 08/30/18 08:20 08/30/18 11:20 Bedside Glucose 178 136 White Blood Count 8.3 # Red Blood Count 2.93 L Hemoglobin 8.5 L 8.5 L Hematocrit 25.4 L 25.2 L Mean Corpuscular Volume 86.7 Mean Corpuscular 29.0 Hemoglobin Mean Corpuscular 33.5 Hemoglobin Concent Red Cell Distribution 15.0 H Width Platelet Count 259 Mean Platelet Volume 10.7 H Immature Granulocytes % 0.200 Neutrophils % 85.1 H Lymphocytes % 7.8 L Monocytes % 5.3 Eosinophils % 1.1 Basophils % 0.5 Nucleated Red Blood 0.0 Cells % Immature Granulocytes # 0.020 Neutrophils # 7.1 Lymphocytes # 0.7 L Monocytes # 0.4 Eosinophils # 0.1 Basophils # 0.0 Nucleated Red Blood 0.0 Cells # Sodium Level 141 Potassium Level 3.8 Chloride Level 118 H Carbon Dioxide Level 19 L Anion Gap 4 L Blood Urea Nitrogen 29 H Creatinine 1.89 H Est Glomerular Filtrat 38 L Rate mL/min Glucose Level 163 Calcium Level 7.7 L Phosphorus Level 3.6 Magnesium Level 1.9 Medications Medication Current Medications Ondansetron HCl (Zofran Inj) 4 mg Q6H PRN IV NAUSEA AND/OR VOMITING; Start 08/26/18 at 18:30 Albuterol (Proventil 0.083% (Neb)) 2.5 mg Q2H RESP THERAPY PRN NEB SHORTNESS OF BREATH; Start 08/26/18 at 18:30 Acetaminophen (Tylenol Supp) 650 mg Q4H PRN [place] PAIN LEVEL 1-3 OR FEVER; Start 08/26/18 at 18:30 Morphine Sulfate (morphine) 2 mg Q4H PRN IV PAIN LEVEL 7-10 Last administered on 08/29/18at 23:14; Admin Dose 2 MG; Start 08/26/18 at 18:30 Insulin Aspart (Novolog Insulin Pen) NOVOLOG *MILD* ALGORI... Q4 SC Last administered on 08/30/18at 04:39; Admin Dose 1 UNIT; Start 08/26/18 at 21:00 Hydralazine HCl (Apresoline) 10 mg Q4H PRN IV SBP >170; Start 08/26/18 at 19:00 Miscellaneous Information 1 ea NOTE XX ; Start 08/26/18 at 19:00 Glucose (Glutose) 15 gm Q15M PRN PO DECREASED GLUCOSE; Start 08/26/18 at 19:00 Glucose (Glutose) 22.5 gm Q15M PRN PO DECREASED GLUCOSE; Start 08/26/18 at 19:00 Dextrose (D50w Syringe) 25 ml Q15M PRN IV DECREASED GLUCOSE; Start 08/26/18 at 19:00 Dextrose (D50w Syringe) 50 ml Q15M PRN IV DECREASED GLUCOSE; Start 08/26/18 at 19:00 Glucagon (Glucagen) 1 mg Q15M PRN IM DECREASED GLUCOSE; Start 08/26/18 at 19:00 Glucose (Glutose) 15 gm Q15M PRN BUCCAL DECREASED GLUCOSE; Start 08/26/18 at 19:00 Labetalol HCl (Labetalol) 10 mg Q4H PRN IV sbp >160 Last administered on 08/29/18at 20:42; Admin Dose 10 MG; Start 08/27/18 at 10:00 Sucralfate (Carafate Susp) 1 gm QID PO Last administered on 08/30/18 08:37; Admin Dose 1 GM; Start 08/27/18 at 21:00 Insulin Glargine (Lantus) 10 units DAILY@2000 SC Last administered on 08/29/18at 19:43; Admin Dose 10 UNITS; Start 08/27/18 at 21:00 Ferric Sodium Gluconate Complex 125 mg/Sodium Chloride 110 ml @ 110 mls/hr DAILY@1300 IVPB Last administered on 08/29/18at 12:16; Admin Dose 110 MLS/HR; Start 08/28/18 at 13:00; Stop 09/01/18 at 13:59 Lorazepam (Ativan) 1 mg Q6 PRN IV ANXIETY Last administered on 08/28/18at 21:21; Admin Dose 1 MG; Start 08/28/18 at 12:30 Pantoprazole (Protonix Iv) 40 mg BID@06,18 IV Last administered on 08/30/18at 05:35; Admin Dose 40 MG; Start 08/29/18 at 18:00 AME VALDEZ M.D. Aug 30, 2018 11:37
[2018-08-30] MEDS ORDERED: MIDAZOLAM 1 MG/ML 2 ML INJ ONE (12:45)
[2018-08-30] MEDS ORDERED: FENTAnyl 50 MCG/ML VIAL ONE (12:45)
[2018-08-30] MEDS: SOD FERRIC GLUC COMPLX 125 MG in SOD CHLORIDE 0.9% 100 ML IVPB SCH (14:08)
[2018-08-30] MEDS: LABETALOL HCL 20MG INJ IV PRN ×2 (14:09→20:32)
--- NOTE | 2018-08-30 15:22 | PN ---
Date/Time of Note Date/Time of Note DATE: 08/30/18 TIME: 15:17 Assessment/Plan VTE Prophylaxis Risk score (from Ns)>0 risk: 3 SCD applied (from Ns): No SCD contraindicated: other (scds) Pharmacological prophylaxis: other (scds) Lines/Catheters IV [facility]from [facility] Peripheral IV Urinary Cath still in place: No Assessment/Plan Hospital Course Summary Assessment and Plan: Assessment: Coffee-ground emesis EGD 08/27/18 Large 5 cm ulceration with nodular boarders highly suspect for malignancy. Central exposed visible vessel with no evidence of recent bleeding left untreated. Otherwise normal EGD Gastric adenocarcinoma, poorly-differentiated, favor Severe anemia 2/2 to above Abdominal adenopathy noted -Differential diagnosis includes inflammation and neoplasm. Small right pleural effusion Elevated lipase- Likely 2/2 to dehydration HTN ALEJANDRO on CKD Small amount of ascites DM Plan: F/o oncology recommendations Monitor h/h- transfuse as needed Patient seen in collaboration with Dr Sims Subjective: Course reviewed with nursing staff Patient interviewed and examined All labs, imaging and other results reviewed HGB slowly trending down. No c/o melena or hematochezia S/p port-a-cath placement. Plan to start Chemo therapy in near future. PHYSICAL EXAMINATION: GENERAL: Alert & oriented x 3, in no acute distress SKIN: No lesions. HEAD: Normocephalic, atraumatic, no tenderness. EYES: Pupils equal reactive to light, no discharge. EARS/NOSE AND THROAT: Ears normal, nose normal. NECK: Supple, no masses. CHEST: Inspection within normal limits. CARDIOVASCULAR: Heart: Regular rate and rhythm, no murmurs RESPIRATORY: Lungs clear to auscultation. GASTROINTESTINAL AND LIVER: Abdomen: Soft, non tenderness, non-distended, no h ernias, no masses, no organomegaly, no ascites, no guarding, no rebound tenderness, normoactive bowel sounds. Rectal: Deferred. Result Diagram: 08/30/18 1120 08/30/18 0438 Results 24hrs Laboratory Tests Test 08/29/18 17:15 08/29/18 17:50 08/29/18 19:35 08/29/18 21:00 Bedside Glucose 96 175 177 Hemoglobin 8.0 L Hematocrit 23.8 L Prothrombin Time 13.3 Prothrombin Time Ratio 1.0 INR International 1.00 Normalized Ratio Test 08/30/18 00:41 08/30/18 00:42 08/30/18 04:37 08/30/18 04:38 Bedside Glucose 192 178 Hemoglobin 7.4 L 8.5 L Hematocrit 21.7 L 25.4 L White Blood Count 8.3 # Red Blood Count 2.93 L Mean Corpuscular Volume 86.7 Mean Corpuscular 29.0 Hemoglobin Mean Corpuscular 33.5 Hemoglobin Concent Red Cell Distribution 15.0 H Width Platelet Count 259 Mean Platelet Volume 10.7 H Immature Granulocytes % 0.200 Neutrophils % 85.1 H Lymphocytes % 7.8 L Monocytes % 5.3 Eosinophils % 1.1 Basophils % 0.5 Nucleated Red Blood 0.0 Cells % Immature Granulocytes # 0.020 Neutrophils # 7.1 Lymphocytes # 0.7 L Monocytes # 0.4 Eosinophils # 0.1 Basophils # 0.0 Nucleated Red Blood 0.0 Cells # Sodium Level 141 Potassium Level 3.8 Chloride Level 118 H Carbon Dioxide Level 19 L Anion Gap 4 L Blood Urea Nitrogen 29 H Creatinine 1.89 H Est Glomerular Filtrat 38 L Rate mL/min Glucose Level 163 Calcium Level 7.7 L Phosphorus Level 3.6 Magnesium Level 1.9 Test 08/30/18 08:20 08/30/18 11:20 08/30/18 14:15 Bedside Glucose 136 123 Hemoglobin 8.5 L Hematocrit 25.2 L Exam/Review of Systems Exam Vitals Vital Signs Date Temp Pulse Resp B/P (MAP) Pulse Ox O2 O2 Flow FiO2 Time Delivery Rate 08/30/18 97.5 79 10 163/88 100 Room Air 14:00 (113) Intake and Output 08/29/18 08/29/18 08/30/18 1414:59 22:59 06:59 IntakeIntake Total 870 ml 730 ml 875 ml OutputOutput Total 500 ml 700 ml 550 ml BalanceBalance 370 ml 30 ml 325 ml Results Results 24hrs Laboratory Tests Test 08/29/18 17:15 08/29/18 17:50 08/29/18 19:35 08/29/18 21:00 Bedside Glucose 96 175 177 Hemoglobin 8.0 L Hematocrit 23.8 L Prothrombin Time 13.3 Prothrombin Time Ratio 1.0 INR International 1.00 Normalized Ratio Test 08/30/18 00:41 08/30/18 00:42 08/30/18 04:37 08/30/18 04:38 Bedside Glucose 192 178 Hemoglobin 7.4 L 8.5 L Hematocrit 21.7 L 25.4 L White Blood Count 8.3 # Red Blood Count 2.93 L Mean Corpuscular Volume 86.7 Mean Corpuscular 29.0 Hemoglobin Mean Corpuscular 33.5 Hemoglobin Concent Red Cell Distribution 15.0 H Width Platelet Count 259 Mean Platelet Volume 10.7 H Immature Granulocytes % 0.200 Neutrophils % 85.1 H Lymphocytes % 7.8 L Monocytes % 5.3 Eosinophils % 1.1 Basophils % 0.5 Nucleated Red Blood 0.0 Cells % Immature Granulocytes # 0.020 Neutrophils # 7.1 Lymphocytes # 0.7 L Monocytes # 0.4 Eosinophils # 0.1 Basophils # 0.0 Nucleated Red Blood 0.0 Cells # Sodium Level 141 Potassium Level 3.8 Chloride Level 118 H Carbon Dioxide Level 19 L Anion Gap 4 L Blood Urea Nitrogen 29 H Creatinine 1.89 H Est Glomerular Filtrat 38 L Rate mL/min Glucose Level 163 Calcium Level 7.7 L Phosphorus Level 3.6 Magnesium Level 1.9 Test 08/30/18 08:20 08/30/18 11:20 08/30/18 14:15 Bedside Glucose 136 123 Hemoglobin 8.5 L Hematocrit 25.2 L Medications Medication Current Medications Ondansetron HCl (Zofran Inj) 4 mg Q6H PRN IV NAUSEA AND/OR VOMITING; Start 08/26/18 at 18:30 Albuterol (Proventil 0.083% (Neb)) 2.5 mg Q2H RESP THERAPY PRN NEB SHORTNESS OF BREATH; Start 08/26/18 at 18:30 Acetaminophen (Tylenol Supp) 650 mg Q4H PRN [place] PAIN LEVEL 1-3 OR FEVER; Start 08/26/18 at 18:30 Morphine Sulfate (morphine) 2 mg Q4H PRN IV PAIN LEVEL 7-10 Last administered o n 08/29/18at 23:14; Admin Dose 2 MG; Start 08/26/18 at 18:30 Insulin Aspart (Novolog Insulin Pen) NOVOLOG *MILD* ALGORI... Q4 SC Last administered on 08/30/18at 04:39; Admin Dose 1 UNIT; Start 08/26/18 at 21:00 Hydralazine HCl (Apresoline) 10 mg Q4H PRN IV SBP >170; Start 08/26/18 at 19:00 Miscellaneous Information 1 ea NOTE XX ; Start 08/26/18 at 19:00 Glucose (Glutose) 15 gm Q15M PRN PO DECREASED GLUCOSE; Start 08/26/18 at 19:00 Glucose (Glutose) 22.5 gm Q15M PRN PO DECREASED GLUCOSE; Start 08/26/18 at 19:00 Dextrose (D50w Syringe) 25 ml Q15M PRN IV DECREASED GLUCOSE; Start 08/26/18 at 19:00 Dextrose (D50w Syringe) 50 ml Q15M PRN IV DECREASED GLUCOSE; Start 08/26/18 at 19:00 Glucagon (Glucagen) 1 mg Q15M PRN IM DECREASED GLUCOSE; Start 08/26/18 at 19:00 Glucose (Glutose) 15 gm Q15M PRN BUCCAL DECREASED GLUCOSE; Start 08/26/18 at 19:00 Labetalol HCl (Labetalol) 10 mg Q4H PRN IV sbp >160 Last administered on 08/30/18 14:09; Admin Dose 10 MG; Start 08/27/18 at 10:00 Sucralfate (Carafate Susp) 1 gm QID PO Last administered on 08/30/18 14:09; Admin Dose 1 GM; Start 08/27/18 at 21:00 Insulin Glargine (Lantus) 10 units DAILY@2000 SC Last administered on 08/29/18 19:43; Admin Dose 10 UNITS; Start 08/27/18 at 21:00 Ferric Sodium Gluconate Complex 125 mg/Sodium Chloride 110 ml @ 110 mls/hr DA ORI@1300 IVPB Last administered on 08/30/18at 14:08; Admin Dose 110 MLS/HR; Start 08/28/18 at 13:00; Stop 09/01/18 at 13:59 Lorazepam (Ativan) 1 mg Q6 PRN IV ANXIETY Last administered on 08/28/18 21:21; Admin Dose 1 MG; Start 08/28/18 at 12:30 Pantoprazole (Protonix Iv) 40 mg BID@06,18 IV Last administered on 08/30/18 05:35; Admin Dose 40 MG; Start 08/29/18 at 18:00 ASHTYN CHAVEZ Aug 30, 2018 15:22
[2018-08-30] MEDS: INSULIN GLARGINE [LANTus] (100 UNITS/ML) SYG SC SCH (20:34)
--- NOTE | 2018-08-30 22:01 | RADRPT ---
PROCEDURE: FLUOROSCOPIC AND ULTRASONOGRAPHIC-GUIDED PLACEMENT OF RIGHT CHEST PORT. CLINICAL INDICATION: History of gastric cancer. Venous access for chemotherapy. TECHNIQUE: Informed consent was obtained. The procedure, risks, benefits, complications and alternatives were e xplained to the patient. Risks including bleeding, infection, and pneumothorax were explained. The p atient understood and was willing to proceed. A procedural pause was performed. The patient's name, d ate of , and procedure to be performed were verified. The central line was inserted with all el ements of maximal sterile barrier technique. All of the following were used: head covering, facial ma sk, sterile gown, sterile gloves, a large sterile sheet, hand hygiene, and 2% chlorhexidine for cuta neous antisepsis. The right neck and anterior/superior chest wall were prepped and draped in usual sterile fashion. Limited sonography of the right neck was then performed. Noted is a patent right internal jugular vei n. Following the local injection of 1% lidocaine, the right internal jugular vein was punctured under so nographic guidance with a 20-gauge needle through which a 0.018 inch floppy tip guidewire was advance d into the superior vena cava, then the right atrium with fluoroscopic guidance. The tract was dila laly to 5 Lao and the wire was then replaced with a 0.035 in guidewire. A site just inferior to the clavicle in the superior anterior right chest wall was localized. One per cent lidocaine was used as local anesthesia. A transverse 2.5 cm incision was made utilizing a 15 eneida de scalpel. Utilizing blunt dissection a subcutaneous pocket was created inferior to the incision. Th e cavity was flushed with approximately 40 cc of PB antibiotic solution. The catheter was tunneled underneath the skin from the newly created pocket to the puncture site in t he neck. The central line catheter was pulled through the tract. Serial dilatation was then performed and a 7 Lao peel away sheath was introduced. The catheter was then advanced through the peel-away sheath until the tip was positioned in the right atrium. The peel-away sheath was removed. The mark ter was flushed, clamped, and cut to the appropriate length. The 6.6 Lao catheter was then connected to the [employer] power port. The port was then placed into the pocket. Prior to closing the instrument and sponge count was verified and was correct. The s ubcutaneous tissue was closed with 3-0 Vicryl interrupted suture. The skin at the site of the pocket and in the neck was closed with 4-0 Vicryl suture in a running subcuticular technique. The port was f lushed with 1500 units of heparin in 1.5 cc utilizing a Evans needle. The needle was removed. A dress ing was applied. Specimens: None. Blood loss: 5 ml. Complications: None. Anesthesia: Local and moderate sedation. Graft/Implant: Right chest port. COMPARISON: None. FINDINGS: Final radiographic images demonstrate the tip of the catheter in the upper right atrium. A total of 0.5 minutes of fluoroscopy time was used. 3 images of the chest were obtained with the image intensi fier. The ultrasound images demonstrate the needle entering the internal jugular vein. IMPRESSION: Successful ultrasonographic and fluoroscopic guided placement of right chest power port. RPTAT: QQ Physician Nuria Date Time Electronically viewed and signed by Physician Nuria on 08/30/2018 22:01 Papi/
--- NOTE | 2018-08-30 23:09 | CONS ---
Assessment/Plan Assessment/Plan Hospital Course (Demo Recall) 1. Acute renal failure superimposed on chronic kidney disease. His renal function is about the same as yesterday . He may be close to his baseline S creatinine . He does have 5 g of protein per gram of creatinine on the urine protein / creatinine ratio and his renal ultrasound does show increased renal cortical echogenicity. This is consistent with diabetic nephropathy. Agree with current management plan. 2. GI bleeding due to gastric ulcer which has been biopsied and is gastric jack nocarcinoma . GI and oncologic w/u are in progress .He did undergo placement of a R portocath today and will start chemotherapy tomorrow . 3. Type 2 diabetes mellitus 4. Syncope due to gastrointestinal bleeding Consultation Date/Type/Reason Admit Date/Time Aug 26, 2018 at 17:28 Initial Consult Date 08/28/18 Type of Consult Nephrology Requesting Provider: IVY PICKETT Date/Time of Note DATE: 08/30/18 TIME: 23:01 24 HR Interval Summary Free Text/Dictation Armani is being seen in the ICU in nephrologic follow up . He is now post op a placement of a R portacath and is about to start a course of chemotherapy tomorrow . Constitutional: no complaints Exam/Review of Systems Exam Vitals Vital Signs Date Temp Pulse Resp B/P (MAP) Pulse Ox O2 O2 Flow FiO2 Time Delivery Rate 08/30/18 91 27 148/98 99 Room Air 22:00 (115) 08/30/18 98.3 20:00 Intake and Output 08/29/18 08/29/18 08/30/18 1515:00 23:00 07:00 IntakeIntake Total 860 ml 730 ml 875 ml OutputOutput Total 500 ml 700 ml 550 ml BalanceBalance 360 ml 30 ml 325 ml Constitutional: alert, oriented, frail Respiratory: clear to auscultation, normal air movement Cardiovascular: regular rate and rhythm Gastrointestinal: soft, non-tender Musculoskeletal: nl extremities to inspection Results Result Diagram: 08/30/18 19408/30/18 0438 Results 24hrs Laboratory Tests Test 08/30/18 00:41 08/30/18 00:42 08/30/18 04:37 08/30/18 04:38 Bedside Glucose 192 178 Hemoglobin 7.4 L 8.5 L Hematocrit 21.7 L 25.4 L White Blood Count 8.3 # Red Blood Count 2.93 L Mean Corpuscular Volume 86.7 Mean Corpuscular 29.0 Hemoglobin Mean Corpuscular 33.5 Hemoglobin Concent Red Cell Distribution 15.0 H Width Platelet Count 259 Mean Platelet Volume 10.7 H Immature Granulocytes % 0.200 Neutrophils % 85.1 H Lymphocytes % 7.8 L Monocytes % 5.3 Eosinophils % 1.1 Basophils % 0.5 Nucleated Red Blood 0.0 Cells % Immature Granulocytes # 0.020 Neutrophils # 7.1 Lymphocytes # 0.7 L Monocytes # 0.4 Eosinophils # 0.1 Basophils # 0.0 Nucleated Red Blood 0.0 Cells # Sodium Level 141 Potassium Level 3.8 Chloride Level 118 H Carbon Dioxide Level 19 L Anion Gap 4 L Blood Urea Nitrogen 29 H Creatinine 1.89 H Est Glomerular Filtrat 38 L Rate mL/min Glucose Level 163 Calcium Level 7.7 L Phosphorus Level 3.6 Magnesium Level 1.9 Test 08/30/18 08:20 08/30/18 11:20 08/30/18 14:15 08/30/18 17:44 Bedside Glucose 136 123 220 Hemoglobin 8.5 L Hematocrit 25.2 L Test 08/30/18 19:47 08/30/18 20:31 Hemoglobin 8.4 L Hematocrit 24.8 L Bedside Glucose 251 H Medications Medication Current Medications Ondansetron HCl (Zofran Inj) 4 mg Q6H PRN IV NAUSEA AND/OR VOMITING; Start 08/26/18 at 18:30 Albuterol (Proventil 0.083% (Neb)) 2.5 mg Q2H RESP THERAPY PRN NEB SHORTNESS OF BREATH; Start 08/26/18 at 18:30 Acetaminophen (Tylenol Supp) 650 mg Q4H PRN [place] PAIN LEVEL 1-3 OR FEVER; Start 08/26/18 at 18:30 Morphine Sulfate (morphine) 2 mg Q4H PRN IV PAIN LEVEL 7-10 Last administered on 08/29/18at 23:14; Admin Dose 2 MG; Start 08/26/18 at 18:30 Hydralazine HCl (Apresoline) 10 mg Q4H PRN IV SBP >170; Start 08/26/18 at 19:00 Miscellaneous Information 1 ea NOTE XX ; Start 08/26/18 at 19:00 Glucose (Glutose) 15 gm Q15M PRN PO DECREASED GLUCOSE; Start 08/26/18 at 19:00 Glucose (Glutose) 22.5 gm Q15M PRN PO DECREASED GLUCOSE; Start 08/26/18 at 19:00 Dextrose (D50w Syringe) 25 ml Q15M PRN IV DECREASED GLUCOSE; Start 08/26/18 at 19:00 Dextrose (D50w Syringe) 50 ml Q15M PRN IV DECREASED GLUCOSE; Start 08/26/18 at 19:00 Glucagon (Glucagen) 1 mg Q15M PRN IM DECREASED GLUCOSE; Start 08/26/18 at 19:00 Glucose (Glutose) 15 gm Q15M PRN BUCCAL DECREASED GLUCOSE; Start 08/26/18 at 19:00 Labetalol HCl (Labetalol) 10 mg Q4H PRN IV sbp >160 Last administered on 08/30/18at 20:32; Admin Dose 10 MG; Start 08/27/18 at 10:00 Sucralfate (Carafate Susp) 1 gm QID PO Last administered on 08/30/18 20:32; Admin Dose 1 GM; Start 08/27/18 at 21:00 Insulin Glargine (Lantus) 10 units DAILY@2000 SC Last administered on 08/30/18at 20:34; Admin Dose 10 UNITS; Start 08/27/18 at 21:00 Ferric Sodium Gluconate Complex 125 mg/Sodium Chloride 110 ml @ 110 mls/hr DAILY@1300 IVPB Last administered on 08/30/18 14:08; Admin Dose 110 MLS/HR; Start 08/28/18 at 13:00; Stop 09/01/18 at 13:59 Lorazepam (Ativan) 1 mg Q6 PRN IV ANXIETY Last administered on 08/28/18at 21:21; Admin Dose 1 MG; Start 08/28/18 at 12:30 Pantoprazole (Protonix Iv) 40 mg BID@06,18 IV Last administered on 08/30/18at 17:49; Admin Dose 40 MG; Start 08/29/18 at 18:00 Insulin Aspart (Novolog Insulin Pen) NOVOLOG *MILD* ALGORITHM WITH MEALS BEDTIME SC ; Start 08/30/18 at 21:00 RUCHI VELIZ MD Aug 30, 2018 23:09
[2018-08-31] VITALS (24 sets, daily range): BP systolic 123–190; BP diastolic 57–135; PULSE 79–102; RESP 10–30
[2018-08-31] MEDS: morphine 2 MG INJ IV PRN (01:42)
[2018-08-31] MEDS: hydrALAzine 20 MG INJ IV PRN ×2 (01:42→09:35)
[2018-08-31] MEDS: PANTOPRAZOLE 40 MG INJ IV SCH ×2 (05:56→18:02)
--- NOTE | 2018-08-31 07:47 | CONS ---
Consult Date/Type/Reason Admit Date/Time Aug 26, 2018 at 17:28 Initial Consult Date 08/27/18 Type of Consultation: cv Requesting Provider: IVY PICKETT Date/Time of Note DATE: 08/31/18 TIME: 07:46 Subjective Interventional cardiology follow-up progress note/critical care note\ Subjective: Discussed with staff and telemetry was reviewed. Patient patient has remained in sinus rhythm with no evidence of atrial fibrillation or flutter noted patient remains in ICU. Status post EGD done on August 27, 2018 showing large 5 cm ulceration suspicious for malignancy. biopsy shows adenoca. Patient denies any active bleeding now. H/H is low but stable now No chest pain or pressure s/p chemo port placement Objective: General: no acute distress HEENT: NC/AT. pupils are equal. round. NECK: NO JVD. no stridor. CV: RRR. systolic murmur; no gallop or rubs. PULM: no wheezing or rhonchi. GI: SOFT, NT, ND, no rebound or guarding Extremity: trace B/L LE edema. no clubbing. neuro: awake and alert, OX3. Psych: calm and pleasant rectal: deferred EKG was personally reviewed. There are 2 EKGs done in the emergency room. The report appears to be sinus tachycardia although 1 of them is read by computer as atrial flutter with 2-1 AV block and nonspecific T wave abnormality noted though Echocardiogram personally reviewed shows: Normal left ventricular systolic function. Normal left ventricular cavity size. Normal left ventricular wall thickness. Ejection fraction is visually estimated at 55-60 %. Tissue Doppler/Mitral Doppler indices are within normal limits. Normal appearance and function of the mitral valve with trace physiologic reg urgitation. No significant aortic stenosis or insufficiency. Aortic cusps appear mildly calcified. Normal appearance of the tricuspid valve. The estimated Peak RVSP is 30 mmHg. There is trace tricuspid regurgitation. gastric BX: poorly differentiated adenocarcinoma chest CT 08/29/18 1. No suspicious lung parenchymal nodule or mediastinal adenopathy. 2. Trace bilateral pleural effusions. 3. Moderate coronary artery calcifications. 4. Heterogeneous appearance of the thyroid gland with likely 1.3 cm hypodense right thyroid nodule. 5. Subcutaneous fat stranding and air on the right axillary extending to the chest wall. Correlate with recent history of trauma or intervention. 6. Again seen diffuse thickening of the body of the stomach and upper abdominal adenopathy. Objective Vitals Vital Signs Date Temp Pulse Resp B/P (MAP) Pulse Ox O2 O2 Flow FiO2 Time Delivery Rate 08/31/18 88 20 145/86 100 Room Air 07:09 (105) 08/31/18 98.5 04:00 Intake and Output 08/30/18 08/30/18 08/31/18 1414:59 22:59 06:59 IntakeIntake Total 380 ml 1200 ml 45 ml OutputOutput Total 650 ml 975 ml 650 ml BalanceBalance -270 ml 225 ml -605 ml Results/Medications Result Diagram: 08/31/18 0437 08/31/18 0437 Results 24 hrs Laboratory Tests Test 08/30/18 08:20 08/30/18 11:20 08/30/18 14:15 08/30/18 17:44 Bedside Glucose 136 123 220 Hemoglobin 8.5 L Hematocrit 25.2 L Test 08/30/18 19:47 08/30/18 20:31 08/31/18 00:30 08/31/18 04:37 Hemoglobin 8.4 L 7.6 L 8.2 L Hematocrit 24.8 L 22.3 L 24.1 L Bedside Glucose 251 H White Blood Count 7.4 Red Blood Count 2.82 L Mean Corpuscular 85.5 Volume Mean Corpuscular 29.1 Hemoglobin Mean Corpuscular 34.0 Hemoglobin Concent Red Cell 14.6 H Distribution Width Platelet Count 225 Mean Platelet 10.7 H Volume Immature 0.400 Granulocytes % Neutrophils % 78.0 H Lymphocytes % 12.2 L Monocytes % 7.5 Eosinophils % 1.6 Basophils % 0.3 Nucleated Red Blood 0.0 Cells % Immature 0.030 Granulocytes # Neutrophils # 5.8 Lymphocytes # 0.9 Monocytes # 0.6 Eosinophils # 0.1 Basophils # 0.0 Nucleated Red Blood 0.0 Cells # Sodium Level 140 Potassium Level 3.9 Chloride Level 117 H Carbon Dioxide 19 L Level Anion Gap 4 L Blood Urea Nitrogen 29 H Creatinine 1.90 H Est Glomerular 38 L Filtrat Rate mL/min Glucose Level 171 Calcium Level 7.8 L Phosphorus Level 3.5 Magnesium Level 2.0 Test 08/31/18 05:10 Lab Scanned Report BLOOD TRANSFUSION Home Meds Reported Medications Dulaglutide (Trulicity) 0.75 Mg/0.5 Ml Pen.injctr, 0.75 MG SQ Q FRI PATIENT HASE A ADVERS REACTION WHEN HE INJECT THIS MEDICATION. 08/26/18 Furosemide* (Furosemide*) 40 Mg Tablet, 40 MG PO DAILY, TAB 08/26/18 Cholecalciferol (Vitamin D3) (Vitamin D-3) 2,000 Unit Tablet, 2000 UNIT PO DAILY, TAB 08/26/18 Atorvastatin Calcium* (Atorvastatin Calcium*) 20 Mg Tablet, 20 MG PO QHS, #30 TAB 08/26/18 Multivit/Ca Carb/B Cmplx/Fa* (Shanta-Ivette*) 1 Tab Tab, 1 TAB PO DAILY, TAB 08/25/18 Amlodipine Besylate* (Amlodipine Besylate*) 10 Mg Tablet, 10 MG PO QAM, #30 TAB 08/25/18 Glimepiride* (Glimepiride*) 2 Mg Tablet, 2 MG PO WITH BREAKFAST DINNE, TAB 08/25/18 Metformin Hcl* (Metformin Hcl*) 850 Mg Tablet, 850 MG PO WITH BREAKFAST DINNE, #30 TAB 08/25/18 Discontinued Reported Medications Vitamin B Complex* (Vitamin B Complex*) 1 Each Tablet, 1 TAB PO DAILY, TAB 08/25/18 Cholecalciferol* (Vitamin D3*) 1,000 Unit Tablet, 1000 UNIT PO DAILY, TAB 08/25/18 Medications Current Medications Ondansetron HCl (Zofran Inj) 4 mg Q6H PRN IV NAUSEA AND/OR VOMITING; Start 08/26/18 at 18:30 Albuterol (Proventil 0.083% (Neb)) 2.5 mg Q2H RESP THERAPY PRN NEB SHORTNESS OF BREATH; Start 08/26/18 at 18:30 Acetaminophen (Tylenol Supp) 650 mg Q4H PRN [place] PAIN LEVEL 1-3 OR FEVER; Start 08/26/18 at 18:30 Morphine Sulfate (morphine) 2 mg Q4H PRN IV PAIN LEVEL 7-10 Last administered on 08/31/18at 01:42; Admin Dose 2 MG; Start 08/26/18 at 18:30 Hydralazine HCl (Apresoline) 10 mg Q4H PRN IV SBP >170 Last administered on 08/31/18at 01:42; Admin Dose 10 MG; Start 08/26/18 at 19:00 Miscellaneous Information 1 ea NOTE XX ; Start 08/26/18 at 19:00 Glucose (Glutose) 15 gm Q15M PRN PO DECREASED GLUCOSE; Start 08/26/18 at 19:00 Glucose (Glutose) 22.5 gm Q15M PRN PO DECREASED GLUCOSE; Start 08/26/18 at 19:00 Dextrose (D50w Syringe) 25 ml Q15M PRN IV DECREASED GLUCOSE; Start 08/26/18 at 19:00 Dextrose (D50w Syringe) 50 ml Q15M PRN IV DECREASED GLUCOSE; Start 08/26/18 at 19:00 Glucagon (Glucagen) 1 mg Q15M PRN IM DECREASED GLUCOSE; Start 08/26/18 at 19:00 Glucose (Glutose) 15 gm Q15M PRN BUCCAL DECREASED GLUCOSE; Start 08/26/18 at 19:00 Labetalol HCl (Labetalol) 10 mg Q4H PRN IV sbp >160 Last administered on 08/30/18at 20:32; Admin Dose 10 MG; Start 08/27/18 at 10:00 Sucralfate (Carafate Susp) 1 gm QID PO Last administered on 08/30/18at 20:32; Admin Dose 1 GM; Start 08/27/18 at 21:00 Insulin Glargine (Lantus) 10 units DAILY@2000 SC Last administered on 08/30/18at 20:34; Admin Dose 10 UNITS; Start 08/27/18 at 21:00 Ferric Sodium Gluconate Complex 125 mg/Sodium Chloride 110 ml @ 110 mls/hr DAILY@1300 IVPB Last administered on 08/30/18at 14:08; Admin Dose 110 MLS/HR; Start 08/28/18 at 13:00; Stop 09/01/18 at 13:59 Lorazepam (Ativan) 1 mg Q6 PRN IV ANXIETY Last administered on 08/28/18at 21:21; Admin Dose 1 MG; Start 08/28/18 at 12:30 Pantoprazole (Protonix Iv) 40 mg BID@06,18 IV Last administered on 08/31/18at 05:56; Admin Dose 40 MG; Start 08/29/18 at 18:00 Insulin Aspart (Novolog Insulin Pen) NOVOLOG *MILD* ALGORITHM WITH MEALS BEDTIME SC ; Start 08/30/18 at 21:00 Assessment/Plan Hospital Course (Demo Recall) 1. Syncope/presyncope secondary to severe anemia 2. Severe anemia 3. GI bleed 4. History of diabetes 5. Acute renal failure: Slowly improving 6. Dyslipidemia 7. History of hypertension 8. Gastric ulcer and poorly differentiated gastric adenocarcinoma 9. Malnutrition and low albumin level Recommendation: EKG was reviewed by unlike what the computer reads, it is not in atrial flutter. No anticoagulation for A. fib or flutter is indicated GI work-up and treatment as per GI recommendation. Currently on Protonix drip in ICU. Patient received multiple blood transfusion and has been admitted to intensive care unit for close monitoring. Continue with transfusion as needed basis IV fluids and fluid management as per internal medicine. TSH is wnl. Monitor H&H and transfuse as needed Follow-up with oncology recommendations Awaiting IV access placement for chemo More than 32 minutes critical care time was for management treatment is critically patient excluding any procedures Thank you for this referral. We will continue to follow along with you as needed YASH ZARAGOZA MD [facility] YASH ZARAGOZA MD Aug 31, 2018 07:47
--- NOTE | 2018-08-31 08:14 | CONS ---
Assessment/Plan Assessment/Plan Hospital Course (Demo Recall) 1. Acute renal failure superimposed on chronic kidney disease. His renal function is about the same as yesterday . He may be close to his baseline S creatinine . He does have 5 g of protein per gram of creatinine on the urine protein / creatinine ratio and his renal ultrasound does show increased renal cortical echogenicity. This is consistent with diabetic nephropathy. Agree with current management plan. 2. GI bleeding due to gastric ulcer which has been biopsied and is gastric jack nocarcinoma . GI and oncologic w/u are in progress .He did undergo placement of a R portocath yesterday and will start chemotherapy today. 3. Type 2 diabetes mellitus . He was on metformin and Trulicity preadmission. I would hold off on restarting these medications and if an oral medication is ne eded would consider using Tradjenta 5 mg a day. 4. Syncope due to gastrointestinal bleeding Since his renal function seems stable I will sign off at this point and see again on request. Consultation Date/Type/Reason Admit Date/Time Aug 26, 2018 at 17:28 Initial Consult Date 08/28/18 Type of Consult Nephrology Requesting Provider: IVY PICKETT Date/Time of Note DATE: 08/31/18 TIME: 08:05 24 HR Interval Summary Free Text/Dictation Dang lopez is being seen in nephrologic follow-up. He is in the intensive care unit. He has not had any active GI bleeding. Constitutional: no complaints, improved Exam/Review of Systems Exam Vitals Vital Signs Date Temp Pulse Resp B/P (MAP) Pulse Ox O2 O2 Flow FiO2 Time Delivery Rate 08/31/18 88 20 145/86 100 Room Air 07:09 (105) 08/31/18 98.5 04:00 Intake and Output 08/30/18 08/30/18 08/31/18 1515:00 23:00 07:00 IntakeIntake Total 880 ml 600 ml 45 ml OutputOutput Total 650 ml 975 ml 650 ml BalanceBalance 230 ml -375 ml -605 ml Constitutional: alert, oriented, well developed Head: normocephalic Neck: supple, non-tender Respiratory: clear to auscultation, normal air movement Cardiovascular: regular rate and rhythm Gastrointestinal: soft, non-tender Musculoskeletal: nl extremities to inspection Results Result Diagram: 08/31/18 0437 08/31/18 0437 Results 24hrs Laboratory Tests Test 08/30/18 08:20 08/30/18 11:20 08/30/18 14:15 08/30/18 17:44 Bedside Glucose 136 123 220 Hemoglobin 8.5 L Hematocrit 25.2 L Test 08/30/18 19:47 08/30/18 20:31 08/31/18 00:30 08/31/18 04:37 Hemoglobin 8.4 L 7.6 L 8.2 L Hematocrit 24.8 L 22.3 L 24.1 L Bedside Glucose 251 H White Blood Count 7.4 Red Blood Count 2.82 L Mean Corpuscular 85.5 Volume Mean Corpuscular 29.1 Hemoglobin Mean Corpuscular 34.0 Hemoglobin Concent Red Cell 14.6 H Distribution Width Platelet Count 225 Mean Platelet 10.7 H Volume Immature 0.400 Granulocytes % Neutrophils % 78.0 H Lymphocytes % 12.2 L Monocytes % 7.5 Eosinophils % 1.6 Basophils % 0.3 Nucleated Red Blood 0.0 Cells % Immature 0.030 Granulocytes # Neutrophils # 5.8 Lymphocytes # 0.9 Monocytes # 0.6 Eosinophils # 0.1 Basophils # 0.0 Nucleated Red Blood 0.0 Cells # Sodium Level 140 Potassium Level 3.9 Chloride Level 117 H Carbon Dioxide 19 L Level Anion Gap 4 L Blood Urea Nitrogen 29 H Creatinine 1.90 H Est Glomerular 38 L Filtrat Rate mL/min Glucose Level 171 Calcium Level 7.8 L Phosphorus Level 3.5 Magnesium Level 2.0 Test 08/31/18 05:10 Lab Scanned Report BLOOD TRANSFUSION Medications Medication Current Medications Ondansetron HCl (Zofran Inj) 4 mg Q6H PRN IV NAUSEA AND/OR VOMITING; Start 08/26/18 at 18:30 Albuterol (Proventil 0.083% (Neb)) 2.5 mg Q2H RESP THERAPY PRN NEB SHORTNESS OF BREATH; Start 08/26/18 at 18:30 Acetaminophen (Tylenol Supp) 650 mg Q4H PRN [place] PAIN LEVEL 1-3 OR FEVER; Start 08/26/18 at 18:30 Morphine Sulfate (morphine) 2 mg Q4H PRN IV PAIN LEVEL 7-10 Last administered on 08/31/18at 01:42; Admin Dose 2 MG; Start 08/26/18 at 18:30 Hydralazine HCl (Apresoline) 10 mg Q4H PRN IV SBP >170 Last administered on 08/31/18 01:42; Admin Dose 10 MG; Start 08/26/18 at 19:00 Miscellaneous Information 1 ea NOTE XX ; Start 08/26/18 at 19:00 Glucose (Glutose) 15 gm Q15M PRN PO DECREASED GLUCOSE; Start 08/26/18 at 19:00 Glucose (Glutose) 22.5 gm Q15M PRN PO DECREASED GLUCOSE; Start 08/26/18 at 19:00 Dextrose (D50w Syringe) 25 ml Q15M PRN IV DECREASED GLUCOSE; Start 08/26/18 at 19:00 Dextrose (D50w Syringe) 50 ml Q15M PRN IV DECREASED GLUCOSE; Start 08/26/18 at 19:00 Glucagon (Glucagen) 1 mg Q15M PRN IM DECREASED GLUCOSE; Start 08/26/18 at 19:00 Glucose (Glutose) 15 gm Q15M PRN BUCCAL DECREASED GLUCOSE; Start 08/26/18 at 19:00 Labetalol HCl (Labetalol) 10 mg Q4H PRN IV sbp >160 Last administered on 08/30/18 20:32; Admin Dose 10 MG; Start 08/27/18 at 10:00 Sucralfate (Carafate Susp) 1 gm QID PO Last administered on 08/30/18 20:32; Admin Dose 1 GM; Start 08/27/18 at 21:00 Insulin Glargine (Lantus) 10 units DAILY@2000 SC Last administered on 08/30/18 20:34; Admin Dose 10 UNITS; Start 08/27/18 at 21:00 Ferric Sodium Gluconate Complex 125 mg/Sodium Chloride 110 ml @ 110 mls/hr EVERT LY@1300 IVPB Last administered on 08/30/18 14:08; Admin Dose 110 MLS/HR; Start 08/28/18 at 13:00; Stop 09/01/18 at 13:59 Lorazepam (Ativan) 1 mg Q6 PRN IV ANXIETY Last administered on 08/28/18 21:21; Admin Dose 1 MG; Start 08/28/18 at 12:30 Pantoprazole (Protonix Iv) 40 mg BID@06,18 IV Last administered on 08/31/18 05:56; Admin Dose 40 MG; Start 08/29/18 at 18:00 Insulin Aspart (Novolog Insulin Pen) NOVOLOG *MILD* ALGORITHM WITH MEALS BEDTIME SC ; Start 08/30/18 at 21:00 Sodium Bicarbonate (Sodium Bicarbonate Tab) 650 mg BID PO ; Start 08/31/18 at 09:00; Status UNRUCHI KATZ MD Aug 31, 2018 08:14
[2018-08-31] MEDS: INSULIN ASPART [NOVOLOG] 3 ML PEN SC SCH ×4 (08:28→20:31)
[2018-08-31] MEDS: NA BICARBONATE 650 MG TAB PO SCH ×2 (09:19→20:25)
[2018-08-31] MEDS: SUCRALFATE (100 MG/ML) 10ML CUP PO SCH ×4 (09:19→20:25)
[2018-08-31] MEDS: AMLODIPINE 10 MG TAB PO SCH (10:55)
[2018-08-31] MEDS: LABETALOL HCL 20MG INJ IV PRN (11:25)
[2018-08-31] MEDS: SOD FERRIC GLUC COMPLX 125 MG in SOD CHLORIDE 0.9% 100 ML IVPB SCH (14:09)
--- NOTE | 2018-08-31 15:58 | PN ---
Date/Time of Note Date/Time of Note DATE: 08/31/18 TIME: 15:44 Assessment/Plan VTE Prophylaxis Risk score (from Ns)>0 risk: 6 SCD applied (from Ns): Yes Pharmacological prophylaxis: NA/contraindicated Pharm contraindication: bleeding Lines/Catheters [facility] A CATH Urinary Cath still in place: No Assessment/Plan Assessment/Plan Assessment: Coffee-ground emesis EGD 08/27/18 Large 5 cm ulceration with nodular boarders highly suspect for malignancy. Central exposed visible vessel with no evidence of recent bleeding left untreated. Otherwise normal EGD Gastric adenocarcinoma, poorly-differentiated, favor Severe anemia 2/2 to above Abdominal adenopathy noted -Differential diagnosis includes inflammation and neoplasm. Small right pleural effusion Elevated lipase- Likely 2/2 to dehydration HTN ALEJANDRO on CKD Small amount of ascites DM Plan: F/o oncology recommendations Monitor h/h- transfuse as needed Patient seen in collaboration with Dr Sims Subjective: Course reviewed with nursing staff Patient interviewed and examined All labs, imaging and other results reviewed Patient has been transferred out of ICU. He is feeling well. Denies abdominal pain, nausea or vomiting. Tolerating diet well. Hemoglobin is trending up. No stool today. No evidence of overt GI bleeding. S/p port-a-cath placement. Awaiting for Chemo therapy in near future. PHYSICAL EXAMINATION: GENERAL: Alert & oriented x 3, in no acute distress SKIN: No lesions. HEAD: Normocephalic, atraumatic, no tenderness. EYES: Pupils equal reactive to light, no discharge. EARS/NOSE AND THROAT: Ears normal, nose normal. NECK: Supple, no masses. CHEST: Inspection within normal limits. CARDIOVASCULAR: Heart: Regular rate and rhythm, no murmurs RESPIRATORY: Lungs clear to auscultation. GASTROINTESTINAL AND LIVER: Abdomen: Soft, non tenderness, non-distended, no hernias, no masses, no organomegaly, no ascites, no guarding, no rebound tenderness, normoactive bowel sounds. Rectal: Deferred. Result Diagram: 08/31/18 1242 08/31/18 0437 Results 24hrs Laboratory Tests Test 08/30/18 17:44 08/30/18 19:47 08/30/18 20:31 08/31/18 00:30 Bedside Glucose 220 251 H Hemoglobin 8.4 L 7.6 L Hematocrit 24.8 L 22.3 L Test 08/31/18 04:37 08/31/18 05:10 08/31/18 08:19 08/31/18 12:24 White Blood Count 7.4 Red Blood Count 2.82 L Hemoglobin 8.2 L Hematocrit 24.1 L Mean Corpuscular 85.5 Volume Mean Corpuscular 29.1 Hemoglobin Mean Corpuscular 34.0 Hemoglobin Concent Red Cell 14.6 H Distribution Width Platelet Count 225 Mean Platelet 10.7 H Volume Immature 0.400 Granulocytes % Neutrophils % 78.0 H Lymphocytes % 12.2 L Monocytes % 7.5 Eosinophils % 1.6 Basophils % 0.3 Nucleated Red Blood 0.0 Cells % Immature 0.030 Granulocytes # Neutrophils # 5.8 Lymphocytes # 0.9 Monocytes # 0.6 Eosinophils # 0.1 Basophils # 0.0 Nucleated Red Blood 0.0 Cells # Sodium Level 140 Potassium Level 3.9 Chloride Level 117 H Carbon Dioxide 19 L Level Anion Gap 4 L Blood Urea Nitrogen 29 H Creatinine 1.90 H Est Glomerular 38 L Filtrat Rate mL/min Glucose Level 171 Calcium Level 7.8 L Phosphorus Level 3.5 Magnesium Level 2.0 Lab Scanned Report BLOOD TRANSFUSION Bedside Glucose 159 212 Test 08/31/18 12:42 Hemoglobin 8.5 L Hematocrit 25.3 L CC: NOBLE SIMS MD ; Exam/Review of Systems Exam Vitals Vital Signs Date Temp Pulse Resp B/P (MAP) Pulse Ox O2 O2 Flow FiO2 Time Delivery Rate 08/31/18 98.1 81 19 151/67 98 14:37 (95) 08/31/18 Room Air 13:56 Intake and Output 08/30/18 08/30/18 08/31/18 1515:00 23:00 07:00 IntakeIntake Total 880 ml 600 ml 45 ml OutputOutput Total 650 ml 975 ml 650 ml BalanceBalance 230 ml -375 ml -605 ml Results Results 24hrs Laboratory Tests Test 08/30/18 17:44 08/30/18 19:47 08/30/18 20:31 08/31/18 00:30 Bedside Glucose 220 251 H Hemoglobin 8.4 L 7.6 L Hematocrit 24.8 L 22.3 L Test 08/31/18 04:37 08/31/18 05:10 08/31/18 08:19 08/31/18 12:24 White Blood Count 7.4 Red Blood Count 2.82 L Hemoglobin 8.2 L Hematocrit 24.1 L Mean Corpuscular 85.5 Volume Mean Corpuscular 29.1 Hemoglobin Mean Corpuscular 34.0 Hemoglobin Concent Red Cell 14.6 H Distribution Width Platelet Count 225 Mean Platelet 10.7 H Volume Immature 0.400 Granulocytes % Neutrophils % 78.0 H Lymphocytes % 12.2 L Monocytes % 7.5 Eosinophils % 1.6 Basophils % 0.3 Nucleated Red Blood 0.0 Cells % Immature 0.030 Granulocytes # Neutrophils # 5.8 Lymphocytes # 0.9 Monocytes # 0.6 Eosinophils # 0.1 Basophils # 0.0 Nucleated Red Blood 0.0 Cells # Sodium Level 140 Potassium Level 3.9 Chloride Level 117 H Carbon Dioxide 19 L Level Anion Gap 4 L Blood Urea Nitrogen 29 H Creatinine 1.90 H Est Glomerular 38 L Filtrat Rate mL/min Glucose Level 171 Calcium Level 7.8 L Phosphorus Level 3.5 Magnesium Level 2.0 Lab Scanned Report BLOOD TRANSFUSION Bedside Glucose 159 212 Test 08/31/18 12:42 Hemoglobin 8.5 L Hematocrit 25.3 L Medications Medication Current Medications Ondansetron HCl (Zofran Inj) 4 mg Q6H PRN IV NAUSEA AND/OR VOMITING; Start 08/26/18 at 18:30 Albuterol (Proventil 0.083% (Neb)) 2.5 mg Q2H RESP THERAPY PRN NEB SHORTNESS OF BREATH; Start 08/26/18 at 18:30 Acetaminophen (Tylenol Supp) 650 mg Q4H PRN [place] PAIN LEVEL 1-3 OR FEVER; Start 08/26/18 at 18:30 Morphine Sulfate (morphine) 2 mg Q4H PRN IV PAIN LEVEL 7-10 Last administered on 08/31/18at 01:42; Admin Dose 2 MG; Start 08/26/18 at 18:30 Hydralazine HCl (Apresoline) 10 mg Q4H PRN IV SBP >170 Last administered on 08/31/18at 09:35; Admin Dose 10 MG; Start 08/26/18 at 19:00 Miscellaneous Information 1 ea NOTE XX ; Start 08/26/18 at 19:00 Glucose (Glutose) 15 gm Q15M PRN PO DECREASED GLUCOSE; Start 08/26/18 at 19:00 Glucose (Glutose) 22.5 gm Q15M PRN PO DECREASED GLUCOSE; Start 08/26/18 at 19:00 Dextrose (D50w Syringe) 25 ml Q15M PRN IV DECREASED GLUCOSE; Start 08/26/18 at 19:00 Dextrose (D50w Syringe) 50 ml Q15M PRN IV DECREASED GLUCOSE; Start 08/26/18 at 19:00 Glucagon (Glucagen) 1 mg Q15M PRN IM DECREASED GLUCOSE; Start 08/26/18 at 19:00 Glucose (Glutose) 15 gm Q15M PRN BUCCAL DECREASED GLUCOSE; Start 08/26/18 at 19:00 Labetalol HCl (Labetalol) 10 mg Q4H PRN IV sbp >160 Last administered on 08/31/18 11:25; Admin Dose 10 MG; Start 08/27/18 at 10:00 Sucralfate (Carafate Susp) 1 gm QID PO Last administered on 08/31/18 13:10; Admin Dose 1 GM; Start 08/27/18 at 21:00 Insulin Glargine (Lantus) 10 units DAILY@2000 SC Last administered on 08/30/18 20:34; Admin Dose 10 UNITS; Start 08/27/18 at 21:00 Ferric Sodium Gluconate Complex 125 mg/Sodium Chloride 110 ml @ 110 mls/hr DAILY@1300 IVPB Last administered on 08/31/18 14:09; Admin Dose 110 MLS/HR; Start 08/28/18 at 13:00; Stop 09/01/18 at 13:59 Lorazepam (Ativan) 1 mg Q6 PRN IV ANXIETY Last administered on 08/28/18 21:21; Admin Dose 1 MG; Start 08/28/18 at 12:30 Pantoprazole (Protonix Iv) 40 mg BID@06,18 IV Last administered on 08/31/18 05:56; Admin Dose 40 MG; Start 08/29/18 at 18:00 Insulin Aspart (Novolog Insulin Pen) NOVOLOG *MILD* ALGORITHM WITH MEALS BEDTIME SC Last administered on 08/31/18 12:30; Admin Dose 2 UNIT; Start 08/30/18 at 21:00 Sodium Bicarbonate (Sodium Bicarbonate Tab) 650 mg BID PO Last administered on 08/31/18at 09:19; Admin Dose 650 MG; Start 08/31/18 at 09:00 Amlodipine Besylate (Norvasc) 10 mg DAILY PO Last administered on 08/31/18at 10:55; Admin Dose 10 MG; Start 08/31/18 at 11:00 LINUS SAM NP Aug 31, 2018 15:58
--- NOTE | 2018-08-31 16:07 | CONS ---
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 -CT demonstrates appearance of enlarged lymph nodes in the gastrohepatic ligament, celiac region, periportal region and left para-aortic region of the retroperitoneum the largest lymph node measuring approximately 1.8 cm short-axis in the left para-aortic region. -given his likely slow continual GI bleed. we will plan to start chemotherapy in the hospital as hopefully this will control the malignant bleeding ulcer -plan to start FLOT per the following regimen Fluorouracil (5-FU) 2600 mg/m2 IV continuous infusion over 24 hours on day 1 Folinic acid (Leucovorin) 200 mg/m2 IV once on day 1 Oxaliplatin (Eloxatin) 85 mg/m2 IV once on day 1 Docetaxel (Taxotere) 50 mg/m2 IV once on day 1 -MRI demonstrates. Gastric wall thickening and upper abdominal adenopathy which raises the possibility of gastric neoplasm. Probable hepatic cysts or hemangiomas. -pt will need PET CT as an out patient -port in placed -may start chemo when it has arrived #iron deficiency anemia -continue IV iron -pt received blood transfusion yesterday Thank you for the opportunity to participate in this patients care A total of 40 minutes of face to face time was spent speaking with the patient, of which greater than 50% was spent in counseling and coordination of care and the detailed question and answer session. Consultation Date/Type/Reason Admit Date/Time Aug 26, 2018 at 17:28 Initial Consult Date 08/28/18 Type of Consult oncology Reason for Consultation metastatic gastric cancer Requesting Provider: IVY PICKETT Date/Time of Note DATE: 08/31/18 TIME: 16:05 24 HR Interval Summary Free Text/Dictation no acute overnight events Exam/Review of Systems Exam Vitals Vital Signs Date Temp Pulse Resp B/P (MAP) Pulse Ox O2 O2 Flow FiO2 Time Delivery Rate 08/31/18 98.1 81 19 151/67 98 14:37 (95) 08/31/18 Room Air 13:56 Intake and Output 08/30/18 08/30/18 08/31/18 1515:00 23:00 07:00 IntakeIntake Total 880 ml 600 ml 45 ml OutputOutput Total 650 ml 975 ml 650 ml BalanceBalance 230 ml -375 ml -605 ml Constitutional: alert, oriented Psych: no complaints, anxiety Head: normocephalic Eyes: nl conjunctiva ENMT: nl external ears & nose Neck: supple Respiratory: clear to auscultation Cardiovascular: regular rate and rhythm Gastrointestinal: soft Musculoskeletal: nl extremities to inspection Results Result Diagram: 08/31/18 1242 08/31/18 0437 Results 24hrs Laboratory Tests Test 08/30/18 17:44 08/30/18 19:47 08/30/18 20:31 08/31/18 00:30 Bedside Glucose 220 251 H Hemoglobin 8.4 L 7.6 L Hematocrit 24.8 L 22.3 L Test 08/31/18 04:37 08/31/18 05:10 08/31/18 08:19 08/31/18 12:24 White Blood Count 7.4 Red Blood Count 2.82 L Hemoglobin 8.2 L Hematocrit 24.1 L Mean Corpuscular 85.5 Volume Mean Corpuscular 29.1 Hemoglobin Mean Corpuscular 34.0 Hemoglobin Concent Red Cell 14.6 H Distribution Width Platelet Count 225 Mean Platelet 10.7 H Volume Immature 0.400 Granulocytes % Neutrophils % 78.0 H Lymphocytes % 12.2 L Monocytes % 7.5 Eosinophils % 1.6 Basophils % 0.3 Nucleated Red Blood 0.0 Cells % Immature 0.030 Granulocytes # Neutrophils # 5.8 Lymphocytes # 0.9 Monocytes # 0.6 Eosinophils # 0.1 Basophils # 0.0 Nucleated Red Blood 0.0 Cells # Sodium Level 140 Potassium Level 3.9 Chloride Level 117 H Carbon Dioxide 19 L Level Anion Gap 4 L Blood Urea Nitrogen 29 H Creatinine 1.90 H Est Glomerular 38 L Filtrat Rate mL/min Glucose Level 171 Calcium Level 7.8 L Phosphorus Level 3.5 Magnesium Level 2.0 Lab Scanned Report BLOOD TRANSFUSION Bedside Glucose 159 212 Test 08/31/18 12:42 Hemoglobin 8.5 L Hematocrit 25.3 L Medications Medication Current Medications Ondansetron HCl (Zofran Inj) 4 mg Q6H PRN IV NAUSEA AND/OR VOMITING; Start 08/26/18 at 18:30 Albuterol (Proventil 0.083% (Neb)) 2.5 mg Q2H RESP THERAPY PRN NEB SHORTNESS OF BREATH; Start 08/26/18 at 18:30 Acetaminophen (Tylenol Supp) 650 mg Q4H PRN [place] PAIN LEVEL 1-3 OR FEVER; Start 08/26/18 at 18:30 Morphine Sulfate (morphine) 2 mg Q4H PRN IV PAIN LEVEL 7-10 Last administered on 08/31/18 01:42; Admin Dose 2 MG; Start 08/26/18 at 18:30 Hydralazine HCl (Apresoline) 10 mg Q4H PRN IV SBP >170 Last administered on 08/31/18 09:35; Admin Dose 10 MG; Start 08/26/18 at 19:00 Miscellaneous Information 1 ea NOTE XX ; Start 08/26/18 at 19:00 Glucose (Glutose) 15 gm Q15M PRN PO DECREASED GLUCOSE; Start 08/26/18 at 19:00 Glucose (Glutose) 22.5 gm Q15M PRN PO DECREASED GLUCOSE; Start 08/26/18 at 19:00 Dextrose (D50w Syringe) 25 ml Q15M PRN IV DECREASED GLUCOSE; Start 08/26/18 at 19:00 Dextrose (D50w Syringe) 50 ml Q15M PRN IV DECREASED GLUCOSE; Start 08/26/18 at 19:00 Glucagon (Glucagen) 1 mg Q15M PRN IM DECREASED GLUCOSE; Start 08/26/18 at 19:00 Glucose (Glutose) 15 gm Q15M PRN BUCCAL DECREASED GLUCOSE; Start 08/26/18 at 19:00 Labetalol HCl (Labetalol) 10 mg Q4H PRN IV sbp >160 Last administered on 08/31/18 11:25; Admin Dose 10 MG; Start 08/27/18 at 10:00 Sucralfate (Carafate Susp) 1 gm QID PO Last administered on 08/31/18 13:10; Admin Dose 1 GM; Start 08/27/18 at 21:00 Insulin Glargine (Lantus) 10 units DAILY@2000 SC Last administered on 08/30/18 20:34; Admin Dose 10 UNITS; Start 08/27/18 at 21:00 Ferric Sodium Gluconate Complex 125 mg/Sodium Chloride 110 ml @ 110 mls/hr D AILY@1300 IVPB Last administered on 08/31/18 14:09; Admin Dose 110 MLS/HR; Start 08/28/18 at 13:00; Stop 09/01/18 at 13:59 Lorazepam (Ativan) 1 mg Q6 PRN IV ANXIETY Last administered on 08/28/18 21:21; Admin Dose 1 MG; Start 08/28/18 at 12:30 Pantoprazole (Protonix Iv) 40 mg BID@06,18 IV Last administered on 08/31/18 05:56; Admin Dose 40 MG; Start 08/29/18 at 18:00 Insulin Aspart (Novolog Insulin Pen) NOVOLOG *MILD* ALGORITHM WITH MEALS BEDTIME SC Last administered on 08/31/18 12:30; Admin Dose 2 UNIT; Start 08/30/18 at 21:00 Sodium Bicarbonate (Sodium Bicarbonate Tab) 650 mg BID PO Last administered on 08/31/18 09:19; Admin Dose 650 MG; Start 08/31/18 at 09:00 Amlodipine Besylate (Norvasc) 10 mg DAILY PO Last administered on 08/31/18 10:55; Admin Dose 10 MG; Start 08/31/18 at 11:00 AME VALDEZ M.D. Aug 31, 2018 16:07
[2018-08-31] MEDS: INSULIN GLARGINE [LANTus] (100 UNITS/ML) SYG SC SCH (20:30)
[2018-09-01] VITALS (32 sets, daily range): BP systolic 84–134; BP diastolic 50–80; PULSE 79–102; RESP 11–18
[2018-09-01] MEDS: PANTOPRAZOLE 40 MG INJ IV SCH (06:07)
[2018-09-01] MEDS ORDERED: DESFLURANE 15 MIN ONE (07:00)
[2018-09-01] MEDS: INSULIN ASPART [NOVOLOG] 3 ML PEN SC SCH ×4 (07:50→20:48)
[2018-09-01] MEDS: morphine 2 MG INJ IV PRN (08:02)
[2018-09-01] MEDS: ONDANSETRON 4 MG INJ IV PRN ×2 (09:05→10:48)
[2018-09-01] MEDS: AMLODIPINE 10 MG TAB PO SCH (09:06)
[2018-09-01] MEDS: SUCRALFATE (100 MG/ML) 10ML CUP PO SCH ×4 (09:06→20:50)
[2018-09-01] MEDS: NA BICARBONATE 650 MG TAB PO SCH ×2 (09:06→20:48)
[2018-09-01] MEDS ORDERED: ONDANSETRON 4 MG INJ IV STA (10:43)
[2018-09-01] MEDS ORDERED: SOD CHLORIDE 0.9% 1,000 ML IV ONE (11:00)
[2018-09-01] MEDS: SOD FERRIC GLUC COMPLX 125 MG in SOD CHLORIDE 0.9% 100 ML IVPB SCH (12:22)
[2018-09-01] MEDS: PANTOPRAZOLE IV 80 MG in SOD CHLORIDE 0.9% 100 ML IV SCH ×2 (12:22→22:20)
--- NOTE | 2018-09-01 13:37 | PREAC ---
Date/Time of Note Date/Time of Note DATE: 09/01/18 TIME: 13:35 Anesthesia Eval and Record Evaluation Time Pre-Procedure Interview DATE: 09/01/18 TIME: 13:35 Age 48 Sex male NPO: 8 hrs Preoperative diagnosis GI Bleed Planned procedure EGD Past Medical History Past Medical History: Includes Cardio: HTN, Dyslipidemia Endo: Diabetes Neuro: Other (Syncopy) Renal: ALEJANDRO Heme: Anemia Surgery & Anesthesia Issues No known issue Meds Anticoagulation: No Beta Kelli within 24 hr: No Reason Beta Kelli not given: Pt. not on B-Kelli Reported Medications Dulaglutide (Trulicity) 0.75 Mg/0.5 Ml Pen.injctr, 0.75 MG SQ Q FRI PATIENT HASE A ADVERS REACTION WHEN HE INJECT THIS MEDICATION. 08/26/18 Furosemide* (Furosemide*) 40 Mg Tablet, 40 MG PO DAILY, TAB 08/26/18 Cholecalciferol (Vitamin D3) (Vitamin D-3) 2,000 Unit Tablet, 2000 UNIT PO DAILY, TAB 08/26/18 Atorvastatin Calcium* (Atorvastatin Calcium*) 20 Mg Tablet, 20 MG PO QHS, #30 TAB 08/26/18 Multivit/Ca Carb/B Cmplx/Fa* (Shanta-Ivette*) 1 Tab Tab, 1 TAB PO DAILY, TAB 08/25/18 Amlodipine Besylate* (Amlodipine Besylate*) 10 Mg Tablet, 10 MG PO QAM, #30 TAB 08/25/18 Glimepiride* (Glimepiride*) 2 Mg Tablet, 2 MG PO WITH BREAKFAST DINNE, TAB 08/25/18 Metformin Hcl* (Metformin Hcl*) 850 Mg Tablet, 850 MG PO WITH BREAKFAST DINNE, #30 TAB 08/25/18 Discontinued Reported Medications Vitamin B Complex* (Vitamin B Complex*) 1 Each Tablet, 1 TAB PO DAILY, TAB 08/25/18 Cholecalciferol* (Vitamin D3*) 1,000 Unit Tablet, 1000 UNIT PO DAILY, TAB 08/25/18 Current Medications Ondansetron HCl (Zofran Inj) 4 mg Q6H PRN IV NAUSEA AND/OR VOMITING Last administered on 09/01/18at 10:48; Admin Dose 4 MG; Start 08/26/18 at 18:30 Albuterol (Proventil 0.083% (Neb)) 2.5 mg Q2H RESP THERAPY PRN NEB SHORTNESS OF BREATH; Start 08/26/18 at 18:30 Acetaminophen (Tylenol Supp) [address] PAIN LEVEL 1-3 OR FEVER; Start 08/26/18 at 18:30 Morphine Sulfate (morphine) 2 mg Q4H PRN IV PAIN LEVEL 7-10 Last administered on 09/01/18 08:02; Admin Dose 2 MG; Start 08/26/18 at 18:30 Hydralazine HCl (Apresoline) 10 mg Q4H PRN IV SBP >170 Last administered on 08/31/18 09:35; Admin Dose 10 MG; Start 08/26/18 at 19:00 Miscellaneous Information 1 ea NOTE XX ; Start 08/26/18 at 19:00 Glucose (Glutose) 15 gm Q15M PRN PO DECREASED GLUCOSE; Start 08/26/18 at 19:00 Glucose (Glutose) 22.5 gm Q15M PRN PO DECREASED GLUCOSE; Start 08/26/18 at 19:00 Dextrose (D50w Syringe) 25 ml Q15M PRN IV DECREASED GLUCOSE; Start 08/26/18 at 19:00 Dextrose (D50w Syringe) 50 ml Q15M PRN IV DECREASED GLUCOSE; Start 08/26/18 at 19:00 Glucagon (Glucagen) 1 mg Q15M PRN IM DECREASED GLUCOSE; Start 08/26/18 at 19:00 Glucose (Glutose) 15 gm Q15M PRN BUCCAL DECREASED GLUCOSE; Start 08/26/18 at 19:00 Labetalol HCl (Labetalol) 10 mg Q4H PRN IV sbp >160 Last administered on 08/31/18at 11:25; Admin Dose 10 MG; Start 08/27/18 at 10:00 Sucralfate (Carafate Susp) 1 gm QID PO Last administered on 09/01/18 09:06; Admin Dose 1 GM; Start 08/27/18 at 21:00 Insulin Glargine (Lantus) 10 units DAILY@2000 SC Last administered on 08/31/18 20:30; Admin Dose 10 UNITS; Start 08/27/18 at 21:00 Ferric Sodium Gluconate Complex 125 mg/Sodium Chloride 110 ml @ 110 mls/hr DAILY@1300 IVPB Last administered on 09/01/18 12:22; Admin Dose 110 MLS/HR; Start 08/28/18 at 13:00; Stop 09/01/18 at 13:59 Lorazepam (Ativan) 1 mg Q6 PRN IV ANXIETY Last administered on 08/28/18at 21:21; Admin Dose 1 MG; Start 08/28/18 at 12:30 Insulin Aspart (Novolog Insulin Pen) NOVOLOG *MILD* ALGORITHM WITH MEALS BEDTIME SC Last administered on 08/31/18at 20:31; Admin Dose 1 UNIT; Start at 21:00 Sodium Bicarbonate (Sodium Bicarbonate Tab) 650 mg BID PO Last administered on 09/01/18 09:06; Admin Dose 650 MG; Start 08/31/18 at 09:00 Amlodipine Besylate (Norvasc) 10 mg DAILY PO Last administered on 09/01/18 09:06; Admin Dose 10 MG; Start 08/31/18 at 11:00; Status Hold Pantoprazole 80 mg/Sodium Chloride 100 ml @ 10 mls/hr Q10H IV Last administered on 09/01/18 12:22; Admin Dose 10 MLS/HR; Start 09/01/18 at 12:00 Sodium Chloride 1,000 ml @ 150 mls/hr Q6H40M IV ; Start 09/01/18 at 11:00 Meds reviewed: Yes Allergies Coded Allergies: No Known Allergy (Unverified , 08/28/18) Allergies Reviewed: Yes Labs/Studies Labs Reviewed: Reviewed by anesthesiologist Result Diagram: 09/01/1830 08/31/18 0437 Laboratory Tests 09/01/18 09:30 test: N/A Pre-procedure Exam Last vitals Vital Signs Date Temp Pulse Resp B/P (MAP) Pulse Ox O2 O2 Flow FiO2 Time Delivery Rate 09/01/18 96 15 84/58 (67) 100 Nasal 2.0 12:30 Cannula 09/01/18 98.0 11:16 Airway: Adequate mouth opening Mallampati: Mallampati III Teeth: Normal Lung: Normal Heart: Normal ASA Physical Status ASA physical status: 3 Emergency: E Planned Anesthetic General/MAC: ETT Pre-operative Attestations Prior to commencing anesthesia and surgery, the patient was re-evaluated, there was verification of: *The patient's identity *The results of appropriate recent lab work and preoperative vital signs *The above evaluation not changing prior to induction *Anesthetic plan, risk benefits, alternative and complications discussed with patient/family; questions answered; patient/family understands, accepts and wishes to proceed. STEPHANE WINN MD Sep 01, 2018 13:37
[2018-09-01] MEDS ORDERED: PROPOFOL 20 ML ONE (13:41)
[2018-09-01] MEDS ORDERED: SUCCINYLCHOLINE CHLORIDE 100 MG/5 ML SYG IV ONE (13:41)
--- NOTE | 2018-09-01 14:22 | PAC ---
Date/Time of Note Date/Time of Note DATE: 09/01/18 TIME: 14:21 Post-Anesthesia Notes Post-Anesthesia Note Last documented vital signs Vital Signs Date Temp Pulse Resp B/P (MAP) Pulse Ox O2 O2 Flow FiO2 Time Delivery Rate 09/01/18 96 15 84/58 (67) 100 Nasal 2.0 12:30 Cannula 09/01/18 98.0 11:16 Activity: WNL Respiratory function: WNL Cardiovascular function: WNL Mental status: Baseline Pain reasonably controlled: Yes Hydration appropriate: Yes Nausea/Vomiting absent: Yes STEPHANE WINN MD Sep 01, 2018 14:22
--- NOTE | 2018-09-01 14:31 | OPPN ---
Date/Time of Note Date/Time of Note DATE: 09/01/18 TIME: 14:22 Proc Note GI Procedure Date 09/01/18 Indication: diagnostic, treatment Pre-procedure Diagnosis GI bleeding/hematemesis Post-procedure Diagnosis Impression: Active oozing multiple sites ulcer bed. Limited visualization. No endoscopically treatable lesion identified Plan: Protonix and octreotide drip. Fresh frozen plasma as he patient has received multiple transfusions Case was discussed with Dr. Ramone Stanley hospitalist in charge he will internal discuss with surgical consulting and interventional radiology Gnosis is poor and this was conveyed to the patient's family Procedure Performed: Endoscopy Surgeon NOBLE GARCIA MD See signature line Wine Maker none Anesthesia Type: general Anesthesiologist: STEPHANE WINN MD Tourniquet Time none EBL none Transfusion required none Biopsy 1: None Grafts/Implants none Tubes/Drains none Complication(s) none Disposition: other (ICU) Procedure Description After informed consent, with the patient/relatives understanding the procedure, its indications, potential risks and complications, including but not limited to: allergic reaction, bleeding, perforation or infection, and after all pertinent questions were answered to the patients satisfaction, the patient/relatives signed witnessed informed consent. Following this, premedication was administered slowly IV push under careful cardiovascular and respiratory monitoring with pulse oximetry, automatic blood pressure, and satellite project site monitor. Once the sedative effect was achieved the patient was place in the left lateral decubitus, the panendoscope was introduced and advanced under visual control. Careful examination of the upper gastrointestinal tract, both on insertion as well as withdrawal of the instrument disclosing the following findings: ESOPHAGUS: the mucosa of the entire esophagus was carefully examined and showed the following findings: the mucosa appears within normal limits. There is no evidence of esophagitis, varices, neoplasm, or stricture. No Hiatal Hernia identified. STOMACH: Upon entrance to the stomach air was insufflated, the gastric diop distended normally. The mucosa of the fundus, body and antrum of the stomach was carefully examined both head-on and on retroflexion, and showed the following findings: Large amount of blood is noted in the fundus and body of the stomach obscuring the ulcer bed. No additional sources of bleeding identified. Extensive lavage and suctioning was applied as well as change the position of the patient which allowed partial visualization of the ulcer bed multiple sites of oozing were identified no endoscopically treatable lesion is evident and the examination is limited. PYLORUS: The pylorus was carefully examined and showed the following findings: the pylorus appears patent and within normal limits, with no evidence of gastric outlet obstruction. DUODENUM: The duodenal mucosa was carefully examined in the duodenal bulb as well as the second portion of the duodenum and showed the following findings: the mucosa appears unremarkable with no evidence of duodenitis, ulcer or neoplasm. Copies To: CC: NOBLE GARCIA MD ; NOBLE GARCIA MD Sep 01, 2018 14:31
--- NOTE | 2018-09-01 15:11 | PN ---
Date/Time of Note Date/Time of Note DATE: 09/01/18 TIME: 15:01 Objective Vitals Vital Signs Date Temp Pulse Resp B/P (MAP) Pulse Ox O2 O2 Flow FiO2 Time Delivery Rate 09/01/18 90 16 98/56 (70) 100 14:45 09/01/18 97.8 Nasal 14:30 Cannula 09/01/18 2.0 12:30 Intake and Output 08/31/18 08/31/18 09/01/18 1515:00 23:00 07:00 IntakeIntake Total 300 ml 350 ml 350 ml OutputOutput Total 700 ml BalanceBalance -400 ml 350 ml 350 ml Results Result Diagram: 09/01/18 0930 08/31/18 0437 Medications Medications Current Medications Ondansetron HCl (Zofran Inj) 4 mg Q6H PRN IV NAUSEA AND/OR VOMITING Last admin istered on 09/01/18at 10:48; Admin Dose 4 MG; Start 08/26/18 at 18:30 Albuterol (Proventil 0.083% (Neb)) 2.5 mg Q2H RESP THERAPY PRN NEB SHORTNESS OF BREATH; Start 08/26/18 at 18:30 Acetaminophen (Tylenol Supp) 650 mg Q4H PRN [place] PAIN LEVEL 1-3 OR FEVER; Start 08/26/18 at 18:30 Morphine Sulfate (morphine) 2 mg Q4H PRN IV PAIN LEVEL 7-10 Last administered on 09/01/18at 08:02; Admin Dose 2 MG; Start 08/26/18 at 18:30 Hydralazine HCl (Apresoline) 10 mg Q4H PRN IV SBP >170 Last administered on 08/31/18at 09:35; Admin Dose 10 MG; Start 08/26/18 at 19:00 Miscellaneous Information 1 ea NOTE XX ; Start 08/26/18 at 19:00 Glucose (Glutose) 15 gm Q15M PRN PO DECREASED GLUCOSE; Start 08/26/18 at 19:00 Glucose (Glutose) 22.5 gm Q15M PRN PO DECREASED GLUCOSE; Start 08/26/18 at 19:00 Dextrose (D50w Syringe) 25 ml Q15M PRN IV DECREASED GLUCOSE; Start 08/26/18 at 19:00 Dextrose (D50w Syringe) 50 ml Q15M PRN IV DECREASED GLUCOSE; Start 08/26/18 at 19:00 Glucagon (Glucagen) 1 mg Q15M PRN IM DECREASED GLUCOSE; Start 08/26/18 at 19:00 Glucose (Glutose) 15 gm Q15M PRN BUCCAL DECREASED GLUCOSE; Start 08/26/18 at 19 :00 Labetalol HCl (Labetalol) 10 mg Q4H PRN IV sbp >160 Last administered on 08/31/18 11:25; Admin Dose 10 MG; Start 08/27/18 at 10:00 Sucralfate (Carafate Susp) 1 gm QID PO Last administered on 09/01/18 09:06; Admin Dose 1 GM; Start 08/27/18 at 21:00 Insulin Glargine (Lantus) 10 units DAILY@2000 SC Last administered on 08/31/18 20:30; Admin Dose 10 UNITS; Start 08/27/18 at 21:00 Lorazepam (Ativan) 1 mg Q6 PRN IV ANXIETY Last administered on 08/28/18 21:21; Admin Dose 1 MG; Start 08/28/18 at 12:30 Insulin Aspart (Novolog Insulin Pen) NOVOLOG *MILD* ALGORITHM WITH MEALS BEDTIME SC Last administered on 08/31/18 20:31; Admin Dose 1 UNIT; Start 08/30/18 at 21:00 Sodium Bicarbonate (Sodium Bicarbonate Tab) 650 mg BID PO Last administered on 09/01/18 09:06; Admin Dose 650 MG; Start 08/31/18 at 09:00 Amlodipine Besylate (Norvasc) 10 mg DAILY PO Last administered on 09/01/18 09:06; Admin Dose 10 MG; Start 08/31/18 at 11:00; Status Hold Pantoprazole 80 mg/Sodium Chloride 100 ml @ 10 mls/hr Q10H IV Last administered on 09/01/18 12:22; Admin Dose 10 MLS/HR; Start 09/01/18 at 12:00 Sodium Chloride 1,000 ml @ 150 mls/hr Q6H40M IV ; Start 09/01/18 at 11:00 Octreotide Acetate 1 mg/ Dextrose 100 ml @ 5 mls/hr Q20H IV ; Start 09/01/18 at 14:30 VTE Prophylaxis Risk score (from Nsg)>0 risk: 2 SCD applied (from Nsg): Yes Lines/Catheters IV Catheter Type: Ruiz in Place: No Assessment/Plan Hospital Course Subjective Patient had a syncopal event, a.m. hemoglobin was also significantly lower than midnight hemoglobin, patient also developed abdominal pain. Upon evaluation, patient suddenly began to have hematemesis and patient was transferred to the ICU. Objective Physical exam General: Patient is laying in bed and answers questions appropriately Mentation: Patient is alert and oriented 4, Head: Normocephalic atraumatic Eyes: EOMI, pupils reactive to light Neck: Supple, nontender, midline Respiratory: Clear to auscultation bilaterally Cardiovascular: regular rate, no obvious murmurs Gastrointestinal: Moderately tender to palpation, bowel sounds heard. Neurological: Moves all extremities spontaneously Skin: No new skin lesions Assessment and plan Hematemesis with large gastric ulcer, recurrent -Recurrent today, GI took patient for emergent upper endoscopy, found stomach full of blood, could not visualize very well due to clots and blood products, co uld not perform any intervention, noted that patient is still oozing blood -Octreotide, Protonix drip started on patient -FFP and blood products ordered, will continue to monitor very closely and núñez sfuse as needed -General surgeon, Dr. Otoole, has been consulted will have a spot open tomorrow a.m. for surgical intervention if needed, Dr. Aragon, Interventional radiology, currently coming in right now and will perform radiological procedure for possible embolization. Gastric adenocarcinoma -Oncology has been consulted -MRI results noted, questionable hepatic findings versus other lymphadenopathy, oncology recognitions appreciated -Per oncology, CT chest ordered and noted -Port-A-Cath being placed, one patient more stable will initiate chemotherapy once insurance has approved. Distended gallbladder per MRI -Patient completely asymptomatic, no abdominal pain, monitor for now Liver cyst versus hemangioma versus metastases -Found on MRI, oncology recommendations appreciated Syncope, recurred -Likely secondary to vasovagal events as well as low hemoglobin and blood loss -Monitor very closely Blood loss anemia -Continue transfusing as needed -Secondary to GI bleed -Order FFP for every 4 to 5 units of packed red blood cell Elevated lipase on admission -No abdominal pain on admission -Likely due to above GI issues, monitor Hypertension -As needed hydralazine and labetalol, restart home meds when able to tolerate p.o. Acute kidney injury versus chronic kidney disease -Continue IV fluid -Nephrology consulted Diabetes mellitus -Patient stated that ever since he was given Trulicity the past week he has been experiencing severe side effects, hold Trulicity for now, insulin sliding scale for now Disposition -Patient back in the ICU, general surgery and interventional radiology has been consulted as emergent upper endoscopy was not successful and stopping bleed, continue to transfuse, monitor very closely, patient is very critical, still awaiting insurance approval for chemotherapy. More than 40 minutes of critical care time spent on this encounter. IVY PICKETT Sep 01, 2018 15:11
[2018-09-01] MEDS: OCTREOTIDE 1 MG in DEXTROSE 5% 95 ML IV SCH (15:16)
--- NOTE | 2018-09-01 15:16 | CONS ---
Assessment/Plan Assessment/Plan Problems: (1) Gastric cancer (2) Upper GI bleed Status: Acute (3) Near syncope Status: Acute (4) Hyperglycemia without ketosis Status: Acute Assessment/Plan (Daily) Patient with a bleeding gastric carcinoma. Patient will need invasive radiology to attempt to embolize the bleeding vessel. If attempt fails patient continues to bleed will consider surgical exploration. Consultation Date/Type/Reason Admit Date/Time Aug 26, 2018 at 17:28 Date of Consultation: Sep 01, 2018 Type of Consult Surgical Reason for Consultation Bleeding gastric cancer Date/Time of Note DATE: 09/01/18 TIME: 15:09 Hx of Present Illness Patient is 48-year-old male being is his usual state of health a week ago was admitted with hematemesis. He was promptly diagnosed with gastric cancer and was awaiting start of chemotherapy. Bleeding shortly stopped and that allowed the window for upper endoscopy that led to diagnosis. There is a solitary large ulcerative cancer in the greater curvature of the stomach in the mid stomach. It was biopsied and adenocarcinoma poorly differential intestinal type came back. Patient started to rebleed earlier today and he was again taken for upper endoscopy that was unable to visualize the source of bleeding because of the massive amount of blood in the stomach lumen. Patient has been transfused overall 10 units of blood since his admission. He remains hemodynamically stable however his heart rate between 90 and 100. MRI previously showed the en larged lymph nodes at the stomach proximity. No evidence of distant metastasis. Constitutional: other (Fatigue patient is lying in the bed he is in ICU.) Eyes: no complaints ENT: no complaints Respiratory: no complaints Cardiovascular: lightheadedness Gastrointestinal: blood, decreased appetite, other Genitourinary: no complaints, other (Renal failure) Musculoskeletal: no complaints Skin: no complaints Neurologic: no complaints Endocrine: other (Diabetes) Past Medical History Medical History: diabetes, high cholesterol, hypertension Home Meds Reported Medications Dulaglutide (Trulicity) 0.75 Mg/0.5 Ml Pen.injctr, 0.75 MG SQ Q FRI PATIENT HASE A ADVERS REACTION WHEN HE INJECT THIS MEDICATION. 08/26/18 Furosemide* (Furosemide*) 40 Mg Tablet, 40 MG PO DAILY, TAB 08/26/18 Cholecalciferol (Vitamin D3) (Vitamin D-3) 2,000 Unit Tablet, 2000 UNIT PO DAILY, TAB 6/2/19 Atorvastatin Calcium* (Atorvastatin Calcium*) 20 Mg Tablet, 20 MG PO QHS, #30 TAB 08/26/18 Multivit/Ca Carb/B Cmplx/Fa* (Shanta-Ivette*) 1 Tab Tab, 1 TAB PO DAILY, TAB 08/25/18 Amlodipine Besylate* (Amlodipine Besylate*) 10 Mg Tablet, 10 MG PO QAM, #30 TAB 08/25/18 Glimepiride* (Glimepiride*) 2 Mg Tablet, 2 MG PO WITH BREAKFAST DINNE, TAB 08/25/18 Metformin Hcl* (Metformin Hcl*) 850 Mg Tablet, 850 MG PO WITH BREAKFAST DINNE, #30 TAB 08/25/18 Discontinued Reported Medications Vitamin B Complex* (Vitamin B Complex*) 1 Each Tablet, 1 TAB PO DAILY, TAB 08/25/18 Cholecalciferol* (Vitamin D3*) 1,000 Unit Tablet, 1000 UNIT PO DAILY, TAB 08/25/18 Medications Current Medications Ondansetron HCl (Zofran Inj) 4 mg Q6H PRN IV NAUSEA AND/OR VOMITING Last administered on 09/01/18at 10:48; Admin Dose 4 MG; Start 08/26/18 at 18:30 Albuterol (Proventil 0.083% (Neb)) 2.5 mg Q2H RESP THERAPY PRN NEB SHORTNESS OF BREATH; Start 08/26/18 at 18:30 Acetaminophen (Tylenol Supp) 650 mg Q4H PRN [place] PAIN LEVEL 1-3 OR FEVER; Start 08/26/18 at 18:30 Morphine Sulfate (morphine) 2 mg Q4H PRN IV PAIN LEVEL 7-10 Last administered on 09/01/18at 08:02; Admin Dose 2 MG; Start 08/26/18 at 18:30 Hydralazine HCl (Apresoline) 10 mg Q4H PRN IV SBP >170 Last administered on 08/31/18at 09:35; Admin Dose 10 MG; Start 08/26/18 at 19:00 Miscellaneous Information 1 ea NOTE XX ; Start 08/26/18 at 19:00 Glucose (Glutose) 15 gm Q15M PRN PO DECREASED GLUCOSE; Start 08/26/18 at 19:00 Glucose (Glutose) 22.5 gm Q15M PRN PO DECREASED GLUCOSE; Start 08/26/18 at 19:00 Dextrose (D50w Syringe) 25 ml Q15M PRN IV DECREASED GLUCOSE; Start 08/26/18 at 1 9:00 Dextrose (D50w Syringe) 50 ml Q15M PRN IV DECREASED GLUCOSE; Start 08/26/18 at 19:00 Glucagon (Glucagen) 1 mg Q15M PRN IM DECREASED GLUCOSE; Start 08/26/18 at 19:00 Glucose (Glutose) 15 gm Q15M PRN BUCCAL DECREASED GLUCOSE; Start 08/26/18 at 19:00 Labetalol HCl (Labetalol) 10 mg Q4H PRN IV sbp >160 Last administered on 08/31/18 11:25; Admin Dose 10 MG; Start 08/27/18 at 10:00 Sucralfate (Carafate Susp) 1 gm QID PO Last administered on 09/01/18 09:06; Admin Dose 1 GM; Start 08/27/18 at 21:00 Insulin Glargine (Lantus) 10 units DAILY@2000 SC Last administered on 08/31/18 20:30; Admin Dose 10 UNITS; Start 08/27/18 at 21:00 Lorazepam (Ativan) 1 mg Q6 PRN IV ANXIETY Last administered on 08/28/18 21:21; Admin Dose 1 MG; Start 08/28/18 at 12:30 Insulin Aspart (Novolog Insulin Pen) NOVOLOG *MILD* ALGORITHM WITH MEALS BEDTIME SC Last administered on 08/31/18 20:31; Admin Dose 1 UNIT; Start 08/30/18 at 21:00 Sodium Bicarbonate (Sodium Bicarbonate Tab) 650 mg BID PO Last administered on 09/01/18 09:06; Admin Dose 650 MG; Start 08/31/18 at 09:00 Amlodipine Besylate (Norvasc) 10 mg DAILY PO Last administered on 09/01/18 09:06; Admin Dose 10 MG; Start 08/31/18 at 11:00; Status Hold Pantoprazole 80 mg/Sodium Chloride 100 ml @ 10 mls/hr Q10H IV Last administered on 09/01/18 12:22; Admin Dose 10 MLS/HR; Start 09/01/18 at 12:00 Sodium Chloride 1,000 ml @ 150 mls/hr Q6H40M IV ; Start 09/01/18 at 11:00 Octreotide Acetate 1 mg/ Dextrose 100 ml @ 5 mls/hr Q20H IV ; Start 09/01/18 at 14:30 Allergies: Coded Allergies: No Known Allergy (Unverified , 08/28/18) Past Surgical History Past Surgical Hx: no surgical history Social History Alcohol Use: none Smoking Status: Former smoker Drug Use: none Exam/Review of Systems Exam Vitals Vital Signs Date Temp Pulse Resp B/P (MAP) Pulse Ox O2 O2 Flow FiO2 Time Delivery Rate 09/01/18 90 16 98/56 (70) 100 14:45 09/01/18 97.8 Nasal 14:30 Cannula 09/01/18 2.0 12:30 Intake and Output 08/31/18 08/31/18 09/01/18 1515:00 23:00 07:00 IntakeIntake Total 300 ml 350 ml 350 ml OutputOutput Total 700 ml BalanceBalance -400 ml 350 ml 350 ml Constitutional: alert, oriented Psych: no complaints Head: normocephalic, atraumatic Eyes: nl conjunctiva, EOMI, nl lids, nl sclera, PERRL ENMT: nl external ears & nose, nl lips & teeth, nl nasal mucosa & septum Neck: supple, non-tender, other (No evidence of enlarged lymph nodes in the neck) Respiratory: clear to auscultation, normal air movement Cardiovascular: regular rate and rhythm, nl pulses Gastrointestinal: other (Abdomen is soft distended no evidence of masses in the umbilicus no organomegaly.) Musculoskeletal: nl extremities to inspection Extremities: normal pulses Neurological: BRICKLAYER SUPERVISOR II-XII intact Results Result Diagram: 09/01/1830 08/31/18 0437 Results 24hrs Laboratory Tests Test 08/31/18 17:51 08/31/18 18:00 08/31/18 20:24 09/01/18 00:47 Hemoglobin 8.9 L 7.4 L Hematocrit 26.0 L 22.0 L Bedside Glucose 223 H 190 Test 09/01/18 01:52 09/01/18 08:06 09/01/18 09:30 09/01/18 10:52 Bedside Glucose 204 220 216 Hemoglobin 6.5 *L Hematocrit 19.4 L Medications Medication Current Medications Ondansetron HCl (Zofran Inj) 4 mg Q6H PRN IV NAUSEA AND/OR VOMITING Last administered on 6/8/19at 10:48; Admin Dose 4 MG; Start 08/26/18 at 18:30 Albuterol (Proventil 0.083% (Neb)) 2.5 mg Q2H RESP THERAPY PRN NEB SHORTNESS OF BREATH; Start 08/26/18 at 18:30 Acetaminophen (Tylenol Supp) 650 mg Q4H PRN [place] PAIN LEVEL 1-3 OR FEVER; Start 08/26/18 at 18:30 Morphine Sulfate (morphine) 2 mg Q4H PRN [place] PAIN LEVEL 7-10 Last administered on 09/01/18 08:02; Admin Dose 2 MG; Start 08/26/18 at 18:30 Hydralazine HCl (Apresoline) 10 mg Q4H PRN IV SBP >170 Last administered on 08/31/18 09:35; Admin Dose 10 MG; Start 08/26/18 at 19:00 Miscellaneous Information 1 ea NOTE XX ; Start 08/26/18 at 19:00 Glucose (Glutose) 15 gm Q15M PRN PO DECREASED GLUCOSE; Start 08/26/18 at 19:00 Glucose (Glutose) 22.5 gm Q15M PRN PO DECREASED GLUCOSE; Start 08/26/18 at 19:00 Dextrose (D50w Syringe) 25 ml Q15M PRN IV DECREASED GLUCOSE; Start 08/26/18 at 19:00 Dextrose (D50w Syringe) 50 ml Q15M PRN IV DECREASED GLUCOSE; Start 08/26/18 at 19:00 Glucagon (Glucagen) 1 mg Q15M PRN IM DECREASED GLUCOSE; Start 08/26/18 at 19:00 Glucose (Glutose) 15 gm Q15M PRN BUCCAL DECREASED GLUCOSE; Start 08/26/18 at 19:00 Labetalol HCl (Labetalol) 10 mg Q4H PRN IV sbp >160 Last administered on 08/31/18 11:25; Admin Dose 10 MG; Start 08/27/18 at 10:00 Sucralfate (Carafate Susp) 1 gm QID PO Last administered on 09/01/18 09:06; Admin Dose 1 GM; Start 08/27/18 at 21:00 Insulin Glargine (Lantus) 10 units DAILY@2000 SC Last administered on 08/31/18 20:30; Admin Dose 10 UNITS; Start 08/27/18 at 21:00 Lorazepam (Ativan) 1 mg Q6 PRN IV ANXIETY Last administered on 08/28/18 21:21; Admin Dose 1 MG; Start 08/28/18 at 12:30 Insulin Aspart (Novolog Insulin Pen) NOVOLOG *MILD* ALGORITHM WITH MEALS BEDTIME SC Last administered on 08/31/18 20:31; Admin Dose 1 UNIT; Start 08/30/18 at 21:00 Sodium Bicarbonate (Sodium Bicarbonate Tab) 650 mg BID PO Last administered on 09/01/18 09:06; Admin Dose 650 MG; Start 08/31/18 at 09:00 Amlodipine Besylate (Norvasc) 10 mg DAILY PO Last administered on 09/01/18 09:06; Admin Dose 10 MG; Start 08/31/18 at 11:00; Status Hold Pantoprazole 80 mg/Sodium Chloride 100 ml @ 10 mls/hr Q10H IV Last administered on 09/01/18 12:22; Admin Dose 10 MLS/HR; Start 09/01/18 at 12:00 Sodium Chloride 1,000 ml @ 150 mls/hr Q6H40M IV ; Start 09/01/18 at 11:00 Octreotide Acetate 1 mg/ Dextrose 100 ml @ 5 mls/hr Q20H IV ; Start 09/01/18 at 14:30 ADALBERTO HOWE MD Sep 01, 2018 15:15
[2018-09-01] MEDS: SOD CHLORIDE 0.9% 1,000 ML IV SCH ×2 (15:39→22:31)
[2018-09-01] MEDS ORDERED: MIDAZOLAM 1 MG/ML 2 ML INJ ONE (16:56)
[2018-09-01] MEDS ORDERED: FENTAnyl 50 MCG/ML VIAL ONE (16:56)
[2018-09-01] MEDS ORDERED: SOD CHLORIDE 0.9% 250 ML IV* ONE (18:49)
[2018-09-01] MEDS ORDERED: LORAZEPAM 2 MG INJ IV PRN (19:00)
[2018-09-01] MEDS: INSULIN GLARGINE [LANTus] (100 UNITS/ML) SYG SC SCH (20:51)
[2018-09-02] VITALS (52 sets, daily range): BP systolic 106–162; BP diastolic 57–97; PULSE 76–93; RESP 3–20
[2018-09-02] MEDS ORDERED: SOD CHLORIDE 0.9% 250 ML IV* ONE ×2 (03:04→03:17)
[2018-09-02] MEDS: SOD CHLORIDE 0.9% 1,000 ML IV SCH ×4 (05:37→20:21)
--- NOTE | 2018-09-02 07:42 | CONS ---
Assessment/Plan Assessment/Plan Hospital Course (Demo Recall) #adenocarcinoma of the stomach -- Gastric adenocarcinoma, poorly-differentiated, favor intestinal type. -CT demonstrates appearance of enlarged lymph nodes in the gastrohepatic ligament, celiac region, periportal region and left para-aortic region of the retroperitoneum the largest lymph node measuring approximately 1.8 cm short-axis in the left para-aortic region. -given his likely slow continual GI bleed. we will plan to start chemotherapy in the hospital as hopefully this will control the malignant bleeding ulcer -plan to start FLOT per the following regimen--ths has been ordered, await authorization for tx by hospital, may start chemo when it has arrived -port in place -09/01: pt had Hematemesis, GI took patient for emergent upper endoscopy, found stomach full of blood, could not visualize very well due to clots and blood products, could not perform any intervention, noted that patient is still oozing blood -Octreotide, Protonix drip started on patient. Pt seen by surgery Dr Otoole -underwent angiography by IR 09/01 as well hopefully as bleeding has subsided and pt stabilized, once chemo authorized can start next week #iron deficiency anemia -due to GI bleed as above, hgb 7 this morning -continue IV iron -frequent h/h monitoring coags ok Consultation Date/Type/Reason Admit Date/Time Aug 26, 2018 at 17:28 Initial Consult Date 09/01/18 Requesting Provider: IVY PICKETT Date/Time of Note DATE: 09/02/18 TIME: 07:41 24 HR Interval Summary Free Text/Dictation s/p EGD yesterday s/p angio Subjective hx not possible: pt critical Exam/Review of Systems Exam Vitals Vital Signs Date Temp Pulse Resp B/P (MAP) Pulse Ox O2 O2 Flow FiO2 Time Delivery Rate 09/02/18 80 14 122/73 97 Room Air 07:00 (89) 09/02/18 97.7 04:00 09/01/18 2.0 16:11 Intake and Output 09/01/18 09/01/18 09/02/18 1515:00 23:00 07:00 IntakeIntake Total 30 ml 2281 ml 1130 ml OutputOutput Total 200 ml 550 ml BalanceBalance 30 ml 2081 ml 580 ml Constitutional: alert, oriented, frail Eyes: nl conjunctiva, EOMI, nl lids, nl sclera, PERRL Musculoskeletal: nl extremities to inspection, nl gait and stance Neurological: ANIMATION ARTIST II-XII intact, nl mental status, nl speech, nl strength Skin: nl turgor; No rash or lesions Results Result Diagram: 09/02/18 0206 09/02/18 0206 Results 24hrs Laboratory Tests Test 09/01/18 08:06 09/01/18 09:30 09/01/18 10:52 09/01/18 18:17 Bedside Glucose 220 216 Hemoglobin 6.5 *L 7.1 L Hematocrit 19.4 L 21.5 L Platelet Count 252 Prothrombin Time 14.6 Prothrombin Time Ratio 1.1 INR International 1.13 Normalized Ratio Activated 35.3 H Partial Thromboplast Time Thrombin Time 16.2 Test 09/01/18 18:21 09/01/18 20:46 09/02/18 02:06 Bedside Glucose 216 191 White Blood Count 4.7 #L Red Blood Count 2.39 L Hemoglobin 7.0 L Hematocrit 20.7 L Mean Corpuscular Volume 86.6 Mean Corpuscular 29.3 Hemoglobin Mean Corpuscular 33.8 Hemoglobin Concent Red Cell Distribution 15.3 H Width Platelet Count 212 Mean Platelet Volume 10.2 Immature Granulocytes % 1.100 H Neutrophils % 72.6 Lymphocytes % 15.8 Monocytes % 8.4 Eosinophils % 1.5 Basophils % 0.6 Nucleated Red Blood 0.0 Cells % Immature Granulocytes # 0.050 H Neutrophils # 3.4 Lymphocytes # 0.7 L Monocytes # 0.4 Eosinophils # 0.1 Basophils # 0.0 Nucleated Red Blood 0.0 Cells # Sodium Level 142 Potassium Level 4.2 Chloride Level 119 H Carbon Dioxide Level 19 L Anion Gap 4 L Blood Urea Nitrogen 47 #H Creatinine 2.60 H Est Glomerular Filtrat 26 L Rate mL/min Glucose Level 150 Calcium Level 7.3 L Phosphorus Level 5.2 H Magnesium Level 1.9 Medications Medication Current Medications Ondansetron HCl (Zofran Inj) 4 mg Q6H PRN IV NAUSEA AND/OR VOMITING Last administered on 09/01/18at 10:48; Admin Dose 4 MG; Start 08/26/18 at 18:30 Albuterol (Proventil 0.083% (Neb)) 2.5 mg Q2H RESP THERAPY PRN NEB SHORTNESS OF BREATH; Start 08/26/18 at 18:30 Acetaminophen (Tylenol Supp) 650 mg Q4H PRN [place] PAIN LEVEL 1-3 OR FEVER; Start 08/26/18 at 18:30 Morphine Sulfate (morphine) 2 mg Q4H PRN IV PAIN LEVEL 7-10 Last administered on 09/01/18 08:02; Admin Dose 2 MG; Start 08/26/18 at 18:30 Hydralazine HCl (Apresoline) 10 mg Q4H PRN IV SBP >170 Last administered on 08/31/18 09:35; Admin Dose 10 MG; Start 08/26/18 at 19:00 Miscellaneous Information 1 ea NOTE XX ; Start 08/26/18 at 19:00 Glucose (Glutose) 15 gm Q15M PRN PO DECREASED GLUCOSE; Start 08/26/18 at 19:00 Glucose (Glutose) 22.5 gm Q15M PRN PO DECREASED GLUCOSE; Start 08/26/18 at 19:00 Dextrose (D50w Syringe) 25 ml Q15M PRN IV DECREASED GLUCOSE; Start 08/26/18 at 19:00 Dextrose (D50w Syringe) 50 ml Q15M PRN IV DECREASED GLUCOSE; Start 08/26/18 at 19:00 Glucagon (Glucagen) 1 mg Q15M PRN IM DECREASED GLUCOSE; Start 08/26/18 at 19:00 Glucose (Glutose) 15 gm Q15M PRN BUCCAL DECREASED GLUCOSE; Start 08/26/18 at 19:00 Labetalol HCl (Labetalol) 10 mg Q4H PRN IV sbp >160 Last administered on 08/31/18 11:25; Admin Dose 10 MG; Start 08/27/18 at 10:00 Sucralfate (Carafate Susp) 1 gm QID PO Last administered on 09/01/18 20:50; Admin Dose 1 GM; Start 08/27/18 at 21:00 Insulin Glargine (Lantus) 10 units DAILY@2000 SC Last administered on 09/01/18 20:51; Admin Dose 10 UNITS; Start 08/27/18 at 21:00 Insulin Aspart (Novolog Insulin Pen) NOVOLOG *MILD* ALGORITHM WITH MEALS BEDTIME SC Last administered on 09/01/18 20:48; Admin Dose 1 UNIT; Start 08/30/18 at 21:00 Sodium Bicarbonate (Sodium Bicarbonate Tab) 650 mg BID PO Last administered on 09/01/18at 20:48; Admin Dose 650 MG; Start 08/31/18 at 09:00 Amlodipine Besylate (Norvasc) 10 mg DAILY PO Last administered on 09/01/18at 09:06; Admin Dose 10 MG; Start 08/31/18 at 11:00; Status Hold Pantoprazole 80 mg/Sodium Chloride 100 ml @ 10 mls/hr Q10H IV Last administered on 09/01/18at 22:20; Admin Dose 10 MLS/HR; Start 09/01/18 at 12:00 Sodium Chloride 1,000 ml @ 150 mls/hr Q6H40M IV Last administered on 09/02/18at 05:37; Admin Dose 150 MLS/HR; Start 09/01/18 at 11:00 Octreotide Acetate 1 mg/ Dextrose 100 ml @ 5 mls/hr Q20H IV Last administered on 09/01/18at 15:16; Admin Dose 5 MLS/HR; Start 09/01/18 at 14:30 Lorazepam (Ativan) 0.5 mg Q6H PRN IV ANXIETY; Start 09/01/18 at 19:00 COLLETTE BOWLES Sep 02, 2018 07:42
[2018-09-02] MEDS: OCTREOTIDE 1 MG in DEXTROSE 5% 95 ML IV SCH (08:22)
[2018-09-02] MEDS: PANTOPRAZOLE IV 80 MG in SOD CHLORIDE 0.9% 100 ML IV SCH ×2 (08:23→18:38)
[2018-09-02] MEDS: SUCRALFATE (100 MG/ML) 10ML CUP PO SCH ×4 (08:25→20:29)
[2018-09-02] MEDS: NA BICARBONATE 650 MG TAB PO SCH ×2 (08:25→20:30)
[2018-09-02] MEDS: INSULIN ASPART [NOVOLOG] 3 ML PEN SC SCH ×4 (08:29→20:30)
--- NOTE | 2018-09-02 09:02 | PN ---
Date/Time of Note Date/Time of Note DATE: 09/02/18 TIME: 08:57 Objective Vitals Vital Signs Date Temp Pulse Resp B/P (MAP) Pulse Ox O2 O2 Flow FiO2 Time Delivery Rate 09/02/18 80 14 122/73 97 Room Air 07:00 (89) 09/02/18 97.7 04:00 09/01/18 2.0 16:11 Intake and Output 09/01/18 09/01/18 09/02/18 1515:00 23:00 07:00 IntakeIntake Total 30 ml 2281 ml 1130 ml OutputOutput Total 200 ml 550 ml BalanceBalance 30 ml 2081 ml 580 ml Results Result Diagram: 09/02/18 0206 09/02/18 0206 Medications Medications Current Medications Ondansetron HCl (Zofran Inj) 4 mg Q6H PRN IV NAUSEA AND/OR VOMITING Last admi nistered on 09/01/18at 10:48; Admin Dose 4 MG; Start 08/26/18 at 18:30 Albuterol (Proventil 0.083% (Neb)) 2.5 mg Q2H RESP THERAPY PRN NEB SHORTNESS OF BREATH; Start 08/26/18 at 18:30 Acetaminophen (Tylenol Supp) 650 mg Q4H PRN [place] PAIN LEVEL 1-3 OR FEVER; Start 08/26/18 at 18:30 Morphine Sulfate (morphine) 2 mg Q4H PRN IV PAIN LEVEL 7-10 Last administered on 09/01/18at 08:02; Admin Dose 2 MG; Start 08/26/18 at 18:30 Hydralazine HCl (Apresoline) 10 mg Q4H PRN IV SBP >170 Last administered on 08/31/18at 09:35; Admin Dose 10 MG; Start 08/26/18 at 19:00 Miscellaneous Information 1 ea NOTE XX ; Start 08/26/18 at 19:00 Glucose (Glutose) 15 gm Q15M PRN PO DECREASED GLUCOSE; Start 08/26/18 at 19:00 Glucose (Glutose) 22.5 gm Q15M PRN PO DECREASED GLUCOSE; Start 08/26/18 at 19:00 Dextrose (D50w Syringe) 25 ml Q15M PRN IV DECREASED GLUCOSE; Start 08/26/18 at 19:00 Dextrose (D50w Syringe) 50 ml Q15M PRN IV DECREASED GLUCOSE; Start 08/26/18 at 19:00 Glucagon (Glucagen) 1 mg Q15M PRN IM DECREASED GLUCOSE; Start 08/26/18 at 19:00 Glucose (Glutose) 15 gm Q15M PRN BUCCAL DECREASED GLUCOSE; Start 08/26/18 at 1 9:00 Labetalol HCl (Labetalol) 10 mg Q4H PRN IV sbp >160 Last administered on 08/31/18 11:25; Admin Dose 10 MG; Start 08/27/18 at 10:00 Sucralfate (Carafate Susp) 1 gm QID PO Last administered on 09/02/18 08:25; Admin Dose 1 GM; Start 08/27/18 at 21:00 Insulin Glargine (Lantus) 10 units DAILY@2000 SC Last administered on 09/01/18 20:51; Admin Dose 10 UNITS; Start 08/27/18 at 21:00 Insulin Aspart (Novolog Insulin Pen) NOVOLOG *MILD* ALGORITHM WITH MEALS BEDTIME SC Last administered on 09/02/18 08:29; Admin Dose 2 UNIT; Start 08/30/18 at 21:00 Sodium Bicarbonate (Sodium Bicarbonate Tab) 650 mg BID PO Last administered on 09/02/18 08:25; Admin Dose 650 MG; Start 08/31/18 at 09:00 Amlodipine Besylate (Norvasc) 10 mg DAILY PO Last administered on 09/01/18 09:06; Admin Dose 10 MG; Start 08/31/18 at 11:00; Status Hold Pantoprazole 80 mg/Sodium Chloride 100 ml @ 10 mls/hr Q10H IV Last admini stered on 09/02/18 08:23; Admin Dose 10 MLS/HR; Start 09/01/18 at 12:00 Sodium Chloride 1,000 ml @ 150 mls/hr Q6H40M IV Last administered on 09/02/18 05:37; Admin Dose 150 MLS/HR; Start 09/01/18 at 11:00 Octreotide Acetate 1 mg/ Dextrose 100 ml @ 5 mls/hr Q20H IV Last administered on 09/02/18 08:22; Admin Dose 5 MLS/HR; Start 09/01/18 at 14:30 Lorazepam (Ativan) 0.5 mg Q6H PRN IV ANXIETY; Start 09/01/18 at 19:00 VTE Prophylaxis Risk score (from Nsg)>0 risk: 8 SCD applied (from Ns): Yes Lines/Catheters IV Catheter Type: Ruiz in Place: No Assessment/Plan Hospital Course Subjective Patient had a syncopal event, a.m. hemoglobin was also significantly lower than midnight hemoglobin, patient also developed abdominal pain. Upon evaluation, patient suddenly began to have hematemesis and patient was transferred to the ICU. Objective Physical exam General: Patient is laying in bed and answers questions appropriately Mentation: Patient is alert and oriented 4, Head: Normocephalic atraumatic Eyes: EOMI, pupils reactive to light Neck: Supple, nontender, midline Respiratory: Clear to auscultation bilaterally Cardiovascular: regular rate, no obvious murmurs Gastrointestinal: Moderately tender to palpation, bowel sounds heard. Neurological: Moves all extremities spontaneously Skin: No new skin lesions Assessment and plan Hematemesis with large gastric ulcer, recurrent, resolving -Is now status post left gastric artery embolization from interventional radiolo gist, monitor closely -Abdominal pain has now ceased, hematemesis has ceased -General surgery on board -GI on board -We will need to continue to transfuse FFP for every 3 to 4 units of packed RBCs, continue monitoring hemoglobin hematocrit every 6 hours and transfuse as needed -Definitive treatment will need to be chemotherapy and radiation, radiation oncologist also on board, Dr Gramajo will see the patient -Oncology on board Gastric adenocarcinoma -Oncology has been consulted -MRI results noted, questionable hepatic findings versus other lymphadenopathy, oncology recognitions appreciated -Per oncology, CT chest ordered and noted -Port-A-Cath being placed, one patient more stable will initiate chemotherapy once insurance has approved. Radiation oncology and oncology both on board Distended gallbladder per MRI -Patient completely asymptomatic, no abdominal pain, monitor for now Liver cyst versus hemangioma versus metastases -Found on MRI, oncology recommendations appreciated Syncope, recurred -Likely secondary to vasovagal events as well as low hemoglobin and blood loss -Monitor very closely Blood loss anemia -Continue transfusing as needed -Secondary to GI bleed -Order FFP for every 3-4 units of packed red blood cell Elevated lipase on admission -No abdominal pain on admission -Likely due to above GI issues, monitor Hypertension -As needed hydralazine and labetalol, restart home meds when able to tolerate p.o. Acute kidney injury versus chronic kidney disease -Continue IV fluid -Nephrology consulted, had signed off but requested reconsultation due to elevated creatinine which is likely caused by hemodynamic instability yesterday and other issues however there is a chance that the contrast use during yesterday's angiogram may have also slightly begun to damage the kidneys although this is usually seen a few days after procedure, all risks of acute renal failure were explained to the family and they have still decided to proceed with embolism yesterday as the risk of not doing embolism would be possibly acute worsening hemorrhage. Diabetes mellitus -Patient stated that ever since he was given Trulicity the past week he has been experiencing severe side effects, hold Trulicity for now, insulin sliding scale for now Disposition -Patient back in the ICU, general surgery and interventional radiology has been consulted as emergent upper endoscopy was not successful and stopping bleed, IR performed left gastric artery embolization, continue to transfuse, monitor very closely, patient is very critical, still awaiting insurance approval for chemotherapy. More than 40 minutes of critical care time spent on this encounter. IVY PICKETT Sep 02, 2018 09:02
--- NOTE | 2018-09-02 09:43 | CONS ---
Assessment/Plan Assessment/Plan Problems: (1) Acute on chronic kidney failure (2) Upper GI bleed Status: Acute (3) Gastric cancer (4) Anemia Assessment/Plan (Daily) lasix 80 x1 ongoing gi bleed in context of ckd most likely explains recent bump in creatinine. given blood and positive i and o will attempt to increase diuresis. Consultation Date/Type/Reason Admit Date/Time Aug 26, 2018 at 17:28 Initial Consult Date 09/01/18 Reason for Consultation Renal follow up Requesting Provider: IVY PICKETT Date/Time of Note DATE: 09/02/18 TIME: 09:36 24 HR Interval Summary Free Text/Dictation patient getting blood. denied pain and denied sob. chemo has not begun yet. voiding without problem. Constitutional: no complaints, improved, chills, diaphoresis, disoriented, febrile, poor po, requiring IVF, requiring O2, other Detailed Summary Eyes: no complaints Cardiovascular: no complaints Gastrointestinal: no complaints, other (denied further hematemesis) Genitourinary: no complaints Exam/Review of Systems Exam Vitals Vital Signs Date Temp Pulse Resp B/P (MAP) Pulse Ox O2 O2 Flow FiO2 Time Delivery Rate 09/02/18 80 14 122/73 97 Room Air 07:00 (89) 09/02/18 97.7 04:00 09/01/18 2.0 16:11 Intake and Output 09/01/18 09/01/18 09/02/18 1515:00 23:00 07:00 IntakeIntake Total 30 ml 2281 ml 1130 ml OutputOutput Total 200 ml 550 ml BalanceBalance 30 ml 2081 ml 580 ml Constitutional: alert, oriented, well developed, non-verbal, distress, frail, obese, other Neck: supple, non-tender, jvd, bruits, masses, thyromegaly, nuchal rigidity, other Cardiovascular: regular rate and rhythm, nl pulses Gastrointestinal: soft Results Result Diagram: 09/02/18 0206 09/02/18 0206 Results 24hrs Laboratory Tests Test 09/01/18 10:52 09/01/18 18:17 09/01/18 18:21 09/01/18 20:46 Bedside Glucose 216 216 191 Hemoglobin 7.1 L Hematocrit 21.5 L Platelet Count 252 Prothrombin Time 14.6 Prothrombin Time Ratio 1.1 INR International 1.13 Normalized Ratio Activated 35.3 H Partial Thromboplast Time Thrombin Time 16.2 Test 09/02/18 02:04 09/02/18 02:06 09/02/18 08:20 Iron Level 71 Total Iron Binding 178 L Capacity Percent Iron Saturation 40 Ferritin 365.0 H White Blood Count 4.7 #L Red Blood Count 2.39 L Hemoglobin 7.0 L Hematocrit 20.7 L Mean Corpuscular Volume 86.6 Mean Corpuscular 29.3 Hemoglobin Mean Corpuscular 33.8 Hemoglobin Concent Red Cell Distribution 15.3 H Width Platelet Count 212 Mean Platelet Volume 10.2 Immature Granulocytes % 1.100 H Neutrophils % 72.6 Lymphocytes % 15.8 Monocytes % 8.4 Eosinophils % 1.5 Basophils % 0.6 Nucleated Red Blood 0.0 Cells % Immature Granulocytes # 0.050 H Neutrophils # 3.4 Lymphocytes # 0.7 L Monocytes # 0.4 Eosinophils # 0.1 Basophils # 0.0 Nucleated Red Blood 0.0 Cells # Sodium Level 142 Potassium Level 4.2 Chloride Level 119 H Carbon Dioxide Level 19 L Anion Gap 4 L Blood Urea Nitrogen 47 #H Creatinine 2.60 H Est Glomerular Filtrat 26 L Rate mL/min Glucose Level 150 Calcium Level 7.3 L Phosphorus Level 5.2 H Magnesium Level 1.9 Bedside Glucose 181 Medications Medication Current Medications Ondansetron HCl (Zofran Inj) 4 mg Q6H PRN IV NAUSEA AND/OR VOMITING Last administered on 09/01/18at 10:48; Admin Dose 4 MG; Start 08/26/18 at 18:30 Albuterol (Proventil 0.083% (Neb)) 2.5 mg Q2H RESP THERAPY PRN NEB SHORTNESS OF BREATH; Start 08/26/18 at 18:30 Acetaminophen (Tylenol Supp) 650 mg Q4H PRN [place] PAIN LEVEL 1-3 OR FEVER; Start 08/26/18 at 18:30 Morphine Sulfate (morphine) 2 mg Q4H PRN IV PAIN LEVEL 7-10 Last administered on 09/01/18at 08:02; Admin Dose 2 MG; Start 08/26/18 at 18:30 Hydralazine HCl (Apresoline) 10 mg Q4H PRN IV SBP >170 Last administered on 08/31/18at 09:35; Admin Dose 10 MG; Start 08/26/18 at 19:00 Miscellaneous Information 1 ea NOTE XX ; Start 08/26/18 at 19:00 Glucose (Glutose) 15 gm Q15M PRN PO DECREASED GLUCOSE; Start 08/26/18 at 19:00 Glucose (Glutose) 22.5 gm Q15M PRN PO DECREASED GLUCOSE; Start 08/26/18 at 19:00 Dextrose (D50w Syringe) 25 ml Q15M PRN IV DECREASED GLUCOSE; Start 08/26/18 at 19:00 Dextrose (D50w Syringe) 50 ml Q15M PRN IV DECREASED GLUCOSE; Start 08/26/18 at 19:00 Glucagon (Glucagen) 1 mg Q15M PRN IM DECREASED GLUCOSE; Start 08/26/18 at 19:00 Glucose (Glutose) 15 gm Q15M PRN BUCCAL DECREASED GLUCOSE; Start 08/26/18 at 19:00 Labetalol HCl (Labetalol) 10 mg Q4H PRN IV sbp >160 Last administered on 08/31/18 11:25; Admin Dose 10 MG; Start 08/27/18 at 10:00 Sucralfate (Carafate Susp) 1 gm QID PO Last administered on 09/02/18 08:25; Admin Dose 1 GM; Start 08/27/18 at 21:00 Insulin Glargine (Lantus) 10 units DAILY@2000 SC Last administered on 09/01/18 20:51; Admin Dose 10 UNITS; Start 08/27/18 at 21:00 Insulin Aspart (Novolog Insulin Pen) NOVOLOG *MILD* ALGORITHM WITH MEALS BEDTIME SC Last administered on 09/02/18 08:29; Admin Dose 2 UNIT; Start 08/30/18 at 21:00 Sodium Bicarbonate (Sodium Bicarbonate Tab) 650 mg BID PO Last administered on 09/02/18 08:25; Admin Dose 650 MG; Start 08/31/18 at 09:00 Amlodipine Besylate (Norvasc) 10 mg DAILY PO Last administered on 09/01/18 09 :06; Admin Dose 10 MG; Start 08/31/18 at 11:00; Status Hold Pantoprazole 80 mg/Sodium Chloride 100 ml @ 10 mls/hr Q10H IV Last administered on 09/02/18 08:23; Admin Dose 10 MLS/HR; Start 09/01/18 at 12:00 Sodium Chloride 1,000 ml @ 150 mls/hr Q6H40M IV Last administered on 09/02/18at 05:37; Admin Dose 150 MLS/HR; Start 09/01/18 at 11:00 Octreotide Acetate 1 mg/ Dextrose 100 ml @ 5 mls/hr Q20H IV Last administered on 09/02/18at 08:22; Admin Dose 5 MLS/HR; Start 09/01/18 at 14:30 Lorazepam (Ativan) 0.5 mg Q6H PRN IV ANXIETY; Start 09/01/18 at 19:00 CECILIO JAMES MD Sep 02, 2018 09:43
[2018-09-02] MEDS ORDERED: FUROSEMIDE 40 MG INJ IV ONE (11:00)
--- NOTE | 2018-09-02 17:27 | PN ---
Date/Time of Note Date/Time of Note DATE: 09/02/18 TIME: 17:26 Assessment/Plan Lines/Catheters IV Catheter Type (from Nrs): Ruiz in Place (from Nrs): No Subjective 24 Hr Interval Summary Patient was embolized yesterday with good results. No evidence of ongoing bleeding. Patient is stable. Will follow as needed. Exam/Review of Systems Vital Signs Vitals Vital Signs Date Temp Pulse Resp B/P (MAP) Pulse Ox O2 O2 Flow FiO2 Time Delivery Rate 09/02/18 78 16:00 09/02/18 98.3 16 137/88 99 Room Air 12:00 (104) 09/01/18 2.0 16:11 Intake and Output 09/01/18 09/01/18 09/02/18 1515:00 23:00 07:00 IntakeIntake Total 30 ml 2281 ml 1295 ml OutputOutput Total 200 ml 550 ml BalanceBalance 30 ml 2081 ml 745 ml Results Result Diagram: 09/02/18 0206 09/02/18 0206 ADALBERTO HOWE MD Sep 02, 2018 17:26
--- NOTE | 2018-09-02 18:54 | PN ---
Date/Time of Note Date/Time of Note DATE: 09/02/18 TIME: 18:41 Assessment/Plan VTE Prophylaxis Risk score (from [facility])>0 risk: 7 SCD applied (from [facility]): Yes Pharmacological prophylaxis: NA/contraindicated Pharm contraindication: bleeding Lines/Catheters IV C[facility]ter Type (from [facility]): Urinary Cath still in place: No Assessment/Plan Assessment/Plan Assessment: Gastric cancer GI bleeding S/p EGD 09/01/18: -Active oozing multiple sites ulcer bed. -Limited visualization. -No endoscopically treatable lesion identified S/p IR embolization of gastric artery 09/01 Plan: Can advance to clear liquids if no further procedure planned. Continue carafate Continue Protonix and octreotide drip. Fresh frozen plasma as he patient has received multiple transfusions Monitor CBC and transfuse as needed. Case was discussed with Dr. Ramone Stanley hospitalist Subjective: Patient denies pain, nausea or vomiting. He was transfused 2 units of FFP. Patient is asking is he can eat. Will advance diet to clear liquids. Continue to monitor closely. Result Diagram: 09/02/18 1737 09/02/18 0206 Results 24hrs Laboratory Tests Test 09/01/18 20:46 09/02/18 02:04 09/02/18 02:06 09/02/18 08:20 Bedside Glucose 191 181 Iron Level 71 Total Iron Binding 178 L Capacity Percent Iron Saturation 40 Ferritin 365.0 H White Blood Count 4.7 #L Red Blood Count 2.39 L Hemoglobin 7.0 L Hematocrit 20.7 L Mean Corpuscular Volume 86.6 Mean Corpuscular 29.3 Hemoglobin Mean Corpuscular 33.8 Hemoglobin Concent Red Cell Distribution 15.3 H Width Platelet Count 212 Mean Platelet Volume 10.2 Immature Granulocytes % 1.100 H Neutrophils % 72.6 Lymphocytes % 15.8 Monocytes % 8.4 Eosinophils % 1.5 Basophils % 0.6 Nucleated Red Blood 0.0 Cells % Immature Granulocytes # 0.050 H Neutrophils # 3.4 Lymphocytes # 0.7 L Monocytes # 0.4 Eosinophils # 0.1 Basophils # 0.0 Nucleated Red Blood 0.0 Cells # Sodium Level 142 Potassium Level 4.2 Chloride Level 119 H Carbon Dioxide Level 19 L Anion Gap 4 L Blood Urea Nitrogen 47 #H Creatinine 2.60 H Est Glomerular Filtrat 26 L Rate mL/min Glucose Level 150 Calcium Level 7.3 L Phosphorus Level 5.2 H Magnesium Level 1.9 Test 09/02/18 12:15 09/02/18 17:37 Bedside Glucose 183 Hemoglobin 8.2 L Hematocrit 24.1 L CC: NOBLE GARCIA MD ; Exam/Review of Systems Exam Vitals Vital Signs Date Temp Pulse Resp B/P (MAP) Pulse Ox O2 O2 Flow FiO2 Time Delivery Rate 09/02/18 78 16:00 09/02/18 98.3 16 137/88 99 Room Air 12:00 (104) 09/01/18 2.0 16:11 Intake and Output 09/01/18 09/01/18 09/02/18 1515:00 23:00 07:00 IntakeIntake Total 30 ml 2281 ml 1295 ml OutputOutput Total 200 ml 550 ml BalanceBalance 30 ml 2081 ml 745 ml Constitutional: alert, oriented Psych: no complaints Head: normocephalic, atraumatic Eyes: nl conjunctiva ENMT: nl external ears & nose Neck: supple Respiratory: normal air movement Cardiovascular: regular rate and rhythm Gastrointestinal: soft, other (nontender) Musculoskeletal: nl extremities to inspection Extremities: normal pulses Neurological: B[employer] II-XII intact, nl mental status, nl speech Skin: nl turgor, other (pale) Results Results 24hrs Laboratory Tests Test 09/01/18 20:46 09/02/18 02:04 09/02/18 02:06 09/02/18 08:20 Bedside Glucose 191 181 Iron Level 71 Total Iron Binding 178 L Capacity Percent Iron Saturation 40 Ferritin 365.0 H White Blood Count 4.7 #L Red Blood Count 2.39 L Hemoglobin 7.0 L Hematocrit 20.7 L Mean Corpuscular Volume 86.6 Mean Corpuscular 29.3 Hemoglobin Mean Corpuscular 33.8 Hemoglobin Concent Red Cell Distribution 15.3 H Width Platelet Count 212 Mean Platelet Volume 10.2 Immature Granulocytes % 1.100 H Neutrophils % 72.6 Lymphocytes % 15.8 Monocytes % 8.4 Eosinophils % 1.5 Basophils % 0.6 Nucleated Red Blood 0.0 Cells % Immature Granulocytes # 0.050 H Neutrophils # 3.4 Lymphocytes # 0.7 L Monocytes # 0.4 Eosinophils # 0.1 Basophils # 0.0 Nucleated Red Blood 0.0 Cells # Sodium Level 142 Potassium Level 4.2 Chloride Level 119 H Carbon Dioxide Level 19 L Anion Gap 4 L Blood Urea Nitrogen 47 #H Creatinine 2.60 H Est Glomerular Filtrat 26 L Rate mL/min Glucose Level 150 Calcium Level 7.3 L Phosphorus Level 5.2 H Magnesium Level 1.9 Test 09/02/18 12:15 09/02/18 17:37 Bedside Glucose 183 Hemoglobin 8.2 L Hematocrit 24.1 L Medications Medication Current Medications Ondansetron HCl (Zofran Inj) 4 mg Q6H PRN IV NAUSEA AND/OR VOMITING Last administered on 09/01/18at 10:48; Admin Dose 4 MG; Start 08/26/18 at 18:30 Albuterol (Proventil 0.083% (Neb)) 2.5 mg Q2H RESP THERAPY PRN NEB SHORTNESS OF BREATH; Start 08/26/18 at 18:30 Acetaminophen (Tylenol Supp) 650 mg Q4H PRN [place] PAIN LEVEL 1-3 OR FEVER; Start 08/26/18 at 18:30 Morphine Sulfate (morphine) 2 mg Q4H PRN IV PAIN LEVEL 7-10 Last administered on 09/01/18at 08:02; Admin Dose 2 MG; Start 08/26/18 at 18:30 Hydralazine HCl (Apresoline) 10 mg Q4H PRN IV SBP >170 Last administered on 08/31/18at 09:35; Admin Dose 10 MG; Start 08/26/18 at 19:00 Miscellaneous Information 1 ea NOTE XX ; Start 08/26/18 at 19:00 Glucose (Glutose) 15 gm Q15M PRN PO DECREASED GLUCOSE; Start 08/26/18 at 19:00 Glucose (Glutose) 22.5 gm Q15M PRN PO DECREASED GLUCOSE; Start 08/26/18 at 19:00 Dextrose (D50w Syringe) 25 ml Q15M PRN IV DECREASED GLUCOSE; Start 08/26/18 at 19:00 Dextrose (D50w Syringe) 50 ml Q15M PRN IV DECREASED GLUCOSE; Start 08/26/18 at 19:00 Glucagon (Glucagen) 1 mg Q15M PRN IM DECREASED GLUCOSE; Start 08/26/18 at 19:00 Glucose (Glutose) 15 gm Q15M PRN BUCCAL DECREASED GLUCOSE; Start 08/26/18 at 19:00 Labetalol HCl (Labetalol) 10 mg Q4H PRN IV sbp >160 Last administered on 08/31/18 11:25; Admin Dose 10 MG; Start 08/27/18 at 10:00 Sucralfate (Carafate Susp) 1 gm QID PO Last administered on 09/02/18 14:01; A dmin Dose 1 GM; Start 08/27/18 at 21:00 Insulin Glargine (Lantus) 10 units DAILY@2000 SC Last administered on 09/01/18 20:51; Admin Dose 10 UNITS; Start 08/27/18 at 21:00 Insulin Aspart (Novolog Insulin Pen) NOVOLOG *MILD* ALGORITHM WITH MEALS BEDTIME SC Last administered on 09/02/18 13:06; Admin Dose 2 UNIT; Start 08/30/18 at 21:00 Sodium Bicarbonate (Sodium Bicarbonate Tab) 650 mg BID PO Last administered on 09/02/18 08:25; Admin Dose 650 MG; Start 08/31/18 at 09:00 Amlodipine Besylate (Norvasc) 10 mg DAILY PO Last administered on 09/01/18 09:06; Admin Dose 10 MG; Start 08/31/18 at 11:00; Status Hold Pantoprazole 80 mg/Sodium Chloride 100 ml @ 10 mls/hr Q10H IV Last administered on 09/02/18 08:23; Admin Dose 10 MLS/HR; Start 09/01/18 at 12:00 Sodium Chloride 1,000 ml @ 150 mls/hr Q6H40M IV Last administered on 09/02/18 14:01; Admin Dose 150 MLS/HR; Start 09/01/18 at 11:00 Octreotide Acetate 1 mg/ Dextrose 100 ml @ 5 mls/hr Q20H IV Last administered on 09/02/18 08:22; Admin Dose 5 MLS/HR; Start 09/01/18 at 14:30 Lorazepam (Ativan) 0.5 mg Q6H PRN IV ANXIETY; Start 09/01/18 at 19:00 CHENTE LARA NP Sep 02, 2018 18:52
[2018-09-02] MEDS: INSULIN GLARGINE [LANTus] (100 UNITS/ML) SYG SC SCH (20:31)
[2018-09-03] VITALS (32 sets, daily range): BP systolic 121–169; BP diastolic 62–100; PULSE 71–94; RESP 6–25; Ht 172.7 cm; Wt 90.2 kg
[2018-09-03] MEDS: SOD CHLORIDE 0.9% 1,000 ML IV SCH ×3 (02:49→13:04)
[2018-09-03] MEDS: OCTREOTIDE 1 MG in DEXTROSE 5% 95 ML IV SCH (05:23)
[2018-09-03] MEDS: PANTOPRAZOLE IV 80 MG in SOD CHLORIDE 0.9% 100 ML IV SCH ×2 (05:23→16:36)
[2018-09-03] MEDS: INSULIN ASPART [NOVOLOG] 3 ML PEN SC SCH ×4 (07:35→20:30)
--- NOTE | 2018-09-03 08:18 | CONS ---
Assessment/Plan Assessment/Plan Hospital Course (Demo Recall) 1. Acute renal failure superimposed on chronic kidney disease. His renal function has improved since yesterday. He has diabetic nephropathy. He had more GI bleeding over the last 2 days and this I think caused his serum creatinine to go up. He has a good urine output. I will decrease his IV fluids as he has been in positive fluid balance the last 2 days. I will check a portable chest x-ray to help assess his fluid volume. I will continue to follow the patient along with you. 2. GI bleeding due to gastric ulcer which has been biopsied and is gastric adenocarcinoma . GI and oncologic w/u are in progress .he was to start chemotherapy over the last 2 days; however, he started to have brisk GI bleeding and hypotension. He was also seen by a radiation oncologist this morning. 3. Type 2 diabetes mellitus . He was on metformin and Trulicity preadmission. I would hold off on restarting these medications and if an oral medication is needed would consider using Tradjenta 5 mg a day. 4. Syncope due to gastrointestinal bleeding Consultation Date/Type/Reason Admit Date/Time Aug 26, 2018 at 17:28 Initial Consult Date 08/28/18 Type of Consult Nephrology Requesting Provider: IVY PICKETT Date/Time of Note DATE: 09/03/18 TIME: 08:08 24 HR Interval Summary Free Text/Dictation This patient is being seen in the intensive care unit. He has a history of chronic kidney disease due to diabetic nephropathy. Over the past several days he started brisk GI bleeding again from his gastric malignant ulcer. He underwent an embolization by the interventional radiologist. He still has some GI bleeding but his hemoglobin hematocrit seem to be stable. It is not clear if the blood coming from the rectum is old or new blood. He is awake and alert. He does have some bilateral flank discomfort. Exam/Review of Systems Exam Vitals Vital Signs Date Temp Pulse Resp B/P (MAP) Pulse Ox O2 O2 Flow FiO2 Time Delivery Rate 09/03/18 71 6 121/62 94 Room Air 06:00 (81) 09/03/18 98.6 00:00 09/01/18 2.0 16:11 Intake and Output 09/02/18 09/02/18 09/03/18 1515:00 23:00 07:00 IntakeIntake Total 2710 ml 2135 ml 1395 ml OutputOutput Total 1275 ml 1825 ml 1150 ml BalanceBalance 1435 ml 310 ml 245 ml Constitutional: alert, oriented, frail Respiratory: clear to auscultation, normal air movement Cardiovascular: regular rate and rhythm Gastrointestinal: soft, non-tender Musculoskeletal: nl extremities to inspection Results Result Diagram: 09/03/18 0458 09/03/18 0458 Results 24hrs Laboratory Tests Test 09/02/18 08:20 09/02/18 12:15 09/02/18 17:37 09/02/18 18:37 Bedside Glucose 181 183 156 Hemoglobin 8.2 L Hematocrit 24.1 L Test 09/02/18 20:29 09/03/18 00:14 09/03/18 04:58 Bedside Glucose 136 Hemoglobin 7.8 L 8.2 L Hematocrit 22.6 L 24.2 L White Blood Count 5.6 Red Blood Count 2.78 L Mean Corpuscular 87.1 Volume Mean Corpuscular 29.5 Hemoglobin Mean Corpuscular 33.9 Hemoglobin Concent Red Cell Distribution 14.6 H Width Platelet Count 263 # Mean Platelet Volume 10.9 H Immature Granulocytes 0.700 H % Neutrophils % 74.4 Lymphocytes % 12.9 L Monocytes % 7.9 Eosinophils % 3.6 Basophils % 0.5 Nucleated Red Blood 0.0 Cells % Immature Granulocytes 0.040 H # Neutrophils # 4.1 Lymphocytes # 0.7 L Monocytes # 0.4 Eosinophils # 0.2 Basophils # 0.0 Nucleated Red Blood 0.0 Cells # Sodium Level 144 Potassium Level 3.8 Chloride Level 118 H Carbon Dioxide Level 21 Anion Gap 5 Blood Urea Nitrogen 43 H Creatinine 2.15 H Est Glomerular Filtrat 33 L Rate mL/min Glucose Level 124 Calcium Level 7.4 L Phosphorus Level 3.0 # Magnesium Level 1.9 Medications Medication Current Medications Ondansetron HCl (Zofran Inj) 4 mg Q6H PRN IV NAUSEA AND/OR VOMITING Last administered on 09/01/18at 10:48; Admin Dose 4 MG; Start 08/26/18 at 18:30 Albuterol (Proventil 0.083% (Neb)) 2.5 mg Q2H RESP THERAPY PRN NEB SHORTNESS OF BREATH; Start 08/26/18 at 18:30 Acetaminophen (Tylenol Supp) 650 mg Q4H PRN [place] PAIN LEVEL 1-3 OR FEVER Last administered on 09/03/18 00:01; Admin Dose 650 MG; Start 08/26/18 at 18:30 Morphine Sulfate (morphine) 2 mg Q4H PRN IV PAIN LEVEL 7-10 Last administered on 09/01/18 08:02; Admin Dose 2 MG; Start 08/26/18 at 18:30 Hydralazine HCl (Apresoline) 10 mg Q4H PRN IV SBP >170 Last administered on 08/31/18 09:35; Admin Dose 10 MG; Start 08/26/18 at 19:00 Miscellaneous Information 1 ea NOTE XX ; Start 08/26/18 at 19:00 Glucose (Glutose) 15 gm Q15M PRN PO DECREASED GLUCOSE; Start 08/26/18 at 19:00 Glucose (Glutose) 22.5 gm Q15M PRN PO DECREASED GLUCOSE; Start 08/26/18 at 19:00 Dextrose (D50w Syringe) 25 ml Q15M PRN IV DECREASED GLUCOSE; Start 08/26/18 at 19:00 Dextrose (D50w Syringe) 50 ml Q15M PRN IV DECREASED GLUCOSE; Start 08/26/18 at 19:00 Glucagon (Glucagen) 1 mg Q15M PRN IM DECREASED GLUCOSE; Start 08/26/18 at 19:00 Glucose (Glutose) 15 gm Q15M PRN BUCCAL DECREASED GLUCOSE; Start 08/26/18 at 19:00 Labetalol HCl (Labetalol) 10 mg Q4H PRN IV sbp >160 Last administered on 08/31/18 11:25; Admin Dose 10 MG; Start 08/27/18 at 10:00 Sucralfate (Carafate Susp) 1 gm QID PO Last administered on 09/02/18 20:29; Admin Dose 1 GM; Start 08/27/18 at 21:00 Insulin Glargine (Lantus) 10 units DAILY@2000 SC Last administered on 09/02/18 20:31; Admin Dose 10 UNITS; Start 08/27/18 at 21:00 Insulin Aspart (Novolog Insulin Pen) NOVOLOG *MILD* ALGORITHM WITH MEALS BEDTIME SC Last administered on 09/02/18 18:45; Admin Dose 1 UNIT; Start 08/30/18 at 21:00 Sodium Bicarbonate (Sodium Bicarbonate Tab) 650 mg BID PO Last administered on 09/02/18 20:30; Admin Dose 650 MG; Start 08/31/18 at 09:00 Amlodipine Besylate (Norvasc) 10 mg DAILY PO Last administered on 09/01/18 09:06; Admin Dose 10 MG; Start 08/31/18 at 11:00; Status Hold Pantoprazole 80 mg/Sodium Chloride 100 ml @ 10 mls/hr Q10H IV Last administered on 09/03/18 05:23; Admin Dose 10 MLS/HR; Start 09/01/18 at 12:00 Sodium Chloride 1,000 ml @ 75 mls/hr [id number] IV Last administered on 09/03/18at 02:49; Admin Dose 150 MLS/HR; Start 09/01/18 at 11:00 Octreotide Acetate 1 mg/ Dextrose 100 ml @ 5 mls/hr Q20H IV Last administered on 09/03/18 05:23; Admin Dose 5 MLS/HR; Start 09/01/18 at 14:30 Lorazepam (Ativan) 0.5 mg Q6H PRN IV ANXIETY; Start 09/01/18 at 19:00 RUCHI VELIZ MD Sep 03, 2018 08:18
[2018-09-03] MEDS: SUCRALFATE (100 MG/ML) 10ML CUP PO SCH ×4 (08:19→20:30)
[2018-09-03] MEDS: NA BICARBONATE 650 MG TAB PO SCH ×2 (08:20→20:30)
--- NOTE | 2018-09-03 09:57 | CONS ---
DATE OF ADMISSION: 08/26/2018 DATE OF CONSULTATION: 09/03/2018 DIAGNOSIS: Adenocarcinoma of the stomach. HISTORY OF PRESENT ILLNESS: The patient is a 48-year-old gentleman with a longstanding history of di abetes who presented to [facility] with a 2-week history of progressive weakness, d izziness, hematemesis and palpitations. He also noted black stool. He initially attributed these sy mptoms to starting Trulicity 2 weeks prior. On admission, his hemoglobin was 3.9. He subsequently has received at least 10 units of packed red b lood cells as well as FFP. On 08/26/2018, a CT abdomen and pelvis described a moderate right inguina l hernia, moderate left inguinal hernia, but more importantly enlarged lymph nodes in the gastrohepat ic ligament, celiac, periportal, and left periaortic regions. The largest node measured 18 mm in the left periaortic region. An upper endoscopy was performed on 08/27/2018 and revealed a very large 5 cm ulceration with nodular borders and biopsies confirmed a poorly differentiated gastric adenocarcin kendall. A subsequent CT chest on 08/29/2018 showed trace bilateral pleural effusions but no suspicious lung parenchymal nodularity or mediastinal lymphadenopathy. Again noted was diffuse thickening of th e body of the stomach and upper abdominal adenopathy. MRI imaging of the abdomen was attempted twice , but these were limited examinations. The patient has been started on Zofran, sucralfate, pantopraz ole and octreotide. While hospitalized, he had a syncopal event as well as recurrent hematemesis. An attempt was made at repeat endoscopy to manage the issue, but no specific area could be visualized and to manage. Over the weekend, the patient did undergo a left gastric artery embolization. Since then, his hemoglobin appears to be stable around 8. He has not had further episodes of hematemesis. Still he is passing red blood and clots per rectum. He denies current nausea or vomiting. He does admit to mild abdominal pain. Prior to admission, he denied any appetite or weight loss. PAST MEDICAL HISTORY: Hypertension, chronic kidney disease, type 2 diabetes, possible diabetic retin opathy and neuropathy. FAMILY HISTORY: Noncontributory. ALLERGIES TO MEDICATIONS: None. CURRENT OUTPATIENT MEDICATIONS: 1. Vitamin D. 2. Metformin. 3. Glimepiride. 4. Atorvastatin. 5. Furosemide. 6. Shanta-Ivette. 7. Amlodipine. 8. Trulicity. SOCIAL HISTORY: He is a former smoker. He denies alcohol use. He is . He has at least 1 so n. REVIEW OF SYSTEMS: CONSTITUTIONAL: He denies fever, chills, or sweats. ENT: No otalgia, dysphagia, hoarseness. NEUROLOGIC: No headaches. No seizures or extremity weakness. He has had episodes of syncope recent ly. RESPIRATORY: He denies shortness of breath, cough, hemoptysis, wheezing. CARDIOVASCULAR: No chest pain, no heart attacks or strokes. He did have some palpitations prior to admission. GASTROINTESTINAL: As above. GENITOURINARY: No history of dysuria, hematuria or incontinence. ENDOCRINE: No history of thyroid disease. SKIN: No history of lupus, scleroderma, or shingles. MUSCULOSKELETAL: No definite neck, rib, spine or pelvic bony pain. PHYSICAL EXAMINATION: GENERAL: Well-developed gentleman, comfortable in bed. HEENT: Normocephalic, atraumatic. Sclerae are icteric. NODES: No palpable cervical, supraclavicular or axillary adenopathy. LUNGS: Clear without wheezes. ABDOMEN: Soft, nontender, nondistended, without palpable masses, rebound or guarding. EXTREMITIES: No edema. MUSCULOSKELETAL: No spine, flank or rib tenderness. NEUROLOGIC: Grossly nonfocal, awake, alert, oriented x3. No focal motor or sensory deficits. ASSESSMENT: The patient is a 48-year-old gentleman diagnosed with poorly differentiated adenocarcino ma of the stomach with radiographic evidence of lymphadenopathy. PLAN: I was initially called to evaluate the patient with the possibility of utilizing radiotherapy as a palliative measure to help manage the bleeding. This seems to have been controlled by the embol ization. Indeed, there is data on the use of radiotherapy as a palliative measure in instance, if ne cessary. However, given the patient's current clinical status, it is unlikely that he would be safe for transfer to the outpatient facility for treatment. There is a data with use of preoperative radiotherapy as a definitive measure for gastric cancer, tho [facility] its use is what has been limited. Typically, radiation treatment is used in the adjuvant setting for patients with lymph node positive or T3 disease here, studies have shown an improvement in local regional control and survival with its use. The nature, rationale, risks and benefits of treatment were discussed. Side effects were reviewed an d questions answered. Where radiation treatment to be employed in the setting I would generally use IMRT to target volume at risk to a dose of 5040 cGy over 5-1/2 weeks. Again, however, at this point, I would hope to be considering such treatment only in the postoperative setting. Dictated By: KARLA NGUYEN/BRADLY Conf#: [id number] DID#: [id number] CC: IVY PICKETT MD; SOPHIA MCCLELLAN MD; AME VALDEZ MD; NOBLE GARCIA;*EndCC*
[2018-09-03] MEDS ORDERED: MEPERIDINE 25 MG INJ IV PRN (13:00)
[2018-09-03] MEDS ORDERED: DEXAMETHASONE 4 MG/ML 1 ML INJ IV PRN (13:00)
[2018-09-03] MEDS: hydrALAzine 20 MG INJ IV PRN (13:00)
[2018-09-03] MEDS ORDERED: DIPHENHYDRAMINE 50 MG INJ IV PRN (13:00)
--- NOTE | 2018-09-03 13:58 | PN ---
Date/Time of Note Date/Time of Note DATE: 09/03/18 TIME: 13:51 Assessment/Plan VTE Prophylaxis Risk score (from Nsg)>0 risk: 6 SCD applied (from Ns): No SCD contraindicated: other (scds) Pharmacological prophylaxis: other (scds) Lines/Catheters [facility] (from [facility] Peripheral IV Urinary Cath still in place: No Assessment/Plan Hospital Course Assessment: Coffee-ground emesis EGD 08/27/18 Large 5 cm ulceration with nodular boarders highly suspect for malignancy. Central exposed visible vessel with no evidence of recent bleeding left untreated. Otherwise normal EGD S/p EGD 09/01/18: -Active oozing multiple sites ulcer bed. -Limited visualization. -No endoscopically treatable lesion identified S/p IR embolization of gastric artery 09/01 Gastric adenocarcinoma, poorly-differentiated, favor Severe anemia 2/2 to above Abdominal adenopathy noted -Differential diagnosis includes inflammation and neoplasm. Small right pleural effusion Elevated lipase- Likely 2/2 to dehydration HTN ALEJANDRO on CKD Small amount of ascites DM Plan: Continue octreotide and PPI gtt x24 hours- if no bleeding and Hgb is stable will d/c octreotide gtt and change PPI to BID Monitor h/h- transfuse as needed F/o oncology recommendations Patient seen in collaboration with Dr Sims Subjective: Course reviewed with nursing staff Patient interviewed and examined All labs, imaging and other results reviewed Patient with rectal bleeding with clots this am Currently no c/o n/v or epigastric pain. Paln to start chemotherapy in the near future. PHYSICAL EXAMINATION: GENERAL: Alert & oriented x 3 SKIN: No lesions. HEAD: Normocephalic, atraumatic, no tenderness. EYES: Pupils equal reactive to light, no discharge. EARS/NOSE AND THROAT: Ears normal, nose normal. NECK: Supple, no masses. CHEST: Inspection within normal limits. CARDIOVASCULAR: Heart: Regular rate and rhythm, no murmurs RESPIRATORY: Lungs clear to auscultation. GASTROINTESTINAL AND LIVER: Abdomen: Soft, non tenderness, non-distended, no hernias, no masses, no organomegaly, no ascites, no guarding, no rebound tenderness, normoactive bowel sounds. Rectal: Deferred. Result Diagram: 09/03/18 0458 09/03/18 0458 Results 24hrs Laboratory Tests Test 09/02/18 17:37 09/02/18 18:37 09/02/18 20:29 09/03/18 00:14 Hemoglobin 8.2 L 7.8 L Hematocrit 24.1 L 22.6 L Bedside Glucose 156 136 Test 09/03/18 04:58 09/03/18 08:18 09/03/18 12:59 White Blood Count 5.6 Red Blood Count 2.78 L Hemoglobin 8.2 L Hematocrit 24.2 L Mean Corpuscular 87.1 Volume Mean Corpuscular 29.5 Hemoglobin Mean Corpuscular 33.9 Hemoglobin Concent Red Cell 14.6 H Distribution Width Platelet Count 263 # Mean Platelet Volume 10.9 H Immature 0.700 H Granulocytes % Neutrophils % 74.4 Lymphocytes % 12.9 L Monocytes % 7.9 Eosinophils % 3.6 Basophils % 0.5 Nucleated Red Blood 0.0 Cells % Immature 0.040 H Granulocytes # Neutrophils # 4.1 Lymphocytes # 0.7 L Monocytes # 0.4 Eosinophils # 0.2 Basophils # 0.0 Nucleated Red Blood 0.0 Cells # Sodium Level 144 Potassium Level 3.8 Chloride Level 118 H Carbon Dioxide Level 21 Anion Gap 5 Blood Urea Nitrogen 43 H Creatinine 2.15 H Est Glomerular 33 L Filtrat Rate mL/min Glucose Level 124 Calcium Level 7.4 L Phosphorus Level 3.0 # Magnesium Level 1.9 Bedside Glucose 111 120 Exam/Review of Systems Exam Vitals Vital Signs Date Temp Pulse Resp B/P (MAP) Pulse Ox O2 O2 Flow FiO2 Time Delivery Rate 09/03/18 79 19 168/89 98 Room Air 13:00 (115) 09/03/18 97.9 12:00 09/01/18 2.0 16:11 Intake and Output 09/02/18 09/02/18 09/03/18 1515:00 23:00 07:00 IntakeIntake Total 2710 ml 2135 ml 1515 ml OutputOutput Total 1275 ml 1825 ml 1475 ml BalanceBalance 1435 ml 310 ml 40 ml Results Results 24hrs Laboratory Tests Test 09/02/18 17:37 09/02/18 18:37 09/02/18 20:29 09/03/18 00:14 Hemoglobin 8.2 L 7.8 L Hematocrit 24.1 L 22.6 L Bedside Glucose 156 136 Test 09/03/18 04:58 09/03/18 08:18 09/03/18 12:59 White Blood Count 5.6 Red Blood Count 2.78 L Hemoglobin 8.2 L Hematocrit 24.2 L Mean Corpuscular 87.1 Volume Mean Corpuscular 29.5 Hemoglobin Mean Corpuscular 33.9 Hemoglobin Concent Red Cell 14.6 H Distribution Width Platelet Count 263 # Mean Platelet Volume 10.9 H Immature 0.700 H Granulocytes % Neutrophils % 74.4 Lymphocytes % 12.9 L Monocytes % 7.9 Eosinophils % 3.6 Basophils % 0.5 Nucleated Red Blood 0.0 Cells % Immature 0.040 H Granulocytes # Neutrophils # 4.1 Lymphocytes # 0.7 L Monocytes # 0.4 Eosinophils # 0.2 Basophils # 0.0 Nucleated Red Blood 0.0 Cells # Sodium Level 144 Potassium Level 3.8 Chloride Level 118 H Carbon Dioxide Level 21 Anion Gap 5 Blood Urea Nitrogen 43 H Creatinine 2.15 H Est Glomerular 33 L Filtrat Rate mL/min Glucose Level 124 Calcium Level 7.4 L Phosphorus Level 3.0 # Magnesium Level 1.9 Bedside Glucose 111 120 Medications Medication Current Medications Ondansetron HCl (Zofran Inj) 4 mg Q6H PRN IV NAUSEA AND/OR VOMITING Last administered on 09/01/18at 10:48; Admin Dose 4 MG; Start 08/26/18 at 18:30 Albuterol (Proventil 0.083% (Neb)) 2.5 mg Q2H RESP THERAPY PRN NEB SHORTNESS OF BREATH; Start 08/26/18 at 18:30 Acetaminophen (Tylenol Supp) 650 mg Q4H PRN [place] PAIN LEVEL 1-3 OR FEVER Last administered on 09/03/18at 00:01; Admin Dose 650 MG; Start 08/26/18 at 18:30 Morphine Sulfate (morphine) 2 mg Q4H PRN IV PAIN LEVEL 7-10 Last administered on 09/01/18at 08:02; Admin Dose 2 MG; Start 08/26/18 at 18:30 Hydralazine HCl (Apresoline) 10 mg Q4H PRN IV SBP >170 Last administered on 09/03/18at 13:00; Admin Dose 10 MG; Start 08/26/18 at 19:00 Miscellaneous Information 1 ea NOTE XX ; Start 08/26/18 at 19:00 Glucose (Glutose) 15 gm Q15M PRN PO DECREASED GLUCOSE; Start 08/26/18 at 19:00 Glucose (Glutose) 22.5 gm Q15M PRN PO DECREASED GLUCOSE; Start 08/26/18 at 19:00 Dextrose (D50w Syringe) 25 ml Q15M PRN IV DECREASED GLUCOSE; Start 08/26/18 at 19:00 Dextrose (D50w Syringe) 50 ml Q15M PRN IV DECREASED GLUCOSE; Start 08/26/18 at 19:00 Glucagon (Glucagen) 1 mg Q15M PRN IM DECREASED GLUCOSE; Start 08/26/18 at 19:00 Glucose (Glutose) 15 gm Q15M PRN BUCCAL DECREASED GLUCOSE; Start 08/26/18 at 19:00 Labetalol HCl (Labetalol) 10 mg Q4H PRN IV sbp >160 Last administered on 08/31/18 11:25; Admin Dose 10 MG; Start 08/27/18 at 10:00 Sucralfate (Carafate Susp) 1 gm QID PO Last administered on 09/03/18 12:55; Admin Dose 1 GM; Start 08/27/18 at 21:00 Insulin Glargine (Lantus) 10 units DAILY@2000 SC Last administered on 09/02/18 20:31; Admin Dose 10 UNITS; Start 08/27/18 at 21:00 Insulin Aspart (Novolog Insulin Pen) NOVOLOG *MILD* ALGORITHM WITH MEALS BEDTIME SC Last administered on 09/02/18 18:45; Admin Dose 1 UNIT; Start 08/30/18 at 21:00 Sodium Bicarbonate (Sodium Bicarbonate Tab) 650 mg BID PO Last administered on 09/03/18 08:20; Admin Dose 650 MG; Start 08/31/18 at 09:00 Amlodipine Besylate (Norvasc) 10 mg DAILY PO Last administered on 09/01/18 09:06; Admin Dose 10 MG; Start 08/31/18 at 11:00; Status Hold Pantoprazole 80 mg/Sodium Chloride 100 ml @ 10 mls/hr Q10H IV Last a dministered on 09/03/18 05:23; Admin Dose 10 MLS/HR; Start 09/01/18 at 12:00 Sodium Chloride 1,000 ml @ 75 mls/hr [id number] IV Last administered on 09/03/18 13:04; Admin Dose 75 MLS/HR; Start 09/01/18 at 11:00 Octreotide Acetate 1 mg/ Dextrose 100 ml @ 5 mls/hr Q20H IV Last administered on 09/03/18at 05:23; Admin Dose 5 MLS/HR; Start 09/01/18 at 14:30 Lorazepam (Ativan) 0.5 mg Q6H PRN IV ANXIETY; Start 09/01/18 at 19:00 Oxaliplatin 170 mg/Dextrose 534 ml @ 267 mls/hr ONCE IV ; Start 09/03/18 at 17:00; Stop 09/03/18 at 23:45; Status UNV Leucovorin Calcium 400 mg/ Dextrose 250 ml @ 125 mls/hr ONCE IV ; Start 09/03/18 at 17:00; Stop 09/03/18 at 23:45; Status UNV Fluorouracil 5200 mg/Dextrose 604 ml @ 25.167 mls/ hr ONCE IV ; Start 09/03/18 at 19:00; Stop 09/03/18 at 23:45; Status UNV Docetaxel 100 mg/ Sodium Chloride 250 ml @ 250 mls/hr ONCE IV ; Start 09/04/18 at 19:00; Stop 09/04/18 at 23:45; Status UNV Famotidine (Pepcid Iv) 20 mg ONCE IV ; Start 09/03/18 at 16:30; Stop 09/03/18 at 17:30; Status UNV Ondansetron HCl 16 mg/ Dexamethasone 20 mg/Dextrose 63 ml @ 252 mls/hr ONCE ONCE IV ; Start 09/03/18 at 16:30; Stop 09/03/18 at 16:44; Status UNV Dexamethasone (Decadron) 10 mg Q4H PRN IV ALLERGIC REACTION; Start 09/03/18 at 13:00 Diphenhydramine HCl (Benadryl) 25 mg Q4H PRN IV ALLERGIC REACTION; Start 09/03/18 at 13:00 Meperidine HCl (Demerol) 50 mg Q4H PRN IV ALLERGIC REACTION; Start 09/03/18 at 13:00 ASHTYN CHAVEZ Sep 03, 2018 13:58
--- NOTE | 2018-09-03 15:14 | PN ---
Date/Time of Note Date/Time of Note DATE: 09/03/18 TIME: 15:10 Assessment/Plan VTE Prophylaxis Risk score (from Ns)>0 risk: 6 SCD applied (from Ns): Yes SCD contraindicated: other (not contraindicated) Pharmacological prophylaxis: NA/contraindicated Pharm contraindication: bleeding Lines/Catheters IV Catheter Type (from [facility]): Peripheral IV Urinary Cath still in place: No Assessment/Plan Assessment/Plan 48 yo man with history of diabetes and HTN presents with newly diagnosed gastric cancer with bleeding gastric ulcer. #Hematemesis with large gastric ulcer -Is now status post left gastric artery embolization from interventional rad iologist on 08/01. -Abdominal pain is improving. -General surgery on board -GI on board -We will need to continue to transfuse FFP for every 3 to 4 units of packed RBCs, continue monitoring hemoglobin hematocrit every 6 hours and transfuse as needed -Definitive treatment will need to be chemotherapy and radiation, radiation oncologist also on board, Dr Gramajo will offer radiation therapy once patient is stable for discharge (will be done outpatient). -Oncology on board #Gastric adenocarcinoma -Oncology has been consulted -MRI results noted, questionable hepatic findings versus other lymphadenopathy, oncology recognitions appreciated -Per oncology, CT chest ordered and noted -Port-A-Cath placed, one patient more stable will initiate chemotherapy once insurance has approved. Radiation oncology and oncology both on board #Distended gallbladder per MRI -Patient completely asymptomatic, no abdominal pain, monitor for now #Liver cyst versus hemangioma versus metastases -Found on MRI, oncology recommendations appreciated #Syncope, recurred -Likely secondary to vasovagal events as well as low hemoglobin and blood loss -Monitor very closely #Blood loss anemia -Continue transfusing as needed -Secondary to GI bleed -Order FFP for every 3-4 units of packed red blood cell #Elevated lipase on admission -No abdominal pain on admission -Likely due to above GI issues, monitor #Hypertension -As needed hydralazine and labetalol, restart home meds when able to tolerate p.o. #Acute kidney injury versus chronic kidney disease -Continue IV fluid -Nephrology consulted, had signed off but requested reconsultation due to elevated creatinine which is likely caused by hemodynamic instability yesterday and other issues however there is a chance that the contrast use during yesterday's angiogram may have also slightly begun to damage the kidneys although this is usually seen a few days after procedure, all risks of acute renal failure were explained to the family and they have still decided to proceed with embolism yesterday as the risk of not doing embolism would be possibly acute worsening hemorrhage. #Diabetes mellitus -Patient stated that ever since he was given Trulicity the past week he has been experiencing severe side effects, hold Trulicity for now, insulin sliding scale for now #Disposition -Patient back in the ICU, general surgery and interventional radiology has been consulted as emergent upper endoscopy was not successful and stopping bleed, IR performed left gastric artery embolization, continue to transfuse, monitor very closely, patient is very critical, still awaiting insurance approval for chemotherapy. More than 40 minutes of critical care time spent on this encounter. Result Diagram: 09/03/18 0458 09/03/18 0458 Subjective 24 Hr Interval Summary Free Text/Dictation No acute overnight events. This morning had large bowel movement with maroon stool and blood clots. Still on PPI gtt. Otherwise feeling fatigued, cold. Exam/Review of Systems Exam Vitals Vital Signs Date Temp Pulse Resp B/P (MAP) Pulse Ox O2 O2 Flow FiO2 Time Delivery Rate 09/03/18 79 19 168/89 98 Room Air 13:00 (115) 09/03/18 97.9 12:00 09/01/18 2.0 16:11 Intake and Output 09/02/18 09/02/18 09/03/18 1515:00 23:00 07:00 IntakeIntake Total 2710 ml 2135 ml 1680 ml OutputOutput Total 1275 ml 1825 ml 1475 ml BalanceBalance 1435 ml 310 ml 205 ml Exam General: Patient is laying in bed and answers questions appropriately Mentation: Patient is alert and oriented 4, Head: Normocephalic atraumatic Eyes: EOMI, pupils reactive to light Neck: Supple, nontender, midline Respiratory: Clear to auscultation bilaterally Cardiovascular: regular rate, no obvious murmurs Gastrointestinal: Moderately tender to palpation, bowel sounds heard. Skin: No new skin lesions Results Results 24hrs Laboratory Tests Test 09/02/18 17:37 09/02/18 18:37 09/02/18 20:29 09/03/18 00:14 Hemoglobin 8.2 L 7.8 L Hematocrit 24.1 L 22.6 L Bedside Glucose 156 136 Test 09/03/18 04:58 09/03/18 08:18 09/03/18 12:59 White Blood Count 5.6 Red Blood Count 2.78 L Hemoglobin 8.2 L Hematocrit 24.2 L Mean Corpuscular 87.1 Volume Mean Corpuscular 29.5 Hemoglobin Mean Corpuscular 33.9 Hemoglobin Concent Red Cell 14.6 H Distribution Width Platelet Count 263 # Mean Platelet Volume 10.9 H Immature 0.700 H Granulocytes % Neutrophils % 74.4 Lymphocytes % 12.9 L Monocytes % 7.9 Eosinophils % 3.6 Basophils % 0.5 Nucleated Red Blood 0.0 Cells % Immature 0.040 H Granulocytes # Neutrophils # 4.1 Lymphocytes # 0.7 L Monocytes # 0.4 Eosinophils # 0.2 Basophils # 0.0 Nucleated Red Blood 0.0 Cells # Sodium Level 144 Potassium Level 3.8 Chloride Level 118 H Carbon Dioxide Level 21 Anion Gap 5 Blood Urea Nitrogen 43 H Creatinine 2.15 H Est Glomerular 33 L Filtrat Rate mL/min Glucose Level 124 Calcium Level 7.4 L Phosphorus Level 3.0 # Magnesium Level 1.9 Bedside Glucose 111 120 Medications Medication Current Medications Ondansetron HCl (Zofran Inj) 4 mg Q6H PRN IV NAUSEA AND/OR VOMITING Last administered on 09/01/18at 10:48; Admin Dose 4 MG; Start 08/26/18 at 18:30 Albuterol (Proventil 0.083% (Neb)) 2.5 mg Q2H RESP THERAPY PRN NEB SHORTNESS OF BREATH; Start 08/26/18 at 18:30 Acetaminophen (Tylenol Supp) 650 mg Q4H PRN [place] PAIN LEVEL 1-3 OR FEVER Last administered on 09/03/18at 00:01; Admin Dose 650 MG; Start 08/26/18 at 18:30 Morphine Sulfate (morphine) 2 mg Q4H PRN IV PAIN LEVEL 7-10 Last administered on 09/01/18at 08:02; Admin Dose 2 MG; Start 08/26/18 at 18:30 Hydralazine HCl (Apresoline) 10 mg Q4H PRN IV SBP >170 Last administered on 09/03/18at 13:00; Admin Dose 10 MG; Start 08/26/18 at 19:00 Miscellaneous Information 1 ea NOTE XX ; Start 08/26/18 at 19:00 Glucose (Glutose) 15 gm Q15M PRN PO DECREASED GLUCOSE; Start 08/26/18 at 19:00 Glucose (Glutose) 22.5 gm Q15M PRN PO DECREASED GLUCOSE; Start 08/26/18 at 19:00 Dextrose (D50w Syringe) 25 ml Q15M PRN IV DECREASED GLUCOSE; Start 08/26/18 at 19:00 Dextrose (D50w Syringe) 50 ml Q15M PRN IV DECREASED GLUCOSE; Start 08/26/18 at 19:00 Glucagon (Glucagen) 1 mg Q15M PRN IM DECREASED GLUCOSE; Start 08/26/18 at 19:00 Glucose (Glutose) 15 gm Q15M PRN BUCCAL DECREASED GLUCOSE; Start 08/26/18 at 19:00 Labetalol HCl (Labetalol) 10 mg Q4H PRN IV sbp >160 Last administered on 08/31/18 11:25; Admin Dose 10 MG; Start 08/27/18 at 10:00 Sucralfate (Carafate Susp) 1 gm QID PO Last administered on 09/03/18 12:55; Admin Dose 1 GM; Start 08/27/18 at 21:00 Insulin Aspart (Novolog Insulin Pen) NOVOLOG *MILD* ALGORITHM WITH MEALS BEDTIME SC Last administered on 09/02/18 18:45; Admin Dose 1 UNIT; Start 08/30/18 at 21:00 Sodium Bicarbonate (Sodium Bicarbonate Tab) 650 mg BID PO Last administered on 09/03/18 08:20; Admin Dose 650 MG; Start 08/31/18 at 09:00 Amlodipine Besylate (Norvasc) 10 mg DAILY PO Last administered on 09/01/18 09:06; Admin Dose 10 MG; Start 08/31/18 at 11:00; Status Hold Pantoprazole 80 mg/Sodium Chloride 100 ml @ 10 mls/hr Q10H IV Last administered on 09/03/18 05:23; Admin Dose 10 MLS/HR; Start 09/01/18 at 12:00 Sodium Chloride 1,000 ml @ 75 mls/hr [id number] IV Last administered on 09/03/18 13:04; Admin Dose 75 MLS/HR; Start 09/01/18 at 11:00 Octreotide Acetate 1 mg/ Dextrose 100 ml @ 5 mls/hr Q20H IV Last administered on 6/10/19at 05:23; Admin Dose 5 MLS/HR; Start 09/01/18 at 14:30 Lorazepam (Ativan) 0.5 mg Q6H PRN IV ANXIETY; Start 09/01/18 at 19:00 Oxaliplatin 170 mg/Dextrose 534 ml @ 267 mls/hr ONCE IV ; Start 09/03/18 at 17:00; Stop 09/03/18 at 23:45; Status UNV Leucovorin Calcium 400 mg/ Dextrose 250 ml @ 125 mls/hr ONCE IV ; Start 09/03/18 at 17:00; Stop 09/03/18 at 23:45; Status UNV Fluorouracil 5200 mg/Dextrose 604 ml @ 25.167 mls/ hr ONCE IV ; Start 09/03/18 at 19:00; Stop 09/03/18 at 23:45; Status UNV Docetaxel 100 mg/ Sodium Chloride 250 ml @ 250 mls/hr ONCE IV ; Start 09/04/18 at 19:00; Stop 09/04/18 at 23:45; Status UNV Famotidine (Pepcid Iv) 20 mg ONCE IV ; Start 09/03/18 at 16:30; Stop 09/03/18 at 17:30; Status UNV Ondansetron HCl 16 mg/ Dexamethasone 20 mg/Dextrose 63 ml @ 252 mls/hr ONCE ONCE IV ; Start 09/03/18 at 16:30; Stop 09/03/18 at 16:44; Status UNV Dexamethasone (Decadron) 10 mg Q4H PRN IV ALLERGIC REACTION; Start 09/03/18 at 13:00 Diphenhydramine HCl (Benadryl) 25 mg Q4H PRN IV ALLERGIC REACTION; Start 09/03/18 at 13:00 Meperidine HCl (Demerol) 50 mg Q4H PRN IV ALLERGIC REACTION; Start 09/03/18 at 13:00 Insulin Glargine (Lantus) 13 units DAILY@2000 SC ; Start 09/03/18 at 20:00 KANDY MIRELES MD Sep 03, 2018 15:14
--- NOTE | 2018-09-03 15:29 | CONS ---
Consult Date/Type/Reason Admit Date/Time Aug 26, 2018 at 17:28 Initial Consult Date 08/27/18 Type of Consultation: cv Requesting Provider: IVY PICKETT Date/Time of Note DATE: 09/03/18 TIME: 15:28 Subjective Interventional cardiology follow-up progress note/critical care note\ Subjective: Discussed with staff and telemetry was reviewed. Patient patient has remained in sinus rhythm with no evidence of atrial fibrillation or flutter noted patient remains in ICU. Status post EGD done on August 27, 2018 showing large 5 cm ulceration suspicious for malignancy. biopsy shows adenoca. Patient denies any active bleeding now. H/H is low but stable now but has had recurrent rectal bleeding over the weekend required to get more transfusions No chest pain or pressure Objective: General: no acute distress HEENT: NC/AT. pupils are equal. round. NECK: NO JVD. no stridor. CV: RRR. systolic murmur; no gallop or rubs. PULM: no wheezing or rhonchi. GI: SOFT, NT, ND, no rebound or guarding Extremity: trace B/L LE edema. no clubbing. neuro: awake and alert, OX3. Psych: calm and pleasant rectal: deferred EKG was personally reviewed. There are 2 EKGs done in the emergency room. The report appears to be sinus tachycardia although 1 of them is read by computer as atrial flutter with 2-1 AV block and nonspecific T wave abnormality noted though Echocardiogram personally reviewed shows: Normal left ventricular systolic function. Normal left ventricular cavity size. Normal left ventricular wall thickness. Ejection fraction is visually estimated at 55-60 %. Tissue Doppler/Mitral Doppler indices are within normal limits. Normal appearance and function of the mitral valve with trace physiologic regurgitation. No significant aortic stenosis or insufficiency. Aortic cusps appear mildly calcified. Normal appearance of the tricuspid valve. The estimated Peak RVSP is 30 mmHg. There is trace tricuspid regurgitation. gastric BX: poorly differentiated adenocarcinoma chest CT 08/29/18 1. No suspicious lung parenchymal nodule or mediastinal adenopathy. 2. Trace bilateral pleural effusions. 3. Moderate coronary artery calcifications. 4. Heterogeneous appearance of the thyroid gland with likely 1.3 cm hypodense right thyroid nodule. 5. Subcutaneous fat stranding and air on the right axillary extending to the chest wall. Correlate with recent history of trauma or intervention. 6. Again seen diffuse thickening of the body of the stomach and upper abdominal adenopathy. Objective Vitals Vital Signs Date Temp Pulse Resp B/P (MAP) Pulse Ox O2 O2 Flow FiO2 Time Delivery Rate 09/03/18 79 19 168/89 98 Room Air 13:00 (115) 09/03/18 97.9 12:00 09/01/18 2.0 16:11 Intake and Output 09/02/18 09/02/18 09/03/18 1515:00 23:00 07:00 IntakeIntake Total 2710 ml 2135 ml 1680 ml OutputOutput Total 1275 ml 1825 ml 1475 ml BalanceBalance 1435 ml 310 ml 205 ml Results/Medications Result Diagram: 09/03/18 0458 09/03/18 0458 Results 24 hrs Laboratory Tests Test 09/02/18 17:37 09/02/18 18:37 09/02/18 20:29 09/03/18 00:14 Hemoglobin 8.2 L 7.8 L Hematocrit 24.1 L 22.6 L Bedside Glucose 156 136 Test 09/03/18 04:58 09/03/18 08:18 09/03/18 12:59 White Blood Count 5.6 Red Blood Count 2.78 L Hemoglobin 8.2 L Hematocrit 24.2 L Mean Corpuscular 87.1 Volume Mean Corpuscular 29.5 Hemoglobin Mean Corpuscular 33.9 Hemoglobin Concent Red Cell 14.6 H Distribution Width Platelet Count 263 # Mean Platelet Volume 10.9 H Immature 0.700 H Granulocytes % Neutrophils % 74.4 Lymphocytes % 12.9 L Monocytes % 7.9 Eosinophils % 3.6 Basophils % 0.5 Nucleated Red Blood 0.0 Cells % Immature 0.040 H Granulocytes # Neutrophils # 4.1 Lymphocytes # 0.7 L Monocytes # 0.4 Eosinophils # 0.2 Basophils # 0.0 Nucleated Red Blood 0.0 Cells # Sodium Level 144 Potassium Level 3.8 Chloride Level 118 H Carbon Dioxide Level 21 Anion Gap 5 Blood Urea Nitrogen 43 H Creatinine 2.15 H Est Glomerular 33 L Filtrat Rate mL/min Glucose Level 124 Calcium Level 7.4 L Phosphorus Level 3.0 # Magnesium Level 1.9 Bedside Glucose 111 120 Home Meds Reported Medications Dulaglutide (Trulicity) 0.75 Mg/0.5 Ml Pen.injctr, 0.75 MG SQ Q FRI PATIENT HASE A ADVERS REACTION WHEN HE INJECT THIS MEDICATION. 08/26/18 Furosemide* (Furosemide*) 40 Mg Tablet, 40 MG PO DAILY, TAB 08/26/18 Cholecalciferol (Vitamin D3) (Vitamin D-3) 2,000 Unit Tablet, 2000 UNIT PO DAILY, TAB 08/26/18 Atorvastatin Calcium* (Atorvastatin Calcium*) 20 Mg Tablet, 20 MG PO QHS, #30 TAB 08/26/18 Multivit/Ca Carb/B Cmplx/Fa* (Shanta-Ivette*) 1 Tab Tab, 1 TAB PO DAILY, TAB 08/25/18 Amlodipine Besylate* (Amlodipine Besylate*) 10 Mg Tablet, 10 MG PO QAM, #30 TAB 08/25/18 Glimepiride* (Glimepiride*) 2 Mg Tablet, 2 MG PO WITH BREAKFAST DINNE, TAB 08/25/18 Metformin Hcl* (Metformin Hcl*) 850 Mg Tablet, 850 MG PO WITH BREAKFAST DINNE, #30 TAB 08/25/18 Medications Current Medications Ondansetron HCl (Zofran Inj) 4 mg Q6H PRN IV NAUSEA AND/OR VOMITING Last administered on 09/01/18at 10:48; Admin Dose 4 MG; Start 08/26/18 at 18:30 Albuterol (Proventil 0.083% (Neb)) 2.5 mg Q2H RESP THERAPY PRN NEB SHORTNESS OF BREATH; Start 08/26/18 at 18:30 Acetaminophen (Tylenol Supp) 650 mg Q4H PRN [place] PAIN LEVEL 1-3 OR FEVER Last administered on 09/03/18at 00:01; Admin Dose 650 MG; Start 08/26/18 at 18:30 Morphine Sulfate (morphine) 2 mg Q4H PRN IV PAIN LEVEL 7-10 Last administered on 09/01/18at 08:02; Admin Dose 2 MG; Start 08/26/18 at 18:30 Hydralazine HCl (Apresoline) 10 mg Q4H PRN IV SBP >170 Last administered on 09/03/18at 13:00; Admin Dose 10 MG; Start 08/26/18 at 19:00 Miscellaneous Information 1 ea NOTE XX ; Start 08/26/18 at 19:00 Glucose (Glutose) 15 gm Q15M PRN PO DECREASED GLUCOSE; Start 08/26/18 at 19:00 Glucose (Glutose) 22.5 gm Q15M PRN PO DECREASED GLUCOSE; Start 08/26/18 at 19:00 Dextrose (D50w Syringe) 25 ml Q15M PRN IV DECREASED GLUCOSE; Start 08/26/18 at 19:00 Dextrose (D50w Syringe) 50 ml Q15M PRN IV DECREASED GLUCOSE; Start 08/26/18 at 19:00 Glucagon (Glucagen) 1 mg Q15M PRN IM DECREASED GLUCOSE; Start 08/26/18 at 19:00 Glucose (Glutose) 15 gm Q15M PRN BUCCAL DECREASED GLUCOSE; Start 08/26/18 at 19:00 Labetalol HCl (Labetalol) 10 mg Q4H PRN IV sbp >160 Last administered on 08/31/18 11:25; Admin Dose 10 MG; Start 08/27/18 at 10:00 Sucralfate (Carafate Susp) 1 gm QID PO Last administered on 09/03/18 12:55; Admin Dose 1 GM; Start 08/27/18 at 21:00 Insulin Aspart (Novolog Insulin Pen) NOVOLOG *MILD* ALGORITHM WITH MEALS BEDTIME SC Last administered on 09/02/18 18:45; Admin Dose 1 UNIT; Start 08/30/18 at 21:00 Sodium Bicarbonate (Sodium Bicarbonate Tab) 650 mg BID PO Last administered on 09/03/18 08:20; Admin Dose 650 MG; Start 08/31/18 at 09:00 Amlodipine Besylate (Norvasc) 10 mg DAILY PO Last administered on 09/01/18 09:06; Admin Dose 10 MG; Start 08/31/18 at 11:00 Pantoprazole 80 mg/Sodium Chloride 100 ml @ 10 mls/hr Q10H IV Last ad ministered on 09/03/18 05:23; Admin Dose 10 MLS/HR; Start 09/01/18 at 12:00 Sodium Chloride 1,000 ml @ 75 mls/hr [id number] IV Last administered on 09/03/18 13:04; Admin Dose 75 MLS/HR; Start 09/01/18 at 11:00 Octreotide Acetate 1 mg/ Dextrose 100 ml @ 5 mls/hr Q20H IV Last administered on 09/03/18 05:23; Admin Dose 5 MLS/HR; Start 09/01/18 at 14:30 Lorazepam (Ativan) 0.5 mg Q6H PRN IV ANXIETY; Start 09/01/18 at 19:00 Oxaliplatin 170 mg/Dextrose 534 ml @ 267 mls/hr ONCE IV ; Start 09/03/18 at 1 7:00; Stop 09/03/18 at 23:45; Status UNV Leucovorin Calcium 400 mg/ Dextrose 250 ml @ 125 mls/hr ONCE IV ; Start 09/03/18 at 17:00; Stop 09/03/18 at 23:45; Status UNV Fluorouracil 5200 mg/Dextrose 604 ml @ 25.167 mls/ hr ONCE IV ; Start 09/03/18 at 19:00; Stop 09/03/18 at 23:45; Status UNV Docetaxel 100 mg/ Sodium Chloride 250 ml @ 250 mls/hr ONCE IV ; Start 09/04/18 at 19:00; Stop 09/04/18 at 23:45; Status UNV Famotidine (Pepcid Iv) 20 mg ONCE IV ; Start 09/03/18 at 16:30; Stop 09/03/18 at 17:30; Status UNV Ondansetron HCl 16 mg/ Dexamethasone 20 mg/Dextrose 63 ml @ 252 mls/hr ONCE ONCE IV ; Start 09/03/18 at 16:30; Stop 09/03/18 at 16:44; Status UNV Dexamethasone (Decadron) 10 mg Q4H PRN IV ALLERGIC REACTION; Start 09/03/18 at 13:00 Diphenhydramine HCl (Benadryl) 25 mg Q4H PRN IV ALLERGIC REACTION; Start 09/03/18 at 13:00 Meperidine HCl (Demerol) 50 mg Q4H PRN IV ALLERGIC REACTION; Start 09/03/18 at 13:00 Insulin Glargine (Lantus) 13 units DAILY@2000 SC ; Start 09/03/18 at 20:00 Assessment/Plan Hospital Course (Demo Recall) 1. Syncope/presyncope secondary to severe anemia 2. Severe anemia 3. GI bleed 4. History of diabetes 5. Acute renal failure: Slowly improving 6. Dyslipidemia 7. History of hypertension 8. Gastric ulcer and poorly differentiated gastric adenocarcinoma 9. Malnutrition and low albumin level Recommendation: EKG was reviewed by unlike what the computer reads, it is not in atrial flutter. No anticoagulation for A. fib or flutter is indicated GI work-up and treatment as per GI recommendation. Currently on Protonix drip in ICU. Patient received multiple blood transfusion and has been admitted to intensive care unit for close monitoring. Continue with transfusion as needed basis IV fluids and fluid management as per internal medicine. TSH is wnl. Monitor H&H and transfuse as needed. Patient status post multiple transfusions already Follow-up with oncology recommendations Awaiting IV access placement for chemo More than 33 minutes critical care time was for management treatment is criticsamreen elliott patient excluding any procedures Thank you for this referral. We will continue to follow along with you as needed YASH ZARAGOZA MD [facility] YASH ZARAGOZA MD Sep 03, 2018 15:29
--- NOTE | 2018-09-03 17:03 | CONS ---
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 -CT demonstrates appearance of enlarged lymph nodes in the gastrohepatic ligament, celiac region, periportal region and left para-aortic region of the retroperitoneum the largest lymph node measuring approximately 1.8 cm short-axis in the left para-aortic region. -given his likelihood to re-bleed, need to give urgent chemotherapy in the hospital -plan to start FLOT per the following regimen Fluorouracil (5-FU) 2600 mg/m2 IV continuous infusion over 24 hours on day 1 Folinic acid (Leucovorin) 200 mg/m2 IV once on day 1 Oxaliplatin (Eloxatin) 85 mg/m2 IV once on day 1 Docetaxel (Taxotere) 50 mg/m2 IV once on day 1 -MRI demonstrates. Gastric wall thickening and upper abdominal adenopathy which raises the possibility of gastric neoplasm. Probable hepatic cysts or hemangiomas. -pt will need PET CT as an out patient -port in placed -may start chemo when it has arrived #iron deficiency anemia -continue IV iron -pt received blood transfusion yesterday Thank you for the opportunity to participate in this patients care A total of 40 minutes of face to face time was spent speaking with the patient, of which greater than 50% was spent in counseling and coordination of care and the detailed question and answer session. Consultation Date/Type/Reason Admit Date/Time Aug 26, 2018 at 17:28 Initial Consult Date 08/28/18 Type of Consult oncology Reason for Consultation gastric cancer Requesting Provider: IVY PICKETT Date/Time of Note DATE: 09/03/18 TIME: 17:00 24 HR Interval Summary Free Text/Dictation pt underwent IR guided embolization of gastric artery. Hg currently stable. abdominal pain has improved Exam/Review of Systems Exam Vitals Vital Signs Date Temp Pulse Resp B/P (MAP) Pulse Ox O2 O2 Flow FiO2 Time Delivery Rate 09/03/18 91 16:00 09/03/18 168/89 98 Room Air 13:00 (115) 09/03/18 97.9 12:00 09/01/18 2.0 16:11 Intake and Output 09/02/18 09/02/18 09/03/18 1515:00 23:00 07:00 IntakeIntake Total 2710 ml 2135 ml 1680 ml OutputOutput Total 1275 ml 1825 ml 1475 ml BalanceBalance 1435 ml 310 ml 205 ml Constitutional: alert, oriented Psych: no complaints Eyes: nl conjunctiva ENMT: nl external ears & nose Neck: supple Respiratory: clear to auscultation Cardiovascular: regular rate and rhythm Gastrointestinal: soft Musculoskeletal: nl extremities to inspection Results Result Diagram: 09/03/18 0458 09/03/18 0458 Results 24hrs Laboratory Tests Test 09/02/18 17:37 09/02/18 18:37 09/02/18 20:29 09/03/18 00:14 Hemoglobin 8.2 L 7.8 L Hematocrit 24.1 L 22.6 L Bedside Glucose 156 136 Test 09/03/18 04:58 09/03/18 08:18 09/03/18 12:59 White Blood Count 5.6 Red Blood Count 2.78 L Hemoglobin 8.2 L Hematocrit 24.2 L Mean Corpuscular 87.1 Volume Mean Corpuscular 29.5 Hemoglobin Mean Corpuscular 33.9 Hemoglobin Concent Red Cell 14.6 H Distribution Width Platelet Count 263 # Mean Platelet Volume 10.9 H Immature 0.700 H Granulocytes % Neutrophils % 74.4 Lymphocytes % 12.9 L Monocytes % 7.9 Eosinophils % 3.6 Basophils % 0.5 Nucleated Red Blood 0.0 Cells % Immature 0.040 H Granulocytes # Neutrophils # 4.1 Lymphocytes # 0.7 L Monocytes # 0.4 Eosinophils # 0.2 Basophils # 0.0 Nucleated Red Blood 0.0 Cells # Sodium Level 144 Potassium Level 3.8 Chloride Level 118 H Carbon Dioxide Level 21 Anion Gap 5 Blood Urea Nitrogen 43 H Creatinine 2.15 H Est Glomerular 33 L Filtrat Rate mL/min Glucose Level 124 Calcium Level 7.4 L Phosphorus Level 3.0 # Magnesium Level 1.9 Bedside Glucose 111 120 Medications Medication Current Medications Ondansetron HCl (Zofran Inj) 4 mg Q6H PRN IV NAUSEA AND/OR VOMITING Last administered on 09/01/18at 10:48; Admin Dose 4 MG; Start 08/26/18 at 18:30 Albuterol (Proventil 0.083% (Neb)) 2.5 mg Q2H RESP THERAPY PRN NEB SHORTNESS OF BREATH; Start 08/26/18 at 18:30 Acetaminophen (Tylenol Supp) 650 mg Q4H PRN [place] PAIN LEVEL 1-3 OR FEVER Last administered on 09/03/18at 00:01; Admin Dose 650 MG; Start 08/26/18 at 18:30 Morphine Sulfate (morphine) 2 mg Q4H PRN IV PAIN LEVEL 7-10 Last administered on 09/01/18at 08:02; Admin Dose 2 MG; Start 08/26/18 at 18:30 Hydralazine HCl (Apresoline) 10 mg Q4H PRN IV SBP >170 Last administered on 09/03/18at 13:00; Admin Dose 10 MG; Start 08/26/18 at 19:00 Miscellaneous Information 1 ea NOTE XX ; Start 08/26/18 at 19:00 Glucose (Glutose) 15 gm Q15M PRN PO DECREASED GLUCOSE; Start 08/26/18 at 19:00 Glucose (Glutose) 22.5 gm Q15M PRN PO DECREASED GLUCOSE; Start 08/26/18 at 19:00 Dextrose (D50w Syringe) 25 ml Q15M PRN IV DECREASED GLUCOSE; Start 08/26/18 at 19:00 Dextrose (D50w Syringe) 50 ml Q15M PRN IV DECREASED GLUCOSE; Start 08/26/18 at 19:00 Glucagon (Glucagen) 1 mg Q15M PRN IM DECREASED GLUCOSE; Start 08/26/18 at 19:00 Glucose (Glutose) 15 gm Q15M PRN BUCCAL DECREASED GLUCOSE; Start 08/26/18 at 19:00 Labetalol HCl (Labetalol) 10 mg Q4H PRN IV sbp >160 Last administered on 08/31/18at 11:25; Admin Dose 10 MG; Start 08/27/18 at 10:00 Sucralfate (Carafate Susp) 1 gm QID PO Last administered on 09/03/18at 12:55; Admin Dose 1 GM; Start 08/27/18 at 21:00 Insulin Aspart (Novolog Insulin Pen) NOVOLOG *MILD* ALGORITHM WITH MEALS BEDTIME SC Last administered on 09/02/18at 18:45; Admin Dose 1 UNIT; Start 08/30/18 at 21:00 Sodium Bicarbonate (Sodium Bicarbonate Tab) 650 mg BID PO Last administered on 09/03/18at 08:20; Admin Dose 650 MG; Start 08/31/18 at 09:00 Amlodipine Besylate (Norvasc) 10 mg DAILY PO Last administered on 09/01/18at 09:06; Admin Dose 10 MG; Start 08/31/18 at 11:00 Pantoprazole 80 mg/Sodium Chloride 100 ml @ 10 mls/hr Q10H IV Last administered on 09/03/18at 16:36; Admin Dose 10 MLS/HR; Start 09/01/18 at 12:00 Sodium Chloride 1,000 ml @ 75 mls/hr [id number] IV Last administered on 09/03/18at 13:04; Admin Dose 75 MLS/HR; Start 09/01/18 at 11:00 Octreotide Acetate 1 mg/ Dextrose 100 ml @ 5 mls/hr Q20H IV Last administered on 09/03/18at 05:23; Admin Dose 5 MLS/HR; Start 09/01/18 at 14:30 Lorazepam (Ativan) 0.5 mg Q6H PRN IV ANXIETY; Start 09/01/18 at 19:00 Oxaliplatin 170 mg/Dextrose 534 ml @ 267 mls/hr ONCE IV ; Start 09/03/18 at 21:00; Stop 09/03/18 at 23:45; Status UNV Leucovorin Calcium 400 mg/ Dextrose 250 ml @ 125 mls/hr ONCE IV ; Start 09/03/18 at 21:00; Stop 09/03/18 at 23:45; Status UNV Fluorouracil 5200 mg/Dextrose 604 ml @ 25.167 mls/ hr Q24H IV ; Start 09/03/18 at 23:00; Stop 09/04/18 at 22:59; Status UNV Docetaxel 100 mg/ Sodium Chloride 250 ml @ 250 mls/hr ONCE IV ; Start 09/03/18 at 21:00; Stop 09/03/18 at 23:45; Status UNV Famotidine (Pepcid Iv) 20 mg ONCE IV ; Start 09/03/18 at 20:30; Stop 09/03/18 at 20:31; Status UNV Ondansetron HCl 16 mg/ Dexamethasone 20 mg/Dextrose 63 ml @ 252 mls/hr ONCE ONCE IV ; Start 09/03/18 at 20:30; Stop 09/03/18 at 20:44; Status UNV Dexamethasone (Decadron) 10 mg Q4H PRN IV ALLERGIC REACTION; Start 09/03/18 at 13:00 Diphenhydramine HCl (Benadryl) 25 mg Q4H PRN IV ALLERGIC REACTION; Start 09/03/18 at 13:00 Meperidine HCl (Demerol) 50 mg Q4H PRN IV ALLERGIC REACTION; Start 09/03/18 at 13:00 Insulin Glargine (Lantus) 13 units DAILY@2000 SC ; Start 09/03/18 at 20:00 Simethicone (Mylicon) 80 mg Q6H PRN GTB DISTENSION/GAS/BLOATING; Start 09/03/18 at 17:00; Status AME FRANCOIS M.D. Sep 03, 2018 17:03
[2018-09-03] MEDS ORDERED: FAMOTIDINE 20 MG INJ IV SCH (20:30)
[2018-09-03] MEDS ORDERED: ONDANSETRON INJ 16 MG, DEXAMETHASONE 4 MG/ML 20 MG in DEXTROSE 5% 50 ML IV ONE (20:30)
[2018-09-03] MEDS: INSULIN GLARGINE [LANTus] (100 UNITS/ML) SYG SC SCH (20:35)
[2018-09-03] MEDS ORDERED: DEXTROSE 5% IV SCH ×3 (21:00→23:00)
[2018-09-03] MEDS ORDERED: SOD CHLORIDE 0.9% IV SCH (21:00)
[2018-09-03] MEDS ORDERED: OXALIPLATIN IV SCH (21:00)
[2018-09-03] MEDS ORDERED: DOCETAXEL IV SCH (21:00)
[2018-09-03] MEDS ORDERED: LEUCOVORIN CALCIUM IV SCH (21:00)
[2018-09-03] MEDS: LABETALOL HCL 20MG INJ IV PRN (21:23)
[2018-09-03] MEDS ORDERED: FLUOROURACIL IV SCH (23:00)
[2018-09-04] VITALS (30 sets, daily range): BP systolic 128–159; BP diastolic 63–94; PULSE 72–98; RESP 14–20
[2018-09-04] MEDS: PANTOPRAZOLE IV 80 MG in SOD CHLORIDE 0.9% 100 ML IV SCH ×3 (02:50)
[2018-09-04] MEDS: OCTREOTIDE 1 MG in DEXTROSE 5% 95 ML IV SCH (02:50)
[2018-09-04] MEDS: SOD CHLORIDE 0.9% 1,000 ML IV SCH (02:51)
--- NOTE | 2018-09-04 07:18 | CONS ---
Consult Date/Type/Reason Admit Date/Time Aug 26, 2018 at 17:28 Initial Consult Date 08/27/18 Type of Consultation: cv Requesting Provider: IVY PICKETT Date/Time of Note DATE: 09/04/18 TIME: 07:17 Subjective Interventional cardiology follow-up progress note Subjective: Discussed with staff and telemetry was reviewed. Patient patient has remained in sinus rhythm with no evidence of atrial fibrillation or flutter noted patient remains in ICU. Status post EGD done on August 27, 2018 showing large 5 cm ulceration suspicious for malignancy. biopsy shows adenoca. Patient denies any active bleeding now. H/H is low but stable now but has had recurrent maroon-colored stool per RN report No chest pain or pressure Objective: General: no acute distress HEENT: NC/AT. pupils are equal. round. NECK: NO JVD. no stridor. CV: RRR. systolic murmur; no gallop or rubs. PULM: no wheezing or rhonchi. GI: SOFT, NT, ND, no rebound or guarding Extremity: trace B/L LE edema. no clubbing. neuro: awake and alert, OX3. Psych: calm and pleasant rectal: deferred EKG was personally reviewed. There are 2 EKGs done in the emergency room. The report appears to be sinus tachycardia although 1 of them is read by computer as atrial flutter with 2-1 AV block and nonspecific T wave abnormality noted though Echocardiogram personally reviewed shows: Normal left ventricular systolic function. Normal left ventricular cavity size. Normal left ventricular wall thickness. Ejection fraction is visually estimated at 55-60 %. Tissue Doppler/Mitral Doppler indices are within normal limits. Normal appearance and function of the mitral valve with trace physiologic regurgitation. No significant aortic stenosis or insufficiency. Aortic cusps appear mildly calcified. Normal appearance of the tricuspid valve. The estimated Peak RVSP is 30 mmHg. There is trace tricuspid regurgitation. gastric BX: poorly differentiated adenocarcinoma chest CT 08/29/18 1. No suspicious lung parenchymal nodule or mediastinal adenopathy. 2. Trace bilateral pleural effusions. 3. Moderate coronary artery calcifications. 4. Heterogeneous appearance of the thyroid gland with likely 1.3 cm hypodense right thyroid nodule. 5. Subcutaneous fat stranding and air on the right axillary extending to the chest wall. Correlate with recent history of trauma or intervention. 6. Again seen diffuse thickening of the body of the stomach and upper abdominal adenopathy. Objective Vitals Vital Signs Date Temp Pulse Resp B/P (MAP) Pulse Ox O2 O2 Flow FiO2 Time Delivery Rate 09/04/18 84 143/76 95 Room Air 06:22 (98) 09/04/18 98.6 04:00 09/03/18 16 23:00 09/01/18 2.0 16:11 Intake and Output 09/03/18 09/03/18 09/04/18 1515:00 23:00 07:00 IntakeIntake Total 1230 ml 2861 ml 1864 ml OutputOutput Total 1025 ml 675 ml 650 ml BalanceBalance 205 ml 2186 ml 1214 ml Results/Medications Result Diagram: 09/04/18 0300 09/04/18 0300 Results 24 hrs Laboratory Tests Test 09/03/18 08:18 09/03/18 12:59 09/03/18 17:47 09/03/18 20:29 Bedside Glucose 111 120 169 130 Test 09/04/18 03:00 09/04/18 05:14 White Blood Count 5.2 Red Blood Count 2.79 L Hemoglobin 8.3 L Hematocrit 24.4 L Mean Corpuscular 87.5 Volume Mean Corpuscular 29.7 Hemoglobin Mean Corpuscular 34.0 Hemoglobin Concen t Red Cell 14.5 Distribution Width Platelet Count 269 Mean Platelet 10.5 H Volume Immature 0.400 Granulocytes % Neutrophils % Segmented 89 H Neutrophils % (Manual) Band Neutrophils 8 H % (Manual) Lymphocytes % Lymphocytes % 3 L (Manual) Monocytes % Eosinophils % Basophils % Nucleated Red 0.0 Blood Cells % Immature 0.020 Granulocytes # Neutrophils # Neutrophils # 4.6 (Manual) Band Neutrophils 0.4 # Lymphocytes 0.1 L (Manual) Lymphocytes # Monocytes # Eosinophils # Basophils # Nucleated Red Blood Cells # Platelet Estimate NORMAL Polychromasia 1+ Anisocytosis 1+ Microcytosis 1+ Sodium Level 143 Potassium Level 3.9 Chloride Level 117 H Carbon Dioxide 19 L Level Anion Gap 7 Blood Urea 35 H Nitrogen Creatinine 1.87 H Est Glomerular 38 L Filtrat Rate mL/min Glucose Level 173 Calcium Level 7.3 L Phosphorus Level 3.3 Magnesium Level 1.8 Total Bilirubin 0.3 Direct Bilirubin 0.00 Indirect 0.3 Bilirubin Aspartate Amino 12 L Transf (AST/SGOT) Alanine 26 Aminotransferase (ALT/SGPT) Alkaline 53 Phosphatase Total Protein 4.7 L Albumin 2.2 L Globulin 2.50 Albumin/Globulin 0.88 Ratio Lab Scanned BLOOD TRANSFUSIO Report N Home Meds Reported Medications Dulaglutide (Trulicity) 0.75 Mg/0.5 Ml Pen.injctr, 0.75 MG SQ Q FRI PATIENT HASE A ADVERS REACTION WHEN HE INJECT THIS MEDICATION. 08/26/18 Furosemide* (Furosemide*) 40 Mg Tablet, 40 MG PO DAILY, TAB 08/26/18 Cholecalciferol (Vitamin D3) (Vitamin D-3) 2,000 Unit Tablet, 2000 UNIT PO D AILY, TAB 08/26/18 Atorvastatin Calcium* (Atorvastatin Calcium*) 20 Mg Tablet, 20 MG PO QHS, #30 TAB 08/26/18 Multivit/Ca Carb/B Cmplx/Fa* (Shanta-Ivette*) 1 Tab Tab, 1 TAB PO DAILY, TAB 08/25/18 Amlodipine Besylate* (Amlodipine Besylate*) 10 Mg Tablet, 10 MG PO QAM, #30 TAB 08/25/18 Glimepiride* (Glimepiride*) 2 Mg Tablet, 2 MG PO WITH BREAKFAST DINNE, TAB 08/25/18 Metformin Hcl* (Metformin Hcl*) 850 Mg Tablet, 850 MG PO WITH BREAKFAST DINNE, #30 TAB 08/25/18 Medications Current Medications Ondansetron HCl (Zofran Inj) 4 mg Q6H PRN IV NAUSEA AND/OR VOMITING Last administered on 09/01/18at 10:48; Admin Dose 4 MG; Start 08/26/18 at 18:30 Albuterol (Proventil 0.083% (Neb)) 2.5 mg Q2H RESP THERAPY PRN NEB SHORTNESS OF BREATH; Start 08/26/18 at 18:30 Acetaminophen (Tylenol Supp) 650 mg Q4H PRN [place] PAIN LEVEL 1-3 OR FEVER Last administered on 09/03/18at 00:01; Admin Dose 650 MG; Start 08/26/18 at 18:30 Morphine Sulfate (morphine) 2 mg Q4H PRN IV PAIN LEVEL 7-10 Last administered on 09/01/18at 08:02; Admin Dose 2 MG; Start 08/26/18 at 18:30 Hydralazine HCl (Apresoline) 10 mg Q4H PRN IV SBP >170 Last administered on 09/03/18at 13:00; Admin Dose 10 MG; Start 08/26/18 at 19:00 Miscellaneous Information 1 ea NOTE XX ; Start 08/26/18 at 19:00 Glucose (Glutose) 15 gm Q15M PRN PO DECREASED GLUCOSE; Start 08/26/18 at 19:00 Glucose (Glutose) 22.5 gm Q15M PRN PO DECREASED GLUCOSE; Start 08/26/18 at 19:00 Dextrose (D50w Syringe) 25 ml Q15M PRN IV DECREASED GLUCOSE; Start 08/26/18 at 19:00 Dextrose (D50w Syringe) 50 ml Q15M PRN IV DECREASED GLUCOSE; Start 08/26/18 at 19:00 Glucagon (Glucagen) 1 mg Q15M PRN IM DECREASED GLUCOSE; Start 08/26/18 at 19:00 Glucose (Glutose) 15 gm Q15M PRN BUCCAL DECREASED GLUCOSE; Start 08/26/18 at 19:00 Labetalol HCl (Labetalol) 10 mg Q4H PRN IV sbp >160 Last administered on 09/03/18at 21:23; Admin Dose 10 MG; Start 08/27/18 at 10:00 Sucralfate (Carafate Susp) 1 gm QID PO Last administered on 09/03/18 20:30; Admin Dose 1 GM; Start 08/27/18 at 21:00 Insulin Aspart (Novolog Insulin Pen) NOVOLOG *MILD* ALGORITHM WITH MEALS B EDTIME SC Last administered on 09/03/18at 18:20; Admin Dose 1 UNIT; Start 08/30/18 at 21:00 Sodium Bicarbonate (Sodium Bicarbonate Tab) 650 mg BID PO Last administered on 09/03/18at 20:30; Admin Dose 650 MG; Start 08/31/18 at 09:00 Amlodipine Besylate (Norvasc) 10 mg DAILY PO Last administered on 09/01/18at 09:06; Admin Dose 10 MG; Start 08/31/18 at 11:00 Pantoprazole 80 mg/Sodium Chloride 100 ml @ 10 mls/hr Q10H IV Last administered on 09/04/18at 02:50; Admin Dose 10 MLS/HR; Start 09/01/18 at 12:00 Sodium Chloride 1,000 ml @ 75 mls/hr [id number] IV Last administered on 09/04/18at 02:51; Admin Dose 75 MLS/HR; Start 09/01/18 at 11:00 Octreotide Acetate 1 mg/ Dextrose 100 ml @ 5 mls/hr Q20H IV Last administered on 09/04/18at 02:50; Admin Dose 5 MLS/HR; Start 09/01/18 at 14:30 Lorazepam (Ativan) 0.5 mg Q6H PRN IV ANXIETY; Start 09/01/18 at 19:00 Fluorouracil 5200 mg/Dextrose 604 ml @ 25.167 mls/ hr Q24H IV Last administered on 09/04/18at 03:07; Admin Dose 25.167 MLS/HR; Start 09/03/18 at 23:00; Stop 09/04/18 at 22:59 Dexamethasone (Decadron) 10 mg Q4H PRN IV ALLERGIC REACTION; Start 09/03/18 at 13:00 Diphenhydramine HCl (Benadryl) 25 mg Q4H PRN IV ALLERGIC REACTION; Start 09/03/18 at 13:00 Meperidine HCl (Demerol) 50 mg Q4H PRN IV ALLERGIC REACTION; Start 09/03/18 at 13:00 Insulin Glargine (Lantus) 13 units DAILY@2000 SC Last administered on 09/03/18at 20:35; Admin Dose 13 UNITS; Start 09/03/18 at 20:00 Simethicone (Mylicon) 80 mg Q6H PRN GTB DISTENSION/GAS/BLOATING Last administer ed on 09/03/18at 17:52; Admin Dose 80 MG; Start 09/03/18 at 17:00 Assessment/Plan Hospital Course (Demo Recall) 1. Syncope/presyncope secondary to severe anemia 2. Severe anemia 3. GI bleed 4. History of diabetes 5. Acute renal failure: Slowly improving 6. Dyslipidemia 7. History of hypertension 8. Gastric ulcer and poorly differentiated gastric adenocarcinoma 9. Malnutrition and low albumin level Recommendation: EKG was reviewed by unlike what the computer reads, it is not in atrial flutter. No anticoagulation for A. fib or flutter is indicated GI work-up and treatment as per GI recommendation. Currently on Protonix drip in ICU. Patient received multiple blood transfusion and has been admitted to intensive care unit for close monitoring. Continue with transfusion as needed basis IV fluids and fluid management as per internal medicine. TSH is wnl. Monitor H&H and transfuse as needed. Patient status post multiple transfusions already Follow-up with oncology recommendations. Patient has been started on chemotherapy already Thank you for this referral. We will continue to follow along with you as needed YASH ZARAGOZA MD [facility] YASH ZARAGOZA MD Sep 04, 2018 07:18
[2018-09-04] MEDS: INSULIN ASPART [NOVOLOG] 3 ML PEN SC SCH ×4 (07:47→20:23)
[2018-09-04] MEDS: NA BICARBONATE 650 MG TAB PO SCH ×2 (08:22→18:30)
[2018-09-04] MEDS: AMLODIPINE 10 MG TAB PO SCH (08:22)
[2018-09-04] MEDS: SUCRALFATE (100 MG/ML) 10ML CUP PO SCH ×4 (08:22→20:20)
--- NOTE | 2018-09-04 09:18 | CONS ---
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 -CT demonstrates appearance of enlarged lymph nodes in the gastrohepatic ligament, celiac region, periportal region and left para-aortic region of the retroperitoneum the largest lymph node measuring approximately 1.8 cm short-axis in the left para-aortic region. -given his likelihood to re-bleed, need to give urgent chemotherapy in the hospital. chemotherapy was started yesterday. to finish 5fu infusion today -continue FLOT per the following regimen Fluorouracil (5-FU) 2600 mg/m2 IV continuous infusion over 24 hours on day 1 Folinic acid (Leucovorin) 200 mg/m2 IV once on day 1 Oxaliplatin (Eloxatin) 85 mg/m2 IV once on day 1 Docetaxel (Taxotere) 50 mg/m2 IV once on day 1 -MRI demonstrates. Gastric wall thickening and upper abdominal adenopathy which raises the possibility of gastric neoplasm. Probable hepatic cysts or hemangio mas. -pt will need PET CT as an out patient -port in placed #iron deficiency anemia -s/p IV iron -Hg stable Thank you for the opportunity to participate in this patients care A total of 40 minutes of face to face time was spent speaking with the patient, of which greater than 50% was spent in counseling and coordination of care and the detailed question and answer session. Consultation Date/Type/Reason Admit Date/Time Aug 26, 2018 at 17:28 Initial Consult Date 08/28/18 Type of Consult oncology Reason for Consultation gastric cancer Requesting Provider: IVY PICKETT Date/Time of Note DATE: 09/04/18 TIME: 09:16 24 HR Interval Summary Free Text/Dictation pt started chemotherapy yesterday. 2 x melanotic stools last nigh. Hg stable Exam/Review of Systems Exam Vitals Vital Signs Date Temp Pulse Resp B/P (MAP) Pulse Ox O2 O2 Flow FiO2 Time Delivery Rate 09/04/18 78 08:00 09/04/18 143/76 95 Room Air 06:22 (98) 09/04/18 98.6 04:00 09/03/18 16 23:00 09/01/18 2.0 16:11 Intake and Output 09/03/18 09/03/18 09/04/18 1515:00 23:00 07:00 IntakeIntake Total 1230 ml 2861 ml 1864 ml OutputOutput Total 1025 ml 675 ml 650 ml BalanceBalance 205 ml 2186 ml 1214 ml Constitutional: alert, oriented Psych: anxiety, depression Head: normocephalic Eyes: nl conjunctiva ENMT: nl external ears & nose Neck: supple Respiratory: clear to auscultation Cardiovascular: regular rate and rhythm Gastrointestinal: soft Musculoskeletal: nl extremities to inspection Extremities: normal pulses Results Result Diagram: 09/04/18 0300 09/04/18 0300 Results 24hrs Laboratory Tests Test 09/03/18 12:59 09/03/18 17:47 09/03/18 20:29 09/04/18 03:00 Bedside Glucose 120 169 130 White Blood Count 5.2 Red Blood Count 2.79 L Hemoglobin 8.3 L Hematocrit 24.4 L Mean Corpuscular 87.5 Volume Mean Corpuscular 29.7 Hemoglobin Mean Corpuscular 34.0 Hemoglobin Concen t Red Cell 14.5 Distribution Width Platelet Count 269 Mean Platelet 10.5 H Volume Immature 0.400 Granulocytes % Neutrophils % Segmented 89 H Neutrophils % (Manual) Band Neutrophils 8 H % (Manual) Lymphocytes % Lymphocytes % 3 L (Manual) Monocytes % Eosinophils % Basophils % Nucleated Red 0.0 Blood Cells % Immature 0.020 Granulocytes # Neutrophils # Neutrophils # 4.6 (Manual) Band Neutrophils 0.4 # Lymphocytes 0.1 L (Manual) Lymphocytes # Monocytes # Eosinophils # Basophils # Nucleated Red Blood Cells # Platelet Estimate NORMAL Polychromasia 1+ Anisocytosis 1+ Microcytosis 1+ Sodium Level 143 Potassium Level 3.9 Chloride Level 117 H Carbon Dioxide 19 L Level Anion Gap 7 Blood Urea 35 H Nitrogen Creatinine 1.87 H Est Glomerular 38 L Filtrat Rate mL/min Glucose Level 173 Calcium Level 7.3 L Phosphorus Level 3.3 Magnesium Level 1.8 Total Bilirubin 0.3 Direct Bilirubin 0.00 Indirect 0.3 Bilirubin Aspartate Amino 12 L Transf (AST/SGOT) Alanine 26 Aminotransferase (ALT/SGPT) Alkaline 53 Phosphatase Total Protein 4.7 L Albumin 2.2 L Globulin 2.50 Albumin/Globulin 0.88 Ratio Test 09/04/18 05:14 09/04/18 07:40 Lab Scanned BLOOD TRANSFUSIO Report N Bedside Glucose 237 H Medications Medication Current Medications Ondansetron HCl (Zofran Inj) 4 mg Q6H PRN IV NAUSEA AND/OR VOMITING Last administered on 09/01/18 10:48; Admin Dose 4 MG; Start 08/26/18 at 18:30 Albuterol (Proventil 0.083% (Neb)) 2.5 mg Q2H RESP THERAPY PRN NEB SHORTNESS OF BREATH; Start 08/26/18 at 18:30 Acetaminophen (Tylenol Supp) 650 mg Q4H PRN [place] PAIN LEVEL 1-3 OR FEVER Last administered on 09/03/18at 00:01; Admin Dose 650 MG; Start 08/26/18 at 18:30 Morphine Sulfate (morphine) 2 mg Q4H PRN IV PAIN LEVEL 7-10 Last administered on 09/01/18 08:02; Admin Dose 2 MG; Start 08/26/18 at 18:30 Hydralazine HCl (Apresoline) 10 mg Q4H PRN IV SBP >170 Last administered on 09/03/18at 13:00; Admin Dose 10 MG; Start 08/26/18 at 19:00 Miscellaneous Information 1 ea NOTE XX ; Start 08/26/18 at 19:00 Glucose (Glutose) 15 gm Q15M PRN PO DECREASED GLUCOSE; Start 08/26/18 at 19:00 Glucose (Glutose) 22.5 gm Q15M PRN PO DECREASED GLUCOSE; Start 08/26/18 at 19:00 Dextrose (D50w Syringe) 25 ml Q15M PRN IV DECREASED GLUCOSE; Start 08/26/18 at 19:00 Dextrose (D50w Syringe) 50 ml Q15M PRN IV DECREASED GLUCOSE; Start 08/26/18 at 19:00 Glucagon (Glucagen) 1 mg Q15M PRN IM DECREASED GLUCOSE; Start 08/26/18 at 19:00 Glucose (Glutose) 15 gm Q15M PRN BUCCAL DECREASED GLUCOSE; Start 08/26/18 at 19:00 Labetalol HCl (Labetalol) 10 mg Q4H PRN IV sbp >160 Last administered on 09/03/18at 21:23; Admin Dose 10 MG; Start 08/27/18 at 10:00 Sucralfate (Carafate Susp) 1 gm QID PO Last administered on 09/04/18 08:22; Admin Dose 1 GM; Start 08/27/18 at 21:00 Insulin Aspart (Novolog Insulin Pen) NOVOLOG *MILD* ALGORITHM WITH MEALS BEDTIME SC Last administered on 09/04/18at 07:47; Admin Dose 3 UNIT; Start 08/30/18 at 21:00 Sodium Bicarbonate (Sodium Bicarbonate Tab) 650 mg BID PO Last administered on 09/04/18at 08:22; Admin Dose 650 MG; Start 08/31/18 at 09:00 Amlodipine Besylate (Norvasc) 10 mg DAILY PO Last administered on 09/04/18 08:22; Admin Dose 10 MG; Start 08/31/18 at 11:00 Pantoprazole 80 mg/Sodium Chloride 100 ml @ 10 mls/hr Q10H IV Last administered on 09/04/18at 02:50; Admin Dose 10 MLS/HR; Start 09/01/18 at 12:00 Sodium Chloride 1,000 ml @ 75 mls/hr [id number] IV Last administered on 09/04/18at 02:51; Admin Dose 75 MLS/HR; Start 09/01/18 at 11:00 Octreotide Acetate 1 mg/ Dextrose 100 ml @ 5 mls/hr Q20H IV Last administered on 09/04/18at 02:50; Admin Dose 5 MLS/HR; Start 09/01/18 at 14:30 Lorazepam (Ativan) 0.5 mg Q6H PRN IV ANXIETY; Start 09/01/18 at 19:00 Fluorouracil 5200 mg/Dextrose 604 ml @ 25.167 mls/ hr Q24H IV Last administered on 09/04/18at 03:07; Admin Dose 25.167 MLS/HR; Start 09/03/18 at 23:00; Stop 09/04/18 at 22:59 Dexamethasone (Decadron) 10 mg Q4H PRN IV ALLERGIC REACTION; Start 09/03/18 at 13:00 Diphenhydramine HCl (Benadryl) 25 mg Q4H PRN IV ALLERGIC REACTION; Start 09/03/18 at 13:00 Meperidine HCl (Demerol) 50 mg Q4H PRN IV ALLERGIC REACTION; Start 09/03/18 at 13:00 Insulin Glargine (Lantus) 13 units DAILY@2000 SC Last administered on 09/03/18at 20:35; Admin Dose 13 UNITS; Start 09/03/18 at 20:00 Simethicone (Mylicon) 80 mg Q6H PRN GTB DISTENSION/GAS/BLOATING Last administered on 09/03/18at 17:52; Admin Dose 80 MG; Start 09/03/18 at 17:00 AME VALDEZ M.D. Sep 04, 2018 09:18
--- NOTE | 2018-09-04 11:06 | PN ---
Date/Time of Note Date/Time of Note DATE: 09/04/18 TIME: 11:03 Assessment/Plan VTE Prophylaxis Risk score (from Ns)>0 risk: 6 SCD applied (from Ns): Yes Pharmacological prophylaxis: NA/contraindicated Pharm contraindication: bleeding Lines/Catheters IV Catheter Type (from Nrsg): Peripheral IV Urinary Cath still in place: No Assessment/Plan Assessment/Plan 48 yo man with history of diabetes and HTN presents with newly diagnosed gastric cancer with bleeding gastric ulcer. #Hematemesis with large gastric ulcer -Is now status post left gastric artery embolization from interventional radiologist on 08/01. -Abdominal pain is improving. -General surgery on board -GI on board -We will need to continue to transfuse FFP for every 3 to 4 units of packed RBCs, continue monitoring hemoglobin hematocrit every 6 hours and transfuse as needed -Definitive treatment will need to be chemotherapy and radiation, radiation oncologist also on board, Dr Gramajo will offer radiation therapy once patient is stable for discharge (will be done outpatient). -Oncology on board #Gastric adenocarcinoma -Oncology has been consulted -MRI results noted, questionable hepatic findings versus other lymphadenopathy, oncology recognitions appreciated -Per oncology, CT chest ordered and noted -Port-A-Cath placed, now getting chemotherapy in house. #Distended gallbladder per MRI -Patient completely asymptomatic, no abdominal pain, monitor for now #Liver cyst versus hemangioma versus metastases -Found on MRI, oncology recommendations appreciated #Syncope, recurred -Likely secondary to vasovagal events as well as low hemoglobin and blood loss -Monitor very closely #Blood loss anemia -Continue transfusing as needed -Secondary to GI bleed -Order FFP for every 3-4 units of packed red blood cell #Elevated lipase on admission -No abdominal pain on admission -Likely due to above GI issues, monitor #Hypertension -As needed hydralazine and labetalol, restart home meds when able to tolerate p.o. #Acute kidney injury versus chronic kidney disease -Continue IV fluid -Nephrology consulted, had signed off but requested reconsultation due to elevated creatinine which is likely caused by hemodynamic instability yesterday and other issues however there is a chance that the contrast use during yesterday's angiogram may have also slightly begun to damage the kidneys alt heidi this is usually seen a few days after procedure, all risks of acute renal failure were explained to the family and they have still decided to proceed with embolism yesterday as the risk of not doing embolism would be possibly acute worsening hemorrhage. #Diabetes mellitus -Patient stated that ever since he was given Trulicity the past week he has been experiencing severe side effects, hold Trulicity for now, insulin sliding scale for now #Disposition - Medically stable for transfer back to (med/surg). Octreotide per GI team, likely can discontinue. Also patient tolerating PO, can switch protonix from IV to PO. More than 40 minutes of critical care time spent on this encounter. Result Diagram: 09/04/18 0300 09/04/18 0300 Subjective 24 Hr Interval Summary Free Text/Dictation No acute overnight events. Had bowel movement with no blood last night Tolerating clear liquid diet. No abdominal pain Exam/Review of Systems Exam Vitals Vital Signs Date Temp Pulse Resp B/P (MAP) Pulse Ox O2 O2 Flow FiO2 Time Delivery Rate 09/04/18 73 17 143/76 96 Room Air 09:16 (98) 09/04/18 98.6 04:00 09/01/18 2.0 16:11 Intake and Output 09/03/18 09/03/18 09/04/18 1515:00 23:00 07:00 IntakeIntake Total 1230 ml 2861 ml 1864 ml OutputOutput Total 1025 ml 675 ml 650 ml BalanceBalance 205 ml 2186 ml 1214 ml Exam General: Patient is laying in bed and answers questions appropriately Head: Normocephalic atraumatic Eyes: EOMI, pupils reactive to light Neck: Supple, nontender, midline Respiratory: Clear to auscultation bilaterally Cardiovascular: regular rate, no obvious murmurs Gastrointestinal: Nontender to palpation, bowel sounds heard. Skin: No new skin lesions Results Results 24hrs Laboratory Tests Test 09/03/18 12:59 09/03/18 17:47 09/03/18 20:29 09/04/18 03:00 Bedside Glucose 120 169 130 White Blood Count 5.2 Red Blood Count 2.79 L Hemoglobin 8.3 L Hematocrit 24.4 L Mean Corpuscular 87.5 Volume Mean Corpuscular 29.7 Hemoglobin Mean Corpuscular 34.0 Hemoglobin Concen t Red Cell 14.5 Distribution Width Platelet Count 269 Mean Platelet 10.5 H Volume Immature 0.400 Granulocytes % Neutrophils % Segmented 89 H Neutrophils % (Manual) Band Neutrophils 8 H % (Manual) Lymphocytes % Lymphocytes % 3 L (Manual) Monocytes % Eosinophils % Basophils % Nucleated Red 0.0 Blood Cells % Immature 0.020 Granulocytes # Neutrophils # Neutrophils # 4.6 (Manual) Band Neutrophils 0.4 # Lymphocytes 0.1 L (Manual) Lymphocytes # Monocytes # Eosinophils # Basophils # Nucleated Red Blood Cells # Platelet Estimate NORMAL Polychromasia 1+ Anisocytosis 1+ Microcytosis 1+ Sodium Level 143 Potassium Level 3.9 Chloride Level 117 H Carbon Dioxide 19 L Level Anion Gap 7 Blood Urea 35 H Nitrogen Creatinine 1.87 H Est Glomerular 38 L Filtrat Rate mL/min Glucose Level 173 Calcium Level 7.3 L Phosphorus Level 3.3 Magnesium Level 1.8 Total Bilirubin 0.3 Direct Bilirubin 0.00 Indirect 0.3 Bilirubin Aspartate Amino 12 L Transf (AST/SGOT) Alanine 26 Aminotransferase (ALT/SGPT) Alkaline 53 Phosphatase Total Protein 4.7 L Albumin 2.2 L Globulin 2.50 Albumin/Globulin 0.88 Ratio Test 09/04/18 05:14 09/04/18 07:40 Lab Scanned BLOOD TRANSFUSIO Report N Bedside Glucose 237 H Medications Medication Current Medications Ondansetron HCl (Zofran Inj) 4 mg Q6H PRN IV NAUSEA AND/OR VOMITING Last administered on 09/01/18at 10:48; Admin Dose 4 MG; Start 08/26/18 at 18:30 Albuterol (Proventil 0.083% (Neb)) 2.5 mg Q2H RESP THERAPY PRN NEB SHORTNESS OF BREATH; Start 08/26/18 at 18:30 Acetaminophen (Tylenol Supp) 650 mg Q4H PRN NE PAIN LEVEL 1-3 OR FEVER Last administered on 09/03/18at 00:01; Admin Dose 650 MG; Start 08/26/18 at 18:30 Morphine Sulfate (morphine) 2 mg Q4H PRN IV PAIN LEVEL 7-10 Last administered on 09/01/18at 08:02; Admin Dose 2 MG; Start 08/26/18 at 18:30 Hydralazine HCl (Apresoline) 10 mg Q4H PRN IV SBP >170 Last administered on 09/03/18at 13:00; Admin Dose 10 MG; Start 08/26/18 at 19:00 Miscellaneous Information 1 ea NOTE XX ; Start 08/26/18 at 19:00 Glucose (Glutose) 15 gm Q15M PRN PO DECREASED GLUCOSE; Start 08/26/18 at 19:00 Glucose (Glutose) 22.5 gm Q15M PRN PO DECREASED GLUCOSE; Start 08/26/18 at 19:00 Dextrose (D50w Syringe) 25 ml Q15M PRN IV DECREASED GLUCOSE; Start 08/26/18 at 19:00 Dextrose (D50w Syringe) 50 ml Q15M PRN IV DECREASED GLUCOSE; Start 08/26/18 at 19:00 Glucagon (Glucagen) 1 mg Q15M PRN IM DECREASED GLUCOSE; Start 08/26/18 at 19:00 Glucose (Glutose) 15 gm Q15M PRN BUCCAL DECREASED GLUCOSE; Start 08/26/18 at 19:00 Labetalol HCl (Labetalol) 10 mg Q4H PRN IV sbp >160 Last administered on 09/03/18at 21:23; Admin Dose 10 MG; Start 08/27/18 at 10:00 Insulin Aspart (Novolog Insulin Pen) NOVOLOG *MILD* ALGORITHM WITH MEALS BEDTIME SC Last administered on 09/04/18at 07:47; Admin Dose 3 UNIT; Start 08/30/18 at 21:00 Amlodipine Besylate (Norvasc) 10 mg DAILY PO Last administered on 09/04/18at 08:22; Admin Dose 10 MG; Start 08/31/18 at 11:00 Pantoprazole 80 mg/Sodium Chloride 100 ml @ 10 mls/hr Q10H IV Last administered on 09/04/18at 02:50; Admin Dose 10 MLS/HR; Start 09/01/18 at 12:00 Octreotide Acetate 1 mg/ Dextrose 100 ml @ 5 mls/hr Q20H IV Last administered on 09/04/18at 02:50; Admin Dose 5 MLS/HR; Start 09/01/18 at 14:30 Lorazepam (Ativan) 0.5 mg Q6H PRN IV ANXIETY; Start 09/01/18 at 19:00 Fluorouracil 5200 mg/Dextrose 604 ml @ 25.167 mls/ hr Q24H IV Last administered on 09/04/18at 03:07; Admin Dose 25.167 MLS/HR; Start 09/03/18 at 23:00; Stop 09/04/18 at 22:59 Dexamethasone (Decadron) 10 mg Q4H PRN IV ALLERGIC REACTION; Start 09/03/18 at 13:00 Diphenhydramine HCl (Benadryl) 25 mg Q4H PRN IV ALLERGIC REACTION; Start 09/03/18 at 13:00 Meperidine HCl (Demerol) 50 mg Q4H PRN IV ALLERGIC REACTION; Start 09/03/18 at 13:00 Insulin Glargine (Lantus) 13 units DAILY@2000 SC Last administered on 09/03/18at 20:35; Admin Dose 13 UNITS; Start 09/03/18 at 20:00 Simethicone (Mylicon) 80 mg Q6H PRN GTB DISTENSION/GAS/BLOATING Last ad ministered on 09/03/18at 17:52; Admin Dose 80 MG; Start 09/03/18 at 17:00 Sucralfate (Carafate Susp) 1 gm AC MEALS AND BEDTIME PO ; Start 09/04/18 at 11:00 Sodium Bicarbonate (Sodium Bicarbonate Tab) 650 mg PC BREAKFAST DINNER PO ; Start 09/04/18 at 18:35 KANDY MIRELES MD Sep 04, 2018 11:06
--- NOTE | 2018-09-04 13:22 | CONS ---
Assessment/Plan Assessment/Plan Hospital Course (Demo Recall) 1. Acute renal failure superimposed on chronic kidney disease. His renal function has improved since yesterday. He has not had any GI bleeding since yesterday. He has a good urine output. I will decrease his IV fluids as he has been in positive fluid balance the last 2 days. I will check a portable chest x-ray to help assess his fluid volume. His chest x-ray done yesterday was clear. I will continue to follow the patient along with you. 2. GI bleeding due to gastric ulcer which has been biopsied and is gastric adenocarcinoma . GI and oncologic w/u are in progress .he is starting chemotherapy 3. Type 2 diabetes mellitus . He was on metformin and Trulicity preadmission. I would hold off on restarting these medications and if an oral medication is needed would consider using Tradjenta 5 mg a day. 4. Syncope due to gastrointestinal bleeding Consultation Date/Type/Reason Admit Date/Time Aug 26, 2018 at 17:28 Initial Consult Date 08/28/18 Type of Consult Nephrology Requesting Provider: IVY PICKETT Date/Time of Note DATE: 09/04/18 TIME: 13:15 24 HR Interval Summary Free Text/Dictation He is awake and alert. He has no complaints. He is being seen by me in nephrologic follow-up because of chronic kidney disease due to diabetic nephropathy. Constitutional: no complaints, improved Exam/Review of Systems Exam Vitals Vital Signs Date Temp Pulse Resp B/P (MAP) Pulse Ox O2 O2 Flow FiO2 Time Delivery Rate 09/04/18 75 12:00 09/04/18 18 149/78 97 Room Air 11:00 (101) 09/04/18 98.5 08:00 09/01/18 2.0 16:11 Intake and Output 09/03/18 09/03/18 09/04/18 1515:00 23:00 07:00 IntakeIntake Total 1230 ml 2861 ml 1879 ml OutputOutput Total 1025 ml 675 ml 650 ml BalanceBalance 205 ml 2186 ml 1229 ml Constitutional: alert, oriented, frail Respiratory: clear to auscultation, normal air movement Cardiovascular: regular rate and rhythm Gastrointestinal: soft, non-tender Musculoskeletal: nl extremities to inspection Results Result Diagram: 09/04/18 0300 09/04/18 0300 Results 24hrs Laboratory Tests Test 09/03/18 17:47 09/03/18 20:29 09/04/18 03:00 09/04/18 05:14 Bedside Glucose 169 130 White Blood Count 5.2 Red Blood Count 2.79 L Hemoglobin 8.3 L Hematocrit 24.4 L Mean Corpuscular 87.5 Volume Mean Corpuscular 29.7 Hemoglobin Mean Corpuscular 34.0 Hemoglobin Concen t Red Cell 14.5 Distribution Width Platelet Count 269 Mean Platelet 10.5 H Volume Immature 0.400 Granulocytes % Neutrophils % Segmented 89 H Neutrophils % (Manual) Band Neutrophils 8 H % (Manual) Lymphocytes % Lymphocytes % 3 L (Manual) Monocytes % Eosinophils % Basophils % Nucleated Red 0.0 Blood Cells % Immature 0.020 Granulocytes # Neutrophils # Neutrophils # 4.6 (Manual) Band Neutrophils 0.4 # Lymphocytes 0.1 L (Manual) Lymphocytes # Monocytes # Eosinophils # Basophils # Nucleated Red Blood Cells # Platelet Estimate NORMAL Polychromasia 1+ Anisocytosis 1+ Microcytosis 1+ Sodium Level 143 Potassium Level 3.9 Chloride Level 117 H Carbon Dioxide 19 L Level Anion Gap 7 Blood Urea 35 H Nitrogen Creatinine 1.87 H Est Glomerular 38 L Filtrat Rate mL/min Glucose Level 173 Calcium Level 7.3 L Phosphorus Level 3.3 Magnesium Level 1.8 Total Bilirubin 0.3 Direct Bilirubin 0.00 Indirect 0.3 Bilirubin Aspartate Amino 12 L Transf (AST/SGOT) Alanine 26 Aminotransferase (ALT/SGPT) Alkaline 53 Phosphatase Total Protein 4.7 L Albumin 2.2 L Globulin 2.50 Albumin/Globulin 0.88 Ratio Lab Scanned BLOOD TRANSFUSIO Report N Test 09/04/18 07:40 09/04/18 11:25 Bedside Glucose 237 H 276 H Medications Medication Current Medications Ondansetron HCl (Zofran Inj) 4 mg Q6H PRN IV NAUSEA AND/OR VOMITING Last administered on 09/01/18at 10:48; Admin Dose 4 MG; Start 08/26/18 at 18:30 Albuterol (Proventil 0.083% (Neb)) 2.5 mg Q2H RESP THERAPY PRN NEB SHORTNESS OF BREATH; Start 08/26/18 at 18:30 Acetaminophen (Tylenol Supp) 650 mg Q4H PRN SC PAIN LEVEL 1-3 OR FEVER Last administered on 09/03/18at 00:01; Admin Dose 650 MG; Start 08/26/18 at 18:30 Morphine Sulfate (morphine) 2 mg Q4H PRN IV PAIN LEVEL 7-10 Last administered on 09/01/18at 08:02; Admin Dose 2 MG; Start 08/26/18 at 18:30 Hydralazine HCl (Apresoline) 10 mg Q4H PRN IV SBP >170 Last administered on 09/03/18at 13:00; Admin Dose 10 MG; Start 08/26/18 at 19:00 Miscellaneous Information 1 ea NOTE XX ; Start 08/26/18 at 19:00 Glucose (Glutose) 15 gm Q15M PRN PO DECREASED GLUCOSE; Start 08/26/18 at 19:00 Glucose (Glutose) 22.5 gm Q15M PRN PO DECREASED GLUCOSE; Start 08/26/18 at 19:00 Dextrose (D50w Syringe) 25 ml Q15M PRN IV DECREASED GLUCOSE; Start 08/26/18 at 19:00 Dextrose (D50w Syringe) 50 ml Q15M PRN IV DECREASED GLUCOSE; Start 08/26/18 at 19:00 Glucagon (Glucagen) 1 mg Q15M PRN IM DECREASED GLUCOSE; Start 08/26/18 at 19:00 Glucose (Glutose) 15 gm Q15M PRN BUCCAL DECREASED GLUCOSE; Start 08/26/18 at 19:00 Labetalol HCl (Labetalol) 10 mg Q4H PRN IV sbp >160 Last administered on 09/03/18at 21:23; Admin Dose 10 MG; Start 08/27/18 at 10:00 Amlodipine Besylate (Norvasc) 10 mg DAILY PO Last administered on 09/04/18at 08:22; Admin Dose 10 MG; Start 08/31/18 at 11:00 Lorazepam (Ativan) 0.5 mg Q6H PRN IV ANXIETY; Start 09/01/18 at 19:00 Dexamethasone (Decadron) 10 mg Q4H PRN IV ALLERGIC REACTION; Start 09/03/18 at 13:00 Diphenhydramine HCl (Benadryl) 25 mg Q4H PRN IV ALLERGIC REACTION; Start 01/12 at 13:00 Meperidine HCl (Demerol) 50 mg Q4H PRN IV ALLERGIC REACTION; Start 09/03/18 at 13:00 Insulin Glargine (Lantus) 13 units DAILY@2000 SC Last administered on 09/03/18at 20:35; Admin Dose 13 UNITS; Start 09/03/18 at 20:00 Simethicone (Mylicon) 80 mg Q6H PRN GTB DISTENSION/GAS/BLOATING Last administered on 09/03/18at 17:52; Admin Dose 80 MG; Start 09/03/18 at 17:00 Sucralfate (Carafate Susp) 1 gm AC MEALS AND BEDTIME PO Last administered on 09/04/18at 11:31; Admin Dose 1 GM; Start 09/04/18 at 11:00 Sodium Bicarbonate (Sodium Bicarbonate Tab) 650 mg PC BREAKFAST DINNER PO ; Start 09/04/18 at 18:35 Pantoprazole (Protonix Iv) 40 mg BID@06,18 IV ; Start 09/04/18 at 18:00 Insulin Aspart (Novolog Insulin Pen) NOVOLOG *MODERATE* ALGORITHM WITH MEALS BEDTIME SC ; Start 09/04/18 at 17:35 RUCHI VELIZ MD Sep 04, 2018 13:21
--- NOTE | 2018-09-04 14:35 | PN ---
Date/Time of Note Date/Time of Note DATE: 09/04/18 TIME: 14:28 Assessment/Plan VTE Prophylaxis Risk score (from Nsg)>0 risk: 6 SCD applied (from Nsg): Yes Pharmacological prophylaxis: other (scds) Lines/Catheters IV Catheter Type (from Nrsg): Peripheral IV Urinary Cath still in place: No Assessment/Plan Hospital Course Assessment: Coffee-ground emesis EGD 08/27/18 Large 5 cm ulceration with nodular boarders highly suspect for malignancy. Central exposed visible vessel with no evidence of recent bleeding left untreated. Otherwise normal EGD S/p EGD 09/01/18: -Active oozing multiple sites ulcer bed. -Limited visualization. -No endoscopically treatable lesion identified S/p IR embolization of gastric artery 09/01 Gastric adenocarcinoma, poorly-differentiated, favor Severe anemia 2/2 to above Abdominal adenopathy noted -Differential diagnosis includes inflammation and neoplasm. Small right pleural effusion Elevated lipase- Likely 2/2 to dehydration HTN ALEJANDRO on CKD Small amount of ascites DM Plan: DC octreotide and PPI drip. Will change PPI to twice daily Advance diet as tolerated Patient appears medically stable to transfer back to [facility]. from GI Patient seen in collaboration with Dr Sims Subjective: Course reviewed with nursing staff Patient interviewed and examined All labs, imaging and other results reviewed No current c/o rectal bleeding, HGB is currently stable. Patient started chemotherapy yesterday, so far tolerating well. PHYSICAL EXAMINATION: GENERAL: Alert & oriented x 3 SKIN: Port-a-cath HEAD: Normocephalic, atraumatic, no tenderness. EYES: Pupils equal reactive to light, no discharge. EARS/NOSE AND THROAT: Ears normal, nose normal. NECK: Supple, no masses. CHEST: Inspection within normal limits. CARDIOVASCULAR: Heart: Regular rate and rhythm, no murmurs RESPIRATORY: Lungs clear to auscultation. GASTROINTESTINAL AND LIVER: Abdomen: Soft, non tenderness, non-distended, no hernias, no masses, no organomegaly, no ascites, no guarding, no rebound tenderness, normoactive bowel sounds. Rectal: Deferred. Result Diagram: 09/04/18 0300 09/04/18 0300 Results 24hrs Laboratory Tests Test 09/03/18 17:47 09/03/18 20:29 09/04/18 03:00 09/04/18 05:14 Bedside Glucose 169 130 White Blood Count 5.2 Red Blood Count 2.79 L Hemoglobin 8.3 L Hematocrit 24.4 L Mean Corpuscular 87.5 Volume Mean Corpuscular 29.7 Hemoglobin Mean Corpuscular 34.0 Hemoglobin Concen t Red Cell 14.5 Distribution Width Platelet Count 269 Mean Platelet 10.5 H Volume Immature 0.400 Granulocytes % Neutrophils % Segmented 89 H Neutrophils % (Manual) Band Neutrophils 8 H % (Manual) Lymphocytes % Lymphocytes % 3 L (Manual) Monocytes % Eosinophils % Basophils % Nucleated Red 0.0 Blood Cells % Immature 0.020 Granulocytes # Neutrophils # Neutrophils # 4.6 (Manual) Band Neutrophils 0.4 # Lymphocytes 0.1 L (Manual) Lymphocytes # Monocytes # Eosinophils # Basophils # Nucleated Red Blood Cells # Platelet Estimate NORMAL Polychromasia 1+ Anisocytosis 1+ Microcytosis 1+ Sodium Level 143 Potassium Level 3.9 Chloride Level 117 H Carbon Dioxide 19 L Level Anion Gap 7 Blood Urea 35 H Nitrogen Creatinine 1.87 H Est Glomerular 38 L Filtrat Rate mL/min Glucose Level 173 Calcium Level 7.3 L Phosphorus Level 3.3 Magnesium Level 1.8 Total Bilirubin 0.3 Direct Bilirubin 0.00 Indirect 0.3 Bilirubin Aspartate Amino 12 L Transf (AST/SGOT) Alanine 26 Aminotransferase (ALT/SGPT) Alkaline 53 Phosphatase Total Protein 4.7 L Albumin 2.2 L Globulin 2.50 Albumin/Globulin 0.88 Ratio Lab Scanned BLOOD TRANSFUSIO Report N Test 09/04/18 07:40 09/04/18 11:25 Bedside Glucose 237 H 276 H Exam/Review of Systems Exam Vitals Vital Signs Date Temp Pulse Resp B/P (MAP) Pulse Ox O2 O2 Flow FiO2 Time Delivery Rate 09/04/18 75 12:00 09/04/18 18 149/78 97 Room Air 11:00 (101) 09/04/18 98.5 08:00 09/01/18 2.0 16:11 Intake and Output 09/03/18 09/03/18 09/04/18 1515:00 23:00 07:00 IntakeIntake Total 1230 ml 2861 ml 1879 ml OutputOutput Total 1025 ml 675 ml 650 ml BalanceBalance 205 ml 2186 ml 1229 ml Results Results 24hrs Laboratory Tests Test 09/03/18 17:47 09/03/18 20:29 09/04/18 03:00 09/04/18 05:14 Bedside Glucose 169 130 White Blood Count 5.2 Red Blood Count 2.79 L Hemoglobin 8.3 L Hematocrit 24.4 L Mean Corpuscular 87.5 Volume Mean Corpuscular 29.7 Hemoglobin Mean Corpuscular 34.0 Hemoglobin Concen t Red Cell 14.5 Distribution Width Platelet Count 269 Mean Platelet 10.5 H Volume Immature 0.400 Granulocytes % Neutrophils % Segmented 89 H Neutrophils % (Manual) Band Neutrophils 8 H % (Manual) Lymphocytes % Lymphocytes % 3 L (Manual) Monocytes % Eosinophils % Basophils % Nucleated Red 0.0 Blood Cells % Immature 0.020 Granulocytes # Neutrophils # Neutrophils # 4.6 (Manual) Band Neutrophils 0.4 # Lymphocytes 0.1 L (Manual) Lymphocytes # Monocytes # Eosinophils # Basophils # Nucleated Red Blood Cells # Platelet Estimate NORMAL Polychromasia 1+ Anisocytosis 1+ Microcytosis 1+ Sodium Level 143 Potassium Level 3.9 Chloride Level 117 H Carbon Dioxide 19 L Level Anion Gap 7 Blood Urea 35 H Nitrogen Creatinine 1.87 H Est Glomerular 38 L Filtrat Rate mL/min Glucose Level 173 Calcium Level 7.3 L Phosphorus Level 3.3 Magnesium Level 1.8 Total Bilirubin 0.3 Direct Bilirubin 0.00 Indirect 0.3 Bilirubin Aspartate Amino 12 L Transf (AST/SGOT) Alanine 26 Aminotransferase (ALT/SGPT) Alkaline 53 Phosphatase Total Protein 4.7 L Albumin 2.2 L Globulin 2.50 Albumin/Globulin 0.88 Ratio Lab Scanned BLOOD TRANSFUSIO Report N Test 09/04/18 07:40 09/04/18 11:25 Bedside Glucose 237 H 276 H Medications Medication Current Medications Ondansetron HCl (Zofran Inj) 4 mg Q6H PRN IV NAUSEA AND/OR VOMITING Last administered on 09/01/18at 10:48; Admin Dose 4 MG; Start 08/26/18 at 18:30 Albuterol (Proventil 0.083% (Neb)) 2.5 mg Q2H RESP THERAPY PRN NEB SHORTNESS OF BREATH; Start 08/26/18 at 18:30 Acetaminophen (Tylenol Supp) 650 mg Q4H PRN OR PAIN LEVEL 1-3 OR FEVER Last administered on 09/03/18at 00:01; Admin Dose 650 MG; Start 08/26/18 at 18:30 Morphine Sulfate (morphine) 2 mg Q4H PRN IV PAIN LEVEL 7-10 Last administered on 09/01/18at 08:02; Admin Dose 2 MG; Start 08/26/18 at 18:30 Hydralazine HCl (Apresoline) 10 mg Q4H PRN IV SBP >170 Last administered on 09/03/18at 13:00; Admin Dose 10 MG; Start 08/26/18 at 19:00 Miscellaneous Information 1 ea NOTE XX ; Start 08/26/18 at 19:00 Glucose (Glutose) 15 gm Q15M PRN PO DECREASED GLUCOSE; Start 08/26/18 at 19:00 Glucose (Glutose) 22.5 gm Q15M PRN PO DECREASED GLUCOSE; Start 08/26/18 at 19:00 Dextrose (D50w Syringe) 25 ml Q15M PRN IV DECREASED GLUCOSE; Start 08/26/18 at 19:00 Dextrose (D50w Syringe) 50 ml Q15M PRN IV DECREASED GLUCOSE; Start 08/26/18 at 19:00 Glucagon (Glucagen) 1 mg Q15M PRN IM DECREASED GLUCOSE; Start 08/26/18 at 19:00 Glucose (Glutose) 15 gm Q15M PRN BUCCAL DECREASED GLUCOSE; Start 08/26/18 at 19:00 Labetalol HCl (Labetalol) 10 mg Q4H PRN IV sbp >160 Last administered on 09/03/18at 21:23; Admin Dose 10 MG; Start 08/27/18 at 10:00 Amlodipine Besylate (Norvasc) 10 mg DAILY PO Last administered on 09/04/18at 08:22; Admin Dose 10 MG; Start 08/31/18 at 11:00 Lorazepam (Ativan) 0.5 mg Q6H PRN IV ANXIETY; Start 09/01/18 at 19:00 Dexamethasone (Decadron) 10 mg Q4H PRN IV ALLERGIC REACTION; Start 09/03/18 at 13:00 Diphenhydramine HCl (Benadryl) 25 mg Q4H PRN IV ALLERGIC REACTION; Start 09/03/18 at 13:00 Meperidine HCl (Demerol) 50 mg Q4H PRN IV ALLERGIC REACTION; Start 09/03/18 at 13:00 Insulin Glargine (Lantus) 13 units DAILY@2000 SC Last administered on 09/03/18at 20:35; Admin Dose 13 UNITS; Start 09/03/18 at 20:00 Simethicone (Mylicon) 80 mg Q6H PRN GTB DISTENSION/GAS/BLOATING Last administered on 09/03/18at 17:52; Admin Dose 80 MG; Start 09/03/18 at 17:00 Sucralfate (Carafate Susp) 1 gm AC MEALS AND BEDTIME PO Last administered on 09/04/18at 11:31; Admin Dose 1 GM; Start 09/04/18 at 11:00 Sodium Bicarbonate (Sodium Bicarbonate Tab) 650 mg PC BREAKFAST DINNER PO ; Start 09/04/18 at 18:35 Pantoprazole (Protonix Iv) 40 mg BID@06,18 IV ; Start 09/04/18 at 18:00 Insulin Aspart (Novolog Insulin Pen) NOVOLOG *MODERATE* ALGORITHM WITH MEALS BEDTIME SC ; Start 09/04/18 at 17:35 ASHTYN CHAVEZ Sep 04, 2018 14:35
[2018-09-04] MEDS: PANTOPRAZOLE 40 MG INJ IV SCH (17:24)
[2018-09-04] MEDS: INSULIN GLARGINE [LANTus] (100 UNITS/ML) SYG SC SCH (20:22)
[2018-09-05] VITALS (9 sets, daily range): BP systolic 133–163; BP diastolic 72–85; PULSE 66–84; RESP 18–19
[2018-09-05] MEDS: PANTOPRAZOLE 40 MG INJ IV SCH (05:17)
[2018-09-05] MEDS ORDERED: GUAIFENESIN/DM 5ML CUP PO ONE (06:30)
[2018-09-05] MEDS: SUCRALFATE (100 MG/ML) 10ML CUP PO SCH ×2 (07:20→09:42)
[2018-09-05] MEDS: INSULIN ASPART [NOVOLOG] 3 ML PEN SC SCH ×4 (07:50→21:00)
[2018-09-05] MEDS: AMLODIPINE 10 MG TAB PO SCH (09:43)
[2018-09-05] MEDS: 1/2 NS + KCL 20 MEQ 1,000 ML IV SCH (09:48)
[2018-09-05] MEDS: NA BICARBONATE 650 MG TAB PO SCH ×2 (10:44→18:55)
[2018-09-05] MEDS: SUCRALFATE 1 GM TAB PO SCH ×3 (13:06→21:11)
--- NOTE | 2018-09-05 13:14 | PN ---
Date/Time of Note Date/Time of Note DATE: 09/05/18 TIME: 13:01 Assessment/Plan VTE Prophylaxis Risk score (from Nsg)>0 risk: 7 SCD applied (from Ns): No SCD contraindicated: other (scds) Pharmacological prophylaxis: other (scds) Lines/Catheters IV [facility] (from [facility] Saline Lock Urinary Cath still in place: No Assessment/Plan Hospital Course Assessment: Coffee-ground emesis EGD 08/27/18 Large 5 cm ulceration with nodular boarders highly suspect for malignancy. Central exposed visible vessel with no evidence of recent bleeding left untreated. Otherwise normal EGD S/p EGD 09/01/18: -Active oozing multiple sites ulcer bed. -Limited visualization. -No endoscopically treatable lesion identified S/p IR embolization of gastric artery 09/01 Gastric adenocarcinoma, poorly-differentiated, favor Severe anemia 2/2 to above Abdominal adenopathy noted -Differential diagnosis includes inflammation and neoplasm. Small right pleural effusion Elevated lipase- Likely 2/2 to dehydration HTN ALEJANDRO on CKD Small amount of ascites DM Plan: PPI to twice daily/Carafate 1gm Po QID F/u oncology recommendations Supportive care Patient seen in collaboration with Dr Sims Subjective: Course reviewed with nursing staff Patient interviewed and examined All labs, imaging and other results reviewed Currently patient feels well. No c/o n/v or abd pain. Pt states he is ambulating with walker. PHYSICAL EXAMINATION: GENERAL: Alert & oriented x 3 SKIN: Port-a-cath HEAD: Normocephalic, atraumatic, no tenderness. EYES: Pupils equal reactive to light, no discharge. EARS/NOSE AND THROAT: Ears normal, nose normal. NECK: Supple, no masses. CHEST: Inspection within normal limits. CARDIOVASCULAR: Heart: Regular rate and rhythm, no murmurs RESPIRATORY: Lungs clear to auscultation. GASTROINTESTINAL AND LIVER: Abdomen: Soft, non tenderness, non-distended, no hernias, no masses, no organomegaly, no ascites, no guarding, no rebound tenderness, normoactive bowel sounds. Rectal: Deferred. Result Diagram: 09/05/18 0502 09/05/18 0502 Results 24hrs Laboratory Tests Test 09/04/18 17:32 09/04/18 20:16 09/05/18 02:23 09/05/18 05:02 Bedside Glucose 241 H 237 H 209 White Blood Count 7.0 # Red Blood Count 2.69 L Hemoglobin 8.0 L Hematocrit 23.3 L Mean Corpuscular 86.6 Volume Mean Corpuscular 29.7 Hemoglobin Mean Corpuscular 34.3 Hemoglobin Concent Red Cell 14.1 Distribution Width Platelet Count 283 Mean Platelet Volume 10.9 H Immature 0.600 H Granulocytes % Neutrophils % 87.2 H Lymphocytes % 8.2 L Monocytes % 4.0 Eosinophils % 0.0 Basophils % 0.0 Nucleated Red Blood 0.0 Cells % Immature 0.040 H Granulocytes # Neutrophils # 6.1 Lymphocytes # 0.6 L Monocytes # 0.3 Eosinophils # 0.0 Basophils # 0.0 Nucleated Red Blood 0.0 Cells # Sodium Level 140 Potassium Level 3.6 Chloride Level 116 H Carbon Dioxide Level 20 L Anion Gap 4 L Blood Urea Nitrogen 37 H Creatinine 1.95 H Est Glomerular 37 L Filtrat Rate mL/min Glucose Level 174 Calcium Level 7.0 L Phosphorus Level 2.9 Magnesium Level 1.9 Test 09/05/18 08:39 Bedside Glucose 167 Exam/Review of Systems Exam Vitals Vital Signs Date Temp Pulse Resp B/P (MAP) Pulse Ox O2 O2 Flow FiO2 Time Delivery Rate 09/05/18 98.7 82 18 158/80 98 10:29 (106) 09/05/18 Room Air 03:30 09/01/18 2.0 16:11 Intake and Output 09/04/18 09/04/18 09/05/18 1515:00 23:00 07:00 IntakeIntake Total 1099 ml 765 ml 435 ml OutputOutput Total 300 ml BalanceBalance 1099 ml 765 ml 135 ml Results Results 24hrs Laboratory Tests Test 09/04/18 17:32 09/04/18 20:16 09/05/18 02:23 09/05/18 05:02 Bedside Glucose 241 H 237 H 209 White Blood Count 7.0 # Red Blood Count 2.69 L Hemoglobin 8.0 L Hematocrit 23.3 L Mean Corpuscular 86.6 Volume Mean Corpuscular 29.7 Hemoglobin Mean Corpuscular 34.3 Hemoglobin Concent Red Cell 14.1 Distribution Width Platelet Count 283 Mean Platelet Volume 10.9 H Immature 0.600 H Granulocytes % Neutrophils % 87.2 H Lymphocytes % 8.2 L Monocytes % 4.0 Eosinophils % 0.0 Basophils % 0.0 Nucleated Red Blood 0.0 Cells % Immature 0.040 H Granulocytes # Neutrophils # 6.1 Lymphocytes # 0.6 L Monocytes # 0.3 Eosinophils # 0.0 Basophils # 0.0 Nucleated Red Blood 0.0 Cells # Sodium Level 140 Potassium Level 3.6 Chloride Level 116 H Carbon Dioxide Level 20 L Anion Gap 4 L Blood Urea Nitrogen 37 H Creatinine 1.95 H Est Glomerular 37 L Filtrat Rate mL/min Glucose Level 174 Calcium Level 7.0 L Phosphorus Level 2.9 Magnesium Level 1.9 Test 09/05/18 08:39 Bedside Glucose 167 Medications Medication Current Medications Ondansetron HCl (Zofran Inj) 4 mg Q6H PRN IV NAUSEA AND/OR VOMITING Last administered on 09/01/18at 10:48; Admin Dose 4 MG; Start 08/26/18 at 18:30 Albuterol (Proventil 0.083% (Neb)) 2.5 mg Q2H RESP THERAPY PRN NEB SHORTNESS OF BREATH; Start 08/26/18 at 18:30 Acetaminophen (Tylenol Supp) 650 mg Q4H PRN [place] PAIN LEVEL 1-3 OR FEVER Last administered on 09/03/18at 00:01; Admin Dose 650 MG; Start 08/26/18 at 18:30 Morphine Sulfate (morphine) 2 mg Q4H PRN IV PAIN LEVEL 7-10 Last administered on 09/01/18at 08:02; Admin Dose 2 MG; Start 08/26/18 at 18:30 Hydralazine HCl (Apresoline) 10 mg Q4H PRN IV SBP >170 Last administered on 09/03/18at 13:00; Admin Dose 10 MG; Start 08/26/18 at 19:00 Miscellaneous Information 1 ea NOTE XX ; Start 08/26/18 at 19:00 Glucose (Glutose) 15 gm Q15M PRN PO DECREASED GLUCOSE; Start 08/26/18 at 19:00 Glucose (Glutose) 22.5 gm Q15M PRN PO DECREASED GLUCOSE; Start 08/26/18 at 19:00 Dextrose (D50w Syringe) 25 ml Q15M PRN IV DECREASED GLUCOSE; Start 08/26/18 at 19:00 Dextrose (D50w Syringe) 50 ml Q15M PRN IV DECREASED GLUCOSE; Start 08/26/18 at 19:00 Glucagon (Glucagen) 1 mg Q15M PRN IM DECREASED GLUCOSE; Start 08/26/18 at 19:00 Glucose (Glutose) 15 gm Q15M PRN BUCCAL DECREASED GLUCOSE; Start 08/26/18 at 19:00 Labetalol HCl (Labetalol) 10 mg Q4H PRN IV sbp >160 Last administered on 09/03/18 21:23; Admin Dose 10 MG; Start 08/27/18 at 10:00 Amlodipine Besylate (Norvasc) 10 mg DAILY PO Last administered on 09/05/18 09:43; Admin Dose 10 MG; Start 08/31/18 at 11:00 Lorazepam (Ativan) 0.5 mg Q6H PRN IV ANXIETY; Start 09/01/18 at 19:00 Insulin Glargine (Lantus) 13 units DAILY@2000 SC Last administered on 09/04/18 20:22; Admin Dose 13 UNITS; Start 09/03/18 at 20:00 Simethicone (Mylicon) 80 mg Q6H PRN GTB DISTENSION/GAS/BLOATING Last administered on 09/05/18 00:39; Admin Dose 80 MG; Start 09/03/18 at 17:00 Sodium Bicarbonate (Sodium Bicarbonate Tab) 650 mg PC BREAKFAST DINNER PO Last administered on 09/05/18 10:44; Admin Dose 650 MG; Start 09/04/18 at 18:35 Pantoprazole (Protonix Iv) 40 mg BID@06,18 IV Last administered on 09/05/18 05:17; Admin Dose 40 MG; Start 09/04/18 at 18:00 Insulin Aspart (Novolog Insulin Pen) NOVOLOG *MODERATE* ALGORITHM WITH MEALS BEDTIME SC Last administered on 09/04/18 20:23; Admin Dose 2 UNIT; Start 09/04/18 at 17:35 Potassium Chloride/Sodium Chloride 1,000 ml @ 75 mls/hr [id number] IV Last administered on 09/05/18 09:48; Admin Dose 75 MLS/HR; Start 09/05/18 at 09:00 Guaifenesin/ Dextromethorphan (Robitussin Dm Liquid Cup) 5 ml Q4H PRN PO COUGH; Start 09/05/18 at 09:00 Sucralfate (Carafate) 1 gm AC MEALS AND BEDTIME PO ; Start 09/05/18 at 13:00 ASHTYN CHAVEZ Sep 05, 2018 13:11
--- NOTE | 2018-09-05 14:19 | PN ---
Date/Time of Note Date/Time of Note DATE: 09/05/18 TIME: 14:17 Assessment/Plan VTE Prophylaxis Risk score (from Ns)>0 risk: 7 SCD applied (from Ns): No SCD contraindicated: low risk/ambulating Pharmacological prophylaxis: NA/contraindicated Pharm contraindication: bleeding Lines/Catheters IV [facility] Saline Lock Urinary Cath still in place: No Assessment/Plan Assessment/Plan 48 yo man with history of diabetes and HTN presents with newly diagnosed gastric cancer with bleeding gastric ulcer. #Hematemesis with large gastric ulcer -Is now status post left gastric artery embolization from interventional radiologist on 08/01. -Abdominal pain is improving. -General surgery on board -GI on board -Definitive treatment will need to be chemotherapy and radiation, radiation oncologist also on board, Dr Gramajo will offer radiation therapy once patient is stable for discharge (will be done outpatient). -Oncology on board. #Gastric adenocarcinoma -Oncology has been consulted -MRI results noted, questionable hepatic findings versus other lymphadenopathy, oncology recognitions appreciated -Per oncology, CT chest ordered and noted -Port-A-Cath placed, finished first cycle of chemotherapy. #Distended gallbladder per MRI -Patient completely asymptomatic, no abdominal pain, monitor for now #Liver cyst versus hemangioma versus metastases -Found on MRI, oncology recommendations appreciated #Syncope, recurred -Likely secondary to vasovagal events as well as low hemoglobin and blood loss -Monitor very closely #Blood loss anemia -Continue transfusing as needed -Secondary to GI bleed - Now Hgb stable. #Elevated lipase on admission -No abdominal pain on admission -Likely due to above GI issues, monitor #Hypertension -As needed hydralazine and labetalol, restart home meds when able to tolerate p.o. #Acute kidney injury versus chronic kidney disease -Continue IV fluid -Nephrology consulted, had signed off but requested reconsultation due to elevated creatinine which is likely caused by hemodynamic instability yesterday and other issues however there is a chance that the contrast use during yesterday's angiogram may have also slightly begun to damage the kidneys although this is usually seen a few days after procedure, all risks of acute renal failure were explained to the family and they have still decided to proceed with embolism yesterday as the risk of not doing embolism would be possibly acute worsening hemorrhage. #Diabetes mellitus -Patient stated that ever since he was given Trulicity the past week he has been experiencing severe side effects, hold Trulicity for now, insulin sliding scale for now #Disposition - Plan for discharge tomorrow or Monday based on symptoms. Continue outpatient chemoXRT. Result Diagram: 09/05/18 0502 09/05/18 0502 Subjective 24 Hr Interval Summary Free Text/Dictation Had more maroon-colored stool last night. This afternoon doing well; awake and alert. Tolerating diet, ambulating. Exam/Review of Systems Exam Vitals Vital Signs Date Temp Pulse Resp B/P (MAP) Pulse Ox O2 O2 Flow FiO2 Time Delivery Rate 09/05/18 98.7 68 18 160/83 98 14:08 (108) 09/05/18 Room Air 03:30 09/01/18 2.0 16:11 Intake and Output 09/04/18 09/04/18 09/05/18 1515:00 23:00 07:00 IntakeIntake Total 1099 ml 765 ml 435 ml OutputOutput Total 300 ml BalanceBalance 1099 ml 765 ml 135 ml Exam General: Patient is laying in bed and answers questions appropriately Head: Normocephalic atraumatic Eyes: EOMI, pupils reactive to light Neck: Supple, nontender, midline Respiratory: Clear to auscultation bilaterally Cardiovascular: regular rate, no obvious murmurs Gastrointestinal: Nontender to palpation, bowel sounds heard. Skin: No new skin lesions Results Results 24hrs Laboratory Tests Test 09/04/18 17:32 09/04/18 20:16 09/05/18 02:23 09/05/18 05:02 Bedside Glucose 241 H 237 H 209 White Blood Count 7.0 # Red Blood Count 2.69 L Hemoglobin 8.0 L Hematocrit 23.3 L Mean Corpuscular 86.6 Volume Mean Corpuscular 29.7 Hemoglobin Mean Corpuscular 34.3 Hemoglobin Concent Red Cell 14.1 Distribution Width Platelet Count 283 Mean Platelet Volume 10.9 H Immature 0.600 H Granulocytes % Neutrophils % 87.2 H Lymphocytes % 8.2 L Monocytes % 4.0 Eosinophils % 0.0 Basophils % 0.0 Nucleated Red Blood 0.0 Cells % Immature 0.040 H Granulocytes # Neutrophils # 6.1 Lymphocytes # 0.6 L Monocytes # 0.3 Eosinophils # 0.0 Basophils # 0.0 Nucleated Red Blood 0.0 Cells # Sodium Level 140 Potassium Level 3.6 Chloride Level 116 H Carbon Dioxide Level 20 L Anion Gap 4 L Blood Urea Nitrogen 37 H Creatinine 1.95 H Est Glomerular 37 L Filtrat Rate mL/min Glucose Level 174 Calcium Level 7.0 L Phosphorus Level 2.9 Magnesium Level 1.9 Test 09/05/18 08:39 09/05/18 13:05 Bedside Glucose 167 234 H Medications Medication Current Medications Ondansetron HCl (Zofran Inj) 4 mg Q6H PRN IV NAUSEA AND/OR VOMITING Last administered on 09/01/18at 10:48; Admin Dose 4 MG; Start 08/26/18 at 18:30 Albuterol (Proventil 0.083% (Neb)) 2.5 mg Q2H RESP THERAPY PRN NEB SHORTNESS OF BREATH; Start 08/26/18 at 18:30 Acetaminophen (Tylenol Supp) 650 mg Q4H PRN [place] PAIN LEVEL 1-3 OR FEVER Last administered on 09/03/18at 00:01; Admin Dose 650 MG; Start 08/26/18 at 18:30 Morphine Sulfate (morphine) 2 mg Q4H PRN IV PAIN LEVEL 7-10 Last administered on 09/01/18at 08:02; Admin Dose 2 MG; Start 08/26/18 at 18:30 Hydralazine HCl (Apresoline) 10 mg Q4H PRN IV SBP >170 Last administered on 09/03/18at 13:00; Admin Dose 10 MG; Start 08/26/18 at 19:00 Miscellaneous Information 1 ea NOTE XX ; Start 08/26/18 at 19:00 Glucose (Glutose) 15 gm Q15M PRN PO DECREASED GLUCOSE; Start 08/26/18 at 19:00 Glucose (Glutose) 22.5 gm Q15M PRN PO DECREASED GLUCOSE; Start 08/26/18 at 19:00 Dextrose (D50w Syringe) 25 ml Q15M PRN IV DECREASED GLUCOSE; Start 08/26/18 at 19:00 Dextrose (D50w Syringe) 50 ml Q15M PRN IV DECREASED GLUCOSE; Start 08/26/18 at 19:00 Glucagon (Glucagen) 1 mg Q15M PRN IM DECREASED GLUCOSE; Start 08/26/18 at 19:00 Glucose (Glutose) 15 gm Q15M PRN BUCCAL DECREASED GLUCOSE; Start 08/26/18 at 19:00 Labetalol HCl (Labetalol) 10 mg Q4H PRN IV sbp >160 Last administered on 09/03/18 21:23; Admin Dose 10 MG; Start 08/27/18 at 10:00 Amlodipine Besylate (Norvasc) 10 mg DAILY PO Last administered on 09/05/18 09:43; Admin Dose 10 MG; Start 08/31/18 at 11:00 Lorazepam (Ativan) 0.5 mg Q6H PRN IV ANXIETY; Start 09/01/18 at 19:00 Insulin Glargine (Lantus) 13 units DAILY@2000 SC Last administered on 09/04/18 20:22; Admin Dose 13 UNITS; Start 09/03/18 at 20:00 Simethicone (Mylicon) 80 mg Q6H PRN GTB DISTENSION/GAS/BLOATING Last administered on 09/05/18 00:39; Admin Dose 80 MG; Start 09/03/18 at 17:00 Sodium Bicarbonate (Sodium Bicarbonate Tab) 650 mg PC BREAKFAST DINNER PO Last administered on 09/05/18 10:44; Admin Dose 650 MG; Start 09/04/18 at 18:35 Pantoprazole (Protonix Iv) 40 mg BID@06,18 IV Last administered on 09/05/18 05:17; Admin Dose 40 MG; Start 09/04/18 at 18:00 Insulin Aspart (Novolog Insulin Pen) NOVOLOG *MODERATE* ALGORITHM WITH MEALS BEDTIME SC Last administered on 09/05/18 13:07; Admin Dose 6 UNIT; Start 09/04/18 at 17:35 Potassium Chloride/Sodium Chloride 1,000 ml @ 75 mls/hr [id number] IV Last administered on 09/05/18 09:48; Admin Dose 75 MLS/HR; Start 09/05/18 at 09:00 Guaifenesin/ Dextromethorphan (Robitussin Dm Liquid Cup) 5 ml Q4H PRN PO COUGH; Start 09/05/18 at 09:00 Sucralfate (Carafate) 1 gm AC MEALS AND BEDTIME PO Last administered on 09/05/18 13:06; Admin Dose 1 GM; Start 09/05/18 at 13:00 KANDY MIRELES MD Sep 05, 2018 14:19
--- NOTE | 2018-09-05 14:21 | CONS ---
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 -CT demonstrates appearance of enlarged lymph nodes in the gastrohepatic ligament, celiac region, periportal region and left para-aortic region of the retroperitoneum the largest lymph node measuring approximately 1.8 cm short-axis in the left para-aortic region. -given his likelihood to re-bleed, need to give urgent chemotherapy in the hospital. chemotherapy was started yesterday. s/p 1st cycle of FLOT -continue FLOT per the following regimen Fluorouracil (5-FU) 2600 mg/m2 IV continuous infusion over 24 hours on day 1 Folinic acid (Leucovorin) 200 mg/m2 IV once on day 1 Oxaliplatin (Eloxatin) 85 mg/m2 IV once on day 1 Docetaxel (Taxotere) 50 mg/m2 IV once on day 1 -MRI demonstrates. Gastric wall thickening and upper abdominal adenopathy which raises the possibility of gastric neoplasm. Probable hepatic cysts or hemangiomas. -pt will need PET CT as an out patient -port in placed -will continue chemo as an out patient #iron deficiency anemia -s/p IV iron -Hg stable Thank you for the opportunity to participate in this patients care A total of 40 minutes of face to face time was spent speaking with the patient, of which greater than 50% was spent in counseling and coordination of care and the detailed question and answer session. Consultation Date/Type/Reason Admit Date/Time Aug 26, 2018 at 17:28 Initial Consult Date 08/28/18 Type of Consult oncology Reason for Consultation gastric cancer Requesting Provider: IVY PICKETT Date/Time of Note DATE: 09/05/18 TIME: 14:19 24 HR Interval Summary Free Text/Dictation pt is currently tolerating chemotherapy well Exam/Review of Systems Exam Vitals Vital Signs Date Temp Pulse Resp B/P (MAP) Pulse Ox O2 O2 Flow FiO2 Time Delivery Rate 09/05/18 98.7 68 18 160/83 98 14:08 (108) 09/05/18 Room Air 03:30 09/01/18 2.0 16:11 Intake and Output 09/04/18 09/04/18 09/05/18 1515:00 23:00 07:00 IntakeIntake Total 1099 ml 765 ml 435 ml OutputOutput Total 300 ml BalanceBalance 1099 ml 765 ml 135 ml Constitutional: alert, oriented Psych: no complaints Head: normocephalic Eyes: nl conjunctiva ENMT: nl external ears & nose Neck: supple Respiratory: clear to auscultation, normal air movement Cardiovascular: regular rate and rhythm Gastrointestinal: soft Musculoskeletal: nl extremities to inspection Results Result Diagram: 09/05/18 0502 09/05/18 0502 Results 24hrs Laboratory Tests Test 09/04/18 17:32 09/04/18 20:16 09/05/18 02:23 09/05/18 05:02 Bedside Glucose 241 H 237 H 209 White Blood Count 7.0 # Red Blood Count 2.69 L Hemoglobin 8.0 L Hematocrit 23.3 L Mean Corpuscular 86.6 Volume Mean Corpuscular 29.7 Hemoglobin Mean Corpuscular 34.3 Hemoglobin Concent Red Cell 14.1 Distribution Width Platelet Count 283 Mean Platelet Volume 10.9 H Immature 0.600 H Granulocytes % Neutrophils % 87.2 H Lymphocytes % 8.2 L Monocytes % 4.0 Eosinophils % 0.0 Basophils % 0.0 Nucleated Red Blood 0.0 Cells % Immature 0.040 H Granulocytes # Neutrophils # 6.1 Lymphocytes # 0.6 L Monocytes # 0.3 Eosinophils # 0.0 Basophils # 0.0 Nucleated Red Blood 0.0 Cells # Sodium Level 140 Potassium Level 3.6 Chloride Level 116 H Carbon Dioxide Level 20 L Anion Gap 4 L Blood Urea Nitrogen 37 H Creatinine 1.95 H Est Glomerular 37 L Filtrat Rate mL/min Glucose Level 174 Calcium Level 7.0 L Phosphorus Level 2.9 Magnesium Level 1.9 Test 09/05/18 08:39 09/05/18 13:05 Bedside Glucose 167 234 H Medications Medication Current Medications Ondansetron HCl (Zofran Inj) 4 mg Q6H PRN IV NAUSEA AND/OR VOMITING Last admi nistered on 09/01/18at 10:48; Admin Dose 4 MG; Start 08/26/18 at 18:30 Albuterol (Proventil 0.083% (Neb)) 2.5 mg Q2H RESP THERAPY PRN NEB SHORTNESS OF BREATH; Start 08/26/18 at 18:30 Acetaminophen (Tylenol Supp) 650 mg Q4H PRN [place] PAIN LEVEL 1-3 OR FEVER Last administered on 09/03/18at 00:01; Admin Dose 650 MG; Start 08/26/18 at 18:30 Morphine Sulfate (morphine) 2 mg Q4H PRN IV PAIN LEVEL 7-10 Last administered on 09/01/18at 08:02; Admin Dose 2 MG; Start 08/26/18 at 18:30 Hydralazine HCl (Apresoline) 10 mg Q4H PRN IV SBP >170 Last administered on 09/03/18at 13:00; Admin Dose 10 MG; Start 08/26/18 at 19:00 Miscellaneous Information 1 ea NOTE XX ; Start 08/26/18 at 19:00 Glucose (Glutose) 15 gm Q15M PRN PO DECREASED GLUCOSE; Start 08/26/18 at 19:00 Glucose (Glutose) 22.5 gm Q15M PRN PO DECREASED GLUCOSE; Start 08/26/18 at 19:00 Dextrose (D50w Syringe) 25 ml Q15M PRN IV DECREASED GLUCOSE; Start 08/26/18 at 19:00 Dextrose (D50w Syringe) 50 ml Q15M PRN IV DECREASED GLUCOSE; Start 08/26/18 at 19:00 Glucagon (Glucagen) 1 mg Q15M PRN IM DECREASED GLUCOSE; Start 08/26/18 at 19:00 Glucose (Glutose) 15 gm Q15M PRN BUCCAL DECREASED GLUCOSE; Start 08/26/18 at 19:00 Labetalol HCl (Labetalol) 10 mg Q4H PRN IV sbp >160 Last administered on 09/03/18at 21:23; Admin Dose 10 MG; Start 08/27/18 at 10:00 Amlodipine Besylate (Norvasc) 10 mg DAILY PO Last administered on 09/05/18at 09:43; Admin Dose 10 MG; Start 08/31/18 at 11:00 Lorazepam (Ativan) 0.5 mg Q6H PRN IV ANXIETY; Start 09/01/18 at 19:00 Insulin Glargine (Lantus) 13 units DAILY@2000 SC Last administered on 09/04/18at 20:22; Admin Dose 13 UNITS; Start 09/03/18 at 20:00 Simethicone (Mylicon) 80 mg Q6H PRN GTB DISTENSION/GAS/BLOATING Last administ ered on 09/05/18at 00:39; Admin Dose 80 MG; Start 09/03/18 at 17:00 Sodium Bicarbonate (Sodium Bicarbonate Tab) 650 mg PC BREAKFAST DINNER PO Last administered on 09/05/18 10:44; Admin Dose 650 MG; Start 09/04/18 at 18:35 Pantoprazole (Protonix Iv) 40 mg BID@06,18 IV Last administered on 09/05/18 05:17; Admin Dose 40 MG; Start 09/04/18 at 18:00 Insulin Aspart (Novolog Insulin Pen) NOVOLOG *MODERATE* ALGORITHM WITH MEALS BEDTIME SC Last administered on 09/05/18 13:07; Admin Dose 6 UNIT; Start 09/04/18 at 17:35 Potassium Chloride/Sodium Chloride 1,000 ml @ 75 mls/hr [id number] IV Last admi nistered on 09/05/18 09:48; Admin Dose 75 MLS/HR; Start 09/05/18 at 09:00 Guaifenesin/ Dextromethorphan (Robitussin Dm Liquid Cup) 5 ml Q4H PRN PO COUGH; Start 09/05/18 at 09:00 Sucralfate (Carafate) 1 gm AC MEALS AND BEDTIME PO Last administered on 09/05/18 13:06; Admin Dose 1 GM; Start 09/05/18 at 13:00 AME VALDEZ M.D. Sep 05, 2018 14:21
[2018-09-05] MEDS: GUAIFENESIN/DM 5ML CUP PO PRN ×2 (16:32→21:53)
--- NOTE | 2018-09-05 17:46 | CONS ---
Assessment/Plan Assessment/Plan Hospital Course (Demo Recall) 1. Acute renal failure superimposed on chronic kidney disease. His serum creatinine is higher . He has not had any GI bleeding for 2 days. He has decreased urine output. I will increase his IV fluids as he has a decreased oral intake for 2 days. I will check a portable chest x-ray to help assess his fluid volume. His chest x-ray done today is clear . I will continue to follow the patient along with you. 2. GI bleeding due to gastric ulcer which has been biopsied and is gastric adenocarcinoma . GI and oncologic w/u are in progress .he started chemotherapy yesterday . 3. Type 2 diabetes mellitus . He was on metformin and Trulicity preadmission. I would hold off on restarting these medications and if an oral medication is needed would consider using Tradjenta 5 mg a day. 4. Syncope due to gastrointestinal bleeding 5. HTN , BP is higher . I will start him on hydralazine . Consultation Date/Type/Reason Admit Date/Time Aug 26, 2018 at 17:28 Initial Consult Date 08/28/18 Type of Consult Nephrology Requesting Provider: IVY PICKETT Date/Time of Note DATE: 09/05/18 TIME: 17:26 24 HR Interval Summary Free Text/Dictation patient is being seen in nephrologic follow up . He has been feeling tired today and had a cough . Poor appetite . Constitutional: poor po Exam/Review of Systems Exam Vitals Vital Signs Date Temp Pulse Resp B/P (MAP) Pulse Ox O2 O2 Flow FiO2 Time Delivery Rate 09/05/18 98.7 68 18 160/83 98 14:08 (108) 09/05/18 Room Air 03:30 09/01/18 2.0 16:11 Intake and Output 09/04/18 09/04/18 09/05/18 1515:00 23:00 07:00 IntakeIntake Total 1099 ml 765 ml 435 ml OutputOutput Total 300 ml BalanceBalance 1099 ml 765 ml 135 ml Constitutional: alert, oriented, frail Neck: supple, non-tender Respiratory: clear to auscultation, normal air movement Cardiovascular: regular rate and rhythm Gastrointestinal: soft, tender Musculoskeletal: nl extremities to inspection Results Result Diagram: 09/05/18 0502 09/05/18 0502 Results 24hrs Laboratory Tests Test 09/04/18 17:32 09/04/18 20:16 09/05/18 02:23 09/05/18 05:02 Bedside Glucose 241 H 237 H 209 White Blood Count 7.0 # Red Blood Count 2.69 L Hemoglobin 8.0 L Hematocrit 23.3 L Mean Corpuscular 86.6 Volume Mean Corpuscular 29.7 Hemoglobin Mean Corpuscular 34.3 Hemoglobin Concent Red Cell 14.1 Distribution Width Platelet Count 283 Mean Platelet Volume 10.9 H Immature 0.600 H Granulocytes % Neutrophils % 87.2 H Lymphocytes % 8.2 L Monocytes % 4.0 Eosinophils % 0.0 Basophils % 0.0 Nucleated Red Blood 0.0 Cells % Immature 0.040 H Granulocytes # Neutrophils # 6.1 Lymphocytes # 0.6 L Monocytes # 0.3 Eosinophils # 0.0 Basophils # 0.0 Nucleated Red Blood 0.0 Cells # Sodium Level 140 Potassium Level 3.6 Chloride Level 116 H Carbon Dioxide Level 20 L Anion Gap 4 L Blood Urea Nitrogen 37 H Creatinine 1.95 H Est Glomerular 37 L Filtrat Rate mL/min Glucose Level 174 Calcium Level 7.0 L Phosphorus Level 2.9 Magnesium Level 1.9 Test 09/05/18 08:39 09/05/18 13:05 Bedside Glucose 167 234 H Medications Medication Current Medications Ondansetron HCl (Zofran Inj) 4 mg Q6H PRN IV NAUSEA AND/OR VOMITING Last administered on 09/01/18at 10:48; Admin Dose 4 MG; Start 08/26/18 at 18:30 Albuterol (Proventil 0.083% (Neb)) 2.5 mg Q2H RESP THERAPY PRN NEB SHORTNESS OF BREATH; Start 08/26/18 at 18:30 Acetaminophen (Tylenol Supp) 650 mg Q4H PRN IN PAIN LEVEL 1-3 OR FEVER Last administered on 09/03/18at 00:01; Admin Dose 650 MG; Start 08/26/18 at 18:30 Morphine Sulfate (morphine) 2 mg Q4H PRN IV PAIN LEVEL 7-10 Last administered on 09/01/18 08:02; Admin Dose 2 MG; Start 08/26/18 at 18:30 Hydralazine HCl (Apresoline) 10 mg Q4H PRN IV SBP >170 Last administered on 09/03/18at 13:00; Admin Dose 10 MG; Start 08/26/18 at 19:00 Miscellaneous Information 1 ea NOTE XX ; Start 08/26/18 at 19:00 Glucose (Glutose) 15 gm Q15M PRN PO DECREASED GLUCOSE; Start 08/26/18 at 19:00 Glucose (Glutose) 22.5 gm Q15M PRN PO DECREASED GLUCOSE; Start 08/26/18 at 19:00 Dextrose (D50w Syringe) 25 ml Q15M PRN IV DECREASED GLUCOSE; Start 08/26/18 at 19:00 Dextrose (D50w Syringe) 50 ml Q15M PRN IV DECREASED GLUCOSE; Start 08/26/18 at 19:00 Glucagon (Glucagen) 1 mg Q15M PRN IM DECREASED GLUCOSE; Start 08/26/18 at 19:00 Glucose (Glutose) 15 gm Q15M PRN BUCCAL DECREASED GLUCOSE; Start 08/26/18 at 19:00 Labetalol HCl (Labetalol) 10 mg Q4H PRN IV sbp >160 Last administered on 09/03/18at 21:23; Admin Dose 10 MG; Start 08/27/18 at 10:00 Amlodipine Besylate (Norvasc) 10 mg DAILY PO Last administered on 09/05/18at 09:43; Admin Dose 10 MG; Start 08/31/18 at 11:00 Lorazepam (Ativan) 0.5 mg Q6H PRN IV ANXIETY; Start 09/01/18 at 19:00 Insulin Glargine (Lantus) 13 units DAILY@2000 SC Last administered on 09/04/18at 20:22; Admin Dose 13 UNITS; Start 09/03/18 at 20:00 Simethicone (Mylicon) 80 mg Q6H PRN GTB DISTENSION/GAS/BLOATING Last administered on 09/05/18at 00:39; Admin Dose 80 MG; Start 09/03/18 at 17:00 Sodium Bicarbonate (Sodium Bicarbonate Tab) 650 mg PC BREAKFAST DINNER PO Last administered on 09/05/18at 10:44; Admin Dose 650 MG; Start 09/04/18 at 18:35 Pantoprazole (Protonix Iv) 40 mg BID@06,18 IV Last administered on 09/05/18at 05:17; Admin Dose 40 MG; Start 09/04/18 at 18:00 Insulin Aspart (Novolog Insulin Pen) NOVOLOG *MODERATE* ALGORITHM WITH MEALS BEDTIME SC Last administered on 09/05/18 13:07; Admin Dose 6 UNIT; Start 02/12 at 17:35 Potassium Chloride/Sodium Chloride 1,000 ml @ 75 mls/hr [id number] IV Last administered on 09/05/18 09:48; Admin Dose 75 MLS/HR; Start 09/05/18 at 09:00 Guaifenesin/ Dextromethorphan (Robitussin Dm Liquid Cup) 5 ml Q4H PRN PO COUGH Last administered on 09/05/18 16:32; Admin Dose 5 ML; Start 09/05/18 at 09:00 Sucralfate (Carafate) 1 gm AC MEALS AND BEDTIME PO Last administered on 09/05/18 13:06; Admin Dose 1 GM; Start 09/05/18 at 13:00 RUCHI VELIZ MD Sep 05, 2018 17:36
[2018-09-05] MEDS: PANTOPRAZOLE (EC) 40 MG TAB PO SCH (17:47)
[2018-09-05] MEDS: INSULIN GLARGINE [LANTus] (100 UNITS/ML) SYG SC SCH (21:13)
[2018-09-06] MEDS: 1/2 NS + KCL 20 MEQ 1,000 ML IV SCH (00:13)
[2018-09-06 02:17] VITALS: BP 148/83; PULSE 65; RESP 16
[2018-09-06] MEDS: PANTOPRAZOLE (EC) 40 MG TAB PO SCH (06:33)
[2018-09-06 07:15] VITALS: BP 165/80; PULSE 70; RESP 18
[2018-09-06] MEDS: SUCRALFATE 1 GM TAB PO SCH ×2 (07:49→11:26)
[2018-09-06 07:59] VITALS: BP 139/88; PULSE 89; RESP 18
[2018-09-06] MEDS: INSULIN ASPART [NOVOLOG] 3 ML PEN SC SCH ×2 (09:10→13:17)
[2018-09-06] MEDS: NA BICARBONATE 650 MG TAB PO SCH (09:11)
[2018-09-06] MEDS: AMLODIPINE 10 MG TAB PO SCH (09:12)
--- NOTE | 2018-09-06 09:25 | CONS ---
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 -CT demonstrates appearance of enlarged lymph nodes in the gastrohepatic ligament, celiac region, periportal region and left para-aortic region of the retroperitoneum the largest lymph node measuring approximately 1.8 cm short-axis in the left para-aortic region. -given his likelihood to re-bleed, need to give urgent chemotherapy in the hospital. chemotherapy was started yesterday. s/p 1st cycle of FLOT -continue FLOT per the following regimen Fluorouracil (5-FU) 2600 mg/m2 IV continuous infusion over 24 hours on day 1 Folinic acid (Leucovorin) 200 mg/m2 IV once on day 1 Oxaliplatin (Eloxatin) 85 mg/m2 IV once on day 1 Docetaxel (Taxotere) 50 mg/m2 IV once on day 1 -MRI demonstrates. Gastric wall thickening and upper abdominal adenopathy which raises the possibility of gastric neoplasm. Probable hepatic cysts or hemangiomas. -pt will need PET CT as an out patient -port in placed -will continue chemo as an out patient #ALEJANDRO -2/2 hypovolemia and GI bleed -nephrology on board -continue IV fluids #iron deficiency anemia -s/p IV iron -Hg stable Thank you for the opportunity to participate in this patients care A total of 40 minutes of face to face time was spent speaking with the patient, of which greater than 50% was spent in counseling and coordination of care and the detailed question and answer session. Consultation Date/Type/Reason Admit Date/Time Aug 26, 2018 at 17:28 Initial Consult Date 08/28/18 Type of Consult oncology Reason for Consultation gastric cancer Requesting Provider: IVY PIKCETT Date/Time of Note DATE: 09/06/18 TIME: 09:24 24 HR Interval Summary Free Text/Dictation pt now on continuous IV fluids for elevated Cr Exam/Review of Systems Exam Vitals Vital Signs Date Temp Pulse Resp B/P (MAP) Pulse Ox O2 O2 Flow FiO2 Time Delivery Rate 09/06/18 99.0 89 18 139/88 99 07:59 (105) 09/06/18 Room Air 02:17 Intake and Output 09/05/18 09/05/18 09/06/18 1515:00 23:00 07:00 IntakeIntake Total 240 ml 525 ml 850 ml OutputOutput Total 200 ml 150 ml BalanceBalance 240 ml 325 ml 700 ml Constitutional: alert, oriented Psych: no complaints, anxiety, depression Eyes: nl conjunctiva ENMT: nl external ears & nose Neck: supple Respiratory: clear to auscultation Cardiovascular: regular rate and rhythm Gastrointestinal: soft Musculoskeletal: nl extremities to inspection Extremities: normal pulses Results Result Diagram: 09/06/18 0424 09/06/18 0424 Results 24hrs Laboratory Tests Test 09/05/18 13:05 09/05/18 17:43 09/05/18 21:09 09/06/18 04:24 Bedside Glucose 234 H 153 159 White Blood Count 5.8 Red Blood Count 2.90 L Hemoglobin 8.5 L Hematocrit 24.8 L Mean Corpuscular 85.5 Volume Mean Corpuscular 29.3 Hemoglobin Mean Corpuscular 34.3 Hemoglobin Concent Red Cell 14.2 Distribution Width Platelet Count 333 Mean Platelet Volume 10.9 H Immature 0.300 Granulocytes % Neutrophils % 83.1 H Lymphocytes % 12.3 L Monocytes % 2.8 Eosinophils % 1.2 Basophils % 0.3 Nucleated Red Blood 0.0 Cells % Immature 0.020 Granulocytes # Neutrophils # 4.8 Lymphocytes # 0.7 L Monocytes # 0.2 L Eosinophils # 0.1 Basophils # 0.0 Nucleated Red Blood 0.0 Cells # Sodium Level 140 Potassium Level 3.5 Chloride Level 115 H Carbon Dioxide Level 21 Anion Gap 4 L Blood Urea Nitrogen 36 H Creatinine 1.93 H Est Glomerular 37 L Filtrat Rate mL/min Glucose Level 63 #L Calcium Level 7.1 L Phosphorus Level 3.0 Magnesium Level 2.0 Total Bilirubin 0.3 Direct Bilirubin 0.00 Indirect Bilirubin 0.3 Aspartate Amino 25 Transf (AST/SGOT) Alanine 27 Aminotransferase (AL T/SGPT) Alkaline Phosphatase 53 Total Protein 4.4 L Albumin 2.1 L Globulin 2.30 Albumin/Globulin 0.91 Ratio Test 09/06/18 06:35 09/06/18 09:09 Bedside Glucose 84 99 Medications Medication Current Medications Ondansetron HCl (Zofran Inj) 4 mg Q6H PRN IV NAUSEA AND/OR VOMITING Last administered on 09/01/18at 10:48; Admin Dose 4 MG; Start 08/26/18 at 18:30 Albuterol (Proventil 0.083% (Neb)) 2.5 mg Q2H RESP THERAPY PRN NEB SHORTNESS OF BREATH; Start 08/26/18 at 18:30 Acetaminophen (Tylenol Supp) 650 mg Q4H PRN DC PAIN LEVEL 1-3 OR FEVER Last administered on 09/03/18at 00:01; Admin Dose 650 MG; Start 08/26/18 at 18:30 Morphine Sulfate (morphine) 2 mg Q4H PRN IV PAIN LEVEL 7-10 Last administered on 09/01/18at 08:02; Admin Dose 2 MG; Start 08/26/18 at 18:30 Hydralazine HCl (Apresoline) 10 mg Q4H PRN IV SBP >170 Last administered on 09/03/18at 13:00; Admin Dose 10 MG; Start 08/26/18 at 19:00 Miscellaneous Information 1 ea NOTE XX ; Start 08/26/18 at 19:00 Glucose (Glutose) 15 gm Q15M PRN PO DECREASED GLUCOSE; Start 08/26/18 at 19:00 Glucose (Glutose) 22.5 gm Q15M PRN PO DECREASED GLUCOSE; Start 08/26/18 at 19:00 Dextrose (D50w Syringe) 25 ml Q15M PRN IV DECREASED GLUCOSE; Start 08/26/18 at 19:00 Dextrose (D50w Syringe) 50 ml Q15M PRN IV DECREASED GLUCOSE; Start 08/26/18 at 19:00 Glucagon (Glucagen) 1 mg Q15M PRN IM DECREASED GLUCOSE; Start 08/26/18 at 19:00 Glucose (Glutose) 15 gm Q15M PRN BUCCAL DECREASED GLUCOSE; Start 08/26/18 at 19:00 Labetalol HCl (Labetalol) 10 mg Q4H PRN IV sbp >160 Last administered on 09/03/18at 21:23; Admin Dose 10 MG; Start 08/27/18 at 10:00 Amlodipine Besylate (Norvasc) 10 mg DAILY PO Last administered on 09/06/18 09:12; Admin Dose 10 MG; Start 08/31/18 at 11:00 Lorazepam (Ativan) 0.5 mg Q6H PRN IV ANXIETY; Start 09/01/18 at 19:00 Insulin Glargine (Lantus) 13 units DAILY@2000 SC Last administered on 09/05/18 21:13; Admin Dose 13 UNITS; Start 09/03/18 at 20:00 Simethicone (Mylicon) 80 mg Q6H PRN GTB DISTENSION/GAS/BLOATING Last administered on 09/06/18 02:03; Admin Dose 80 MG; Start 09/03/18 at 17:00 Sodium Bicarbonate (Sodium Bicarbonate Tab) 650 mg PC BREAKFAST DINNER PO Last administered on 09/06/18 09:11; Admin Dose 650 MG; Start 09/04/18 at 18:35 Insulin Aspart (Novolog Insulin Pen) NOVOLOG *MODERATE* ALGORITHM WITH MEALS BEDTIME SC Last administered on 09/05/18 17:46; Admin Dose 2 UNIT; Start 09/04/18 at 17:35 Potassium Chloride/Sodium Chloride 1,000 ml @ 75 mls/hr [id number] IV Last administered on 09/06/18 00:13; Admin Dose 75 MLS/HR; Start 09/05/18 at 09:00 Guaifenesin/ Dextromethorphan (Robitussin Dm Liquid Cup) 5 ml Q4H PRN PO COUGH Last administered on 09/05/18 21:53; Admin Dose 5 ML; Start 09/05/18 at 09:00 Sucralfate (Carafate) 1 gm AC MEALS AND BEDTIME PO Last administered on 09/06/18 07:49; Admin Dose 1 GM; Start 09/05/18 at 13:00 Pantoprazole (Protonix Tab) 40 mg BID@0600,1800 PO Last administered on 09/06/18 06:33; Admin Dose 40 MG; Start 09/05/18 at 18:00 Hydralazine HCl (Apresoline) 25 mg BID PO Last administered on 09/06/18 09:12; Admin Dose 25 MG; Start 09/05/18 at 21:00 AME VALDEZ M.D. Sep 06, 2018 09:25
[2018-09-06] MEDS ORDERED: POTASSIUM CHLORIDE (SR) 20 MEQ TAB PO STA (09:28)
--- NOTE | 2018-09-06 09:28 | CONS ---
Assessment/Plan Assessment/Plan Hospital Course (Demo Recall) 1. Acute renal failure superimposed on chronic kidney disease. His serum creatinine is about the same. He did have some GI bleeding yesterday.. He has decreased urine output. I will increase his IV fluids as he has a decreased oral intake for 2 days. I will check a portable chest x-ray to help assess his fluid volume. His chest x-ray done today is clear . I will continue to follow the patient along with you. 2. GI bleeding due to gastric ulcer which has been biopsied and is gastric adenocarcinoma . GI and oncologic w/u are in progress .he started chemotherapy yesterday . 3. Type 2 diabetes mellitus . He was on metformin and Trulicity preadmission. I would hold off on restarting these medications and if an oral medication is needed would consider using Tradjenta 5 mg a day. 4. Syncope due to gastrointestinal bleeding 5. HTN , BP is higher . I will start him on hydralazine . Consultation Date/Type/Reason Admit Date/Time Aug 26, 2018 at 17:28 Initial Consult Date 08/28/18 Type of Consult Nephrology Requesting Provider: IVY PICKETT Date/Time of Note DATE: 09/06/18 TIME: 09:24 24 HR Interval Summary Free Text/Dictation Patient is awake and alert. He is sitting up eating breakfast. He overall feels better. He denies cough. He has had no noticeable GI bleeding. Constitutional: no complaints, improved Exam/Review of Systems Exam Vitals Vital Signs Date Temp Pulse Resp B/P (MAP) Pulse Ox O2 O2 Flow FiO2 Time Delivery Rate 09/06/18 99.0 89 18 139/88 99 07:59 (105) 09/06/18 Room Air 02:17 Intake and Output 09/05/18 09/05/18 09/06/18 1515:00 23:00 07:00 IntakeIntake Total 240 ml 525 ml 850 ml OutputOutput Total 200 ml 150 ml BalanceBalance 240 ml 325 ml 700 ml Constitutional: alert, oriented, frail Respiratory: clear to auscultation, normal air movement Cardiovascular: regular rate and rhythm Gastrointestinal: soft, non-tender Musculoskeletal: nl extremities to inspection Results Result Diagram: 09/06/18 0424 09/06/18 0424 Results 24hrs Laboratory Tests Test 09/05/18 13:05 09/05/18 17:43 09/05/18 21:09 09/06/18 04:24 Bedside Glucose 234 H 153 159 White Blood Count 5.8 Red Blood Count 2.90 L Hemoglobin 8.5 L Hematocrit 24.8 L Mean Corpuscular 85.5 Volume Mean Corpuscular 29.3 Hemoglobin Mean Corpuscular 34.3 Hemoglobin Concent Red Cell 14.2 Distribution Width Platelet Count 333 Mean Platelet Volume 10.9 H Immature 0.300 Granulocytes % Neutrophils % 83.1 H Lymphocytes % 12.3 L Monocytes % 2.8 Eosinophils % 1.2 Basophils % 0.3 Nucleated Red Blood 0.0 Cells % Immature 0.020 Granulocytes # Neutrophils # 4.8 Lymphocytes # 0.7 L Monocytes # 0.2 L Eosinophils # 0.1 Basophils # 0.0 Nucleated Red Blood 0.0 Cells # Sodium Level 140 Potassium Level 3.5 Chloride Level 115 H Carbon Dioxide Level 21 Anion Gap 4 L Blood Urea Nitrogen 36 H Creatinine 1.93 H Est Glomerular 37 L Filtrat Rate mL/min Glucose Level 63 #L Calcium Level 7.1 L Phosphorus Level 3.0 Magnesium Level 2.0 Total Bilirubin 0.3 Direct Bilirubin 0.00 Indirect Bilirubin 0.3 Aspartate Amino 25 Transf (AST/SGOT) Alanine 27 Aminotransferase (AL T/SGPT) Alkaline Phosphatase 53 Total Protein 4.4 L Albumin 2.1 L Globulin 2.30 Albumin/Globulin 0.91 Ratio Test 09/06/18 06:35 09/06/18 09:09 Bedside Glucose 84 99 Medications Medication Current Medications Ondansetron HCl (Zofran Inj) 4 mg Q6H PRN IV NAUSEA AND/OR VOMITING Last administered on 09/01/18at 10:48; Admin Dose 4 MG; Start 08/26/18 at 18:30 Albuterol (Proventil 0.083% (Neb)) 2.5 mg Q2H RESP THERAPY PRN NEB SHORTNESS OF BREATH; Start 08/26/18 at 18:30 Acetaminophen (Tylenol Supp) 650 mg Q4H PRN HI PAIN LEVEL 1-3 OR FEVER Last administered on 09/03/18at 00:01; Admin Dose 650 MG; Start 08/26/18 at 18:30 Morphine Sulfate (morphine) 2 mg Q4H PRN IV PAIN LEVEL 7-10 Last administered on 09/01/18at 08:02; Admin Dose 2 MG; Start 08/26/18 at 18:30 Hydralazine HCl (Apresoline) 10 mg Q4H PRN IV SBP >170 Last administered on 09/03/18at 13:00; Admin Dose 10 MG; Start 08/26/18 at 19:00 Miscellaneous Information 1 ea NOTE XX ; Start 08/26/18 at 19:00 Glucose (Glutose) 15 gm Q15M PRN PO DECREASED GLUCOSE; Start 08/26/18 at 19:00 Glucose (Glutose) 22.5 gm Q15M PRN PO DECREASED GLUCOSE; Start 08/26/18 at 19:00 Dextrose (D50w Syringe) 25 ml Q15M PRN IV DECREASED GLUCOSE; Start 08/26/18 at 19:00 Dextrose (D50w Syringe) 50 ml Q15M PRN IV DECREASED GLUCOSE; Start 08/26/18 at 19:00 Glucagon (Glucagen) 1 mg Q15M PRN IM DECREASED GLUCOSE; Start 08/26/18 at 19:00 Glucose (Glutose) 15 gm Q15M PRN BUCCAL DECREASED GLUCOSE; Start 08/26/18 at 19:00 Labetalol HCl (Labetalol) 10 mg Q4H PRN IV sbp >160 Last administered on 09/03/18at 21:23; Admin Dose 10 MG; Start 08/27/18 at 10:00 Amlodipine Besylate (Norvasc) 10 mg DAILY PO Last administered on 09/06/18at 09:12; Admin Dose 10 MG; Start 08/31/18 at 11:00 Lorazepam (Ativan) 0.5 mg Q6H PRN IV ANXIETY; Start 09/01/18 at 19:00 Insulin Glargine (Lantus) 13 units DAILY@2000 SC Last administered on 09/05/18 21:13; Admin Dose 13 UNITS; Start 09/03/18 at 20:00 Simethicone (Mylicon) 80 mg Q6H PRN GTB DISTENSION/GAS/BLOATING Last administered on 09/06/18at 02:03; Admin Dose 80 MG; Start 09/03/18 at 17:00 Sodium Bicarbonate (Sodium Bicarbonate Tab) 650 mg PC BREAKFAST DINNER PO Last administered on 09/06/18at 09:11; Admin Dose 650 MG; Start 09/04/18 at 18:35 Insulin Aspart (Novolog Insulin Pen) NOVOLOG *MODERATE* ALGORITHM WITH MEALS BEDTIME SC Last administered on 09/05/18 17:46; Admin Dose 2 UNIT; Start 09/04/18 at 17:35 Potassium Chloride/Sodium Chloride 1,000 ml @ 75 mls/hr [id number] IV Last administered on 09/06/18 00:13; Admin Dose 75 MLS/HR; Start 09/05/18 at 09:00 Guaifenesin/ Dextromethorphan (Robitussin Dm Liquid Cup) 5 ml Q4H PRN PO COUGH Last administered on 09/05/18 21:53; Admin Dose 5 ML; Start 09/05/18 at 09:00 Sucralfate (Carafate) 1 gm AC MEALS AND BEDTIME PO Last administered on 09/06/18 07:49; Admin Dose 1 GM; Start 09/05/18 at 13:00 Pantoprazole (Protonix Tab) 40 mg BID@0600,1800 PO Last administered on 09/06/18 06:33; Admin Dose 40 MG; Start 09/05/18 at 18:00 Hydralazine HCl (Apresoline) 25 mg BID PO Last administered on 09/06/18 09:12; Admin Dose 25 MG; Start 09/05/18 at 21:00 RUCHI VELIZ MD Sep 06, 2018 09:28
--- NOTE | 2018-09-06 13:23 | PN ---
Date/Time of Note Date/Time of Note DATE: 09/06/18 TIME: 13:11 Assessment/Plan VTE Prophylaxis Risk score (from Ns)>0 risk: 7 SCD applied (from Ns): No SCD contraindicated: other (scds) Pharmacological prophylaxis: other (scds) Lines/Catheters IV [facility]from [facility] [place] [facility] Urinary Cath still in place: No Assessment/Plan Hospital Course Assessment: Coffee-ground emesis EGD 08/27/18 Large 5 cm ulceration with nodular boarders highly suspect for malignancy. Central exposed visible vessel with no evidence of recent bleeding left untreated. Otherwise normal EGD S/p EGD 09/01/18: -Active oozing multiple sites ulcer bed. -Limited visualization. -No endoscopically treatable lesion identified S/p IR embolization of gastric artery 09/01 Gastric adenocarcinoma, poorly-differentiated, favor Severe anemia 2/2 to above Abdominal adenopathy noted -Differential diagnosis includes inflammation and neoplasm. Small right pleural effusion Elevated lipase- Likely 2/2 to dehydration HTN ALEJANDRO on CKD Small amount of ascites DM Plan: PPI to twice daily/Carafate 1gm Po QID F/u oncology recommendations Supportive care GI will sign off but will be available upon reconsult as needed Patient seen in collaboration with Dr Sims Subjective: Course reviewed with nursing staff Patient interviewed and examined All labs, imaging and other results reviewed No over night events Pt with some dark stool. Hgb stable No plan for repeat endoscopy. No c/o abd pain nausea or vomiting PHYSICAL EXAMINATION: GENERAL: Alert & oriented x 3 SKIN: Port-a-cath HEAD: Normocephalic, atraumatic, no tenderness. EYES: Pupils equal reactive to light, no discharge. EARS/NOSE AND THROAT: Ears normal, nose normal. NECK: Supple, no masses. CHEST: Inspection within normal limits. CARDIOVASCULAR: Heart: Regular rate and rhythm, no murmurs RESPIRATORY: Lungs clear to auscultation. GASTROINTESTINAL AND LIVER: Abdomen: Soft, non tenderness, non-distended, no hernias, no masses, no organomegaly, no ascites, no guarding, no rebound tenderness, normoactive bowel sounds. Rectal: Deferred. Result Diagram: 09/06/18 0424 09/06/18 0424 Results 24hrs Laboratory Tests Test 09/05/18 17:43 09/05/18 21:09 09/06/18 04:24 09/06/18 06:35 Bedside Glucose 153 159 84 White Blood Count 5.8 Red Blood Count 2.90 L Hemoglobin 8.5 L Hematocrit 24.8 L Mean Corpuscular 85.5 Volume Mean Corpuscular 29.3 Hemoglobin Mean Corpuscular 34.3 Hemoglobin Concent Red Cell 14.2 Distribution Width Platelet Count 333 Mean Platelet Volume 10.9 H Immature 0.300 Granulocytes % Neutrophils % 83.1 H Lymphocytes % 12.3 L Monocytes % 2.8 Eosinophils % 1.2 Basophils % 0.3 Nucleated Red Blood 0.0 Cells % Immature 0.020 Granulocytes # Neutrophils # 4.8 Lymphocytes # 0.7 L Monocytes # 0.2 L Eosinophils # 0.1 Basophils # 0.0 Nucleated Red Blood 0.0 Cells # Sodium Level 140 Potassium Level 3.5 Chloride Level 115 H Carbon Dioxide Level 21 Anion Gap 4 L Blood Urea Nitrogen 36 H Creatinine 1.93 H Est Glomerular 37 L Filtrat Rate mL/min Glucose Level 63 #L Calcium Level 7.1 L Phosphorus Level 3.0 Magnesium Level 2.0 Total Bilirubin 0.3 Direct Bilirubin 0.00 Indirect Bilirubin 0.3 Aspartate Amino 25 Transf (AST/SGOT) Alanine 27 Aminotransferase (AL T/SGPT) Alkaline Phosphatase 53 Total Protein 4.4 L Albumin 2.1 L Globulin 2.30 Albumin/Globulin 0.91 Ratio Test 09/06/18 09:09 Bedside Glucose 99 Exam/Review of Systems Exam Vitals Vital Signs Date Temp Pulse Resp B/P (MAP) Pulse Ox O2 O2 Flow FiO2 Time Delivery Rate 09/06/18 99.0 89 18 139/88 99 07:59 (105) 09/06/18 Room Air 02:17 Intake and Output 09/05/18 09/05/18 09/06/18 1515:00 23:00 07:00 IntakeIntake Total 240 ml 525 ml 850 ml OutputOutput Total 200 ml 150 ml BalanceBalance 240 ml 325 ml 700 ml Results Results 24hrs Laboratory Tests Test 09/05/18 17:43 09/05/18 21:09 09/06/18 04:24 09/06/18 06:35 Bedside Glucose 153 159 84 White Blood Count 5.8 Red Blood Count 2.90 L Hemoglobin 8.5 L Hematocrit 24.8 L Mean Corpuscular 85.5 Volume Mean Corpuscular 29.3 Hemoglobin Mean Corpuscular 34.3 Hemoglobin Concent Red Cell 14.2 Distribution Width Platelet Count 333 Mean Platelet Volume 10.9 H Immature 0.300 Granulocytes % Neutrophils % 83.1 H Lymphocytes % 12.3 L Monocytes % 2.8 Eosinophils % 1.2 Basophils % 0.3 Nucleated Red Blood 0.0 Cells % Immature 0.020 Granulocytes # Neutrophils # 4.8 Lymphocytes # 0.7 L Monocytes # 0.2 L Eosinophils # 0.1 Basophils # 0.0 Nucleated Red Blood 0.0 Cells # Sodium Level 140 Potassium Level 3.5 Chloride Level 115 H Carbon Dioxide Level 21 Anion Gap 4 L Blood Urea Nitrogen 36 H Creatinine 1.93 H Est Glomerular 37 L Filtrat Rate mL/min Glucose Level 63 #L Calcium Level 7.1 L Phosphorus Level 3.0 Magnesium Level 2.0 Total Bilirubin 0.3 Direct Bilirubin 0.00 Indirect Bilirubin 0.3 Aspartate Amino 25 Transf (AST/SGOT) Alanine 27 Aminotransferase (AL T/SGPT) Alkaline Phosphatase 53 Total Protein 4.4 L Albumin 2.1 L Globulin 2.30 Albumin/Globulin 0.91 Ratio Test 09/06/18 09:09 Bedside Glucose 99 Medications Medication Current Medications Ondansetron HCl (Zofran Inj) 4 mg Q6H PRN IV NAUSEA AND/OR VOMITING Last administered on 09/01/18at 10:48; Admin Dose 4 MG; Start 08/26/18 at 18:30 Albuterol (Proventil 0.083% (Neb)) 2.5 mg Q2H RESP THERAPY PRN NEB SHORTNESS OF BREATH; Start 08/26/18 at 18:30 Acetaminophen (Tylenol Supp) 650 mg Q4H PRN RI PAIN LEVEL 1-3 OR FEVER Last administered on 09/03/18at 00:01; Admin Dose 650 MG; Start 08/26/18 at 18:30 Morphine Sulfate (morphine) 2 mg Q4H PRN IV PAIN LEVEL 7-10 Last administered on 09/01/18at 08:02; Admin Dose 2 MG; Start 08/26/18 at 18:30 Hydralazine HCl (Apresoline) 10 mg Q4H PRN IV SBP >170 Last administered on 09/03/18at 13:00; Admin Dose 10 MG; Start 08/26/18 at 19:00 Miscellaneous Information 1 ea NOTE XX ; Start 08/26/18 at 19:00 Glucose (Glutose) 15 gm Q15M PRN PO DECREASED GLUCOSE; Start 08/26/18 at 19:00 Glucose (Glutose) 22.5 gm Q15M PRN PO DECREASED GLUCOSE; Start 08/26/18 at 19:00 Dextrose (D50w Syringe) 25 ml Q15M PRN IV DECREASED GLUCOSE; Start 08/26/18 at 19:00 Dextrose (D50w Syringe) 50 ml Q15M PRN IV DECREASED GLUCOSE; Start 08/26/18 at 19:00 Glucagon (Glucagen) 1 mg Q15M PRN IM DECREASED GLUCOSE; Start 08/26/18 at 19:00 Glucose (Glutose) 15 gm Q15M PRN BUCCAL DECREASED GLUCOSE; Start 08/26/18 at 19:00 Labetalol HCl (Labetalol) 10 mg Q4H PRN IV sbp >160 Last administered on 09/03/18at 21:23; Admin Dose 10 MG; Start 08/27/18 at 10:00 Amlodipine Besylate (Norvasc) 10 mg DAILY PO Last administered on 09/06/18 09:12; Admin Dose 10 MG; Start 08/31/18 at 11:00 Lorazepam (Ativan) 0.5 mg Q6H PRN IV ANXIETY; Start 09/01/18 at 19:00 Insulin Glargine (Lantus) 13 units DAILY@2000 SC Last administered on 09/05/18 21:13; Admin Dose 13 UNITS; Start 09/03/18 at 20:00 Simethicone (Mylicon) 80 mg Q6H PRN GTB DISTENSION/GAS/BLOATING Last administered on 09/06/18at 02:03; Admin Dose 80 MG; Start 09/03/18 at 17:00 Sodium Bicarbonate (Sodium Bicarbonate Tab) 650 mg PC BREAKFAST DINNER PO Last administered on 09/06/18 09:11; Admin Dose 650 MG; Start 09/04/18 at 18:35 Insulin Aspart (Novolog Insulin Pen) NOVOLOG *MODERATE* ALGORITHM WITH MEALS BEDTIME SC Last administered on 09/05/18 17:46; Admin Dose 2 UNIT; Start 09/04/18 at 17:35 Guaifenesin/ Dextromethorphan (Robitussin Dm Liquid Cup) 5 ml Q4H PRN PO COUGH Last administered on 09/05/18 21:53; Admin Dose 5 ML; Start 09/05/18 at 09:00 Sucralfate (Carafate) 1 gm AC MEALS AND BEDTIME PO Last administered on 09/06/18 11:26; Admin Dose 1 GM; Start 09/05/18 at 13:00 Pantoprazole (Protonix Tab) 40 mg BID@0600,1800 PO Last administered on 09/06/18 06:33; Admin Dose 40 MG; Start 09/05/18 at 18:00 Hydralazine HCl (Apresoline) 25 mg BID PO Last administered on 09/06/18 09:12; Admin Dose 25 MG; Start 09/05/18 at 21:00 ASHTYN CHAVEZ Sep 06, 2018 13:22
[2018-09-06] MEDS ORDERED: HYDR-3671 PO (14:34)
[2018-09-06] MEDS ORDERED: SUCR1TAB35 PO (14:34)
[2018-09-06] MEDS ORDERED: PANT40TA4 PO (14:34)
--- NOTE | 2018-09-06 14:36 | PDOCDIS ---
Discharge Instructions DIAGNOSIS Discharge Diagnosis Gastric cancer Bleeding gastric ulcer CONDITION [id number] Patient Condition: [id number] Fair HOME CARE INSTRUCTIONS: [id number] Diet Instructions: [id number] Regular ACTIVITY: [id number] Activity Restrictions: [id number] No Restrictions FOLLOW UP/APPOINTMENTS Follow-up Plan 1. Continue to take all medications as prescribed. 2. See Dr. Garcia in clinic as scheduled. 3. If you develop new, large volume blood in your stool return to the emergency room. KANDY MIRELES MD Sep 06, 2018 14:36
[2018-09-06 14:41] VITALS: BP 136/82; PULSE 78; RESP 18
[2018-09-06] MEDS ORDERED: HEPARIN (100 UNITS/ML) 5 ML SYG CATHETER ONE (15:00)
--- NOTE | 2018-09-06 18:01 | DS ---
Date/Time of Note Date/Time of Note DATE: 09/06/18 TIME: 17:54 Discharge Summary Admission/Discharge Info Admit Date/Time Aug 26, 2018 at 17:28 Discharge Date/Time Sep 06, 2018 at 17:05 Discharge Diagnosis Gastric cancer Bleeding gastric ulcer Patient Condition: Fair Consults Dr. Garcia, oncology Dr. Sims, gastroenterology Dr. Otoole, general surgery Procedures 09/01/18: IR embolization of gastric artery 09/01/18: EGD 08/30/18: port a cath placement 08/27/18: EGD Hx of Present Illness 48 yo M with PMH Diabetes mellitus, HTN, CKD stage 3 and hyperlipidemia presented to ED following near syncopal episode today. Patient had a witnessed syncopal episode yesterday and was discharged from the ED after negative workup. Patient has been complaining of generalized weakness and "no strength" in his body. Patient had an episode of coffee ground emesis in the ED of about 200cc and was found with hgb 3.9, Patient states over the past 2 weeks since starting Trulicity. He has been complaining of abdominal discomfort with bloating and gas. Denies any episode of emesis prior to today's ED visit. Patient denies any chest pain, shortness of breath, nausea, vomiting, dizziness, or urinary issues. NG tube was placed in the ED but patient requested removal due to discomfort. He was rapidly transfused 1 PRBC in the ED prior to transfer to ICU. Hospital Course After transfer to ICU, the patient was taken by Dr. Sims for EGD. Found to have a bleeding gastric ulcer. Biopsy was positive for gastric adenocarcinoma. Port was placed for chemotherapy. On 09/01 the patient had a severe upper GI bleed which was not able to be controlled endoscopically. He was taken by IR for a gas tric artery embolization with good response. While in house he finished his first cycle of FLOT. I signed him up for 6 months of disability (until 02/2019) also. Plan for discharge with protonix and carafate to continue outpatient oncology followup. Home Meds Active Scripts Sucralfate (Carafate) 1 Gm Tablet, 1 GM PO AC MEALS AND BEDTIME, #60 TAB 1 Refill Prov:KANDY MIRELES MD 09/06/18 Pantoprazole* (Pantoprazole*) 40 Mg Tablet., 40 MG PO BID@0600,1800, #60 TAB 1 Refill Prov:KANDY MIRELES MD 09/06/18 Hydralazine Hcl* (Hydralazine Hcl*) 25 Mg Tab, 25 MG PO BID, #60 TAB Prov:KANDY MIRELES MD 09/06/18 Reported Medications Dulaglutide (Trulicity) 0.75 Mg/0.5 Ml Pen.injctr, 0.75 MG SQ Q FRI PATIENT HASE A ADVERS REACTION WHEN HE INJECT THIS MEDICATION. 08/26/18 Furosemide* (Furosemide*) 40 Mg Tablet, 40 MG PO DAILY, TAB 08/26/18 Cholecalciferol (Vitamin D3) (Vitamin D-3) 2,000 Unit Tablet, 2000 UNIT PO DAILY, TAB 08/26/18 Atorvastatin Calcium* (Atorvastatin Calcium*) 20 Mg Tablet, 20 MG PO QHS, #30 TAB 08/26/18 Multivit/Ca Carb/B Cmplx/Fa* (Shanta-Ivette*) 1 Tab Tab, 1 TAB PO DAILY, TAB 08/25/18 Amlodipine Besylate* (Amlodipine Besylate*) 10 Mg Tablet, 10 MG PO QAM, #30 TAB 08/25/18 Glimepiride* (Glimepiride*) 2 Mg Tablet, 2 MG PO WITH BREAKFAST DINNE, TAB 08/25/18 Metformin Hcl* (Metformin Hcl*) 850 Mg Tablet, 850 MG PO WITH BREAKFAST DINNE, #30 TAB 08/25/18 Follow-up Plan 1. Continue to take all medications as prescribed. 2. See Dr. Garcia in clinic as scheduled. 3. If you develop new, large volume blood in your stool return to the emergency room. Primary Care Provider Fox Ly Time spent on discharge: > 30 minutes Pending Labs Laboratory Tests Test 09/05/18 21:09 09/06/18 04:24 09/06/18 06:35 09/06/18 09:09 Bedside 159 84 99 Glucose mg/dL (70-220) mg/dL (70-220) mg/dL (70-220) White Blood 5.8 Count 10^3/ul (4.8-1 0.8) Red Blood 2.90 Count 10^6/ul (4.70- 6.10) Hemoglobin 8.5 g/dl (14.0-18. 0) Hematocrit 24.8 % (42.0-52.0) Mean 85.5 Corpuscular fl (82.0-101.0 Volume ) Mean 29.3 Corpuscular pg (29.0-33.0) Hemoglobin Mean 34.3 Corpuscular g/dl (32.0-37. Hemoglobin Conc 0) ent Red Cell 14.2 Distribution % (11.5-14.5) Width Platelet Count 333 10^3/UL (140-4 15) Mean Platelet 10.9 Volume fl (7.4-10.4) Immature 0.300 Granulocytes % % (0.001-0.429 ) Neutrophils % 83.1 % (39.0-77.0) Lymphocytes % 12.3 % (15.0-51.0) Monocytes % 2.8 % (0.0-11.0) Eosinophils % 1.2 % (0.0-7.0) Basophils % 0.3 % (0.0-2.0) Nucleated Red 0.0 Blood Cells % /100WBC (0.0-0 .0) Immature 0.020 Granulocytes # 10^3/ul (0.0-0 .031) Neutrophils # 4.8 10^3/ul (1.6-7 .5) Lymphocytes # 0.7 10^3/ul (0.8-2 .9) Monocytes # 0.2 10^3/ul (0.3-0 .9) Eosinophils # 0.1 10^3/ul (0.0-0 .5) Basophils # 0.0 10^3/ul (0.0-0 .1) Nucleated Red 0.0 Blood Cells # 10^3/ul (0.0-0 .0) Sodium Level 140 mmol/L (135-14 4) Potassium 3.5 Level mmol/L (3.5-5. 1) Chloride Level 115 mmol/L (97-110 ) Carbon Dioxide 21 Level mmol/L (21-31) Anion Gap 4 (5-13) Blood Urea 36 Nitrogen mg/dl (7-20) Creatinine 1.93 mg/dl (0.61-1. 24) Est Glomerular 37 Filtrat mL/min (>60) Rate mL/min Glucose Level 63 mg/dl (70-220) Calcium Level 7.1 mg/dl (8.4-10. 2) Phosphorus 3.0 Level mg/dl (2.5-4.9 ) Magnesium 2.0 Level mg/dl (1.7-2.5 ) Total 0.3 Bilirubin mg/dl (0.2-1.3 ) Direct 0.00 Bilirubin mg/dl (0.00-0. 20) Indirect 0.3 Bilirubin mg/dl (0-1.1) Aspartate Amino 25 Transf (AST/SGO IU/L (15-46) T) Alanine 27 Aminotransferas IU/L (13-69) e (ALT/SGPT) Alkaline 53 Phosphatase IU/L (42-121) Total Protein 4.4 g/dl (6.1-8.1) Albumin 2.1 g/dl (3.3-4.9) Globulin 2.30 g/dl (1.3-3.2) Albumin/Globuli 0.91 n Ratio Test 09/06/18 13:12 Bedside 170 Glucose mg/dL (70-220) KANDY MIRELES MD Sep 06, 2018 18:01
== END 2018-09-06 17:05 | disposition home or self-care (01) | DRG 981 ==
LOC: E/R 14:46 → ICU 17:28 → MS1 08-31 13:39 → ICU 09-01 11:00 → MS1 09-04 15:02
PROVIDERS: ADMIT Internal Medicine; ATTEND Internal Medicine
PROC: 30233N1 Transfusion of Nonautologous Red Blood Cells into Peripheral Vein, Percutaneous Approach (ICD-10-PCS; 2018-08-26)
PROC: 0DD68ZX Extraction of Stomach, Via Natural or Artificial Opening Endoscopic, Diagnostic (ICD-10-PCS; principal; 2018-08-27 17:30)
PROC: 0JH60WZ Insertion of Totally Implantable Vascular Access Device into Chest Subcutaneous Tissue and Fascia, Open Approach (ICD-10-PCS; 2018-08-30)
PROC: 02H633Z Insertion of Infusion Device into Right Atrium, Percutaneous Approach (ICD-10-PCS; 2018-08-30)
PROC: 04V23DZ Restriction of Gastric Artery with Intraluminal Device, Percutaneous Approach (ICD-10-PCS; 2018-09-01)
PROC: 0W3P8ZZ Control Bleeding in Gastrointestinal Tract, Via Natural or Artificial Opening Endoscopic (ICD-10-PCS; 2018-09-01)
PROC: 30233L1 Transfusion of Nonautologous Fresh Plasma into Peripheral Vein, Percutaneous Approach (ICD-10-PCS; 2018-09-01)
PROC: 30233K1 Transfusion of Nonautologous Frozen Plasma into Peripheral Vein, Percutaneous Approach (ICD-10-PCS; 2018-09-01)
DX: C16.9 Malignant neoplasm of stomach, unspecified (principal); K25.0 Acute gastric ulcer with hemorrhage; N17.9 Acute kidney failure, unspecified; K92.0 Hematemesis; N18.2 Chronic kidney disease, stage 2 (mild); D50.0 Iron deficiency anemia secondary to blood loss (chronic); E78.5 Hyperlipidemia, unspecified; R55 Syncope and collapse; I12.9 Hypertensive chronic kidney disease with stage 1 through stage 4 chronic kidney disease, or unspecified chronic kidney disease; E11.22 Type 2 diabetes mellitus with diabetic chronic kidney disease; N18.9 Chronic kidney disease, unspecified; Z79.4 Long term (current) use of insulin
CPT/HCPCS: 36415; 36430; 71045; 71250; 74176; 74181; 76775; 80048; 80053; 80069; 80307; 81001; 81003; 82378; 82550; 82553; 82570; 82728; 82962; 83036; 83540; 83615; 83690; 83735; 83880; 84100; 84439; 84443; 84466; 84484; 85014; 85018; 85025; 85045; 85049; 85378; 85610; 85670; 85730; 86644; 86850; 86900; 86901; 86920; 87081; 88305; 88312; 88313; 93005; 93306; 93971; J9190; C1788; C9113; J0360; J1100; J1642; J1644; J1815; J1940; J2060; J2250; J2270; J2354; J2405; J2916; J3010; J3480; J7030; J7040; J7042; J7050; J7060; J7070; P9016; P9059